=== PATIENT | male | born 1940 | race Caucasian/White ===

== ENCOUNTER 2020-01-24 00:22 | Day surgery (SDC) | payer MEDICARE, SELFPAY ==
[2020-01-23 11:14] VITALS: BMI 28.0
[2020-01-23 12:30] VITALS: BP 122/86; PULSE 57; RESP 15; TEMP 36.8; O2SAT 96
[2020-01-24] VITALS (7 sets, daily range): BP systolic 109–131; BP diastolic 65–84; PULSE 62–82; RESP 14–18; TEMP 36.9; O2SAT 95–100
--- NOTE | 2020-01-24 08:35 | SUR.PREOP ---
ARRIVES TO [facility] 6 VIA WC W/ FAMILY AT BEDSIDE FOR SCHEDULED PACEMAKER GENERATOR CHANGE W/ DR. SWANN. A&OX4, DENIES PAIN OR SOB ON ARRIVAL. ORIENTED TO ROOM, PLAN OF CARE, PROCEDURE. QUESTIONS ANSWERED. VS OBTAINED, IV STARTED, LABS SENT, CHEST PREP COMPLETED, CONSENT SIGNED. MONITOR PACED. AND DAUGHTERS AT BEDSIDE. WILL MONITOR.
[2020-01-24 09:36] LABS: Basophils Percent Auto 0.5 % (0.2-1.2); Eosinophils Absolute Auto 0.2 K/mm3 (0-0.3); Eosinophils Percent Auto 3.2 % (0-4.4); Hematocrit 42.7 % (42.0-52.0); Hemoglobin 14.4 g/dL (14.0-18.0); Immature Granulocyte Absolute 0.04 K/mm3 (0.00-0.031); Immature Granulocyte Percent A 0.5 % (0-0.5); Lymphocytes Absolute Auto 1.73 K/mm3 (0.9-3.2); Lymphocytes Percent Auto 23.1 % (18.3-44.2); Mean Corpuscular HGB Conc 33.7 g/dl (32-36); Mean Corpuscular Hemoglobin 31.9 pg (26-34); Mean Corpuscular Volume 94.7 fl (80-100); Mean Platelet Volume 11.1 fl (7.4-10.4); Monocytes Absolute Auto 0.7 K/mm3 (0.1-0.6); Monocytes Percent Auto 9.9 % (2.6-8.5); Neutrophils Absolute Auto 4.7 K/mm3 (1.3-6.7); Neutrophils Percent Auto 62.8 % (45.5-73.1); Platelet Count Result 182 k/mm3 (150-375); Red Blood Count 4.51 M/mm3 (4.6-6.20); Red Cell Distribution Width 13.6 % (11.5-14.5); White Blood Count 7.5 K/mm3 (4.5-10.0)
--- NOTE | 2020-01-24 09:50 | SUR.PREOP ---
KALIN FROM [facility] HERE TO EVALUATE CURRENT PPM GENERATOR.
[2020-01-24 09:57] LABS: Blood Urea Nitrogen 17 mg/dL (9-20); Calcium 9.6 mg/dL (8.4-10.2); Carbon Dioxide 25 mmol/L (22-30); Chloride 103 mmol/L (98-107); Estimated CRCL calculation 70 ml/min; Estimated Glomerular Filt Rate > 60; Glucose 103 mg/dL (75-110); Potassium 4.3 mmol/L (3.4-5.0); Sodium 136 mmol/L (137-145)
--- NOTE | 2020-01-24 10:13 | WPDHPUPDATE1 ---
History and Physical Update Update Date/Time: 01/24/20 10:13 History and Physical has been reviewed, including an updated exam of the patient. Patient has a [employer] pacemaker [place] [address] kent for intermittent complete heart block. It is reached ADRIANO. He is here for generator change. He is feeling well today, no fevers and has been NPO. There are NO changes in the patient's condition. Risks, benefits, and alternatives have been discussed and questions answered. Patient agrees to proceed with procedure.
--- NOTE | 2020-01-24 10:15 | WPDMODSED ---
Moderate Sedation Note-Pt Data Patient Data Diagnosis: Dual-chamber pacemaker at ADRIANO History of mild aortic stenosis Present Complaint: Pacemaker at ADRIANO Procedure to be performed/Plan: Conscious sedation generator change Allergies Allergy/AdvReac Type Severity Reaction Status Date / Time No Known Allergies Allergy Mild Verified 12/10/19 09:01 Home Medications Medication Instructions Recorded Confirmed Type tramadol 50 mg tablet 50 mg PO Q8H PRN #30 tablet 11/09/19 01/23/20 Rx omeprazole 40 mg capsule,delayed 40 mg PO DAILY #90 cap 11/21/19 01/23/20 Rx release sertraline 50 mg tablet 50 mg PO DAILY #90 tablet 12/10/19 01/23/20 Rx icosapent ethyl 1 gram capsule 2 gm PO BID #360 cap 12/12/19 01/23/20 Rx metformin 500 mg tablet 500 mg PO BID #180 tablet 12/18/19 01/23/20 Rx aspirin 81 mg tablet,delayed 81 mg PO DAILY 01/18/20 01/23/20 History release rosuvastatin 10 mg tablet 10 mg PO DAILY 01/18/20 01/23/20 History tamsulosin 0.4 mg capsule 0.4 mg PO DAILY 01/18/20 01/23/20 History gabapentin 300 mg PO TID 01/23/20 01/23/20 History glucosamine-chondroitin 30 ml PO DAILY 01/23/20 01/23/20 History multivit with rxm-OP-pbktevkz 1 tablet PO DAILY 01/23/20 01/23/20 History [Men's Daily Multivit-Mineral] omega-3 fatty acids-fish oil 1 cap PO DAILY 01/23/20 01/23/20 History verapamil 360 mg PO DAILY 01/23/20 01/23/20 History Sedation/Anesthesia: No previous sedation/anesthesia problems (including family history). 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 Smoking status: Smoker, status unknown Second hand tobacco smoke exposure: No Smoking end date: 11/14/01 Alcohol intake: never Mod Sed Physical Exam Physical Exam Pre Procedural Exam: Normal: Appearance, Eyes, Ears, Nose, Neck, Throat (Dentures), Airway, Lungs, Heart Size, Heart Rate, Heart Rhythm, Neuro Exam, Abdomen, Liver, Extremities and Skin (Pacemaker site is well healed) and Variation: Throat (Dentures) Hours since solid foods: 12 Hours since liquid intake: 12 Internal Medicine - PN: Obj Da Labs CBC & Chem 7: 01/24/20 09:09 01/24/20 09:09 Labs: Laboratory Results - last 24 hr 01/24/20 01/24/20 09:09 09:09 WBC 7.5 RBC 4.51 L Hgb 14.4 Hct 42.7 MCV 94.7 MCH 31.9 MCHC 33.7 RDW 13.6 Plt Count 182 MPV 11.1 H Immature Gran % (Auto) 0.5 Neut % (Auto) 62.8 Lymph % (Auto) 23.1 Pope % (Auto) 9.9 H Eos % (Auto) 3.2 Baso % (Auto) 0.5 Lymph # (Auto) 1.73 Pope # (Auto) 0.7 H Eos # (Auto) 0.2 Baso # (Auto) 0.0 Abs Immat Gran (auto) 0.04 H Absolute Neuts (auto) 4.7 Absolute Nucleated RBC 0.0 Nucleated RBC % 0.0 Sodium 136 L Potassium 4.3 Chloride 103 Carbon Dioxide 25 BUN 17 Creatinine 0.80 Estim Creat Clear Calc 70 Estimated GFR > 60 Glucose 103 Calcium 9.6 ASA Classification/Sedation ASA Classification/Sedation ASA Class: III Risks: Risks, benefits and alternatives explained and patient/family accepted plan for sedation. Reviewed the risk of breathing problems, infection, aller
--- NOTE | 2020-01-24 10:50 | SUR.PREOP ---
DR. SWANN HERE TO BEDSIDE TO SEE PT PRE PROCEDURE.
--- NOTE | 2020-01-24 12:20 | P.OP_ITS ---
Procedure Note - Detailed Date of procedure: 01/24/20 Pre-op diagnosis: ADRIANO Pacemaker at ADRIANO Post-op diagnosis: same ( Insulation break of the right atrial lead noted and repaired.) Procedure performed: Conscious sedation Generator change Description of procedure: PROCEDURE: Concious sedation Generator change UNDERLYING RHYTHM: NSR CONSCIOUS SEDATION: Assessment: The patient has no history of anesthesia problems. The oropharynx is clear. The patient was deemed to be a good candidate for conscious sedation. The patient had continuous hemodynamic and oximetric monitoring during the procedure. Start time: 3 Completion time: 12 15 Total conscious sedation time: 42 Medications: Versed 2 mg, fentanyl 25 mcg IV push Trained observer: marissa Weber RN Outcome: The patient tolerated the procedure well with no complications. PROCEDURE: After informed consent, the patient is brought to the home performance laborer and the left prepectoral area was prepped and draped in usual fashion. The patient was given a prophylactic antibiotic intravenously. After conscious sedation as described above, the area was anesthetized with 1% lidocaine. A skin incision is made with the Plasma Blade and carried down to the pacing capsule which was also incised. Hemostasis is obtained using the Plasma Blade. The lead/s was/were freed from the underlying capsule and the pulse generator was delivered from the pocket. The lead/s was/were disconnected from the existing device and inspected. There was insulation break on the atrial lead about 1.5-2 cm from the electrodes. Adhesive was applied, as well as a sleeve sutured around the lead with 2 0 silk suture. The lead was checked several times and it seemed to be of functioning appropriately with normal impedance. The leads were reconnected to the new device. A gentle tug could not remove it/them. The device and lead/s was/were interrogated and found to be functioning appropriately. The area was copiously irrigated with antibiotic-containing solution. The device was replaced in the pocket. The subcutaneous tissues were closed in a two-layer fashion with interrupted 2 0 Vicryl sutures and the skin was closed in a continuous fashion using 4 0 Vicryl. The area was cleansed, an Aquacel dressing applied. The patient tolerated the procedure well with no complications. Estimated blood loss was negligible. DEVICE INFORMATION: new pulse generator: [employer] model numberPM T2-7 2, serial number [id number] Existing right atrial lead: [employer] model number 199/5 2, Serial number [id number] Existing right ventricular lead: [employer] model 2088TC/ 58,Serial number [id number] Explanted pulse generator: [employer], model number PM 2210, serial number [id number] THRESHOLD INFORMATION: Right atrial lead: P-wave sensing 3.3 mV, impedance 418 Ohms, threshold 0.7 volts, 0.4 milliseconds ( PSA measurement) Right atrial lead: P-wave sensing 2.7 mV, impedance 430 Ohms, threshold 0.75 volts at 0.4 milliseconds (device measurement) Right ventricular lead: Right R-wave sensing 6.0 mV, impedance 350 Ohms, threshold 1.25 volts at 0.4 millisecond (device measured ) PROGRAMMED PARAMETERS: DDDR 60-110 Implants: [employer] dual-chamber pacemaker, pulse generator is model number [id number] Anesthesia: local ( conscious sedation) Surgeon: Codie Correa MD Estimated blood loss (mL): 10 Drains: No Packing: No Pathology: none sent Complications: No immediate complications Condition: stable Disposition: same day Findings: Break in right atrial lead insulation as described above , repaired.
--- NOTE | 2020-01-24 12:27 | SUR.PHASEII ---
BEGIN PHASE II RECOVERY. RETURNS TO [facility] 6 S/P PM GENERATOR CHANGE OUT L. UPPER CHEST BY DR. SWANN. FULLY AWAKE AND ALERT UPON RETURN. DENIES PAIN OR SOB. SITTING UP IN BED. L. UPPER CHEST W/ C/D/I AQUACELL TO SITE. NO DRAINAGE OR SHADOW NOTED. OVER TOP OF AQUACELL DRESSING IS GUAZE AND ELASTOPLAST C/D/I PRESSURE DRESSING. L. HAND WITH WNL SENSATION, COLOR AND WARMTH. L. RADIAL PULSE STRONG. CAP REFILL WNL. FAMILY AT BEDSIDE. REVIEWED L. ARM MOVEMENT RESTRICTIONS. VOICED UNDERSTANDING. WILL MONITOR.
--- NOTE | 2020-01-24 12:36 | ECG_ITS ---
Measurements Intervals [place] Rate: 69 P: 51 NH: 143 QRS: 47 QRSD: 146 T: 6 QT: 411 QTc: 440 Interpretive Statements ELECTRONIC ATRIAL PACEMAKER WITH INHIBITION ATRIAL AND VENTRICULAR PREMATURE COMPLEXES RIGHT BUNDLE BRANCH BLOCK ST-T WAVE ABNORMALITY IN ANTEROLATERAL LEADS- CONSIDER ISCHEMIA BASELINE ARTIFACT- I, III ABNORMAL ECG Electronically Signed On 01-24-2020 16:10:06 CDT by Emmanuel Holguin D.O.
--- NOTE | 2020-01-24 15:40 | SUR.PHASEII ---
HAS EATEN LUNCH AND BEEN UP TO VOID. POST PROCEDURE EKG COMPLETED. L. UPPER CHEST DRESSING UNCHANGED, REMAINS C/D/I. L. RADIAL PULSE REMAINS STRONG. L. HAND SENSATION, MOVEMENT WNL. DRESSING FOR DISCHARGE HOME. REVIEWED ALL DISCHARGE INSTRUCTIONS AND FOLLOW UP CARE W/ PT. AND FAMILY. ALL QUESTIONS ANSWERED. VOICED UNDERSTANDING.
--- NOTE | 2020-01-24 15:45 | SUR.PHASEII ---
DISCHARGED HOME, OUT VIA WC WITH ALL PERSONAL BELONGINGS AND DISCHARGE PACKET TO FAMILY CAR. VOICES NO C/O. NO DISTRESS NOTED.
== END 2020-01-24 15:45 | disposition home or self-care (01) ==
PROVIDERS: PCP Internal Medicine; Visit Provider Internal Medicine Cardiovascular Disease
PROC: 0JPT0PZ Removal of Cardiac Rhythm Related Device from Trunk Subcutaneous Tissue and Fascia, Open Approach (ICD-10-PCS; CPT 33228; principal; 2020-01-24 10:00)
DX: Z45.010 Encounter for checking and testing of cardiac pacemaker pulse generator [battery] (principal); T82.110A Breakdown (mechanical) of cardiac electrode, initial encounter; Y83.1 Surgical operation with implant of artificial internal device as the cause of abnormal reaction of the patient, or of later complication, without mention of misadventure at the time of the procedure; I10 Essential (primary) hypertension; I35.0 Nonrheumatic aortic (valve) stenosis; E78.1 Pure hyperglyceridemia; I27.20 Pulmonary hypertension, unspecified; E11.9 Type 2 diabetes mellitus without complications; N40.0 Benign prostatic hyperplasia without lower urinary tract symptoms; Z79.82 Long term (current) use of aspirin; Z79.84 Long term (current) use of oral hypoglycemic drugs; Z87.891 Personal history of nicotine dependence
CPT/HCPCS: 33208; 33228; 36415; 80048; 85025; C1785; J0690; J2250; J3010; J7040

== ENCOUNTER 2020-04-04 10:59 | Outpatient (CLI) | payer MEDICARE, SELFPAY ==
[2020-04-04 11:44] LABS: Basophils Percent Auto 0.5 % (0.2-1.2); Eosinophils Absolute Auto 0.3 K/mm3 (0-0.3); Eosinophils Percent Auto 3.4 % (0-4.4); Hematocrit 42.7 % (42.0-52.0); Hemoglobin 14.6 g/dL (14.0-18.0); Immature Granulocyte Absolute 0.02 K/mm3 (0.00-0.031); Immature Granulocyte Percent A 0.2 % (0-0.5); Lymphocytes Absolute Auto 2.08 K/mm3 (0.9-3.2); Lymphocytes Percent Auto 24.1 % (18.3-44.2); Mean Corpuscular HGB Conc 34.2 g/dl (32-36); Mean Corpuscular Hemoglobin 32.5 pg (26-34); Mean Corpuscular Volume 95.1 fl (80-100); Mean Platelet Volume 11.6 fl (7.4-10.4); Monocytes Absolute Auto 0.8 K/mm3 (0.1-0.6); Monocytes Percent Auto 9.6 % (2.6-8.5); Neutrophils Absolute Auto 5.4 K/mm3 (1.3-6.7); Neutrophils Percent Auto 62.2 % (45.5-73.1); Platelet Count Result 189 k/mm3 (150-375); Red Blood Count 4.49 M/mm3 (4.6-6.20); Red Cell Distribution Width 13.1 % (11.5-14.5); White Blood Count 8.6 K/mm3 (4.5-10.0)
[2020-04-04 11:56] LABS: Hemoglobin A1C 5.9 % (<5.7)
[2020-04-04 11:58] LABS: Alanine Aminotransferase 17 U/L (4-50); Albumin Level 4.5 g/dL (3.5-5.1); Alkaline Phosphatase 59 U/L (38-126); Aspartate Amino Transferase 28 U/L (17-59); Bilirubin,Total 0.6 mg/dL (0.2-1.3); Blood Urea Nitrogen 24 mg/dL (9-20); Calcium 9.5 mg/dL (8.4-10.2); Carbon Dioxide 22 mmol/L (22-30); Chloride 106 mmol/L (98-107); Cholesterol 125 mg/dL (0-200); Estimated Glomerular Filt Rate > 60; Glucose 89 mg/dL (75-110); HDL Direct 42 mg/dL; Potassium 4.3 mmol/L (3.4-5.0); Sodium 137 mmol/L (137-145); Triglycerides 170 mg/dL (<150)
[2020-04-04 12:09] LABS: LDL Cholesterol Direct 57 mg/dL
== END 2020-04-04 11:00 | disposition home or self-care (01) ==
PROVIDERS: PCP Internal Medicine; Visit Provider Internal Medicine
DX: I10 Essential (primary) hypertension (principal); Z79.899 Other long term (current) drug therapy
CPT/HCPCS: 36415; 80053; 80061; 83036; 84443; 85025

== ENCOUNTER 2022-03-23 09:54 | Outpatient (CLI) | payer MEDICARE, SELFPAY ==
--- NOTE | ~2022-03-23 | CT_ITS ---
EXAMINATION: CT brain wo/w con DATE: 03/23/2022 11:09 INDICATION: Bilateral jaw and hand tremors, left greater than right TECHNIQUE: Computed tomography (CT) of the head was performed without and subsequently with 100 CC Om nipaque 350 intravenous contrast. The mA was adjusted according to patient size. Iterative reconstruc tion technique was employed. Exam dose: 1210.67 mGy-cm total exam DLP. COMPARISON: None FINDINGS: Bilateral carotid siphon and supraclinoid internal carotid artery calcifications. There is nonspecific diminished attenuation of the cerebral white matter, likely due to chronic small vessel i schemic changes. No intracranial mass lesion or hemorrhage or cerebrovascular accident, midline shift or mass effect i s detected. There is cerebellar and central and cortical cerebral volume loss. No subdural or epidural hematoma is detected. No orbital mass lesion. Included paranasal sinuses and mastoid air cells are normally developed and aerated. No fracture or bone destruction of the cranial vault. IMPRESSION: Cerebral atherosclerosis and chronic small vessel ischemic changes of the cerebral white matter Cerebral and cerebellar volume loss No acute intracranial finding Reviewed, dictated and finalized at Location A. Reviewed, dictated and finalized at location B.
[2022-03-23 11:00] LABS: Estimated Glomerular Filt Rate > 60
== END 2022-03-23 09:55 | disposition home or self-care (01) ==
PROVIDERS: PCP Internal Medicine; Visit Provider Internal Medicine
DX: R25.1 Tremor, unspecified (principal); I67.2 Cerebral atherosclerosis
CPT/HCPCS: 70470; Q9967

== ENCOUNTER 2023-04-19 11:29 | Outpatient (CLI) | payer MEDICARE, SELFPAY ==
--- NOTE | ~2023-04-19 | XR_ITS ---
Clinical Indication: Cough PA and lateral views of the chest: Comparison: 07/28/2011 Findings: Questional small focal groundglass opacity at the right midlung and right lung base. Left l rosalva clear. Cardiomediastinal silhouette is stable, with pacemaker device. Bones and soft tissues are unremarkable. Impression: Possible small focal groundglass opacity in the right lung, as above. Focal pneumonitis is not comple tely excluded. Pacemaker device. Reviewed, dictated and finalized at location M. Impression: Possible small focal groundglass opacity in the right lung, as above. Focal pne umonitis is not completely excluded. Pacemaker device.
== END 2023-04-19 11:30 | disposition home or self-care (01) ==
PROVIDERS: PCP Internal Medicine; Visit Provider Internal Medicine
DX: R05.3 Chronic cough (principal); R91.8 Other nonspecific abnormal finding of lung field; Z95.0 Presence of cardiac pacemaker
CPT/HCPCS: 71046

== ENCOUNTER 2023-05-02 09:47 | Outpatient (CLI) | payer MEDICARE, SELFPAY ==
--- NOTE | ~2023-05-02 | XR_ITS ---
XR chest 2V 05/02/2023 10:03 Indication: Increased shortness of breath Procedure: 2 view chest Comparison: Comparison to multiple prior studies sequentially, with oldest reviewed study dated 04/2023. Findings: Borderline heart size. Pacemaker leads in expected position. Left lung clear. Right basilar atelectasis. Small right pleural effusion. No pneumothorax. No edema. Impression: 1: Right basilar atelectasis. 2: Small right pleural effusion. Reviewed, dictated and finalized at location [] Impression: 1: Right basilar atelectasis. 2: Small right pleural effusion.
== END 2023-05-02 09:48 | disposition home or self-care (01) ==
PROVIDERS: PCP Internal Medicine; Visit Provider Internal Medicine
DX: J90 Pleural effusion, not elsewhere classified (principal); R05.3 Chronic cough; R06.02 Shortness of breath; J98.11 Atelectasis
CPT/HCPCS: 71046

== ENCOUNTER 2023-05-16 13:05 | Inpatient (IN) | payer MEDICARE, SELFPAY ==
[2023-05-16] VITALS (8 sets, daily range): BP systolic 74–136; BP diastolic 41–63; PULSE 65–83; RESP 18–23; TEMP 36.6–37.2; O2SAT 92–99
--- NOTE | ~2023-05-16 | CT_ITS ---
EXAMINATION: CT brain wo con DATE: 05/16/2023 14:05 INDICATION: Head injury TECHNIQUE: Computed tomography (CT) of the head was performed without intravenous contrast. The mA wa s adjusted according to patient size. Iterative reconstruction technique was employed. Exam dose: 68 1.00 mGy-cm total exam DLP. COMPARISON: 03/23/2022 CT brain FINDINGS: The examination is mildly limited by motion artifact. Moderate cerebral atrophy, predominantly in the frontal lobes. Moderate cerebellar atrophy. No intracranial mass lesion or hemorrhage, midline shift or mass effect is evident. Bilateral vertebr al artery, basilar artery, bilateral carotid siphon internal carotid artery calcifications. There is nonspecific diminished attenuation of the cerebral white matter, likely due to chronic small vessel i schemic changes. No skull fracture or bone destruction. The mastoid air cells and included paranasal sinuses are unre markable. IMPRESSION: Cerebral atherosclerosis and chronic small vessel ischemic changes of the cerebral white matter No skull fracture or acute intracranial finding Reviewed, dictated and finalized at [facility]. Reviewed, dictated and finalized at location [facility].
--- NOTE | ~2023-05-16 | XR_ITS ---
EXAMINATION: XR shoulder LT min 2V INDICATION: Left shoulder pain TECHNIQUE: Four views of the left shoulder are submitted. COMPARISON: None FINDINGS: Normal alignment. No fracture. There is mild osteoarthritis of the glenohumeral and acromio clavicular joints. Soft tissues are unremarkable. There is a partially imaged dual-lead pacemaker of the left chest wall. IMPRESSION: 1. No acute osseous abnormality. Reviewed, dictated and finalized at location [facility].
--- NOTE | ~2023-05-16 | XR_ITS ---
EXAMINATION: XR chest 2V DATE: 05/16/2023 14:12 INDICATION: Syncope TECHNIQUE: frontal and lateral views of the chest were obtained. COMPARISON: Chest radiograph dated 05/02/2023 FINDINGS: The lungs are clear with no focal airspace opacities, pulmonary edema, pleural effusion or pneumothor ax. The cardiomediastinal silhouette is normal. Dual lead pacemaker/AICD seen with leads projecting o cristina the expected locations of the right atrium and right ventricle. IMPRESSION: 1. No acute cardiopulmonary disease. Reviewed, dictated and finalized at location [facility].
[2023-05-16] MEDS: SODIUM CHLORIDE 0.9% IV 1,000 ML 999 ML IV CONT (13:48)
[2023-05-16 14:08] LABS: Basophils Percent Auto 0.2 % (0.2-1.2); Eosinophils Absolute Auto 0.1 K/mm3 (0-0.3); Eosinophils Percent Auto 0.5 % (0-4.4); Hemoglobin 13.8 g/dL (14.0-18.0); Immature Granulocyte Percent A 0.6 % (0-0.5); Lymphocytes Absolute Auto 1.86 K/mm3 (0.9-3.2); Lymphocytes Percent Auto 10.8 % (18.3-44.2); Mean Corpuscular HGB Conc 34.5 g/dl (32-36); Mean Corpuscular Hemoglobin 32.9 pg (26-34); Mean Corpuscular Volume 95.5 fl (80-100); Mean Platelet Volume 10.6 fl (7.4-10.4); Monocytes Absolute Auto 1.3 K/mm3 (0.1-0.6); Monocytes Percent Auto 7.7 % (2.6-8.5); Neutrophils Absolute Auto 13.8 K/mm3 (1.3-6.7); Neutrophils Percent Auto 80.2 % (45.5-73.1); Platelet Count Result 198 k/mm3 (150-375); Red Blood Count 4.19 M/mm3 (4.6-6.20); White Blood Count 17.2 K/mm3 (4.5-10.0)
[2023-05-16 14:20] LABS: Lactic Acid Reflex 2.2 mmol/L (0.7-2.0)
[2023-05-16 14:21] LABS: INR 1.1; Prothrombin Time 14.3 Seconds (11.1-14.7)
[2023-05-16 14:22] LABS: Partial Thromboplastin Time 30.7 SECONDS (22.3-36.8)
[2023-05-16 14:27] LABS: Alanine Aminotransferase 13 U/L (6-50); Albumin Level 4.1 g/dL (3.5-5.1); Alkaline Phosphatase 56 U/L (38-126); Anion Gap 12 mmol/L (8-16); Aspartate Amino Transferase 30 U/L (17-59); Bilirubin,Total 0.9 mg/dL (0.2-1.3); Blood Urea Nitrogen 22 mg/dL (9-20); Calcium 9.1 mg/dL (8.4-10.2); Carbon Dioxide 21 mmol/L (22-30); Chloride 99 mmol/L (98-107); Estimated CRCL calculation 42 ml/min; Estimated Glomerular Filt Rate 53; Glucose 154 mg/dL (65-110); Sodium 132 mmol/L (137-145)
[2023-05-16 14:40] LABS: CRP 15.8 mg/dL (<1.0)
--- NOTE | 2023-05-16 15:27 | ED.FALL ---
HPI - Fall General Chief Complaint: Fall Stated Complaint: fall Time Seen by Provider: 05/16/23 13:36 History of Present Illness HPI Narrative: Patient is an 83-year-old male who presents ER with dizziness and fall. Patient reports he is trying to get up out of his recliner this afternoon and each time he stood up she got dizzy and fell backwards. This occurred 4 times. He is finally able to stand up and began to walk and fell onto the ground. He did strike his head and did lose consciousness briefly. He was unable to stand up from the floor and laid there for 2 hours. He has no reports of pain at this time. He is unsure why he is so weak. Denies any use of blood thinning medication. He has had no fevers or chills or sweats. No productive cough. No dysuria. No chest pain or chest pressure. Patient found to be hypotensive upon arrival. Related Data Home Medications Medication Instructions Recorded Confirmed aspirin 81 mg tablet,delayed 81 mg PO DAILY 01/18/20 04/07/23 release (Eyal Low Dose Aspirin) glucosamine-chondroitin 1,500 mg 30 ml PO DAILY 01/23/20 04/07/23 -1,200 mg/30 mL oral liquid multivit with minerals-folic 1 tablet PO DAILY 01/23/20 04/07/23 acid-lycopene 0.4 mg-600 mcg tablet (Men's Daily Multivitamin-Mineral) finasteride 5 mg tablet 5 mg PO DAILY 02/10/22 04/07/23 Allergies Allergy/AdvReac Type Severity Reaction Status Date / Time No Known Allergies Allergy Mild Verified 05/16/23 18:23 Review of Systems Review of Systems: All systems reviewed & are unremarkable except as noted in HPI and below Constitutional: Constitutional: Denies chills, Reports fatigue and Denies fever(s) ENT: Denies nasal congestion and Denies sore throat Cardiovascular: Cardiovascular: Denies chest pain, Denies rapid heart rate and Denies radiating jaw, neck or arm pain Respiratory: Respiratory: Denies cough and Denies dyspnea Genitourinary: Genitourinary: Denies dysuria and Denies urinary frequency Musculoskeletal: Musculoskeletal: Denies back pain, Denies arthralgias and Denies joint swelling Neurologic: Reports syncope, Denies headache(s), Denies focal weakness and Denies numbness [facility] Past Medical History Medical History (Updated 05/16/23 @ 18:29 by Xavi Linares MD) Anxiety Aortic stenosis Benign essential hypertension BMI 26.0-26.9,adult BMI 27.0-27.9,adult BMI 28.0-28.9,adult BMI 29.0-29.9,adult BMI 30.0-30.9,adult BMI 31.0-31.9,adult BPH (benign prostatic hyperplasia) Cardiac pacemaker in situ Sick Sinus Syndrome Constipation Degenerative joint disease of knee DM type 2 (diabetes mellitus, type 2) Effusion, right knee Encounter for Medicare annual wellness exam Encounter for routine adult health examination with abnormal findings Encounter for routine adult health examination without abnormal findings Hearing loss Hyperlipidemia Injury of right elbow Left knee DJD On jail drug therapy Pain of right hip joint Painful urination Persistent cough Primary osteoarthritis of both knees RBBB (right bundle branch block) Right knee DJD Right knee pain Stress Stress due to illness of family member Tear of right rotator cuff Trochanteric bursitis of right hip Vision abnormalities Surgical History Surgical History H/O cataract extraction Family History Family History Sibling Family history of coronary artery disease Mother Family history of congestive heart failure, Onset Age: 80 Patient's mother is Family history of diabetes mellitus in first degree relative Family history of coronary artery disease Diabetes mellitus Other Family history of arthritis Social History Social History Social History: , 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 Smoking status: Former sm
[2023-05-16 15:48] LABS: Appearance Urine Clear (Clear); Bilirubin Urine Negative (Negative); Blood Urine Negative (Negative); Color Urine Yellow (Yellow); Glucose Urine UA Negative (Negative); Ketones Urine Trace mg/dL (Negative); Leukocyte Esterase Ur Negative LEU/UL (Negative); Nitrate Urine Negative (Negative); Protein Urine Negative (Negative); Specific Grav Ur 1.013 (1.001-1.035); pH Urine 5.5 (5.0-9.0)
[2023-05-16 15:58] LABS: Add Urine Microscopic? NO
[2023-05-16 16:36] LABS: Influenza A QL RT-PCR Negative (Negative); Influenza B QL RT-PCR Negative (Negative); SARS-CoV-2 RNA PCR Negative (Negative)
[2023-05-16 17:06] LABS: Reflex Lactic Acid Yes or No Add Lactic
--- NOTE | 2023-05-16 17:27 | PC.NURSE ---
Heart Healthy Dinner Tray ordered @3509
[2023-05-16 17:39] LABS: Lactic Acid 1.1 mmol/L (0.7-2.0)
[2023-05-16] MEDS: AZITHROMYCIN 500 MG/NS 250 ML 500 MG/250 ML BAG 250 MG IVPB (17:39)
--- NOTE | 2023-05-16 18:10 | ADMGEN ---
This patient, Chris Mulligan, was admitted to Medical Room 246-01. Patient/family oriented to hospital policies and general routines including ID bracelet, bed and alarms, visiting hours, pain management, procedures, bathroom and other care routines, personal items, smoking policy, room service/diet, and visiting hours. Information on how to activate the Rapid Response Team has been discussed. Patient/Family are encouraged to report perceived risks to care and to ask questions if they do not understand what they are told or what they should do.
--- NOTE | 2023-05-16 19:40 | PM.IMHP ---
H&P: HPI History of Present Illness Date/Time: 05/16/23 19:40 Chief Complaint: syncope Narrative: Patient is an 83-year-old male with a past medical history including but not limited to tremor, Parkinson's disease, hypertension, diabetes, dyslipidemia who presents ER with dizziness and fall.?The patient was in his usual state of health until this morning. He wakes up around 6:00 a.m. and start his routine. He is visited by his daughter daily. Another daughter spends 2 weeks a month with him. Patient reports he is trying to get up out of his recliner this morning and each time he stood up she got dizzy and fell backwards.? This occurred 4 times.? He is finally able to stand up and began to walk and fell onto the ground.? He did strike his head and did lose consciousness briefly.? He was unable to stand up from the floor and laid there for 2 hours. His daughter was able to make it house around 10:00 am. At the time of my evaluation, the patient reports L shoulder pain. He did moderately ok with mental calculations, current events and was able to draw a clock.? He is unsure why he is so weak.? Denies any use of blood thinning medication.? He has had no fevers or chills or sweats.? No productive cough.? No dysuria.? No chest pain or chest pressure.? Patient found to be hypotensive upon arrival. He was appropriately started on IV fluids with improvement of his BP from 74/61 to 125/59. Head CT of the head was ordered and did not reveal any acute changes. Hospital medicine service was consulted for further evaluation and management of syncopal episode. Approximately 12 years prior to this admission, the patient received a dual-chamber [employer] pacemaker. His primary education teacher is Dr. Dillan Schmidt. He also has mild aortic stenosis. Echocardiogram from 09/10/2020 shows normal left ventricular systolic function, EF 58%, impaired diastolic relaxation grade 1, moderate aortic stenosis, valve area of 1.34 cm2. Aortic cusps appear severely calcified, mild pulmonary hypertension based on right ventricular systolic pressure. Estimated peak systolic pressure is 40 mm of mercury. Mild tricuspid regurgitation. On repeat echocardiogram 09/17/2021 there is severe aortic stenosis. Peak gradient of 39 mm of mercury. Mean gradient of 22 mm of mercury. Valve area of 1.12 cm2. Aortic cusps appear moderately sclerotic. Compared to 20/3 point any aortic stenosis has progressed. The patient will be admitted for overnight observation, neuro check, tele monitoring. Neurology evaluation and repeat CT of the brain in a.m. Review of Systems Review of Systems: CONSTITUTIONAL: Negative for any fevers, chills, night sweats, tiredness, fatigue, malaise, anorexia or weight loss. CARDIOVASCULAR: Negative for chest pain, palpitations, dizziness, orthopnea or lower extremity edema. RESPIRATORY: Negative for shortness of breath, cough, wheezing, sputum. GASTROINTESTINAL: Negative for nausea, vomiting, diarrhea or abdominal pain. GENITOURINARY: Negative for frequency, nocturia, dysuria, hematuria. GYNECOLOGIC: Negative for abnormal bleeding. HEMATOLOGIC: Negative for any abnormal bleeding or bruising. MUSCULOSKELETAL: Negative for joint swelling, stiffness or pain. SKIN: Negative for rashes, eruptions, lesions or dryness. NEUROLOGIC: Negative for any focal neurologic complaints. PSYCHIATRIC: Negative for anxiety, panic, depression. COUNT INCLUDES THE [facility] Past Medical History Medical History Anxiety Aortic stenosis Benign essential hypertension BMI 26.0-26.9,adult BMI 27.0-27.9,adult BMI 28.0-28.9,adult BMI 29.0-29.9,adult BMI 30.0-30.9,adult BMI 31.0-31.9,adult BPH (benign prostatic hyperplasia) Cardiac pacemaker in situ Sick Sinus Syndrome Constipation Degenerative joint disease of knee DM type 2 (diabetes mellitus, type 2) Effusion, right knee Encounter for Medicare annual wellness exam Encounter for routine adult he
[2023-05-16] MEDS: ACETAMINOPHEN 325 MG TABLET 650 MG PO (22:03)
[2023-05-16] MEDS: diphenhydrAMINE HCl CAP 25 MG CAPSULE 50 MG PO (22:03)
[2023-05-17] VITALS (13 sets, daily range): BP systolic 101–139; BP diastolic 51–68; PULSE 57–133; RESP 16–18; TEMP 36.2–37.2; O2SAT 93–95
[2023-05-17] MEDS: GABAPENTIN 300 MG CAPSULE 600 MG PO ×4 (00:51→16:31)
[2023-05-17] MEDS: PROPRANOLOL HCL 10 MG TABLET PO ×3 (00:53→21:04)
[2023-05-17 06:06] LABS: Basophils Percent Auto 0.3 % (0.2-1.2); Eosinophils Absolute Auto 0.4 K/mm3 (0-0.3); Hemoglobin 12.8 g/dL (14.0-18.0); Immature Granulocyte Absolute 0.05 K/mm3 (0.00-0.031); Immature Granulocyte Percent A 0.4 % (0-0.5); Lymphocytes Absolute Auto 1.42 K/mm3 (0.9-3.2); Lymphocytes Percent Auto 11.6 % (18.3-44.2); Mean Corpuscular HGB Conc 33.7 g/dl (32-36); Mean Corpuscular Hemoglobin 32.2 pg (26-34); Mean Corpuscular Volume 95.7 fl (80-100); Mean Platelet Volume 10.7 fl (7.4-10.4); Monocytes Absolute Auto 1.4 K/mm3 (0.1-0.6); Monocytes Percent Auto 11.6 % (2.6-8.5); Neutrophils Absolute Auto 8.9 K/mm3 (1.3-6.7); Neutrophils Percent Auto 73.1 % (45.5-73.1); Platelet Count Result 175 k/mm3 (150-375); Red Blood Count 3.97 M/mm3 (4.6-6.20); White Blood Count 12.2 K/mm3 (4.5-10.0)
[2023-05-17 06:26] LABS: Anion Gap 6 mmol/L (8-16); Blood Urea Nitrogen 15 mg/dL (9-20); Calcium 8.6 mg/dL (8.4-10.2); Carbon Dioxide 23 mmol/L (22-30); Chloride 105 mmol/L (98-107); Estimated CRCL calculation 74 ml/min; Estimated Glomerular Filt Rate > 60; Glucose 135 mg/dL (65-110); Potassium 4.2 mmol/L (3.4-5.0); Sodium 134 mmol/L (137-145)
[2023-05-17] MEDS: CARBIDOPA/LEVODOPA 25/100 MG TABLET 4 TABLET PO ×3 (08:31→16:32)
[2023-05-17] MEDS: ENOXAPARIN 40 MG/0.4 ML SYRINGE SUB-Q (08:32)
[2023-05-17] MEDS: PRIMIDONE 50 MG TABLET 100 MG PO ×2 (08:32→12:46)
[2023-05-17] MEDS: ASPIRIN 81 MG ENTERIC TABLET PO (08:32)
[2023-05-17] MEDS: SERTRALINE HCL 50 MG TABLET PO (08:33)
[2023-05-17] MEDS: THERAPEUTIC MULTIVITAMINS/MINERALS TAB (*BKC) 1 TABLET PO (08:33)
[2023-05-17] MEDS: ROSUVASTATIN 10 MG TABLET PO (08:34)
[2023-05-17] MEDS: hydroCHLOROthiazide 12.5 MG CAPSULE PO (08:34)
[2023-05-17] MEDS: TAMSULOSIN HCL 0.4 MG CAPSULE PO (08:34)
[2023-05-17] MEDS: metFORMIN HCL 500 MG TABLET PO ×2 (08:34→16:34)
[2023-05-17] MEDS: FINASTERIDE 5 MG TABLET PO (08:35)
[2023-05-17] MEDS: lisinopriL 20 MG TABLET PO (08:35)
[2023-05-17] MEDS: PANTOPRAZOLE 40 MG TABLET PO (08:35)
[2023-05-17] MEDS: OMEGA 3 POLYUNSAT FATTY ACIDS 1 GM CAP PO (08:36)
--- NOTE | 2023-05-17 12:07 | PM.IMPN ---
Progress Note: A&P Assessment and Plan (1) Syncope: Code(s): R55 - Syncope and collapse Status: Acute Assessment and Plan: Symptoms have improved. History of severe aortic stenosis. Cardiology consult. Likely related to hypotension in the setting of . Blood pressure improved. Asymptomatic now. (2) Hypotension: Code(s): I95.9 - Hypotension, unspecified Status: Acute Assessment and Plan: Likely from dehydration. Improved with IV fluids (3) Parkinsons disease: Code(s): G20 - Parkinson's disease Status: Acute Assessment and Plan: Patient carries a diagnosis of parkinsonism and is on carbidopa that we will resume. (4) Cardiac pacemaker in situ: Code(s): Z95.0 - Presence of cardiac pacemaker Status: Acute Assessment and Plan: Follow-up with cardiology recommendation. (5) Left anterior shoulder pain: Code(s): M25.512 - Pain in left shoulder Status: Acute Assessment and Plan: Likely soft tissue contusion as a result of the fall. Pain management with Tylenol. Obtain left shoulder x-ray. (6) Leucocytosis: Code(s): D72.829 - Elevated white blood cell count, unspecified Status: Acute Assessment and Plan: Leukocytosis is likely reactional. Plan DVT prophylaxis Lovenox Subjective Date/time seen: 05/17/23 12:07 Interval history: Blood pressure improved. Denies any chest pain or shortness of breath Exam Narrative: VITAL SIGNS: Blood pressure 136/49 , pulse 78 , respiratory rate 18 , temperature 98.9F , O2 sat 94 % on room air. GENERAL: The patient is alert and oriented, in no apparent distress. He is pleasant and conversant in full sentences. HEENT: Pupils are equally round and briskly reactive to light. Extraocular muscles are intact. Oral mucous membranes are moist without lesions. NECK: The patient has no noted JVD. No adenopathy is appreciated. CHEST/LUNGS: Lungs are clear bilaterally without rhonchi, rales, or wheezes. There is no subcutaneous air appreciated. There is no tenderness to the chest wall. HEART: The patient has an irregular rate and rhythm. No murmurs, rubs, or gallops are appreciated. Distal pulses are 2+. No carotid bruits appreciated. ABDOMEN: The patient?s abdomen is soft, nontender, and nondistended. Bowel sounds are positive. No organomegaly is appreciated. No masses are appreciated. There are no peritoneal signs. There is no Leo?s sign. EXTREMITIES: The patient has no peripheral edema. There is no focal long bone tenderness or deformity. SKIN: The patient?s skin is warm and dry, without rashes or lesions. PSYCHIATRIC: The patient has normal mental status and has an appropriate affect. NEUROLOGIC: The patient has 4/5 strength to the upper and lower extremities bilaterally. Sensation is intact throughout. Gait testing was deferred. There are no deficits to the cranial nerves. Objective Data Vital Signs Vital Signs: Vital Signs - 24 hr 05/16/23 13:20 05/16/23 13:35 05/16/23 13:37 Temperature 97.9 F Pulse Rate 77 74 76 Respiratory Rate 22 H 22 H 23 H Blood Pressure 91/48 L 74/61 L 77/41 L Pulse Oximetry 93 94 92 Oxygen Delivery Room Air 05/16/23 13:46 05/16/23 14:41 05/16/23 14:47 Temperature Pulse Rate 65 83 72 Respiratory Rate 22 H 18 21 H Blood Pressure 93/45 L 95/63 L 125/59 L Pulse Oximetry 93 95 99 Oxygen Delivery 05/16/23 18:57 05/16/23 20:22 05/16/23 20:00 Temperature 98.9 F Pulse Rate 78 78 Respiratory Rate 18 Blood Pressure 136/49 L Pulse Oximetry 94 Oxygen Delivery Room Air 05/16/23 20:00 05/17/23 00:00 05/17/23 00:53 Temperature Pulse Rate 78 70 98 Respiratory Rate 18 Blood Pressure Pulse Oximetry 94 Oxygen Delivery Room Air 05/17/23 04:00 05/17/23 06:00 05/17/23 08:01 Temperature 98.1 F Pulse Rate 120 H 61 60 Respiratory Rate 18 Blood Pressure 127/51 L Pulse Oximetry 94 Oxygen Delivery
[2023-05-17] MEDS: PRIMIDONE 50 MG TABLET PO (16:34)
[2023-05-17] MEDS: AZITHROMYCIN 500 MG/NS 250 ML 500 MG/250 ML BAG 250 MG IVPB (17:00)
[2023-05-17] MEDS: ACETAMINOPHEN 325 MG TABLET 650 MG PO (21:03)
[2023-05-17] MEDS: diphenhydrAMINE HCl CAP 25 MG CAPSULE 50 MG PO (21:04)
[2023-05-18] VITALS: PULSE 65
[2023-05-18 04:00] VITALS: PULSE 61
[2023-05-18 05:02] LABS: Basophils Absolute Auto 0.1 K/mm3 (0.0-0.1); Basophils Percent Auto 0.5 % (0.2-1.2); Eosinophils Absolute Auto 0.8 K/mm3 (0-0.3); Eosinophils Percent Auto 6.5 % (0-4.4); Hematocrit 38.3 % (42.0-52.0); Hemoglobin 12.7 g/dL (14.0-18.0); Immature Granulocyte Absolute 0.09 K/mm3 (0.00-0.031); Immature Granulocyte Percent A 0.8 % (0-0.5); Lymphocytes Percent Auto 14.6 % (18.3-44.2); Mean Corpuscular HGB Conc 33.2 g/dl (32-36); Mean Corpuscular Hemoglobin 32.1 pg (26-34); Mean Corpuscular Volume 96.7 fl (80-100); Mean Platelet Volume 10.9 fl (7.4-10.4); Monocytes Absolute Auto 1.4 K/mm3 (0.1-0.6); Neutrophils Absolute Auto 7.6 K/mm3 (1.3-6.7); Neutrophils Percent Auto 65.6 % (45.5-73.1); Platelet Count Result 184 k/mm3 (150-375); Red Blood Count 3.96 M/mm3 (4.6-6.20); White Blood Count 11.6 K/mm3 (4.5-10.0)
[2023-05-18 05:20] LABS: Anion Gap 7 mmol/L (8-16); Blood Urea Nitrogen 13 mg/dL (9-20); Calcium 8.6 mg/dL (8.4-10.2); Carbon Dioxide 25 mmol/L (22-30); Chloride 101 mmol/L (98-107); Estimated CRCL calculation 74 ml/min; Estimated Glomerular Filt Rate > 60; Glucose 115 mg/dL (65-110); Sodium 133 mmol/L (137-145)
[2023-05-18 05:24] VITALS: BP 142/78; PULSE 61; RESP 17; TEMP 36.6; O2SAT 95
[2023-05-18 08:00] VITALS: PULSE 62
[2023-05-18] MEDS: CARBIDOPA/LEVODOPA 25/100 MG TABLET 4 TABLET PO ×2 (08:16→11:04)
[2023-05-18] MEDS: ROSUVASTATIN 10 MG TABLET PO (08:16)
[2023-05-18] MEDS: PRIMIDONE 50 MG TABLET 100 MG PO ×2 (08:16→12:05)
[2023-05-18 08:17] VITALS: PULSE 61
[2023-05-18] MEDS: FINASTERIDE 5 MG TABLET PO (08:17)
[2023-05-18] MEDS: ENOXAPARIN 40 MG/0.4 ML SYRINGE SUB-Q (08:17)
[2023-05-18] MEDS: PROPRANOLOL HCL 10 MG TABLET PO (08:17)
[2023-05-18 08:18] VITALS: PULSE 61; RESP 18; O2SAT 95
[2023-05-18] MEDS: PANTOPRAZOLE 40 MG TABLET PO (08:18)
[2023-05-18] MEDS: SERTRALINE HCL 50 MG TABLET PO (08:18)
[2023-05-18] MEDS: lisinopriL 20 MG TABLET PO (08:18)
[2023-05-18] MEDS: metFORMIN HCL 500 MG TABLET PO (08:18)
[2023-05-18] MEDS: ASPIRIN 81 MG ENTERIC TABLET PO (08:18)
[2023-05-18] MEDS: GABAPENTIN 300 MG CAPSULE 600 MG PO ×2 (08:18→12:05)
[2023-05-18] MEDS: TAMSULOSIN HCL 0.4 MG CAPSULE PO (08:18)
[2023-05-18] MEDS: OMEGA 3 POLYUNSAT FATTY ACIDS 1 GM CAP PO (08:19)
[2023-05-18] MEDS: THERAPEUTIC MULTIVITAMINS/MINERALS TAB (*BKC) 1 TABLET PO (08:19)
[2023-05-18] MEDS: hydroCHLOROthiazide 12.5 MG CAPSULE PO (08:19)
--- NOTE | 2023-05-18 11:22 | PM.DS ---
DS: Admitting Diagnosis Discharge Date 05/18/23 Admitting Diagnosis Syncope DS: Discharge Diagnosis Discharge Diagnosis (1) Syncope: Code(s): R55 - Syncope and collapse Status: Acute (2) Hypotension: Code(s): I95.9 - Hypotension, unspecified Status: Acute (3) Parkinsons disease: Code(s): G20 - Parkinson's disease Status: Acute (4) Cardiac pacemaker in situ: Code(s): Z95.0 - Presence of cardiac pacemaker Status: Acute (5) Left anterior shoulder pain: Code(s): M25.512 - Pain in left shoulder Status: Acute (6) Leucocytosis: Code(s): D72.829 - Elevated white blood cell count, unspecified Status: Acute DS: Summary Hospital Course Reason for hospitalization: 83-year-old male with a past medical history of tremor, Parkinson's disease, hypertension, diabetes, dyslipidemia who presents ER with dizziness and fall.?Please see H&P for details. Hospital Course: Patient was brought to the emergency room for evaluation. Blood pressure was low at 74/61. Lactic acid was slightly elevated 2.2. COVID and influenza swabs were negative. His white count was 17 K. sodium was low 132 with BUN 22 and creatinine 1 3. CRP was 15.8. UA was negative. Head CT showed no acute changes. Chest x-ray was clear. Left shoulder x-ray showed no acute process. He did have soft tissue injury to the left shoulder from the fall but this has improved since admission. He has had a productive cough for few weeks. He was started on antibiotics in the emergency room for bronchitis. He has occasional complaints of dysphagia but family and patient declines swallowing evaluation at this time. Blood cultures are no growth today. Patient was started on IV fluids. He had clinical improvement. He denies feeling lightheaded when he stands. He has been up walking to the bathroom with a walker without symptoms. He believes that he became dehydrated because he was out mowing his lawn for extended period without breaks. His home medications were resumed and he appears to be tolerating this. White count improved. His renal function improved as well with creatinine down to 0.7. He overall did well was able be discharged home on 05/18/2023. He was educated about the benefits of remaining well hydrated in the heat and take frequent breaks when working outside. Family at bedside and were also updated with patient's permission. Status at Discharge Cognitive/behavioral status at discharge: Stable Time Spent with Patient Time attestation: Total time spent providing and/or coordinating discharge services: 35 minutes Time spent: Greater than 30 minutes Exam Narrative: AF 97.9 142/78 61 18 95% ra Gen - NARD Chest - CTA bilaterally, nml RR CV - RRR S1/S2. Tele showing mostly paced rhythm Abd - Soft, NT/ND, Positive BS Ext - No pedal edema Neuro - Alert and appropriate. Ambulating well with walker. Slight resting tremor LUE Psych - Nml mood and affect Skin - Warm and dry DS: Data Data Completed and Pending Labs on day of discharge: Labs from last 24 hours 05/18/23 04:23 WBC 11.6 H RBC 3.96 L Hgb 12.7 L Hct 38.3 L MCV 96.7 MCH 32.1 MCHC 33.2 RDW 13.0 Plt Count 184 MPV 10.9 H Immature Gran % (Auto) 0.8 H Neut % (Auto) 65.6 Lymph % (Auto) 14.6 L Potter % (Auto) 12.0 H Eos % (Auto) 6.5 H Baso % (Auto) 0.5 Lymph # (Auto) 1.70 Potter # (Auto) 1.4 H Eos # (Auto) 0.8 H Baso # (Auto) 0.1 Abs Immat Gran (auto) 0.09 H Absolute Neuts (auto) 7.6 H Absolute Nucleated RBC 0.0 Nucleated RBC % 0.0 Sodium 133 L Potassium 4.0 Chloride 101 Carbon Dioxide 25 Anion Gap 7 L BUN 13 Creatinine 0.70 Estim Creat Clear Calc 74 Estimated GFR > 60 Glucose 115 H Calcium 8.6 Preliminary micro results at discharge 05/16/23 13:59 Blood Culture - Preliminary Blood 05/16/23 13:58 Blood Culture - Preliminary Blood Dischar
--- NOTE | 2023-05-23 13:07 | PC.NURSE ---
Blood cx are negative. Dr. Choco cullen.
== END 2023-05-18 12:20 | disposition home or self-care (01) | DRG 641 ==
LOC: ANHED 14:19 → ANH2MED 17:36
PROVIDERS: Internal Medicine; Admitting Provider Student in an Organized Health Care Education/Training Program; Emergency Provider Emergency Medicine; PCP Internal Medicine; Visit Provider Internal Medicine
DX: E86.0 Dehydration (principal); I95.89 Other hypotension; R55 Syncope and collapse; W18.30XA Fall on same level, unspecified, initial encounter; J40 Bronchitis, not specified as acute or chronic; R13.10 Dysphagia, unspecified; G20 Parkinson's disease; D72.829 Elevated white blood cell count, unspecified; E11.9 Type 2 diabetes mellitus without complications; I10 Essential (primary) hypertension; E78.5 Hyperlipidemia, unspecified; I35.0 Nonrheumatic aortic (valve) stenosis; S40.012A Contusion of left shoulder, initial encounter; Z20.822 Contact with and (suspected) exposure to COVID-19; Z95.0 Presence of cardiac pacemaker; Z79.82 Long term (current) use of aspirin; Z87.891 Personal history of nicotine dependence
CPT/HCPCS: 36415; 70450; 71046; 73030; 80048; 80053; 81003; 83605; 85025; 85610; 85730; 86140; 87040; 87636; 96361; 96365; 96368; 99285; A9270; G0378; J0456; J0696; J1650; J7030

== ENCOUNTER 2023-05-24 10:40 | Outpatient (CLI) | payer MEDICARE, SELFPAY ==
[2023-05-24 11:52] LABS: Anion Gap 3 mmol/L (8-16); Blood Urea Nitrogen 22 mg/dL (9-20); Calcium 9.9 mg/dL (8.4-10.2); Carbon Dioxide 28 mmol/L (22-30); Chloride 100 mmol/L (98-107); Estimated Glomerular Filt Rate > 60; Glucose 95 mg/dL (65-110); Potassium 4.8 mmol/L (3.4-5.0); Sodium 131 mmol/L (137-145)
== END 2023-05-24 10:41 | disposition home or self-care (01) ==
LOC: ANHLAB 10:42
PROVIDERS: PCP Internal Medicine; Visit Provider Internal Medicine
DX: I95.9 Hypotension, unspecified (principal); Z79.899 Other long term (current) drug therapy
CPT/HCPCS: 36415; 80048

== ENCOUNTER 2023-05-27 09:27 | Outpatient (CLI) | payer MEDICARE, SELFPAY ==
--- NOTE | 2023-05-30 16:53 | P.PCNPFT_ITS ---
PFT Procedure Performed PFT Procedure Performed Spirometry with Pre/Post Bronchodilator Plethysmography (Lung Vol) Diffusing Cap (DLCO) Flow Vol Loop PFT Interpretation DOS: 05/27/2023 REQUESTING: Ramu Myers MD REASON FOR TESTING: chronic cough PULMONARY FUNCTION TESTS Results are reliable and reproducible at a Grade B level. Spirometry: Pre-bronchodilator FEV1 is 2.17 L, 74% predicted, normal. Pre- bronchodilator FVC is 2.85 L, 71% predicted, below normal. FEV1/FVC is 76%, normal. After bronchodilator, there is a 2% drop in the FEV1 and a 10% increase in the FVC. FVC becomes 3.13 L, 77% predicted, normal. FEV1 is 2.13 L, 72%, normal. FEV1 /FVC is 68%, normal. Lung volumes: Total lung capacity is 6.89 L, 92% predicted, normal. Residual volume is 4.04 L, 142% predicted, increased. RV/TLC is 59%, increased. He has air trapping. Diffusion: DLCO is 18.6, 78%, normal. DLCO / VA 4.17, 123%, normal. Flow volume loop: Normal expiratory limb. Inspiratory limb stopped prematurely. Nonspecific pattern. IMPRESSION: Spirometry shows no obstruction. He had a nonsignificant response to bronchodilator. Air trapping is present with an elevated residual volume and RV/TLC ratio. Diffusion is within normal limits. Air trapping is a component of obstructive conditions. Obstruction is not documented on spirometry. His findings may reflect aging. There is no pathologic condition confirmed by this test. No prior study to compare. Linda Oropeza MD
== END 2023-05-27 09:28 | disposition home or self-care (01) ==
PROVIDERS: PCP Internal Medicine; Visit Provider Internal Medicine
DX: R05.3 Chronic cough (principal); R06.02 Shortness of breath
CPT/HCPCS: 94060; 94726; 94729

== ENCOUNTER 2023-07-05 09:51 | Outpatient (CLI) | payer MEDICARE, SELFPAY ==
--- NOTE | ~2023-07-05 | XR_ITS ---
EXAMINATION: XR chest 2V 07/05/2023 10:13 INDICATION: Cough and shortness of breath. Bronchitis. PROCEDURE: 2 view chest COMPARISON: Comparison to multiple prior studies sequentially, with oldest reviewed study dated 07/28. FINDINGS: The lungs are clear. Pacemaker leads are in expected position. There is lower thoracic spon dylosis with lower thoracic wedge compression deformities and accentuated kyphosis. These findings ap pear chronic. The cardiomediastinal silhouette is within normal limits. There are no pleural effusio ns. There is no pneumothorax suspected. IMPRESSION: 1: NO ACUTE CARDIOPULMONARY DISEASE. Reviewed, dictated and finalized at location [facility].
== END 2023-07-05 09:52 | disposition home or self-care (01) ==
PROVIDERS: PCP Internal Medicine; Visit Provider Internal Medicine
DX: R05.9 Cough, unspecified (principal); R06.02 Shortness of breath
CPT/HCPCS: 71046

== ENCOUNTER 2024-03-06 12:24 | Outpatient (CLI) | payer MEDICARE, SELFPAY ==
--- NOTE | ~2024-03-06 | US_ITS ---
EXAMINATION:US venous doppler LE LT INDICATION:Leg swelling TECHNIQUE: Multiple grayscale, color flow and Doppler images of the left lower extremity deep venous systems were obtained and reviewed. COMPARISON:No prior studies for comparison. FINDINGS: The common femoral, superficial femoral and popliteal veins demonstrate normal respiratory variation, augmentation and compressibility. Color flow is also seen within the posterior tibial, pe roneal, greater saphenous and profunda veins. IMPRESSION: 1: No lower extremity deep venous thrombosis. Reviewed, dictated and finalized at location B.
== END 2024-03-06 12:25 | disposition home or self-care (01) ==
PROVIDERS: PCP Internal Medicine; Visit Provider Internal Medicine Cardiovascular Disease
DX: R60.0 Localized edema (principal)
CPT/HCPCS: 93971

== ENCOUNTER 2024-06-01 13:50 | Outpatient (CLI) | payer MEDICARE, SELFPAY ==
--- NOTE | 2024-06-01 19:22 | WPDPFTINT ---
PFT Procedure Performed PFT Procedure Performed Spirometry with Pre/Post Bronchodilator Plethysmography (Lung Vol) Diffusing Cap (DLCO) Flow Vol Loop PFT Interpretation DOS: 06/01/2024 REQUESTING: Karlo Bartlett MD REASON FOR TESTING: Aspiration in airway PULMONARY FUNCTION TESTS Results are reliable and reproducible. Repeatability of spirometry FEV1 maneuver pre and post bronchodilator is Grade A. Spirometry: The pre-bronchodilator FEV1 is 2.67 L, 95%. The pre-bronchodilator FVC is 3.40 L, 88%. The FEV1/FVC ratio is 79%. After bronchodilator, the FEV1 is 2.69 L. 96%, +1%. The post bronchodilator FVC is 3.54 L, 92%, +4%. The FEV1/FVC ratio is 96%. Lung volumes: The total lung capacity is 6.94 L, 96%. The residual volume is 3.43 L, 122%. The RV/TLC is 49%. Airway resistance is increased. Diffusion: DLCO is 25.6, 111%. The DLCO/VA is 4.04, 118%. Flow volume loop: The flow volume loop is normal. IMPRESSION: Normal spirometry without response to bronchodilator, normal lung volumes, normal diffusion. Lack of response to bronchodilator should not preclude use if clinically indicated. Compared to study 05/27/2023, FEV1 is now 500 ml higher and FVC is 550 ml higher. RV is normal, no air trapping on current study compared to moderate air trapping a year ago. Diffusion is similar. Overall, current study is improved. Linda Oropeza MD
== END 2024-06-01 13:51 | disposition home or self-care (01) ==
LOC: ANHPFT 13:52
PROVIDERS: PCP Internal Medicine; Visit Provider Internal Medicine Pulmonary Disease
DX: T17.908A Unspecified foreign body in respiratory tract, part unspecified causing other injury, initial encounter (principal)
CPT/HCPCS: 92507; 92526; 94060; 94726; 94729

== ENCOUNTER 2024-06-05 16:37 | Outpatient (CLI) | payer MEDICARE, SELFPAY ==
--- NOTE | ~2024-06-05 | CT_ITS ---
EXAMINATION: CT diagnostic chest wo con DATE: 06/05/2024 17:01 INDICATION: Foreign body in respiratory tract. TECHNIQUE: Computed tomography (CT) of the chest was performed without intravenous contrast. The dose -length product was 274.95 mGy-cm. Automated exposure control and iterative reconstruction technique were employed. COMPARISON: CT dated 07/26/2011 FINDINGS: No radiopaque foreign body is identified in the respiratory tract. There is dependent atele ctasis. There are small pulmonary nodules in the left lower lobe measuring 3 mm or less, likely benig n. No thoracic lymphadenopathy. Heart size normal. Small hiatal hernia. No pneumothorax. No endobronc hial lesions. Pacemaker leads are present. There is severe lower thoracic and upper lumbar spondylosi s. IMPRESSION: 1. No acute cardiopulmonary disease. 2: No radiopaque foreign bodies in the respiratory tract identified. 3: Small pulmonary nodules measuring 3 mm or less, likely benign. Reviewed, dictated and finalized at location B.
== END 2024-06-05 16:38 | disposition home or self-care (01) ==
LOC: ANHIMG 16:37
PROVIDERS: PCP Internal Medicine; Visit Provider Internal Medicine Pulmonary Disease
DX: R91.8 Other nonspecific abnormal finding of lung field (principal)
CPT/HCPCS: 71250; 92507

== ENCOUNTER 2024-07-09 13:30 | Outpatient (RCR) | payer MEDICARE, SELFPAY ==
--- NOTE | 2024-05-30 13:04 | STOPEVAL1 ---
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 Patient's daughter, Apple, who was present, reported the patient coughs a lot and that he was given a Modified Barium Swallow study at one of the hospitals in [place] which was ordered by his neurologist, Dr. Diaz. On that study, they reported that at least a little amount of every consistency entered his airway. Patient reports that he can just look at food and start to slobber. He stated that he tolerates, for example , a Ar[employer] breakfast without difficulty. Daughter reports that she has quit serving him soup and also cornbread as she noticed that he had begun to exhibit a chronic cough about two years ago. Reported Pain Level Pain Score 0: Self Report Assessment ST Clinical Summary BEDSIDE SWALLOW EVALUATION AND SPEECH EVALUATION This patient was seen for a swallowing with speech evaluation after having been observed to exhibit aspiration on every consistency during a Modified Barium Swallow study at another outpatient facility approximately 1-2 months ago. Daughter, who was present for that evaluation, who also cooks for him, and who joined him today, also reported that they found that thicker liquids, such as milk shake consistency, was not as efficient as the thinner liquids. Patient admits to drooling from the lips, waking up choked on his own saliva, difficulty swallowing food and liquids, especially mixed consistencies, automatic drooling/slobbering from the mouth when he approaches food, and reduced conversational intelligibility when speaking with strangers. The patient was presented with two consistencies today, thin liquid per cup and fruit cocktail and neither consistency contributed to coughing in therapist presence. Given a dysarthria evaluation, several observations were made: reduced labial range and strength, loose lower dentures that assist with mastication but really do not stay in place to assist speech/mastication efficiently, mild right-sided li
--- NOTE | 2024-06-01 14:00 | OPREHPOC ---
Outpatient Therapy Plan of Care This is a Multidisciplinary Plan of Care that may contain components documented by all disciplines (PT, OT, and ST.) ST Problem 1 ST Problem #[address] Goal 1 Goal 1. Patient will voice and demonstrate anatomy and physiology related to swallowing impairment, communication impairment, treatment plan, home exercise program, compensatory programs, and risks and benefits related to direct Speech Therapy tasks. Target Visit [address] Problem #[address] Goal 1 Goal 1. Patient will improve labial function to prevent food/liquid spillage from the oral cavity. 2. Patient will improve lingual function for effective bolus formation. 3. Patient will complete laryngeal elevation exercises 10 or more times to improve elevation of the epiglottis to the base of tongue in order to improve epiglottic inversion as evidenced on repeat MBS (when appropriate). 4. Patient will complete base of tongue retraction exercises 10 reps each with good strength in order to reduce/eliminate instances of aspiration during the swallow and assist with pharyngeal clearing. 5. Patient will complete hard, effortful swallows in order to improve the strength of the swallow for improved airway protection 10+ repetitions. 6. Patient will complete swallows with chin tuck against resistance in order to increase the strength of the swallow for improved airway protection 10+ repetitions. Target Visit [address] Problem #[address] Goal 1 Goal 1. Patient will demonstrate increased coordination and diadochokinetic rates for both labial and lingual sounds so that patient can weigher and crusher his own productions as precise? 90% of the time. 2. Patient will produce over-articulated mono-/bi- /poly-syllabic words with 90% accuracy. 3. Patient will produce over-articulated words at the phrase/sentence level with 90% accuracy. 4. Patient will develop intelligible, connected speech through the use of compensatory techniques as need
--- NOTE | 2024-07-12 12:42 | STOPDC ---
Assessment and note entered by ELIZABETH Hobbs Evaluation Information Assessment Status Discharge - Pt Not Presen Assessment ST Clinical Summary DISCHARGE SUMMARY This patient has been seen for an initial swallowing evaluation and also a speech evaluation with 7 additional sessions to address difficulty swallowing and reduced speech intelligibility. Patient and his daughter were instructed in the use of labial/lingual exercises along with base of tongue retraction, laryngeal elevation, and laryngeal adduction exercises. Daughter had patient practicing on exercises at home in between therapy sessions. By time of discharge, patient and family reported no recent coughing/choking episodes during meals. Patient continued to have 1 -2 episodes of unintelligible speech every session; it is possible this was due to patient's loose lower dentition as he always appeared to be trying to use lips and tongue to hold the dentures in place rather than being able to focus on opening the mouth to speak clearly. Goals for swallowing skills were met sufficiently however goals for speech sound precision were partially met. Patient is able to imitate sounds, words, and sentences with adequate intelligibility however at the conversational level, it still appears as if patient is compensating for his loose lower dentition by not opening lips wide enough or moving tongue enough to produce clear consonant/ vowel productions causing speech to be mildly, occasionally unintelligible to this speech pathologist. He was discharged prior to end of therapy recommendations as family reported he was having mobility issues making attending speech sessions more difficult. They had been provided with an exercise home program prior to discharge to continue after discharge. Plan of Care ST Services Indicated No
== END 2024-08-13 10:00 | disposition home or self-care (01) ==
LOC: ANHST 13:30
PROVIDERS: PCP Internal Medicine; Visit Provider Internal Medicine Pulmonary Disease
DX: G20.A1 Parkinson's disease without dyskinesia, without mention of fluctuations (principal); T17.908A Unspecified foreign body in respiratory tract, part unspecified causing other injury, initial encounter; R47.02 Dysphasia
CPT/HCPCS: 92507; 92526; 92610

== ENCOUNTER 2024-07-09 14:28 | Outpatient (CLI) | payer MEDICARE, SELFPAY ==
--- NOTE | ~2024-07-09 | XR_ITS ---
EXAMINATION: XR lumbar spine 2-3V DATE: 07/09/2024 14:52 INDICATION: Sciatica, unspecified side. TECHNIQUE: 3 views of lumbar spine were obtained. COMPARISON: None. FINDINGS: There is 14 degrees levoscoliosis of thoracolumbar spine. There is mild chronic anterior we dging of L1 vertebral body. There is 4 mm retrolisthesis of L1 on L2 and L2 on L3. There is severely decreased disc height at T11-T12, moderately decreased disc height at T12-L1, severely decreased disc height at L1-L2 and L2-L3, mildly decreased disc height at L3-L4, and severely decreased disc height at L5-S1. 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 There is a fusiform aneurysm of inf rarenal aorta measuring approximately 3.6 cm. IMPRESSION: 1. Severe lumbar spondylosis. 2. Thoracolumbar levoscoliosis. 3. 3.6 cm fusiform aneurysm of infrarenal aorta. Reviewed, dictated and finalized at location A.
== END 2024-07-09 14:29 | disposition home or self-care (01) ==
LOC: ANHIMG 14:33
PROVIDERS: PCP Internal Medicine; Visit Provider Internal Medicine
DX: M43.06 Spondylolysis, lumbar region (principal); M41.85 Other forms of scoliosis, thoracolumbar region; I71.43 Infrarenal abdominal aortic aneurysm, without rupture
CPT/HCPCS: 72100

== ENCOUNTER 2024-07-27 13:19 | Outpatient (CLI) | payer MEDICARE, SELFPAY ==
--- NOTE | ~2024-07-27 | CT_ITS ---
EXAMINATION: CT lumbar spine wo con DATE: 07/27/2024 13:39 INDICATION: Lumbar radiculopathy pain. TECHNIQUE: Computed tomography (CT) of the lumbar spine was performed without intravenous contrast. A utomated exposure control and iterative reconstruction technique were employed. The dose-length produ ct was 837.21 mGy-cm. COMPARISON: None FINDINGS: There is 14 degrees levoscoliosis of thoracic lumbar spine. There is 4 mm retrolisthesis of L1 on L2 and 6 mm retrolisthesis of L2 on L3. There is mild chronic anterior wedging of L1 vertebral body. There is moderately decreased disc height at T12-L1, severely decreased disc height at L1-L2 a nd L2-L3, moderately decreased disc height at L3-L4, mildly decreased disc height at L4-L5, and sever brianna decreased disc height at L5-S1. The following disc levels are specifically discussed: L1-L2: The disc does not extend beyond the endplate margin. There is mild bilateral facet joint osteo arthritis. There is moderate right and mild left neural foraminal stenosis. There is mild central can al stenosis. L2-L3: The disc does not extend beyond the endplate margin. There is mild bilateral facet joint osteo arthritis. There is moderate bilateral neural foraminal stenosis. There is mild central canal stenosi s. L3-L4: The disc is bulging. There is mild bilateral facet joint osteoarthritis. There is moderate rig ht and mild left neural foraminal stenosis. There is mild central canal stenosis. L4-L5: The disc is bulging. There is severe bilateral facet joint osteoarthritis. There is mild bilat eral neural foraminal stenosis. There is mild central canal stenosis. L5-S1: The disc is bulging. There is severe bilateral facet joint osteoarthritis. There is mild bilat eral neural foraminal stenosis. There is mild central canal stenosis. IMPRESSION: 1. Severe lumbar spondylosis. 2. Thoracolumbar levoscoliosis. Reviewed, dictated and finalized at location A.
== END 2024-07-27 13:20 | disposition home or self-care (01) ==
PROVIDERS: PCP Internal Medicine; Visit Provider Nurse Practitioner Family
DX: M47.26 Other spondylosis with radiculopathy, lumbar region (principal)
CPT/HCPCS: 72131

== ENCOUNTER 2024-11-21 11:19 | Outpatient (CLI) | payer MEDICARE, SELFPAY ==
--- NOTE | ~2024-11-21 | XR_ITS ---
EXAMINATION: XR lumbar spine 2-3V DATE: 11/21/2024 11:59 INDICATION: Low back pain, unspecified. TECHNIQUE: 3 views of lumbar spine were obtained. COMPARISON: Lumbar spine radiographs 07/09/2024 FINDINGS: There is 14 degrees levoscoliosis of thoracic lumbar spine. There is 5 mm sections pieces o f L1 on L2 and L2 on L3 and 3 mm retrolisthesis of L3 on L4. There is mild chronic anterior wedging o f L1 vertebral body. There is severely decreased disc height at T11-T12, mildly decreased disc height at T12-L1, severely decreased disc height at L1-L2 and L2-L3, mildly decreased disc height at L3-L4, and severely decreased disc height at L5-S1. There is multilevel facet joint osteoarthritis, severe in lower lumbar spine. There is a 3.5 cm fusiform aneurysm of abdominal aorta. IMPRESSION: 1. Severe lumbar spondylosis. 2. Thoracolumbar levoscoliosis. 3. 3.5 cm fusiform aneurysm of abdominal aorta. Reviewed, dictated and finalized at location A. R RELATIONS OFFICER
--- NOTE | ~2024-11-21 | XR_ITS ---
XR abdomen/kub 1V Ordering provider: Ramu Myers MD History: . R10.9 - Unspecified abdominal pain . Comparison: None. FINDINGS: BOWEL: Nonobstructive bowel gas pattern. ORGANOMEGALY: None. SIGNIFICANT PATHOLOGIC CALCIFICATIONS: None. OTHER: No free air is seen under the diaphragm. Degenerative spine. Levoscoliosis. IMPRESSION: NO ACUTE ABDOMINAL FINDINGS. Reviewed, dictated and finalized at location A. ER
--- NOTE | ~2024-11-21 | XR_ITS ---
XR chest 2V Ordering provider: Ramu Myers MD History: 84 years Male with . CHRONIC COUGH . Comparison: July 05, 2023 FINDINGS: MEDIASTINUM: The cardiac silhouette is not enlarged. Left bipolar pacemaker. Postoperative changes in the heart. LUNGS: No infiltrates, effusions or pneumothorax. OTHER: No free air under the diaphragm. Degenerative changes of the spine. IMPRESSION: No acute cardiopulmonary pathology. Reviewed, dictated and finalized at location A. HER SAWYER
== END 2024-11-21 11:20 | disposition home or self-care (01) ==
PROVIDERS: PCP Internal Medicine; Visit Provider Internal Medicine
DX: M47.816 Spondylosis without myelopathy or radiculopathy, lumbar region (principal); M41.85 Other forms of scoliosis, thoracolumbar region; I71.40 Abdominal aortic aneurysm, without rupture, unspecified; R05.3 Chronic cough
CPT/HCPCS: 71046; 72100; 74018

== ENCOUNTER 2025-03-04 09:38 | Outpatient (CLI) | payer MEDICARE, SELFPAY ==
--- NOTE | ~2025-03-04 | XR_ITS ---
XR chest 2V Ordering provider: Rmau Myers MD History: 84 years Male with . R05.9 - Cough, unspecified . Comparison: November 21, 2024 FINDINGS: MEDIASTINUM: The cardiac silhouette is not enlarged. Left bipolar pacemaker. Aortic valve prosthesis is noted. LUNGS: No effusions or pneumothorax. Opacification in the left lung base suggestive of atelectasis ve rsus pneumonia. OTHER: No free air under the diaphragm. Degenerative changes of the spine. IMPRESSION: Left basal atelectasis versus pneumonia. Reviewed, dictated and finalized at location A.
[2025-03-04 10:08] LABS: Basophils Percent Auto 0.2 % (0.2-1.2); Eosinophils Absolute Auto 0.2 K/mm3 (0-0.3); Eosinophils Percent Auto 1.7 % (0-4.4); Hematocrit 38.4 % (42.0-52.0); Hemoglobin 12.8 g/dL (14.0-18.0); Immature Granulocyte Absolute 0.14 K/mm3 (0.00-0.031); Immature Granulocyte Percent A 1.2 % (0-0.5); Lymphocytes Absolute Auto 1.28 K/mm3 (0.9-3.2); Lymphocytes Percent Auto 10.7 % (18.3-44.2); Mean Corpuscular HGB Conc 33.3 g/dl (32-36); Mean Corpuscular Hemoglobin 31.2 pg (26-34); Mean Corpuscular Volume 93.7 fl (80-100); Mean Platelet Volume 10.4 fl (7.4-10.4); Monocytes Absolute Auto 0.8 K/mm3 (0.1-0.6); Neutrophils Absolute Auto 9.5 K/mm3 (1.3-6.7); Neutrophils Percent Auto 79.2 % (45.5-73.1); Platelet Count Result 312 k/mm3 (150-375); Red Cell Distribution Width 13.3 % (11.5-14.5)
[2025-03-04 10:17] LABS: Alanine Aminotransferase 20 U/L (6-50); Albumin Level 4.1 g/dL (3.5-5.1); Alkaline Phosphatase 97 U/L (38-126); Anion Gap 13 mmol/L (4-12); Aspartate Amino Transferase 47 U/L (17-59); Bilirubin,Total 0.7 mg/dL (0.2-1.3); Blood Urea Nitrogen 15 mg/dL (9-20); Calcium 9.2 mg/dL (8.4-10.2); Carbon Dioxide 22 mmol/L (22-30); Chloride 99 mmol/L (98-107); Estimated Glomerular Filt Rate > 60; Glucose 109 mg/dL (65-110); Potassium 3.9 mmol/L (3.4-5.0); Sodium 134 mmol/L (137-145)
--- OUTSIDE RECORDS SUMMARY | 2025-03-04 10:47 | XMS_ITS | Referral Summary ---
Author Organization [facility] Address [address] [place] [address] Care Team Providers Care Music Researcher Name Role Phone Ramu Myers MD Primary Care Provider [phone] Encounters Date Type Department Care Team Description 01/30/[address] [facility] Cardiology [address] [address] Dillan Schmidt MD Presence of cardiac pacemaker (Primary Dx); Complete heart block (HCC) 01/30/2025 1:30 PM CDT Ancillary Procedure [facility] Cardiology [address] [place] [address] CHB (complete heart block) (HCC); Presence of cardiac pacemaker from Last 3 Months Allergies No known active allergies Medications omeprazole (PriLOSEC) 40 mg capsule take 1 capsule (40MG) by oral route every day before a meal 0 1 Active verapamil ER (VERELAN) 360 mg 24 hr capsule take 1 capsule (360MG) by oral route every day 0 1 Active Additional Information Patient taking differently:360 mgoral Nightly, Informant: Self, Reported on 09/21/2024 sertraline (ZOLOFT) 50 mg tablet take 1 tablet (50MG) by oral route every day 0 1 Active multivit with sao-ZW-ogvztjyi (ONE DAILY FOR MEN) 0.4-600 mg-mcg tablet take 1 tablet by oral route every day 0 0 5 Active rosuvastatin (CRESTOR) 10 mg tablet take 1 tablet by oral route every day 0 0 5 Active metFORMIN (GLUCOPHAGE) 500 mg tablet take 1 tablet by oral route 2 times every day 0 0 6 Active aspirin 81 mg tablet Take 1 tablet (81 mg total) by mouth daily Active glucosamine/cho ndr sanchez A sod (GLUCOSAMINE-CH ONDROITIN) 1,500-1,200 mg/30 mL liquid Take 1 tablet by mouth daily Active traMADol (ULTRAM) 50 mg tablet Take 1 tablet (50 mg total) by mouth 2 (two) times a day as needed for pain 9 Active carbidopa-levod opa (SINEMET) 25-100 mg per tablet Take 3 tablets by mouth 3 (three) times a day 2 Active ALPRAZolam (XANAX) 0.5 mg tablet TAKE 1 TABLET BY MOUTH 2 TO 3 TIMES PER DAY 3 Active finasteride (PROSCAR) 5 mg tablet Take 1 tablet (5 mg total) by mouth nightly Active primidone (MYSOLINE) 50 mg tablet TAKE 2 TABLETS BY MOUTH EVERY MORNING AND 2 TABLETS IN THE AFTERNOON AND 1 TABLET EVERY EVENING Active valACYclovir (VALTREX) 1 gram tablet TAKE 1 TABLET BY MOUTH THREE TIMES DAILY NEEDED FOR COLDSORE Active gabapentin (NEURONTIN) 600 mg tablet Take 1 tablet (600 mg total) by mouth 3 (three) times a day 4 Active icosapent ethyL (VASCEPA) 1 gram capsule Take 1 capsule (1 g total) by mouth daily Active cholecalciferol 25 mcg (1,000 unit) tablet Take 1 tablet (1,000 Units total) by mouth daily Active FIBER, DEXTRIN, ORAL Take by mouth daily Active acetaminophen (TYLENOL) 500 mg tablet Take 2 tablets (1,000 mg total) by mouth every 6 (six) hours as needed for pain Active propranoloL (INDERAL) 10 mg tablet Take 1 tablet (10 mg total) by mouth 2 (two) times a day 4 Active tamsulosin (FLOMAX) 0.4 mg extended release capsule Take 1 capsule (0.4 mg total) by mouth daily 4 Active furosemide (LASIX) 20 mg tabletIndicatio ns:Leg edema, left TAKE 1 TABLET(20 MG) BY MOUTH DAILY NEEDED FOR SWELLING 30 tablet 3 4 Active clopidogreL (PLAVIX) 75 mg tablet TAKE 1 TABLET(75 MG) BY MOUTH DAILY 90 tablet 2 4 Active Active Problems Problem Noted Date Diagnosed Date Leg edema, left 02/24/2024 S/p TAVR (transcatheter aort ic valve replacement), bioprosthetic 12/13/2023 Preop cardiovascular exam 10/10/2023 SOLORZANO (dyspnea on exertion) 07/05/2023 Visit for wound check 01/31/2020 Hypertriglyceridemia 12/31/2019 Presence of cardiac pacemaker 06/21/2017 Overview (08/24/2021): [facility] Dave Dual Pacemaker. Dx; CHB. Gen change 01/24/2020, chronic leads 07/27/2011 (Atrial lead insulation break-repaired). [place] remote monitoring Q3 mo. Battery Advisory. Nonrheumatic aortic valve stenosis 06/21/2017 HTN (hypertension), benign 06/21/2017 Pulmonary HTN 06/21/2017 Social History Tobacco Use Types Packs/Day Years Used Date Smoking Tobacco: Former Pipe Q uit: 06/21/1999 Cigars Quit: 06/21/19 99 Smokeless Tobacco: Never Tobacco Cessation:Counseling Given: Not Answered Alcohol Use Standard Drinks/Week Comments No 0 (1 standard drink = 0.6 oz pur e alcohol) [facility] Utilities Answer Date Recorded In the past 12 months has [employer], [employer], oil, or water [employer] threatened to shut off services in your home? No 12/14/2023 Social Connection and Isolat ion Panel [NHANES] Answer Date Recorded In a typical week, how many times do you talk on the phone with family, friends, or neighbors? Three times a week 12/14/2023 How often do you get togethe r with friends or relatives? Three times a week 12/14/2023 How often do you attend chur or muslim services? More than 4 times per year 12/14/2023 Do you belong to any clubs o r organizations such as methodist groups, unions, fraternal or athletic groups, or school groups? No 12/14/2023 How often do you attend meet ings of the clubs or organizations you belong to? Never 12/14/2023 Are you , , di vorced, , never , or living with a partner? 12/14/2023 AUDIT-C Answer Date Recorded Q1: How often do you have a drink containing alcohol? Never 12/14/2023 Q2: How many drinks containi ng alcohol do you have on a typical day when you are drinking? Patient does not drink Q3: How often do you have si x or more drinks on one occasion? Never 12/14/2023 Overall Financial Resource Strain (CARDIA) Answe r Date Recorded How hard is it for you to pa y for the very basics like food, housing, medical care, and heating? Not hard at all 12/14/2023 Hunger Vital Sign Answer Date Recorded Within the past 12 months, y ou worried that your food would run out before you got the money to buy more. Never true 12/14/19 24 Within the past 12 months, t he food you bought just didn't last and you didn't have money to get more. Never true 12/14/2023 PRAPARE - Transportation Answer Date Re corded In the past 12 months, has l ack of transportation kept you from medical appointments or from getting medications? No 11/16 In the past 12 months, has l ack of transportation kept you from meetings, work, or from getting things needed for daily living? No 12/14/2023 Housing Stability Vital Sign Answer Armani e Recorded In the last 12 months, was t here a time when you were not able to pay the mortgage or rent on time? No 12/14/2023 In the last 12 months, how many places have you lived? 1 12/14/2023 In the last 12 months, was t here a time when you did not have a steady place to sleep or slept in a retirement (including now)? No 12/14/2023 Personal Safety Answer Date Recorded Have you ever been in or are you currently in a harmful physical or emotional relationship or is someone making you feel afraid or unsafe? Denies 12/13/2023 Sex and Gender Information Value Date Recorded Sex Assigned at Not on file Legal Sex Male 2:00 AM LEGISLATIVE ASSISTANT Gender Identity Not on file Sexual Orientation Not on file Last Filed Vital Signs Vital Sign Reading Time Taken Comments Blood Pressure 130/70 09/21/2024 9:41 AM LEGISLATIVE ASSISTANT Pulse 66 09/21/2024 9:41 AM LEGISLATIVE ASSISTANT Temperature 36.3 C (97.4 F) 12/14/2023 12:13 PM LEGISLATIVE ASSISTANT Respiratory Rate 18 12/14/2023 12:13 PM LEGISLATIVE ASSISTANT Oxygen Saturation 94% 09/21/2024 9:41 AM LEGISLATIVE ASSISTANT Inhaled Oxygen Concentration - - Weight 96.2 kg (212 lb) 09/21/2024 9:41 AM LEGISLATIVE ASSISTANT Height 177.8 cm (5' 10 ) 09/21/2024 9:41 AM LEGISLATIVE ASSISTANT Body Mass Index 30.42 09/21/2024 9:41 AM LEGISLATIVE ASSISTANT Plan of Treatment Not on file Medical Devices Implanted Type Area Geotechnical Field Technician Device Identifier Shelf Expiration Date Model / Serial / Lot Pacemaker-07/27/20 11 Implanted: 011 by Briana Wright (Quantity not on file) [facility]emaker [facility] Cl[facility] Vascade Od5 Fr Femoral Artery [id number] - [id number] Implanted:Qty: 1 on 10/26/2023 by Bossman Gunter MD at [facility] 07/11/2025 [id number] / / [id number] [employer] Device Clsr Perclose Prostyle Sut-Mediatd Closure-Repair Sys 14506-41 - [id number] Implanted:Qty: 1 on 12/13/2023 by Bossman Gunter MD at [facility]ascular 09/13/2025 [id number] / / [id number] [employer] Device Clsr Perclose Prostyle Sut-Mediatd Closure-Repair Sys 70294-85 - [id number] Implanted:Qty: 1 on 12/13/2023 by Bossman Gunter MD at [facility] [employer] 08/13/2025 [id number] / / [id number] [employer] Carol 3 Commander Sharpe 26mm Transcatheter Ultra Low Profile [id number] - [id number] - [id number] Implanted:Qty: 1 on 12/13/2023 by Bossman Gunter MD at [facility] [employer] 09/12/2026 [id number] / [id number] / [employer] Device Clsr Perclose Prostyle Sut-Mediatd Closure-Repair Sys 65504-51 - [id number] Implanted:Qty: 1 on 12/13/2023 by Bossman Gunter MD at [facility] [employer] 08/13/2025 [id number] / / [id number] [employer] Device Clsr Perclose Prostyle Sut-Mediatd Closure-Repair Sys 19468-30 - [id number] Implanted:Qty: 1 on 12/13/2023 by Bossman Gunter MD at [facility] [employer] 07/14/2025 [id number] / / [id number] [employer] Device Vascular Closure Femoral Artery Bioabsorbable Dual Method Vascade 6-7fr Collagen [id number] - [id number] Implanted:Qty: 1 on 12/13/2023 by Bossman Gunter MD at [facility] [employer] 07/08/2025 [id number] / / [id number] Procedures Procedure Name Priority Date/Time Associated Diagnosis Comments DEVICE CHECK - IN OFFICE Routine 01/30/2025 1:04 PM CDT CHB (complete heart block) (HCC) Presence of cardiac pacemaker from Last 3 Months Results * DEVICE CHECK - IN OFFICE (01/30/2025 1:04 PM CDT) Anatomical Region Laterality Modality Other Narrative 01/30/2025 4:[address] Dave Dual Pacemaker. Dx; CHB. Gen change 01/24/2020, chronic leads 07/27/2011 (Atrial lead insulation break-repaired). [place] remote monitoring Q3 mo. Battery Advisory. Supervising physician: Dr Wilson. Office DDD Pacemaker evaluation demonstrated normal device function. Left pectoral incision well healed without signs of infection noted. Battery function-2.99V, 4.5 years remaining battery life to ADRIANO. Appropriate lead measurements noted. Presenting dkewcd-HN-KI (SR). AP-39%, MECHANIC-23%. Medications; ASA 81 mg, Plavix, Propranolol, Verapamil. No mode switch episodes recorded. No ventricular arrhythmias noted. See scanned report. Office pacemaker f/u expected in 13-15 months to coordinate with Dr Schmidt visit. [place] remote f/u 05/07/2025. Alia Anna, RN us Dillan Schmidt MD CV CARDIAC SERVICES PROCE [facility] Final Result from Last 3 Months Insurance MEDICARE MEDICARE BLUE CROSS MEDICARE SUPPLEMENT MEDICARE [facility] Advance Directives For more information, please contact: [phone] * Full Code (Latest Code Status on File) Date Activated Date Inactivated Comments 10/26/2023 9:56 AM 10/26/2023 4:20 PM Care Teams Music Researcher Relationship Specialty Start Date End Date Ramu Myers MD [address] [facility] [address] [place] [address] PCP - General 05/21/16
--- OUTSIDE RECORDS SUMMARY | 2025-03-04 10:47 | XMS_ITS | Continuity of Care Document ---
Author Organization [facility] [place] [address] [place] [address] [address] [place] [address] Phone Care Team Providers Care Etl Tester Name Role Phone [facility] Unavailable Unavail able Kathi Johnson Unavailable Unavailable Procedures Procedure Date Vision Svcs Frames Purchases TF Polycarb Sphcyl Sprague To +/-4d .12-2d Tint Photochromatic, Polycarb 0 [...] Diagnoses Date Provider Providers Copied on Encounter [facility], [address], [place], [place], [id number], [place] tel:[phone] [facility] Corporate [place]cker No Information 0 0 [facility] . [address], [address], [place], [place], [id number], [place]. tel:[phone] Referring Provider: Jhonny Cerda, [address], [place], [address]. tel:[phone] g Provider: Kathi Johnson, [address], [place], [address]. tel:[phone] [facility], [address], [place], [place], [id number], [place] tel:[phone] [facility] No Information Simon-0 9-201 0 Doisy Edward. [address] , [address], [place], [place], [facility], [place]. tel:[phone] Office/outpat ient Visit, Est [facility], [address] [place] [address] [address], [place], [place], [id number], [place] tel:[phone] [facility] No Information Sep-2 8-200 9 Doisy Edoli. [address] , [address], [place], [place], [facility], [place]. tel:[phone] [facility], [address] [place] [address] [address], [place], [place], [id number], [place] tel:[phone] [facility] No Information Sep-1 6-200 9 Jensy Edward. [address] , [address], [place], [place], [facility], [place]. tel:[phone] [facility], [address] [place] [address] [address], [place], [place], [id number], [place] tel:[phone] [facility] No Information Nov-0 6-200 8 Sharri Hagenn. [address] , [address], [place], [place], [facility], [place]. tel:[phone] [facility], [address] [place] [address] [address], [place], [place], [id number], [place] tel:[phone] [facility] Center No Information Apr-2 6-200 7 Sharri Hagenn. [address] , [address], [place], [place], [facility], [place]. tel:[phone] Referring Provider: Sena Guzman, [address], [place], [address]. tel:[phone] Family History Family Member Type Diagnosis Age At Onset No Information Payers Payer name Insurance type Covered democrat ID Authoriza tion(s) No Information Social History [...]
--- OUTSIDE RECORDS SUMMARY | 2025-03-04 10:47 | XMS_ITS | Clinical Summary ---
Author Organization [facility] Address [address] [place] [address] Care Team Providers Care Terrazzo Mechanic Name Role Phone Unavailable Primary Care Provider Unavailabl e Source Comments [facility] [email or web address],non-owned Affiliates and Associated Physician Practices is amultiple site organization consisting of ambulatory clinics and hospital sitesin [place], [place], [place] and [place]. This disclosure is being madepursuant to the Care Everywhere program and may not contain all information available regarding this patient. Last updated 18.[facility] [email or web address] Social History Tobacco Use Types Packs/Day Years Used Date Smoking Tobacco: Never Assessed Sex and Gender Information Value Date Recorded Sex Assigned at Not on file Legal Sex Male 5:39 PM GYM MANAGER Gender Identity Not on file Sexual Orientation Not on file Plan of Treatment Health Maintenance Due Date Last Done Comments MEDICARE AWV 12 MONTHS 1940 DTAP/TDAP/TD VACCINES (1 - Tdap) 1958 PNEUMOCOCCAL VACCINE 50+ (1 of 1 - PCV) 1989 ZOSTER VACCINE (1 of 2) 1989 Respiratory Syncytial Virus (RSV) Vaccine Pt: or over 60 yrs (1 - 1-dose 75+ series) 2014 COVID-19 VACCINE ( - 2023-2 5 season) 2024 DEPRESSION SCREENING 11/14/2024 INFLUENZA VACCINE (Season Ended) 2025 HEPATITIS B VACCINE Aged Out No longe r eligible based on patient's age to complete this topic HIB VACCINE Aged Out No longer eligi ble based on patient's age to complete this topic HPV VACCINE Aged Out No longer eligi ble based on patient's age to complete this topic MENINGOCOCCAL (Group B) VACC INE SHARED DECISION-MAKING Aged Out No longer eligibl e based on patient's age to complete this topic MENINGOCOCCAL GROUPS A/C/Y/W VACCINE Aged Out No longer eligible b ased on patient's age to complete this topic Insurance MEDICARE ANTHEM MEDICARE ANTHEM
--- OUTSIDE RECORDS SUMMARY | 2025-03-04 10:47 | XMS_ITS | Clinical Summary ---
Author Organization [facility] Address [address] [place] [address] Care Team Providers Care Brazing Machine Setter Name Role Phone Ramu Myers MD Primary Care Provider [phone] Allergies No known active allergies Medications rosuvastatin (CRESTOR) 10 MG tablet Take 1 tablet (10 mg total) by mouth daily. 2 Active metFORMIN (GLUCOPHAGE) 500 MG tablet Take 1 tablet (500 mg total) by mouth 2 (two) times daily. 2 Active tamsulosin (FLOMAX) 0.4 MG Cap Take 2 capsules (0.8 mg total) by mouth daily. 2 Active omeprazole (PRILOSEC) 40 MG capsule Take 1 capsule (40 mg total) by mouth daily. 2 Active icosapent ethyl (VASCEPA) 1 G capsule Take 2 capsules (2 g total) by mouth 2 (two) times daily. 2 Active gabapentin (NEURONTIN) 600 MG tablet Take 1 tablet (600 mg total) by mouth 4 (four) times daily. 2 Active primidone (MYSOLINE) 50 MG tablet 2 Active ALPRAZolam (XANAX) 0.25 MG tablet TAKE 1 TABLET BY MOUTH 2 TO 3 TIMES PER DAY 2 Active sertraline (ZOLOFT) 100 MG tablet Take 1 tablet (100 mg total) by mouth daily. 2 Active finasteride (PROSCAR) 5 MG tablet 2 Active lisinopril (PRINIVIL) 2.5 MG tablet Take 1 tablet (2.5 mg total) by mouth daily. 2 Active propranolol (INDERAL) 10 MG tablet Take 1 tablet (10 mg total) by mouth 2 (two) times daily. 2 Active verapamil ER 360 MG CAPSULE SR 24 HR 24 hr capsule 2 Active multi vitamin/minerals (THERA-M ENHANCED) tablet Take 1 tablet by mouth daily. Active Glucosamine 500 MG Cap Take by mouth 3 (three) times daily. Active aspirin EC (ECOTRIN) 81 MG tablet Take 1 tablet (81 mg total) by mouth daily. Active traMADol (ULTRAM) 50 MG tablet Take 1 tablet (50 mg total) by mouth every 8 (eight) hours as needed. 2 Active valACYclovir (VALTREX) 1 g tablet Take 1 tablet (1,000 mg total) by mouth 3 (three) times daily. 2 Active predniSONE (DELTASONE) 5 mg tablet Take 1 tablet (5 mg total) by mouth daily. 2 Active SUPARTZ FX 25 MG/2.5ML injection 2 Active benzonatate (TESSALON) 200 MG capsule Take 1 capsule (200 mg total) by mouth 3 (three) times daily. 3 Active meloxicam (MOBIC) 7.5 MG tabletIndications:B ilateral hip pain Take 1 tablet (7.5 mg total) by mouth daily as needed for Pain. 30 tablet 4 Active cholecalciferol (VITAMIN D-[address]) 25 mcg Tab tablet Take 1 tablet (1,000 Units total) by mouth daily. Active Glucosamine-Chondro itin 2462-4180 MG/30ML Liquid Take 1 tablet by mouth daily. Active carbidopa-levodopa (SINEMET) 25-100 MG tabletIndications:P arkinson's disease, unspecified whether dyskinesia present, unspecified whether manifestations fluctuate (CMS/HCC HHS/HCC) TAKE 4 TABLETS BY MOUTH THREE TIMES DAILY 360 tablet 11 4 Active entacapone (COMTAN) 200 MG tabletIndications:P arkinson's disease without dyskinesia or fluctuating manifestations (CMS/HCC HHS/HCC) Take 1 tablet (200 mg total) by mouth 3 (three) times daily. 90 tablet 11 4 Active atropine 1 % ophthalmic solutionIndications :Drooling Apply one drop on the tongue once a day as needed for dr 2 mL 3 5 Active Active Problems Problem Noted Date Diagnosed Date Parkinson's disease 10/24/2024 Leg edema, left 02/24/2024 Dystonia, unspecified 02/13/2024 Essential tremor 02/13/2024 S/p TAVR (transcatheter aort ic valve replacement), bioprosthetic 12/13/2023 SOLORZANO (dyspnea on exertion) 07/05/2023 Tremor 03/15/2023 Hypertriglyceridemia 12/31/2019 Pulmonary HTN ([facility]) 06/21/2017 Presence of cardiac pacemaker 06/21/2017 Overview (11/15/2024): [facility] Dual Pacemaker. Dx; CHB. Gen change 01/24/2020, chronic leads 07/27/2011 (Atrial lead insulation break-repaired). Daniele remote monitoring Q3 mo. Battery Advisory. Nonrheumatic aortic valve stenosis 06/21/2017 HTN (hypertension), benign 06/21/2017 Resolved Problems Problem Noted Date Diagnosed Date Resolved Date Preop cardiovascular exam 10/10/2023 Encounters Date Type Department Care Team Description 02/20/2025 Telephone [facility] - [address] [place] [address] Tonio Roberts MD Problem 01/16/2025 11:40 AM HEADER OPERATOR Office Visit [facility] - [address], [address] [place] [address] Tonio Roberts MD Botox (Dystonia 100units/) 01/16/2025 Scan [facility] INFO SRVCS Scanned, [facility] 01/16/2025 Travel 12/20/2024 Therapy Plan [facility] - [facility] [address], [address] [place] [address] Tonio Roberts MD from Last 3 Months Immunizations Immunization Administration Dates Next Due Influenza (Generic) 12/15/2017,11/13/2013 Influenza Adult (Generic) 10/23/2021,09/09/2020, 08/13/2019,09/08/2018 Pneumococcal (Prevnar 13) 12/15/2017 Family History Medical History Relation Comments Tremor Brother Tremor Sister Relation Status Comments Brother Father Mother Sister Alive Social History Tobacco Use Types Packs/Day Years Used Date Smoking Tobacco: Former Pipe Q uit: 2001 Smokeless Tobacco: Former Tobacco Cessation:Counseling Given: Yes Alcohol Use Standard Drinks/Week Comments Not Currently 0 (1 standard drink = 0.6 oz pur e alcohol) PHQ-2 Answer Date Recorded Patient Health Questionnaire-2 Score 0 10/24/2024 Sex and Gender Information Value Date Recorded Sex Assigned at Not on file Legal Sex Male 11:34 AM CDT Gender Identity Not on file Sexual Orientation Not on file Last Filed Vital Signs Vital Sign Reading Time Taken Comments Blood Pressure 123/83 01/16/2025 11:32 AM HEADER OPERATOR Pulse 65 01/16/2025 11:32 AM HEADER OPERATOR Temperature 37.1 C (98.8 F) 01/16/2025 11:32 AM HEADER OPERATOR Respiratory Rate 18 10/19/2023 3:08 PM HEADER OPERATOR Oxygen Saturation 95% 01/16/2025 11:32 AM HEADER OPERATOR Inhaled Oxygen Concentration - - Weight 94.8 kg (209 lb) 10/24/2024 11:13 AM HEADER OPERATOR Height 180.3 cm (5' 11 ) 01/16/2025 11:32 AM HEADER OPERATOR Body Mass Index 29.15 08/01/2024 2:08 PM CDT Plan of Treatment Upcoming Encounters Date Type Department Care Team (Late st Contact Info) Description 04/10/2025 11:20 AM CDT Office Visit [facility] - [facility] [address], [address] [place] [id number] Tonio Roberts MD [address] [place] [address] Health Maintenance Due Date Last Done Comments DTaP, Tdap and Td Vaccines ( 1 - Tdap) 1958 Zoster Vaccines (1 of 2) 1989 Annual Medicare Wellness Visit 2004 RSV Immunization or 60+ Years (1 - 1-dose 75+ series) 2014 Pneumococcal Vaccine: 50+ Years (2 of 2 - PPSV23) 02/09/2018 12/15/2017 COVID-19 Vaccine (3 - 2023-2 5 season) 2024 01/30/2021, 01/09/2021 PHQ-2 (Physician Bozman) 11/14/2024 10/24/2024 Meningococcal B Vaccine Aged Out No l onger eligible based on patient's age to complete this topic Meningococcal Vaccine Aged Out No elda karla eligible based on patient's age to complete this topic RSV Immunizations Under 20 Months Aged Out No longer eligible b ased on patient's age to complete this topic Insurance MEDICARE [facility] Care Teams Brazing Machine Setter Relationship Specialty Start Date End Date Ramu Myers MD [address] [place] [address] PCP - General INTERNAL MEDICINE 06/03/22
--- OUTSIDE RECORDS SUMMARY | 2025-03-04 10:47 | XMS_ITS | Encounter Summary ---
Author Organization [facility] Address [address] [place] [address] Care Team Providers Care Book Author Name Role Phone Ramu Myers MD Primary Care Provider [phone] Encounter Details Date Type Department Care Team (Late st Contact Info) Description 03/06/2024 Orders Only [facility] [place] Health Information Management [address] [place] [address] Dillan Schmidt MD [facility] [place] [address] Social History Tobacco Use Types Packs/Day Years Used Date Smoking Tobacco: Former Pipe Q uit: 06/21/1999 Cigars Quit: 06/21/19 99 Smokeless Tobacco: Never Alcohol Use Standard Drinks/Week Comments No 0 (1 standard drink = 0.6 oz pur e alcohol) [facility] Utilities Answer Date Recorded In the past 12 months has [employer], gas, oil, or water [employer] threatened to shut off services in your [...] week 12/14/2023 How often do you attend [facility] or synagogue services? More than 4 times per year 12/14/2023 Do you belong to any clubs o r organizations such as cheondoism groups, unions, fraternal or athletic groups, or [...] place to sleep or slept in a alf (including now)? No 12/14/2023 Personal Safety Answer Date Recorded Have you ever been in or are you currently in a harmful physical or emotional relationship or is someone making you feel afraid or unsafe? Denies 12/13/2023 Sex and Gender Information Value Date Recorded Sex Assigned at Not on file Legal Sex Male 2:00 AM CHEESE COOK Gender Identity Not on file Sexual Orientation Not on file documented as of this encounter Plan of Treatment Not on file documented as of this encounter Procedures Procedure Name Priority Date/Time Associated Diagnosis Comments SCAN - RADIOLOGY/IMAGING 03/06/2024 documented in this encounter Results * SCAN - RADIOLOGY/IMAGING (03/06/2024) Anatomical Region Laterality Modality Other us Dillan Schmidt MD Final Res ult documented in this encounter Visit Diagnoses Not on filedocumented in this encounter Care Teams Book Author Relationship Specialty Start Date End Date Ramu Myers MD [address] [place] [address] PCP - General 05/21/16 documented as of this encounter
--- OUTSIDE RECORDS SUMMARY | 2025-03-04 10:47 | XMS_ITS | Encounter Summary ---
Author Organization [facility] Address [address] [facility] [address] [facility] [place] [address] Care Team Providers Care Border Police Name Role Phone Unavailable Primary Care Provider Unavailabl e Encounter Details Date Type Department Care Team (Late st Contact Info) Description 09/18/2020 Lab Requisition [facility] DermPath Lab [address] [facility] [address] [facility], [place] [id number] Anna Morel MD [address] [facility] [place] [address] [place] [address] Social History Tobacco Use Types Packs/Day Years Used Date Smoking Tobacco: Never Assessed Sex and Gender Information Value Date Recorded Sex Assigned at Not on file Legal Sex Male 5:39 PM BARREL LAPPER Gender Identity Not on file Sexual Orientation Not on file documented as of this encounter Plan of Treatment Not on file documented as of this encounter Procedures Procedure Name Priority Date/Time Associated Diagnosis Comments DERMATOPATHOLOGY Routine 09/17/2020 12:0 0 AM BARREL LAPPER documented in this encounter Results * DERMATOPATHOLOGY (09/17/2020 12:00 AM BARREL LAPPER) Case Report Dermatopathology Report Case: [id number] Authorizing Provider: Anna Morel MD Collected: 09/17/2020 12:00 AM Ordering Location: [facility] DermPath Lab Received: 09/18/2020 07:55 AM Pathologist: Kiarra Guzman MD Specimen: Skin, left post ear 0 2:37 PM BARREL LAPPER DERMATOPATHOLOGY LABORATORY Final Diagnosis Specimen A. 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 0 2:37 PM [facility] DERMATOPATHOLOGY LABORATORY Gross Description Specimen A: Received is one formalin filled container labeled with the patient's name and designated left post ear. The specimen consists of a shave measuring [id number]. Jar 0. 0 2:37 PM [facility] DERMATOPATHOLOGY LABORATORY Microscopic Description Specimen A. SKIN, left post ear: The epidermis is acanthotic and shows full thickness disorderly maturation of keratinocytes, mitoses at different levels, and dyskeratotic cells. There is overlying parakeratosis and hyperkeratosis. 0 2:37 PM [facility] DERMATOPATHOLOGY LABORATORY Disclaimer An external and internal positive and negative controls are appropriate for the histochemical, immunohistochemical and immunofluorescence stain(s) in this case (if any), except where stated explicitly. The performance characteristics of the stain(s) cited in this report were developed and its performance characteristic determined by the Dermatopathology Laboratory at [facility], directed by Dr. Fercho Powell. These tests need not be, and therefore are not, approved by the [place] Food and Drug Administration. The tests are used for clinical purposes. Billing Codes Specimen Charges Stain Charges 84568 1 0 2:37 PM BARREL LAPPER DERMATOPATHOLOGY LABORATORY Embedded Images 0 2:37 PM [facility] DERMATOPATHOLOGY LABORATORY Pathology/Cytolog y TISSUE SPECIMEN FROM SKIN / Unknown 09/17/2020 09/18/2020 7:55 AM BARREL LAPPER Anna Morel MD LAB - PATHOLOGY/CYTOLOGY OR DERABLES Final Result DERMATOPATHOLOGY LABORATORY [facility] - Department of Dermatology [address] [place] [address], [facility] [phone] documented in this encounter Visit Diagnoses Not on filedocumented in this encounter
--- OUTSIDE RECORDS SUMMARY | 2025-03-04 10:47 | XMS_ITS | Encounter Summary ---
Author Organization [facility] Address [address] [place] [address] Care Team Providers Care Remote Encoding Operations Supervisor Name Role Phone Ramu Myers MD Primary Care Provider [phone] Encounter Details Date Type Department Care Team (Late st Contact Info) Description 11/16/2016 Orders Only [facility] ProviderAnnalise MD [address] [place] [address] Social History Tobacco Use Types Packs/Day Years Used Date Smoking Tobacco: Former Cigarettes Q uit: 11/14/2002 Alcohol Use Standard Drinks/Week Comments No 0 (1 standard drink = 0.6 oz pur e alcohol) Sex and Gender Information Value Date Recorded Sex Assigned at Not on file Legal Sex Male 2:00 AM SPIRITS MODEL Gender Identity Not on file Sexual Orientation Not on file documented as of this encounter Plan of Treatment Not on file documented as of this encounter Procedures Procedure Name Priority Date/Time Associated Diagnosis Comments CARDIOLOGY REPORT 11/16/2016 documented in this encounter Results * CARDIOLOGY REPORT (11/16/2016) Anatomical Region Laterality Modality Other Narrative 11/16/2016 Ordered by an unspecified provider. Historical Provider [facility] Final Result documented in this encounter Visit Diagnoses Not on filedocumented in this encounter Care Teams Remote Encoding Operations Supervisor Relationship Specialty Start Date End Date Ramu Myers MD [address] [place] [address] PCP - General 05/21/16 documented as of this encounter
--- OUTSIDE RECORDS SUMMARY | 2025-03-04 10:47 | XMS_ITS | Encounter Summary ---
Author Organization [facility] Address [address] [place] [address] Care Team Providers Care Plasterer Maintenance Name Role Phone Unavailable Primary Care Provider Unavailabl e Encounter Details Date Type Department Care Team (Late st Contact Info) Description 03/21/2024 Lab Requisition [facility] - DermPath Lab [address] [place] [phone] Estela Sorensen MD [address] [place] [address] Social History Tobacco Use Types Packs/Day Years Used Date Smoking Tobacco: Never Assessed Sex and Gender Information Value Date Recorded Sex Assigned at Not on file Legal Sex Male 5:39 PM TERMINAL CLERK Gender Identity Not on file Sexual Orientation Not on file documented as of this encounter Plan of Treatment Not on file documented as of this encounter Procedures Procedure Name Priority Date/Time Associated Diagnosis Comments DERMATOPATHOLOGY Routine 03/21/2024 12:1 9 PM CDT documented in this encounter Results * DERMATOPATHOLOGY (03/21/2024 12:19 PM CDT) Case Report Dermatopathology Report Case: [id number] Authorizing Provider: Estela Sorensen MD Collected: 03/21/2024 12:19 PM Ordering Location: [facility] Physician [facility] - Received: 03/22/2024 11:44 AM DermPath Lab Pathologist: Alphonso Powell MD Specimen: Skin, left ala 2:14 PM CDT DERMATOPATHOLOGY LABORATORY Final Diagnosis Specimen A. 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 The specimen consists of a shave biopsy measuring 6x4x1 mm. Jar 0. 2:14 PM CDT DERMATOPATHOLOGY LABORATORY Microscopic Description Specimen A. SKIN, left ala: The epidermis shows parakeratosis, full thickness disorderly maturation of keratinocytes, mitoses at different levels, and dyskeratotic cells. 2:14 PM CDT DERMATOPATHOLOGY LABORATORY Disclaimer An external and internal positive and negative controls are appropriate for the histochemical, immunohistochemical and immunofluorescence stain(s) in this case (if any), except where stated explicitly. The performance characteristics of the stain(s) cited in this report were developed and its performance characteristic determined by the Dermatopathology Laboratory at [facility], directed by Dr. Fercho Powell. These tests need not be, and therefore are not, approved by the [place] Food and Drug Administration. The tests are used for clinical purposes. Billing Codes Specimen Charges Stain Charges 58794 1 2:14 PM CDT DERMATOPATHOLOGY LABORATORY Embedded Images 2:14 PM CDT DERMATOPATHOLOGY LABORATORY Pathology/Cytolo gy TISSUE SPECIMEN FROM SKIN / Unknown 03/21/2024 12:19 PM CDT 03/22/2024 11:44 AM CDT Estela Sorensen MD LAB - PATHOLOGY/CYTOLOGY ORDERA BLES Final Result DERMATOPATHOLOGY LABORATORY [facility] - Department of Dermatology [address] [place] [address], [facility] [phone] documented in this encounter Visit Diagnoses Not on filedocumented in this encounter
--- OUTSIDE RECORDS SUMMARY | 2025-03-04 10:47 | XMS_ITS | Encounter Summary ---
Author Organization [facility] Address [address] [place] [address] Care Team Providers Care Fire Control Mechanic Name Role Phone Ramu Myers MD Primary Care Provider [phone] Encounter Details Date Type Department Care Team (Late st Contact Info) Description 02/23/2017 Orders Only [facility] ProviderAnnalise MD [address] [place] [address] Social History Tobacco Use Types Packs/Day Years Used Date Smoking Tobacco: Former Cigarettes Q uit: 11/14/2002 Alcohol Use Standard Drinks/Week Comments No 0 (1 standard drink = 0.6 oz pur e alcohol) Sex and Gender Information Value Date Recorded Sex Assigned at Not on file Legal Sex Male 2:00 AM PACKING TRACTOR MACHINE OPERATOR Gender Identity Not on file Sexual Orientation Not on file documented as of this encounter Plan of Treatment Not on file documented as of this encounter Procedures Procedure Name Priority Date/Time Associated Diagnosis Comments CARDIOLOGY REPORT 02/23/2017 documented in this encounter Results * CARDIOLOGY REPORT (02/23/2017) Anatomical Region Laterality Modality Other Narrative 02/23/2017 Ordered by an unspecified provider. Historical Provider [facility] Final Result documented in this encounter Visit Diagnoses Not on filedocumented in this encounter Care Teams Fire Control Mechanic Relationship Specialty Start Date End Date Ramu Myers MD [address] [place] [address] PCP - General 05/21/16 documented as of this encounter
--- OUTSIDE RECORDS SUMMARY | 2025-03-04 10:47 | XMS_ITS | Clinical Summary ---
Author Organization [facility] Address [address] [place] [address] Care Team Providers Care Photography Intern Name Role Phone Ramu Myers MD Primary Care Provider Allergies No known active allergies Medications omeprazole [...] every day 0 1 Active multivit with [id number]-UW-[id number] (ONE DAILY FOR MEN) 0.4-600 mg-mcg tablet [...] chronic leads 07/27/2011 (Atrial lead insulation break-repaired). [place] remote monitoring Q3 mo. Battery Advisory. Nonrheumatic aortic valve stenosis 06/21/2017 HTN (hypertension), benign 06/21/2017 Pulmonary HTN 06/21/2017 Encounters Date Type Department Care Team Description 01/30/2025 1:30 PM CDT Ancillary Procedure [facility] [address] [facility] [address] [place] [address] CHB (complete heart block) (HCC); Presence of cardiac pacemaker 01/30/2025 Orders Only [facility] Cardiology [address] [facility] [address], [place] [address] Dillan Schmidt MD Presence of cardiac pacemaker (Primary Dx); Complete heart block (HCC) from Last 3 Months Surgical History Surgery Date Site/Laterality Comments HEMORRHOID SURGERY Hemorrhoidectomy CATARACT EXTRACTION INSERT / REPLACE / REMOVE PACEMAKER [facility] COLONOSCOPY CARDIAC CATHETERIZATION Medical History Medical History Date Comments Depression Depression Skin cancer Hypertension Hyperlipidemia Arrhythmia pacemaker [facility] [place] e Aortic stenosis GERD (gastroesophageal reflux disease) BPH (benign prostatic hyperplasia) Type 2 diabetes mellitus (HCC) Parkinsons (HCC) Familial tremor Arthritis Cataract Family History Medical History Relation Name Comments Other Brother 2 ICD PACEMAKER; Cause of : ICD PACEMAKER No Known Problems Father No Known Problems Mother Relation Name Status Comments Brother 1 (Age 86) Brother 2 Father Mother Social History Tobacco Use Types Packs/Day Years Used Date Smoking Tobacco: Former Pipe Q uit: 06/21/1999 Cigars Quit: 06/21/19 99 Smokeless Tobacco: Never Tobacco Cessation:Counseling Given: Not Answered Alcohol Use Standard Drinks/Week Comments No 0 (1 standard drink = 0.6 oz pur e alcohol) [facility] Utilities Answer Date Recorded In the past 12 months has e electric, gas, oil, or water company threatened to shut off services in your [...] 12/14/2023 How often do you attend chur ch or presybeterian services? More than 4 times per year 12/14/2023 Do you belong to any clubs o r organizations such as synagogue groups, unions, fraternal or athletic groups, or [...] place to sleep or slept in a residential (including now)? No 12/14/2023 Personal Safety Answer Date Recorded Have you ever been in or are you currently in a harmful physical or emotional relationship or is someone making you feel afraid or unsafe? Denies 12/13/2023 Sex and Gender Information Value Date Recorded Sex Assigned at Not on file Legal Sex Male 2:00 AM LOAN COLLECTOR Gender Identity Not on file Sexual Orientation Not on file Obstetrics History Last Filed Vital Signs Vital Sign Reading Time Taken Comments Blood Pressure 130/70 09/21/2024 9:41 AM LOAN COLLECTOR Pulse 66 09/21/2024 9:41 AM LOAN COLLECTOR Temperature 36.3 C (97.4 F) 12/14/2023 12:13 PM LOAN COLLECTOR Respiratory Rate 18 12/14/2023 12:13 PM LOAN COLLECTOR Oxygen Saturation 94% 09/21/2024 9:41 AM LOAN COLLECTOR Inhaled Oxygen Concentration - - Weight 96.2 kg (212 lb) 09/21/2024 9:41 AM LOAN COLLECTOR Height 177.8 cm (5' 10 ) 09/21/2024 9:41 AM LOAN COLLECTOR Body Mass Index 30.42 09/21/2024 9:41 AM LOAN COLLECTOR Plan of Treatment Health Maintenance Due Date Last Done Comments Depression Screening 1939 DTaP/Tdap/Td Vaccine (1 - Tdap) 1950 Hepatitis B Screening 1957 Zoster Vaccine (1 of 2) 1989 Well Visit 65+ 2004 Pneumococcal vaccine 65+ (2 of 2 - PPSV23) 12/15/2018 12/15/2017 Influenza Vaccine (#1) 2024 1, 09/09/2020, 08/13/2019, Additional history exists Fall Risk Assessment 12/14/2024 12/14/2023 Medical Devices Implanted Type Area Dog Breeder Device Identifier Shelf Expiration Date Model / Serial / Lot Pacemaker-07/27/20 11 Implanted: 011 by Briana Wright (Quantity not on file) Pacemaker Chest [facility] [employer] Device Closure Vascade Od5 Fr Femoral Artery [id number] - [id number] Implanted:Qty: 1 on 10/26/2023 by Bossman Gunter MD at [facility] [employer] 07/11/2025 [id number] / / [id number] S[employer] Device Clsr Perclose Prostyle Sut-Mediatd Closure-Repair Sys 05692-36 - [id number] Implanted:Qty: 1 on 12/13/2023 by Bossman Gunter MD at [facility] [employer] 09/13/2025 [id number] / / [id number] [employer] Device Clsr Perclose Prostyle Sut-Mediatd Closure-Repair Sys 60281-67 - [id number] Implanted:Qty: 1 on 12/13/2023 by Bossman Gunter MD at [facility] [employer] 08/13/2025 [id number] / / [id number] [employer] Carol 3 Commander Sharpe 26mm Transcatheter Ultra Low Profile [id number] - [id number] - [id number] Implanted:Qty: 1 on 12/13/2023 by Bossman Gunter MD at [facility] [employer] 09/12/2026 [id number] / [id number] / [employer] Device Clsr Perclose Prostyle Sut-Mediatd Closure-Repair Sys 80486-70 - [id number] Implanted:Qty: 1 on 12/13/2023 by Bossman Gunter MD at [facility] [employer] 08/13/2025 [id number] / / [id number] [employer] Device Clsr Perclose Prostyle Sut-Mediatd Closure-Repair Sys 25031-62 - [id number] Implanted:Qty: 1 on 12/13/2023 by Bossman Gunter MD at [facility] [employer] 07/14/2025 [id number] / / [id number] [employer] Device Vascular Closure Femoral Artery Bioabsorbable Dual Method Vascade 6-7fr Collagen [id number] - [id number] Implanted:Qty: 1 on 12/13/2023 by Bossman Gunter MD at [facility] [employer] [facility] 07/08/2025 [id number] / / [id number] Procedures Procedure Name Priority Date/Time Associated [...] chronic leads 07/27/2011 (Atrial lead insulation break-repaired). [place] remote monitoring Q3 mo. Battery Advisory. Supervising physician: Dr Wilson. Office DDD Pacemaker evaluation demonstrated normal device function. Left pectoral incision well healed without signs of infection noted. Battery function-2.99V, 4.5 years remaining battery life to ADRIANO. Appropriate lead measurements noted. Presenting qceyxk-DD-TI (SR). 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 Medications; ASA 81 mg, Plavix, Propranolol, Verapamil. No mode switch episodes recorded. No ventricular arrhythmias noted. See scanned report. Office pacemaker f/u expected in 13-15 months to coordinate with Dr Schmidt visit. [place] remote f/u 05/07/2025. Alia Anna, RN Dillan Schmidt MD [facility] Final Result from Last 3 Months Insurance MEDICARE MEDICARE BLUE CROSS MEDICARE SUPPLEMENT MEDICARE [facility] Advance Directives For more information, please contact: [phone] * Full Code (Latest Code Status on File) Date Activated Date Inactivated Comments 10/26/2023 9:56 AM 10/26/2023 4:20 PM Care Teams Photography Intern Relationship Specialty Start Date End Date Ramu Myers MD [address] [facility] [address] [place] [address] PCP - General 05/21/16
== END 2025-03-04 09:39 | disposition home or self-care (01) ==
PROVIDERS: PCP Internal Medicine; Visit Provider Internal Medicine
DX: J98.11 Atelectasis (principal); J18.9 Pneumonia, unspecified organism
CPT/HCPCS: 36415; 71046; 80053; 85025

== ENCOUNTER 2025-03-05 11:48 | Inpatient (IN) | payer MEDICARE, SELFPAY ==
[2025-03-05] VITALS (13 sets, daily range): BP systolic 139–169; BP diastolic 80–98; PULSE 63–92; RESP 19–31; TEMP 36.6–36.7; O2SAT 91–95; BMI 27.8
--- NOTE | ~2025-03-05 | XR_ITS ---
XR chest 1V portable Ordering provider: Anton Brower MD History: 84 years Male with . dyspnea known pneumonia . Comparison: March 04, 2025 FINDINGS: MEDIASTINUM: The cardiac silhouette is not enlarged. Left bipolar pacemaker. LUNGS: No effusions or pneumothorax. Bibasilar opacification suggestive of atelectasis versus pneumon ia. OTHER: No free air under the diaphragm. IMPRESSION: Bibasilar pneumonia. Reviewed, dictated and finalized at location A. IMPRESSION: Bibasilar pneumonia.
--- NOTE | ~2025-03-05 | XR_ITS ---
MODIFIED ESOPHAGRAM HISTORY: Assess for aspiration TECHNIQUE: Modified barium esophagram was performed on 03/06/2025. I administered fluoroscopy and perf ormed the exam with speech pathologist. Patient was seated for lateral fluoroscopic imaging for boy stion of thin liquids, pudding, solids and quantified amounts, followed by thin liquids in uncontroll ed amounts. This was recorded on tape. A single fluoroscopic spot image was also recorded. The DAP fo r this procedure was 3.7 Gycm2. The amount of fluoroscopy time used during this procedure was 3.7 min utes. FINDINGS: Oral stage: Difficulty formulating ingested contents into a bolus resulting in delayed initiation of the swallow. Pharyngeal stage: Flash laryngeal penetration with consecutive swallows of thin liquids but without a spiration. Cervical/esophageal stage: Adequate function. IMPRESSION: Oral dysphagia with difficulty formulating content into a bolus as well as flash laryngea l penetration without aspiration with consecutive swallows of thin liquids. Please correlate with sp eech pathologist findings and specific feeding recommendations. Reviewed, dictated and finalized at location A. IMPRESSION: Oral dysphagia with difficulty formulating content into a bolus as well as flash laryngeal penetration without aspiration with consecutive swallow s of thin liquids. Please correlate with speech pathologist findings and speci fic feeding recommendations.
--- NOTE | 2025-03-05 11:57 | ECG_ITS ---
Test Date: 2025-03-05 12:03:25 Measurements Intervals [place] Rate: 67 P: 29 WI: 147 QRS: 18 QRSD: 139 T: -61 QT: 409 QTc: 432 Interpretive Statements SINUS RHYTHM RIGHT BUNDLE BRANCH BLOCK ST-T WAVE ABNORMALITY IN ANTEROLAT/INF LEADS- CONSIDER ISCHEMIA BASELINE ARTIFACT- I, II, III, AVR, AVL, AVF ABNORMAL ECG No previous ECG available for comparison Electronically Signed On 03-05-2025 12:26:27 CDT by Emmanuel Holguin D.O.
[2025-03-05 12:35] LABS: Basophils Percent Auto 0.1 % (0.2-1.2); Eosinophils Absolute Auto 0.2 K/mm3 (0-0.3); Eosinophils Percent Auto 1.3 % (0-4.4); Hematocrit 37.7 % (42.0-52.0); Hemoglobin 12.2 g/dL (14.0-18.0); Immature Granulocyte Absolute 0.11 K/mm3 (0.00-0.031); Immature Granulocyte Percent A 0.8 % (0-0.5); Lymphocytes Absolute Auto 1.26 K/mm3 (0.9-3.2); Lymphocytes Percent Auto 9.4 % (18.3-44.2); Mean Corpuscular HGB Conc 32.4 g/dl (32-36); Mean Corpuscular Hemoglobin 30.3 pg (26-34); Mean Corpuscular Volume 93.5 fl (80-100); Mean Platelet Volume 10.5 fl (7.4-10.4); Monocytes Percent Auto 7.8 % (2.6-8.5); Neutrophils Absolute Auto 10.7 K/mm3 (1.3-6.7); Neutrophils Percent Auto 80.6 % (45.5-73.1); Platelet Count Result 376 k/mm3 (150-375); Red Blood Count 4.03 M/mm3 (4.6-6.20); Red Cell Distribution Width 13.5 % (11.5-14.5); White Blood Count 13.3 K/mm3 (4.5-10.0)
[2025-03-05 12:48] LABS: Lactic Acid Reflex 1.4 mmol/L (0.7-2.0)
[2025-03-05 12:49] LABS: Prothrombin Time 13.8 Seconds (11.1-14.7)
[2025-03-05 12:50] LABS: Alanine Aminotransferase 12 U/L (6-50); Alkaline Phosphatase 97 U/L (38-126); Anion Gap 10 mmol/L (4-12); Aspartate Amino Transferase 45 U/L (17-59); Bilirubin,Total 0.8 mg/dL (0.2-1.3); Blood Urea Nitrogen 17 mg/dL (9-20); Calcium 9.2 mg/dL (8.4-10.2); Carbon Dioxide 22 mmol/L (22-30); Chloride 100 mmol/L (98-107); Estimated CRCL calculation 74 ml/min; Estimated Glomerular Filt Rate > 60; Glucose 102 mg/dL (65-110); Partial Thromboplastin Time 27.1 Seconds (22.3-36.8); Potassium 4.1 mmol/L (3.4-5.0); Sodium 132 mmol/L (137-145)
[2025-03-05 13:07] LABS: NT Pro B Type Natriuretic Pept 238 pg/mL (19.9-100); Troponin I < 0.012 ng/mL (0.000-0.034)
--- OUTSIDE RECORDS SUMMARY | 2025-03-05 13:35 | XMS_ITS | Encounter Summary ---
Author Organization [facility] Address [address] [place] [address] Care Team Providers Care Fuse Cup Expander Name Role Phone Unavailable Primary Care Provider Unavailabl e Encounter Details Date Type Department Care Team (Late st Contact Info) Description 03/21/2024 Lab Requisition [facility] - DermPath Lab [address] [place] [id number] Estela Sorensen MD [address] [place] [address] Social History Tobacco Use Types Packs/Day Years Used Date Smoking Tobacco: Never Assessed Sex and Gender Information Value Date Recorded Sex Assigned at Not on file Legal Sex 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 Gender Identity Not on file Sexual Orientation Not on file documented as of this encounter Plan of Treatment Not on file documented as of this encounter Procedures Procedure Name Priority Date/Time Associated Diagnosis Comments DERMATOPATHOLOGY Routine 03/21/2024 12:1 9 PM CDT documented in this encounter Results * DERMATOPATHOLOGY (03/21/2024 12:19 PM CDT) Case Report Dermatopathology Report Case: [id number] Authorizing Provider: Estela Sorensen MD Collected: 03/21/2024 12:19 PM Ordering Location: [facility] Physician [facility] - Received: 03/22/2024 11:44 AM DermPath Lab [...] characteristic determined by the Dermatopathology Laboratory at [facility], directed by Dr. Fercho Powell. These tests need not be, and therefore are not, approved by the [place] Food and Drug Administration. The tests are used for clinical purposes. Billing Codes Specimen Charges Stain Charges 71761 1 2:14 PM CDT DERMATOPATHOLOGY LABORATORY Embedded Images 2:14 PM CDT DERMATOPATHOLOGY LABORATORY Pathology/Cytolo gy TISSUE SPECIMEN FROM SKIN / Unknown 03/21/2024 12:19 PM CDT 03/22/2024 11:44 AM CDT Estela Sorensen MD LAB - PATHOLOGY/CYTOLOGY ORDERA BLES Final Result DERMATOPATHOLOGY LABORATORY [facility] - Department of Dermatology [address] [place] [address], [facility] [phone] documented in this encounter Visit Diagnoses Not on filedocumented in this encounter
--- OUTSIDE RECORDS SUMMARY | 2025-03-05 13:35 | XMS_ITS | Encounter Summary ---
Author Organization [facility] Address [address] [place] [address] Care Team Providers Care Hospice Clinical Manager Name Role Phone Ramu Myers MD Primary Care Provider [phone] Encounter Details Date Type Department Care Team (Late st Contact Info) Description 11/16/2016 Orders Only [facility] ProviderAnnalise MD [address] [place] [address] Social History Tobacco Use Types Packs/Day Years Used Date Smoking Tobacco: Former Cigarettes Q uit: 11/14/2002 Alcohol Use Standard Drinks/Week Comments No 0 (1 standard drink = 0.6 oz pur e alcohol) Sex and Gender Information Value Date Recorded Sex Assigned at Not on file 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
--- OUTSIDE RECORDS SUMMARY | 2025-03-05 13:35 | XMS_ITS | Encounter Summary ---
Author Organization [facility] Address [address] [place] [address] Care Team Providers Care House Wrecker Name Role Phone Unavailable Primary Care Provider Unavailabl e Encounter Details Date Type Department Care Team (Late st Contact Info) Description 09/18/2020 Lab Requisition [facility] Derm[facility] Lab [address] [facility] [place] [id number] Anna Morel MD [address] [facility] [address] [place] [address] Social History Tobacco Use Types Packs/Day Years Used Date Smoking Tobacco: Never Assessed Sex and Gender Information Value Date Recorded Sex Assigned at Not on file Legal Sex Male 5:39 PM LEATHER COVERER Gender Identity Not on file Sexual Orientation Not on file documented as of this encounter Plan of Treatment Not on file documented as of this encounter Procedures Procedure Name Priority Date/Time Associated Diagnosis Comments DERMATOPATHOLOGY Routine 09/17/2020 12:0 0 AM LEATHER COVERER documented in this encounter Results * DERMATOPATHOLOGY (09/17/2020 12:00 AM LEATHER COVERER) Case Report Dermatopathology Report Case: [id number] Authorizing Provider: Anna Morel MD Collected: 09/17/2020 12:00 AM Ordering Location: [facility] Received: 09/18/2020 07:55 AM Pathologist: Kiarra Guzman MD Specimen: Skin, left post ear 0 2:37 PM LEATHER COVERER DERMATOPATHOLOGY LABORATORY Final Diagnosis Specimen A. 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 0 2:37 PM [facility] DERMATOPATHOLOGY LABORATORY Gross Description Specimen A: Received is one formalin filled container labeled with the patient's name and designated left post ear. The specimen consists of a shave measuring [id number]. Jar 0. 0 2:37 PM [facility] DERMATOPATHOLOGY LABORATORY Microscopic Description Specimen A. SKIN, left post ear: The epidermis is acanthotic and shows full thickness disorderly maturation of keratinocytes, mitoses at different levels, and dyskeratotic cells. There is overlying parakeratosis and hyperkeratosis. 0 2:37 PM [facility] DERMATOPATHOLOGY LABORATORY Disclaimer An external and internal positive and negative controls are appropriate for the histochemical, immunohistochemical and immunofluorescence stain(s) in this case (if any), except where stated explicitly. The performance characteristics of the stain(s) cited in this report were developed and its performance characteristic determined by the Dermatopathology Laboratory at [facility], directed by Dr. Fercho Powell. These tests need not be, and therefore are not, approved by the [place] Food and Drug Administration. The tests are used for clinical purposes. Billing Codes Specimen Charges Stain Charges 53854 1 0 2:37 PM LEATHER COVERER DERMATOPATHOLOGY LABORATORY Embedded Images 0 2:37 PM [facility] DERMATOPATHOLOGY LABORATORY Pathology/Cytolog y TISSUE SPECIMEN FROM SKIN / Unknown 09/17/2020 09/18/2020 7:55 AM LEATHER COVERER Anna Morel MD LAB - PATHOLOGY/CYTOLOGY OR DERABLES Final Result DERMATOPATHOLOGY LABORATORY [facility] - Department of Dermatology [address] [place] [address], [facility] [phone] documented in this encounter Visit Diagnoses Not on filedocumented in this encounter
--- OUTSIDE RECORDS SUMMARY | 2025-03-05 13:35 | XMS_ITS | Continuity of Care Document ---
Author Organization [facility] Address [address] [place] [address] [address] [place] [address] Phone Care Team Providers Care Cloth Examiner Machine Name Role Phone [facility] Unavailable Unavail able Kathi Johnson Unavailable Unavailable Procedures Procedure Date Vision Svcs Frames Purchases TF Polycarb Sphcyl [place] To +/-4d .12-2d Tint Photochromatic, Polycarb 0 [...] Diagnoses Date Provider Providers Copied on Encounter [facility], [address], [place], [place], [id number], [place] tel:[phone] [facility] [place] No Information 0 0 [facility] . [address], [address], [place], [place], [id number], [place]. tel:[phone] Referring Provider: Jhonny Cerda, [address], [place], [address]. tel:[phone] g Provider: Kathi Johnson, [address] [facility], [place], [address]. tel:[phone] [facility], [address], [place], [place], [id number], [place] tel:[phone] [facility] No Information Simon-0 9-201 0 Doisy Edward. [address] , [address], [place], [place], [facility] [place], [place]. tel:[phone] Office/outpat ient Visit, Est [facility], [address] [place] [address] [address], [place], [place], [id number], [place] tel:[phone] [facility] [place] No Information Sep-2 8-200 9 Doisy Edoli. [address] , [address], [place], [place], [facility] [place]. tel:[phone] [facility], [address] [place] [address] [address], [place], [place], [id number], [place] tel:[phone] [facility] No Information Sep-1 6-200 9 Jensy Edward. [address] , [address], [place], [place], [facility] [place]. tel:[phone] [facility], [address] [place] [address] [address], [place], [place], [address], [place] tel:[phone] [facility] No Information Nov-0 6-200 8 Sharri Hagenn. [address] , [address], [place], [place], [facility] [place]. tel:[phone] [facility], [address] [place] [address] [address], [place], [place], [address], [place] tel:[phone] [facility] No Information Apr-2 6-200 7 Sharri Hagenn. [address] , [address], [place], [place], [facility] [place]. tel:[phone] Referring Provider: Sena Guzman, [address], [place], [address]. tel:[phone] Family History Family Member Type Diagnosis Age At Onset No Information Payers Payer name Insurance type Covered alliance party ID Authoriza tion(s) No Information Social [...]
--- OUTSIDE RECORDS SUMMARY | 2025-03-05 13:35 | XMS_ITS | Clinical Summary ---
Author Organization [facility] Address [address] [place] [address] Care Team Providers Care Packaging Materials Inspector Name Role Phone Ramu Myers MD Primary Care Provider [phone] Allergies No known active allergies Medications omeprazole [...] every day 0 1 Active multivit with wod-AG-sjpgomun (ONE DAILY FOR MEN) 0.4-600 mg-mcg tablet [...] chronic leads 07/27/2011 (Atrial lead insulation break-repaired). [place] remote monitoring Q3 mo. Battery Advisory. Nonrheumatic aortic valve stenosis 06/21/2017 HTN (hypertension), benign 06/21/2017 Pulmonary HTN 06/21/2017 Encounters Date Type Department Care Team Description 01/30/2025 1:30 PM CDT Ancillary Procedure [facility] Cardiology [address] [facility] [address] [place] [address] CHB (complete heart block) (HCC); Presence of cardiac pacemaker 01/30/2025 Orders Only [facility] Cardiology [address] [facility] [address], [place] [address] Dillan Schmidt MD Presence of cardiac pacemaker (Primary Dx); Complete heart block (HCC) from Last 3 Months Surgical History Surgery Date Site/Laterality Comments HEMORRHOID SURGERY Hemorrhoidectomy CATARACT EXTRACTION INSERT / REPLACE / REMOVE PACEMAKER [facility] COLONOSCOPY CARDIAC CATHETERIZATION Medical History Medical History Date Comments Depression Depression Skin cancer Hypertension Hyperlipidemia Arrhythmia pacemaker [facility] [place] e Aortic stenosis GERD (gastroesophageal reflux disease) [...] drink = 0.6 oz pur e alcohol) [facility] Utilities Answer Date Recorded In [...] often do you attend chur ch or buddhism services? More than 4 times per year 12/14/2023 Do you belong to any clubs o r organizations such as temple groups, unions, fraternal or athletic groups, or [...] place to sleep or slept in a longterm (including now)? No 12/14/2023 Personal Safety Answer Date Recorded Have you ever been in or are you currently in a harmful physical or emotional relationship or is someone making you feel afraid or unsafe? 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8 cm (5' 10 ) 09/21/2024 9:41 AM RUBBER COMPOUNDER SUPERVISOR Body Mass Index 30.42 09/21/2024 9:41 AM RUBBER COMPOUNDER SUPERVISOR Plan of Treatment Health Maintenance Due Date Last Done Comments Depression Screening 1939 DTaP/Tdap/Td Vaccine (1 - Tdap) 1950 Hepatitis B Screening 1957 Zoster Vaccine (1 of 2) 1989 Well Visit 65+ 2004 Pneumococcal vaccine 65+ (2 of 2 - PPSV23) 12/15/2018 12/15/2017 Influenza Vaccine (#1) 2024 1, 09/09/2020, 08/13/2019, Additional history exists Fall Risk Assessment 12/14/2024 12/14/2023 Medical Devices Implanted Type Area Program Manager Transportation Device Identifier Shelf Expiration Date Model / Serial / Lot Pacemaker-07/27/20 11 Implanted: 011 by Briana Wright (Quantity not on file) Pacemaker Chest [facility] [employer]at [employer] Device Closure Vascade Od5 Fr Femoral Artery [id number] - [id number] Implanted:Qty: 1 on 10/26/2023 by Bossman Gunter MD at [facility] [employer] 07/11/2025 [id number] / / [id number] Sotelo Vascular Device Clsr Perclose Prostyle Sut-Mediatd Closure-Repair Sys 82762-54 - [id number] Implanted:Qty: 1 on 12/13/2023 by Bossman Gunter MD at [facility] [employer] V[employer] 09/13/2025 [id number] / / [id number] Sotelo Vascular Device Clsr Perclose Prostyle Sut-Mediatd Closure-Repair Sys 24352-48 - [id number] Implanted:Qty: 1 on 12/13/2023 by Bossman Gunter MD at [facility] S[employer] V[employer] 08/13/2025 [id number] / / [id number] Sharpe Lifesciences Carol 3 Commander Sharpe 26mm Transcatheter Ultra Low Profile [id number] - [id number] - [id number] Implanted:Qty: 1 on 12/13/2023 by Bossman Gunter MD at [facility] [employer] 09/12/2026 [id number] / [id number] / Sotelo Vascular Device Clsr Perclose Prostyle Sut-Mediatd Closure-Repair Sys 07035-64 - [id number] Implanted:Qty: 1 on 12/13/2023 by Bossman Gunter MD at [facility] [employer] V[employer] 08/13/2025 [id number] / / [id number] Sotelo Vascular Device Clsr Perclose Prostyle Sut-Mediatd Closure-Repair Sys 24703-31 - [id number] Implanted:Qty: 1 on 12/13/2023 by Bossman Gunter MD at [facility] [employer] V[employer] 07/14/2025 [id number] / / [id number] [employer] Inc Device Vascular Closure Femoral Artery Bioabsorbable Dual Method Vascade 6-7fr Collagen [id number] - [id number] Implanted:Qty: 1 on 12/13/2023 by Bossman Gunter MD at [facility] Comat [employer] [facility] 07/08/2025 [id number] [id number] / / [id number] Procedures Procedure Name Priority Date/Time Associated [...] chronic leads 07/27/2011 (Atrial lead insulation break-repaired). [place] remote monitoring Q3 mo. Battery Advisory. Supervising physician: Dr Wilson. Office DDD Pacemaker evaluation demonstrated normal device function. Left pectoral incision well healed without signs of infection noted. Battery function-2.99V, 4.5 years remaining battery life to ADRIANO. Appropriate lead measurements noted. Presenting wjppoy-VR-TQ (SR). 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 Medications; ASA 81 mg, Plavix, Propranolol, Verapamil. No mode switch episodes recorded. No ventricular arrhythmias noted. See scanned report. Office pacemaker f/u expected in 13-15 months to coordinate with Dr Schmidt visit. [place] remote f/u 05/07/2025. Alia Anna, RN Dillan Schmidt MD CV CARDIAC SERVICES [facility] Final Result from Last 3 Months Insurance MEDICARE MEDICARE BLUE CROSS MEDICARE SUPPLEMENT MEDICARE [facility] Advance Directives For more information, please contact: [phone] * Full Code (Latest Code Status on File) Date Activated Date Inactivated Comments 10/26/2023 9:56 AM 10/26/2023 4:20 PM Care Teams Packaging Materials Inspector Relationship Specialty Start Date End Date Ramu Myers MD [address] [facility] [address] [place] [address] PCP - General 05/21/16
--- OUTSIDE RECORDS SUMMARY | 2025-03-05 13:35 | XMS_ITS | Encounter Summary ---
Author Organization [facility] Address [address] [place] [address] Care Team Providers Care Varnish Melter Name Role Phone Ramu Myers MD Primary Care Provider [phone] Encounter Details Date Type Department Care Team (Late st Contact Info) Description 02/23/2017 Orders Only [facility] ProviderAnnalise MD [address] [place] [address] Social History Tobacco Use Types Packs/Day Years Used Date Smoking Tobacco: Former Cigarettes Q uit: 11/14/2002 Alcohol Use Standard Drinks/Week Comments No 0 (1 standard drink = 0.6 oz pur e alcohol) Sex and Gender Information Value Date Recorded Sex Assigned at Not on file Legal Sex Male 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
--- OUTSIDE RECORDS SUMMARY | 2025-03-05 13:35 | XMS_ITS | Clinical Summary ---
Author Organization [facility] Address [address] [place] [address] Care Team Providers Care Migratory Farm Hand Name Role Phone Unavailable Primary Care Provider Unavailabl e Source Comments [facility],non-owned Affiliates and Associated Physician Practices is amultiple site organization consisting of ambulatory clinics and hospital sitesin [place] and [place]. This disclosure is being madepursuant to the Care Everywhere program and may not contain all information available regarding this patient. 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
--- OUTSIDE RECORDS SUMMARY | 2025-03-05 13:35 | XMS_ITS | Clinical Summary ---
Author Organization [facility] Address [address] [place] [address] Care Team Providers Care Housecalls Nurse Name Role Phone Ramu Myers MD Primary Care Provider [phone] Allergies No known active allergies Medications rosuvastatin [...] total) by mouth daily. Active Glucosamine-Chondro itin 6143-1415 MG/30ML Liquid Take 1 tablet by mouth [...] 07/05/2023 Tremor 03/15/2023 Hypertriglyceridemia 12/31/2019 Pulmonary HTN ([facility]) 06/21/2017 Presence of cardiac pacemaker 06/21/2017 Overview (11/15/2024): [facility] Dual Pacemaker. Dx; CHB. Gen change 01/24/2020, chronic leads 07/27/2011 (Atrial lead insulation break-repaired). Daniele remote monitoring Q3 mo. Battery Advisory. Nonrheumatic aortic valve stenosis 06/21/2017 HTN (hypertension), benign 06/21/2017 Resolved Problems Problem Noted Date Diagnosed Date Resolved Date Preop cardiovascular exam 10/10/2023 Encounters Date Type Department Care Team Description 02/20/2025 Telephone [facility] - [address] [place] [address] Tonio Roberts MD Problem 01/16/2025 11:40 AM AGRICULTURAL CHEMIST Office Visit [facility] - [address], [address] [place] [address] Tonio Roberts MD Botox (Dystonia 100units/) 01/16/2025 Scan [employer] INFO SRVCS Scanned, [facility] 01/16/2025 Travel 12/20/2024 Therapy Plan [facility] - [facility] [address] [facility], [address] [place] [address] Tonio Roberts MD from Last 3 [...] Comments Blood Pressure 123/83 01/16/2025 11:32 AM AGRICULTURAL CHEMIST Pulse 65 01/16/2025 11:32 AM AGRICULTURAL CHEMIST Temperature 37.1 C (98.8 F) 01/16/2025 11:32 AM AGRICULTURAL CHEMIST Respiratory Rate 18 10/19/2023 3:08 PM AGRICULTURAL CHEMIST Oxygen Saturation 95% 01/16/2025 11:32 AM AGRICULTURAL CHEMIST Inhaled Oxygen Concentration - - Weight 94.8 kg (209 lb) 10/24/2024 11:13 AM AGRICULTURAL CHEMIST Height 180.3 cm (5' 11 ) 01/16/2025 11:32 AM AGRICULTURAL CHEMIST Body Mass Index 29.15 08/01/2024 2:08 PM CDT Plan of Treatment Upcoming Encounters Date Type Department Care Team (Late st Contact Info) Description 04/10/2025 11:20 AM CDT Office Visit [facility] Multispecialty Care - [facility] [address] [facility], [address] [place] [address] Tonio Roberts MD [address] [place] [address] Health Maintenance Due Date Last Done Comments DTaP, Tdap and Td Vaccines ( 1 - Tdap) 1958 Zoster Vaccines (1 of 2) 1989 Annual Medicare Wellness Visit 2004 RSV Immunization or 60+ Years (1 - 1-dose 75+ series) 2014 Pneumococcal Vaccine: 50+ Years (2 of 2 - PPSV23) 02/09/2018 12/15/2017 COVID-19 Vaccine (3 - 2023-2 5 season) 2024 01/30/2021, 01/09/2021 PHQ-2 (Physician Wolsey) 11/14/2024 10/24/2024 Meningococcal B Vaccine Aged Out No l onger eligible based on patient's age to complete this topic Meningococcal Vaccine Aged Out No elda karla eligible based on patient's age to complete this topic RSV Immunizations Under 20 Months Aged Out No longer eligible b ased on patient's age to complete this topic Insurance MEDICARE [facility] Care Teams Housecalls Nurse Relationship Specialty Start Date End Date Ramu Myers MD [address] [place] [address] PCP - General INTERNAL MEDICINE 06/03/22
--- OUTSIDE RECORDS SUMMARY | 2025-03-05 13:36 | XMS_ITS | Encounter Summary ---
Author Organization [facility] Healthcare Address [address] [place] [address] Care Team Providers Care Shochet Name Role Phone Ramu Myers MD Primary Care Provider [phone] Encounter Details Date Type Department Care Team (Late st Contact Info) Description 03/06/2024 Orders Only [facility] Information Management [address] [place] [address] Dillan Schmidt MD [facility] [place] [address] Social History Tobacco Use Types Packs/Day Years Used Date Smoking Tobacco: Former Pipe Q uit: 06/21/1999 Cigars Quit: 06/21/19 99 Smokeless Tobacco: Never Alcohol Use Standard Drinks/Week Comments No 0 (1 standard drink = 0.6 oz pur e alcohol) [facility] Utilities Answer Date Recorded In the past 12 months has [employer], gas, oil, or water [employer] threatened to shut off services in your [...] week 12/14/2023 How often do you attend [facility] or uatsdin services? More than 4 times per year 12/14/2023 Do you belong to any clubs o r organizations such as orthodox groups, unions, fraternal or athletic groups, or [...] place to sleep or slept in a assisted (including now)? No 12/14/2023 Personal Safety Answer Date Recorded Have you ever been in or are you currently in a harmful physical or emotional relationship or is someone making you feel afraid or unsafe? 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
--- OUTSIDE RECORDS SUMMARY | 2025-03-05 13:36 | XMS_ITS | Referral Summary ---
Author Organization [facility] Address [address] [place] [address] Care Team Providers Care Fern Picker Name Role Phone Ramu Myers MD Primary Care Provider [phone] Encounters Date Type Department Care Team Description 01/30/2025 Orders Only [facility] Medical [facility] Cardiology [address] [facility] [address], [place] [address] Dillan Schmidt MD Presence of cardiac pacemaker (Primary Dx); Complete heart block (HCC) 01/30/2025 1:30 PM CDT Ancillary Procedure [facility] Medical [facility] Cardiology [address] [facility] [address] [place] [address] CHB (complete heart block) (HCC); [...] every day 0 1 Active multivit with hct-AC-swomlphx (ONE DAILY FOR MEN) 0.4-600 mg-mcg tablet [...] chronic leads 07/27/2011 (Atrial lead insulation break-repaired). [place] remote monitoring Q3 mo. Battery Advisory. Nonrheumatic aortic valve stenosis 06/21/2017 HTN (hypertension), benign 06/21/2017 Pulmonary HTN 06/21/2017 Social History Tobacco Use Types Packs/Day Years Used Date Smoking Tobacco: Former Pipe Q uit: 06/21/1999 Cigars Quit: 06/21/19 99 Smokeless Tobacco: Never Tobacco Cessation:Counseling Given: Not Answered Alcohol Use Standard Drinks/Week Comments No 0 (1 standard drink = 0.6 oz pur e alcohol) [facility] Utilities Answer Date Recorded In the past 12 months has [employer], [employer], oil, or water [employer] threatened to shut off services in your [...] How often do you attend chur or church services? More than 4 times per year 12/14/2023 Do you belong to any clubs o r organizations such as episcopal groups, unions, fraternal or athletic groups, or [...] on file Legal Sex Male 2:00 AM HEALTH NAVIGATOR Gender Identity Not on file Sexual Orientation Not on file Last Filed Vital Signs Vital Sign Reading Time Taken Comments Blood Pressure 130/70 09/21/2024 9:41 AM HEALTH NAVIGATOR Pulse 66 09/21/2024 9:41 AM HEALTH NAVIGATOR Temperature 36.3 C (97.4 F) 12/14/2023 12:13 PM HEALTH NAVIGATOR Respiratory Rate 18 12/14/2023 12:13 PM HEALTH NAVIGATOR Oxygen Saturation 94% 09/21/2024 9:41 AM HEALTH NAVIGATOR Inhaled Oxygen Concentration - - Weight 96.2 kg (212 lb) 09/21/2024 9:41 AM HEALTH NAVIGATOR Height 177.8 cm (5' 10 ) 09/21/2024 9:41 AM HEALTH NAVIGATOR Body Mass Index 30.42 09/21/2024 9:41 AM HEALTH NAVIGATOR Plan of Treatment Not on file Medical Devices Implanted Type Area Furniture Upholsterer Device Identifier Shelf Expiration Date Model / Serial / Lot Pacemaker-07/27/20 11 Implanted: 011 by Briana Wright (Quantity not on file) [facility]emaker [facility] Closure Vascade Od5 Fr Femoral Artery [id number] - [id number] Implanted:Qty: 1 on 10/26/2023 by Bossman Gunter MD at [facility] 07/11/2025 [id number] -[id number] / / [id number] Sotelo Vascular Device Clsr Perclose Prostyle Sut-Mediatd Closure-Repair Sys 26640-25 - [id number] Implanted:Qty: 1 on 12/13/2023 by Bossman Gunter MD at [facility] Vascular 09/13/2025 [id number] / / [id number] Sotelo Vascular Device Clsr Perclose Prostyle Sut-Mediatd Closure-Repair Sys 31742-99 - [id number] Implanted:Qty: 1 on 12/13/2023 by Bossman Gunter MD at [facility] [employer] 08/13/2025 [id number] / / [id number] [employer] Carol 3 Commander Sharpe 26mm Transcatheter Ultra Low Profile [id number] - [id number] - [id number] Implanted:Qty: 1 on 12/13/2023 by Bossman Gunter MD at [facility] [employer] 09/12/2026 [id number] / [id number] Sotelo Vascular Device Clsr Perclose Prostyle Sut-Mediatd Closure-Repair Sys 37266-07 - [id number] Implanted:Qty: 1 on 12/13/2023 by Bossman Gunter MD at [facility] [employer] 08/13/2025 [id number] / / [id number] Sotelo Vascular Device Clsr Perclose Prostyle Sut-Mediatd Closure-Repair Sys 06613-70 - [id number] Implanted:Qty: 1 on 12/13/2023 by Bossman Gunter MD at [facility] [employer] 07/14/2025 [id number] / / [id number] Medical Inc Device Vascular Closure Femoral Artery Bioabsorbable Dual Method Vascade 6-7fr Collagen [id number] - [id number] Implanted:Qty: 1 on 12/13/2023 by Bossman Gunter MD at [facility] [employer] 07/08/2025 [id number]- [id number] / / [id number] Procedures Procedure Name Priority Date/Time Associated [...] to ADRIANO. Appropriate lead measurements noted. Presenting ggyuco-MT-FG (SR). AP-39%, LOADER OPERATOR SUPERVISOR-23%. Medications; ASA 81 mg, Plavix, Propranolol, Verapamil. No mode switch episodes recorded. No ventricular arrhythmias noted. See scanned report. Office pacemaker f/u expected in 13-15 months to coordinate with Dr Schmidt visit. [place] remote f/u 05/07/2025. Alia Anna, RN us Dillan Schmidt MD CV CARDIAC SERVICES [facility] Final Result from Last 3 Months Insurance MEDICARE MEDICARE BLUE CROSS MEDICARE SUPPLEMENT MEDICARE [facility] Advance Directives For more information, please contact: [phone] * Full Code (Latest Code Status on File) Date Activated Date Inactivated Comments 10/26/2023 9:56 AM 10/26/2023 4:20 PM Care Teams Fern Picker Relationship Specialty Start Date End Date Ramu Myers MD [address] [facility] [address] [place] [address] PCP - General 05/21/16
[2025-03-05] MEDS: SODIUM CHLORIDE 0.9% IV 1,000 ML 999 ML IV CONT (14:15)
--- NOTE | 2025-03-05 14:17 | ED.SOB ---
HPI - SOB/Dyspnea General Chief Complaint: Shortness of Breath/Dyspnea Stated Complaint: low spo2 known pneumonia Time Seen by Provider: 03/05/25 12:54 History of Present Illness HPI Narrative: 84-year-old male with a past medical history including hypertension, diabetes, cardiac pacemaker. Patient presents to the emergency department chief complaint of difficulty in breathing and hypoxia. Patient has a history of Parkinson's disease and his daughter knows that has been worsening and affecting his ability to get around the house. Patient has been seen by his primary care provider and recently started on antibiotics for pneumonia seen on chest x-ray. Daughter at bedside states that they are his caregivers and also been sick recently and thinks they may have given him something. Patient self is not on any oxygen but noted that he was hypoxic to 87% on a home portable pulse ox. Daughter notes that he has been conversationally dyspneic and now having a productive cough has worsened over the last day or 2. Patient is found to be hypoxic and requiring 3 L nasal cannula on triage. Denies any chest pain or chest pressure. No nausea or vomiting. No headache or vision changes, is ambulatory but requires assistance from his caregivers. Related Data Home Medications ?Medication ?Instructions ?Recorded ?Confirmed ?Last Taken ?Type aspirin 81 mg tablet,delayed 81 mg PO DAILY 01/18/20 03/04/25 Unknown History release (Eyal Low Dose Aspirin) glucosamine-chondroitin 1,500 mg 30 ml PO DAILY 01/23/20 03/04/25 Unknown History -1,200 mg/30 mL oral liquid finasteride 5 mg tablet 5 mg PO DAILY 02/10/22 03/04/25 Unknown History psyllium husk 0.52 gram capsule 0.52 g PO DAILY 10/11/23 03/04/25 Unknown History (Daily Fiber) clopidogrel 75 mg tablet 75 mg PO DAILY 02/17/24 03/04/25 Unknown History vitamins A,C,B-xrwy-hfxjtv 4,296 1 cap PO BID 03/04/25 03/04/25 Unknown History mcg-226 mg-90 mg capsule (PreserVision AREDS) Allergies Allergy/AdvReac Type Severity Reaction Status Date / Time No Known Allergies Allergy Mild Verified 03/04/25 10:47 Review of Systems Review of Systems: As reviewed above in HPI [facility] Past Medical History Medical History Pneumonia Right flank pain BMI 32.0-32.9,adult Effusion of knee joint Unstable gait Dysphagia Sciatica GERD (gastroesophageal reflux disease) SOB (shortness of breath) Persistent cough Encounter for routine adult health examination with abnormal findings BMI 27.0-27.9,adult Injury of right elbow BMI 26.0-26.9,adult Trochanteric bursitis of right hip Tear of right rotator cuff Stress due to illness of family member Primary osteoarthritis of both knees Painful urination Pain of right hip joint RBBB (right bundle branch block) Constipation BMI 28.0-28.9,adult Anxiety BMI 29.0-29.9,adult Effusion, right knee Left knee DJD Right knee DJD Encounter for Medicare annual wellness exam Aortic stenosis BMI 30.0-30.9,adult Stress Hyperlipidemia Encounter for routine adult health examination without abnormal findings BMI 31.0-31.9,adult DM type 2 (diabetes mellitus, type 2) BPH (benign prostatic hyperplasia) Hearing loss Cardiac pacemaker in situ Sick Sinus Syndrome Benign essential hypertension 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 Smoking status: Former smoker Second hand tobacco smoke exposure: No Alcohol intake: never Substance use: current Substance use type: does not use Lack of Transportation: No Lack of Food: Never True Current Housing: I Have Housing Concerned About Future Housing: No Difficulty Paying Gas/Electric Bills: No Difficulty Paying for Meds: No Currently Unemployed: No Education: High School Diploma/GED Difficulty w/ Childcare or Family Care: No Spiritual care concerns: No Exam Narrative: GENERAL: Elderly, ill-appearing, conversationally dyspneic and tachypneic HEAD: [Normocephalic, atraumatic.] EYES: [PERRLA and EOMI.] ENT: Nares clear, no rhinorrhea or epistaxis. Mucous membranes moist. NECK: Supple. CHEST: Coarse bibasilar breath sounds, no wheezing or rhonchi. Mild tachypnea but no accessory muscle use HEART: [Regular rate and rhythm]. No murmur heard. [Normal peripheral pulses.] ABDOMEN: [Soft, nondistended], [nontender], [No rigidity or guarding] EXTREMITIES: Normal range of motion. [No edema.] SKIN: Warm, dry, no rash. NEURO: [No focal deficits]. Alert and oriented [x3.] PSYCH: [Normal mood and affect.] Course Vital Signs Vital signs: Vital Signs Temperature 36.7 C 03/05/25 12:02 Pulse Rate 74 03/05/25 12:02 Respiratory Rate 28 H 03/05/25 12:02 Blood Pressure 163/90 H 03/05/25 12:02 Pulse Oximetry 92 03/05/25 12:02 Oxygen Delivery Nasal Cannula 03/05/25 12:02 Oxygen Flow Rate 3 03/05/25 12:02 Temperature 36.6 C 03/05/25 14:16 Pulse Rate 67 03/05/25 14:16 Respiratory Rate 31 H 03/05/25 14:16 Blood Pressure 152/98 H 03/05/25 14:16 Pulse Oximetry 93 03/05/25 14:16 Oxygen Delivery Nasal Cannula 03/05/25 12:02 Oxygen Flow Rate 3 03/05/25 12:02 MDM - SOB/Dyspnea MDM Narrative Medical decision making narrative: 84-year-old male presenting with worsening shortness of breath, productive cough, hypoxia. Patient has a history of Parkinson's disease, hypertension, hyperlipidemia, diabetes, TAVR for aortic stenosis. Recently diagnosed with pneumonia by his primary care provider and started on oral antibiotics. Patient completed several days of his antibiotic and having worsening symptoms including now productive cough and worsening conversational dyspnea. He is ill-appearing at bedside, tachypneic in the upper 20s. Hypoxia requiring 3 L nasal cannula. Suspicion presently is for worsening pneumonia, bilateral pneumonia, pneumothorax, pulmonary edema, aspiration pneumonia from his Parkinson's. Patient's states that he has been falling recently however he has not have any chest pain. Low suspicion for ACS or traumatic injury. Chest x-ray, CBC, CMP, troponin, viral panels obtained. He was started on nasal oxygen. Blood cultures obtained. Started on broad-spectrum antibiotics including vancomycin and cefepime. Patient provided a L of fluid. Lactic acid obtained. Low suspicion for sepsis. EKG shows sinus rhythm right bundle-branch block, no previous EKG for comparison. Workup shows a leukocytosis of 13.3, hemoglobin of 12.2 at his baseline. Normal platelets. Normal coagulation panel. Electrolytes unremarkable. Normal renal function, normal glucose and LFTs. Negative lactic acid. Negative troponin. BNP 238 and negative. viral panel pending. Chest x-ray shows bibasilar pneumonia with worsening consolidations compared to x-ray from yesterday. Patient was re-evaluated and improved after fluids and administration of oxygen. After discussion with the hospitalist team currently being covered by the midlevel provider ayesha, we elected to add on aspiration coverage with Flagyl in addition to his broad-spectrum antibiotics and obtain a speech evaluation for his Parkinson's. Patient will be admitted at this time for continued care and treatment of his pneumonia and hypoxic respiratory failure. Patient will be admitted to the IMU. Medical Records Attestation: I reviewed the patient's medical records. Lab Data Attestation: I reviewed the patient's lab results. 03/05/25 12:22 03/05/25 12:22 Labs: Lab Results 03/05/25 03/05/25 03/05/25 Range/Units 12:22 12:22 14:03 WBC 13.3 H (4.5-10.0) K/mm3 RBC 4.03 L (4.6-6.20) M/mm3 Hgb 12.2 L (14.0-18.0) g/dL Hct 37.7 L (42.0-52.0) % MCV 93.5 (80-100) fl MCH 30.3 (26-34) pg MCHC 32.4 (32-36) g/dl RDW 13.5 (11.5-14.5) % Plt Count 376 H (150-375) k/mm3 MPV 10.5 H (7.4-10.4) fl Immature Gran % (Auto) 0.8 H (0-0.5) % Neut % (Auto) 80.6 H (45.5-73.1) % Lymph % (Auto) 9.4 L (18.3-44.2) % [place] % (Auto) 7.8 (2.6-8.5) % Eos % (Auto) 1.3 (0-4.4) % Baso % (Auto) 0.1 L (0.2-1.2) % Lymph # (Auto) 1.26 (0.9-3.2) K/mm3 [place] # (Auto) 1.0 H (0.1-0.6) K/mm3 Eos # (Auto) 0.2 (0-0.3) K/mm3 Baso # (Auto) 0.0 (0.0-0.1) K/mm3 Abs Immat Gran (auto) 0.11 H (0.00-0.031) K/mm3 Absolute Neuts (auto) 10.7 H (1.3-6.7) K/mm3 Absolute Nucleated RBC 0.000 (0.0-0.012) K/mm3 Nucleated RBC % 0.0 (0.0-0.2) % PT 13.8 (11.1-14.7) Seconds INR 1.0 APTT 27.1 (22.3-36.8) Seconds Sodium 132 L (137-145) mmol/L Potassium 4.1 (3.4-5.0) mmol/L Chloride 100 (98-107) mmol/L Carbon Dioxide 22 (22-30) mmol/L Anion Gap 10 (4-12) mmol/L BUN 17 (9-20) mg/dL Creatinine 0.64 L (0.7-1.3) mg/dL Estim Creat Clear Calc 74 ml/min Estimated GFR > 60 (59 - ) Glucose 102 (65-110) mg/dL Lactic Acid 1.4 (0.7-2.0) mmol/L Calcium 9.2 (8.4-10.2) mg/dL Total Bilirubin 0.8 (0.2-1.3) mg/dL AST 45 (17-59) U/L ALT 12 (6-50) U/L Alkaline Phosphatase 97 (38-126) U/L Troponin I < 0.012 Cancelled (0.000-0.034) ng/mL NT-Pro-B Natriuret Pep 238 H (19.9-100) pg/mL Total Protein 7.0 (6.3-8.2) g/dL Albumin 4.0 (3.5-5.1) g/dL Nasal MRSA (PCR) Pending Influenza A (RT-PCR) Pending Influenza B (RT-PCR) Pending RSV (RT-PCR) Pending SARS-CoV-2 RNA (RT-PCR) Pending Imaging Data Attestation: I personally reviewed and interpreted this imaging study as follows: My impression: Impressions Chest X-Ray 03/05/25 13:21 IMPRESSION: Bibasilar pneumonia. Critical Care Time Critical Care Time Critical Care Time: Yes Total Critical Care Time: 35 Discharge Plan Discharge Clinical Impression: Acute hypoxic respiratory failure, Bilateral pneumonia Parkinson's disease Qualifiers: Dyskinesia presence: unspecified whether dyskinesia Fluctuating manifestations: unspecified whether manifestations fluctuate Qualified Code(s): G20.A1 - Parkinson's disease without dyskinesia, without mention of fluctuations Patient Disposition: Still a Patient Condition: Stable Patient Language: Cameroonian Prescriptions: No Action carbidopa-levodopa [Sinemet] 25-100 mg tablet 5 tablet PO TID Qty: 640 1RF Rx Instructions: Dr Roberts (Neurology) prescribes. aspirin [Eyal Low Dose Aspirin] 81 mg tablet,delayed release (/EC) 81 mg PO DAILY finasteride 5 mg tablet 5 mg PO DAILY psyllium husk [Daily Fiber] 0.52 gram capsule 0.52 g PO DAILY lisinopril 2.5 mg tablet 2.5 mg PO DAILY Qty: 90 1RF PreserVision AREDS 4,296 mcg-226 mg-90 mg capsule 1 cap PO BID levofloxacin 750 mg tablet 750 mg PO DAILY Qty: 7 0RF ipratropium-albuterol 0.5 mg-3 mg(2.5 mg base)/3 mL solution for nebulization 3 ml inhalation Q4H PRN (Reason: shortness of breath or wheezing) Qty: 90 1RF (DME) Home Nebulizzer See Rx Instructions .Route .MEDSUPPLY Qty: 1 0RF Rx Instructions: As directed glucosamine-chondroitin 1,500-1,200 mg/30 mL Liquid 30 ml PO DAILY valacyclovir [Valtrex] 1 gram tablet 1,000 mg PO TID PRN (Reason: coldsore) Qty: 30 3RF clopidogrel 75 mg tablet 75 mg PO DAILY sertraline 100 mg tablet See Rx Instructions .ROUTE .COMPLEX Qty: 90 1RF Dose Instruction: TAKE 1 TABLET BY MOUTH DAILY Rx Instructions: TAKE 1 TABLET BY MOUTH DAILY propranolol 10 mg tablet See Rx Instructions .ROUTE .COMPLEX Qty: 180 1RF Dose Instruction: TAKE 1 TABLET BY MOUTH TWICE DAILY Rx Instructions: TAKE 1 TABLET BY MOUTH TWICE DAILY rosuvastatin 10 mg tablet See Rx Instructions .ROUTE .COMPLEX Qty: 90 1RF Dose Instruction: TAKE 1 TABLET BY MOUTH DAILY Rx Instructions: TAKE 1 TABLET BY MOUTH DAILY icosapent ethyl 1 gram capsule See Rx Instructions .ROUTE .COMPLEX Qty: 90 1RF Dose Instruction: TAKE 1 CAPSULE BY MOUTH DAILY Rx Instructions: TAKE 1 CAPSULE BY MOUTH DAILY tamsulosin 0.4 mg capsule See Rx Instructions .ROUTE .COMPLEX Qty: 90 1RF Dose Instruction: TAKE 1 CAPSULE BY MOUTH DAILY Rx Instructions: TAKE 1 CAPSULE BY MOUTH DAILY metformin 500 mg tablet See Rx Instructions .ROUTE .COMPLEX Qty: 180 1RF Dose Instruction: TAKE 1 TABLET BY MOUTH TWICE DAILY Rx Instructions: TAKE 1 TABLET BY MOUTH TWICE DAILY primidone 50 mg tablet See Rx Instructions .ROUTE .COMPLEX Qty: 450 0RF Dose Instruction: TAKE 2 TABLET BY MOUTH ONCE IN THE MORNING AND 2 TABLET IN THE AFTERNOON AND 1 IN THE EVENING Rx Instructions: TAKE 2 TABLET BY MOUTH ONCE IN THE MORNING AND 2 TABLET IN THE AFTERNOON AND 1 IN THE EVENING gabapentin 600 mg tablet See Rx Instructions .ROUTE .COMPLEX Qty: 90 1RF Dose Instruction: TAKE 1 TABLET BY MOUTH THREE TIMES DAILY Rx Instructions: TAKE 1 TABLET BY MOUTH THREE TIMES DAILY verapamil 360 mg capsule,ext rel. pellets 24 hr See Rx Instructions .ROUTE .COMPLEX Qty: 90 1RF Dose Instruction: TAKE 1 CAPSULE BY MOUTH DAILY Rx Instructions: TAKE 1 CAPSULE BY MOUTH DAILY alprazolam 0.5 mg tablet 0.5 mg PO BID-TID Qty: 60 0RF omeprazole 40 mg capsule,delayed release(DR/EC) See Rx Instructions .ROUTE .COMPLEX Qty: 90 2RF Dose Instruction: TAKE 1 CAPSULE BY MOUTH DAILY Rx Instructions: TAKE 1 CAPSULE BY MOUTH DAILY Follow-up/Referrals: Ramu Myers MD [Primary Care Provider] - Time of Disposition: 14:51
[2025-03-05] MEDS: CEFEPIME 2 GM/NS 50 ML 2 GM/50 ML BAG IVPB (14:21)
--- OUTSIDE RECORDS SUMMARY | 2025-03-05 14:42 | XMS_ITS | Clinical Summary ---
Author Organization [facility] Address [address] [place] [address] Care Team Providers Care Mva Still Operator Name Role Phone Ramu Myers MD Primary Care Provider [phone] Allergies No known active allergies Medications rosuvastatin [...] total) by mouth daily. 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 Office Visit [facility] - [address], [address] [place] [address] Tonio Roberts MD Botox (Dystonia 100units/) 01/16/2025 Scan [employer] INFO SRVCS Scanned, [facility] 01/16/2025 Travel 12/20/2024 Therapy Plan [facility] - [facility] [address], [address] [place] [address] Tonio Roberts MD from Last 3 [...] Comments Blood Pressure 123/83 01/16/2025 11:32 AM FRETTED INSTRUMENT MAKER HAND Pulse 65 01/16/2025 11:32 AM FRETTED INSTRUMENT MAKER HAND Temperature 37.1 C (98.8 F) 01/16/2025 11:32 AM FRETTED INSTRUMENT MAKER HAND Respiratory Rate 18 10/19/2023 3:08 PM FRETTED INSTRUMENT MAKER HAND Oxygen Saturation 95% 01/16/2025 11:32 AM FRETTED INSTRUMENT MAKER HAND Inhaled Oxygen Concentration - - Weight 94.8 kg (209 lb) 10/24/2024 11:13 AM FRETTED INSTRUMENT MAKER HAND Height 180.3 cm (5' 11 ) 01/16/2025 11:32 AM FRETTED INSTRUMENT MAKER HAND Body Mass Index 29.15 08/01/2024 2:08 PM CDT Plan of Treatment Upcoming Encounters Date Type Department Care Team (Late st Contact Info) Description 04/10/2025 11:20 AM CDT Office Visit [facility] - [facility] [address], [address] [place] [id number] Tonio Roberts MD [address] [place] [address] Health Maintenance Due Date Last Done Comments DTaP, Tdap and Td Vaccines ( 1 - Tdap) 1958 Zoster Vaccines (1 of 2) 1989 Annual Medicare Wellness Visit 2004 RSV Immunization or 60+ Years (1 - 1-dose 75+ series) 2014 Pneumococcal Vaccine: 50+ Years (2 of 2 - PPSV23) 02/09/2018 12/15/2017 COVID-19 Vaccine (3 - 2023-2 5 season) 2024 01/30/2021, 01/09/2021 PHQ-2 (Physician [place]) 11/14/2024 10/24/2024 Meningococcal B Vaccine Aged Out No l onger eligible based on patient's age to complete this topic Meningococcal Vaccine Aged Out No elda karla eligible based on patient's age to complete this topic RSV Immunizations Under 20 Months Aged Out No longer eligible b ased on patient's age to complete this topic Insurance MEDICARE [facility] Care Teams Mva Still Operator Relationship Specialty Start Date End Date Ramu Myers MD [address] [place] [address] PCP - General INTERNAL MEDICINE 06/03/22
--- OUTSIDE RECORDS SUMMARY | 2025-03-05 14:42 | XMS_ITS | Clinical Summary ---
Author Organization [facility] Address [address] [place] [address] Care Team Providers Care Supervisor Rolling Room Name Role Phone Ramu Myers MD Primary [...] every day 0 1 Active multivit with fou-IJ-xmnruwyz (ONE DAILY FOR MEN) 0.4-600 mg-mcg tablet [...] chronic leads 07/27/2011 (Atrial lead insulation break-repaired). [employer] remote monitoring Q3 mo. Battery Advisory. Nonrheumatic aortic valve stenosis 06/21/2017 HTN (hypertension), benign 06/21/2017 Pulmonary HTN 06/21/2017 Encounters Date Type Department Care Team Description 01/30/2025 1:30 PM CDT Ancillary Procedure [facility] Cardiology [address] [place] [address] CHB (complete heart block) (HCC); Presence of cardiac pacemaker 01/30/2025 Orders Only [facility] Cardiology [address], [place] [address] Dillan Schmidt MD Presence of cardiac pacemaker (Primary Dx); Complete heart block (HCC) from Last 3 Months Surgical History Surgery Date Site/Laterality Comments HEMORRHOID SURGERY Hemorrhoidectomy CATARACT EXTRACTION INSERT / REPLACE / REMOVE PACEMAKER [facility] COLONOSCOPY CARDIAC CATHETERIZATION Medical History Medical History Date Comments Depression Depression Skin cancer Hypertension Hyperlipidemia Arrhythmia pacemaker [facility] [place] e Aortic stenosis GERD (gastroesophageal reflux disease) [...] drink = 0.6 oz pur e alcohol) [facility] Utilities Answer Date Recorded In the past [...] often do you attend chur ch or church services? More than 4 times per year 12/14/2023 Do you belong to any clubs o r organizations such as yarsani groups, unions, fraternal or athletic groups, or [...] place to sleep or slept in a mcc (including now)? No 12/14/2023 Personal Safety Answer Date Recorded Have you ever been in or are you currently in a harmful physical or emotional relationship or is someone making you feel afraid or unsafe? 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 Gender Identity Not on file Sexual Orientation Not on file Obstetrics History Last Filed Vital Signs Vital Sign Reading Time Taken Comments Blood Pressure 130/70 09/21/2024 9:41 AM NEURO INTENSIVIST PHYSICIAN Pulse 66 09/21/2024 9:41 AM NEURO INTENSIVIST PHYSICIAN Temperature 36.3 C (97.4 F) 12/14/2023 12:13 PM NEURO INTENSIVIST PHYSICIAN Respiratory Rate 18 12/14/2023 12:13 PM NEURO INTENSIVIST PHYSICIAN Oxygen Saturation 94% 09/21/2024 9:41 AM NEURO INTENSIVIST PHYSICIAN Inhaled Oxygen Concentration - - Weight 96.2 kg (212 lb) 09/21/2024 9:41 AM NEURO INTENSIVIST PHYSICIAN Height 177.8 cm (5' 10 ) 09/21/2024 9:41 AM NEURO INTENSIVIST PHYSICIAN Body Mass Index 30.42 09/21/2024 9:41 AM NEURO INTENSIVIST PHYSICIAN Plan of Treatment Health Maintenance Due Date Last Done Comments Depression Screening 1939 DTaP/Tdap/Td Vaccine (1 - Tdap) 1950 Hepatitis B Screening 1957 Zoster Vaccine (1 of 2) 1989 Well Visit 65+ 2004 Pneumococcal vaccine 65+ (2 of 2 - PPSV23) 12/15/2018 12/15/2017 Influenza Vaccine (#1) 2024 1, 09/09/2020, 08/13/2019, Additional history exists Fall Risk Assessment 12/14/2024 12/14/2023 Medical Devices Implanted Type Area Trimming Department Blocker Device Identifier Shelf Expiration Date Model / Serial / Lot Pacemaker-07/27/20 11 Implanted: 011 by Briana Wright (Quantity not on file) Pacemaker Chest [facility] [employer] Device Closure Vascade Od5 Fr Femoral Artery [id number] - [id number] Implanted:Qty: 1 on 10/26/2023 by Bossman Gunter MD at [facility] [employer] 07/11/2025 [id number] / / [id number] [employer] Device Clsr Perclose Prostyle Sut-Mediatd Closure-Repair Sys 10582-02 - [id number] Implanted:Qty: 1 on 12/13/2023 by Bossman Gunter MD at [facility] [employer] 09/13/2025 [id number] / / [id number] [employer] Device Clsr Perclose Prostyle Sut-Mediatd Closure-Repair Sys 99766-61 - [id number] Implanted:Qty: 1 on 12/13/2023 by Bossman Gunter MD at [facility] [employer] 08/13/2025 [id number] / / [id number] [employer] Carol 3 Commander Sharpe 26mm Transcatheter Ultra Low Profile [id number] - [id number] - [id number] Implanted:Qty: 1 on 12/13/2023 by Bossman Gunter MD at [facility] [employer] 09/12/2026 [id number] / [id number] / [employer] Device Clsr Perclose Prostyle Sut-Mediatd Closure-Repair Sys 64892-40 - [id number] Implanted:Qty: 1 on 12/13/2023 by Bossman Gunter MD at [facility] [employer] 08/13/2025 [id number] / / [id number] [employer] Device Clsr Perclose Prostyle Sut-Mediatd Closure-Repair Sys 58252-04 - [id number] Implanted:Qty: 1 on 12/13/2023 by Bossman Gunter MD at [facility] [employer] 07/14/2025 [id number] / / [id number] [employer] Device Vascular Closure Femoral Artery Bioabsorbable Dual Method Vascade 6-7fr Collagen [id number] - [id number] Implanted:Qty: 1 on 12/13/2023 by Bossman Gunter MD at [facility] [employer] [facility] 07/08/2025 [id number] / / [id number] Procedures Procedure Name Priority Date/Time Associated [...] chronic leads 07/27/2011 (Atrial lead insulation break-repaired). [employer] remote monitoring Q3 mo. Battery Advisory. Supervising physician: Dr Wilson. Office DDD Pacemaker evaluation demonstrated normal device function. Left pectoral incision well healed without signs of infection noted. Battery function-2.99V, 4.5 years remaining battery life to ADIRANO. Appropriate lead measurements noted. Presenting tlcvva-PN-WK (SR). AP-39%, INTEGRATED SPECIALIST-23%. Medications; ASA 81 mg, Plavix, Propranolol, Verapamil. No mode switch episodes recorded. No ventricular arrhythmias noted. See scanned report. Office pacemaker f/u expected in 13-15 months to coordinate with Dr Schmidt visit. [employer] remote f/u 05/07/2025. Alia Anna, RN Dillan Schmidt MD [facility] Final Result from Last 3 Months Insurance MEDICARE MEDICARE BLUE CROSS MEDICARE SUPPLEMENT MEDICARE [facility] Advance Directives For more information, please contact: [phone] * Full Code (Latest Code Status on File) Date Activated Date Inactivated Comments 10/26/2023 9:56 AM 10/26/2023 4:20 PM Care Teams Supervisor Rolling Room Relationship Specialty Start Date End Date Ramu Myers MD [address] [place] [address] PCP - General 05/21/16
--- OUTSIDE RECORDS SUMMARY | 2025-03-05 14:42 | XMS_ITS | Referral Summary ---
Author Organization [facility] Address [address] [place] [address] Care Team Providers Care Cinder Man Name Role Phone Ramu Myers MD Primary Care Provider [phone] Encounters Date Type Department Care Team Description 01/30/2025 Orders Only [facility] Cardiology [address], [place] [address] Dillan Schmidt MD Presence of cardiac pacemaker (Primary Dx); Complete heart block (HCC) 01/30/2025 1:30 PM CDT Ancillary Procedure [facility] Cardiology [address] [place] [address] CHB (complete heart block) (HCC); [...] every day 0 1 Active multivit with eqv-YN-dblhomja (ONE DAILY FOR MEN) 0.4-600 mg-mcg tablet [...] chronic leads 07/27/2011 (Atrial lead insulation break-repaired). [place] remote monitoring Q3 mo. Battery Advisory. Nonrheumatic aortic valve stenosis 06/21/2017 HTN (hypertension), benign 06/21/2017 Pulmonary HTN 06/21/2017 Social History Tobacco Use Types Packs/Day Years Used Date Smoking Tobacco: Former Pipe Q uit: 06/21/1999 Cigars Quit: 06/21/19 99 Smokeless Tobacco: Never Tobacco Cessation:Counseling Given: Not Answered Alcohol Use Standard Drinks/Week Comments No 0 (1 standard drink = 0.6 oz pur e alcohol) [facility] Utilities Answer Date Recorded In the past 12 months has [employer], [employer], oil, or water [employer] threatened to shut off services in your [...] How often do you attend chur or advent services? More than 4 times per year 12/14/2023 Do you belong to any clubs o r organizations such as amish groups, unions, fraternal or athletic groups, or [...] place to sleep or slept in a prison (including now)? No 12/14/2023 Personal Safety Answer Date Recorded Have you ever been in or are you currently in a harmful physical or emotional relationship or is someone making you feel afraid or unsafe? Denies 12/13/2023 Sex and Gender Information Value Date Recorded Sex Assigned at Not on file Legal Sex Male 2:00 AM HANDKERCHIEF PRESSER Gender Identity Not on file Sexual Orientation Not on file Last Filed Vital Signs Vital Sign Reading Time Taken Comments Blood Pressure 130/70 09/21/2024 9:41 AM HANDKERCHIEF PRESSER Pulse 66 09/21/2024 9:41 AM HANDKERCHIEF PRESSER Temperature 36.3 C (97.4 F) 12/14/2023 12:13 PM HANDKERCHIEF PRESSER Respiratory Rate 18 12/14/2023 12:13 PM HANDKERCHIEF PRESSER Oxygen Saturation 94% 09/21/2024 9:41 AM HANDKERCHIEF PRESSER Inhaled Oxygen Concentration - - Weight 96.2 kg (212 lb) 09/21/2024 9:41 AM HANDKERCHIEF PRESSER Height 177.8 cm (5' 10 ) 09/21/2024 9:41 AM HANDKERCHIEF PRESSER Body Mass Index 30.42 09/21/2024 9:41 AM HANDKERCHIEF PRESSER Plan of Treatment Not on file Medical Devices Implanted Type Area Ethanol Quality Leader Device Identifier Shelf Expiration Date Model / Serial / Lot Pacemaker-07/27/20 11 Implanted: 011 by Briana Wright (Quantity not on file) Pacemaker Chest [facility] Device Closure Vascade Od5 Fr Femoral Artery [id number] - [id number] Implanted:Qty: 1 on 10/26/2023 by Bossman Gunter MD at [facility] 07/11/2025 [id number] / / [id number] [employer] V[employer] Device Clsr Perclose Prostyle Sut-Mediatd Closure-Repair Sys 04359-41 - [id number] Implanted:Qty: 1 on 12/13/2023 by Bossman Gunter MD at [facility] Vascular 09/13/2025 [id number] / / [id number] [employer] V[employer] Device Clsr Perclose Prostyle Sut-Mediatd Closure-Repair Sys 47444-63 - [id number] Implanted:Qty: 1 on 12/13/2023 by Bossman Gunter MD at [facility] [employer] 08/13/2025 [id number] / / [id number] [employer] Carol 3 Commander Sharpe 26mm Transcatheter Ultra Low Profile [id number] - [id number] - [id number] Implanted:Qty: 1 on 12/13/2023 by Bossman Gunter MD at [facility] [employer] 09/12/2026 [id number] / [id number] / [employer] V[employer] Device Clsr Perclose Prostyle Sut-Mediatd Closure-Repair Sys 77381-68 - [id number] Implanted:Qty: 1 on 12/13/2023 by Bossman Gunter MD at [facility] [employer] 08/13/2025 [id number] / / [id number] [employer] V[employer] Device Clsr Perclose Prostyle Sut-Mediatd Closure-Repair Sys 95897-05 - [id number] Implanted:Qty: 1 on 12/13/2023 by Bossman Gunter MD at [facility] [employer] 07/14/2025 [id number] / / [id number] [employer] Device Vascular Closure Femoral Artery Bioabsorbable Dual Method Vascade 6-7fr Collagen [id number] - [id number] Implanted:Qty: 1 on 12/13/2023 by Bossman Gunter MD at [facility] [employer] 07/08/2025 [id number] / / [id number] Procedures Procedure Name Priority Date/Time Associated [...] to ADRIANO. Appropriate lead measurements noted. Presenting qbyomk-YV-KA (SR). AP-39%, FERRY CAPTAIN-23%. Medications; ASA 81 mg, Plavix, Propranolol, Verapamil. No mode switch episodes recorded. No ventricular arrhythmias noted. See scanned report. Office pacemaker f/u expected in 13-15 months to coordinate with Dr Schmidt visit. [place] remote f/u 05/07/2025. Alia Anna, RN us Dillan Schmidt MD CV CARDIAC SERVICES PROCE [facility] Final Result from Last 3 Months Insurance MEDICARE MEDICARE BLUE CROSS MEDICARE SUPPLEMENT MEDICARE [facility] Advance Directives For more information, please contact: [phone] * Full Code (Latest Code Status on File) Date Activated Date Inactivated Comments 10/26/2023 9:56 AM 10/26/2023 4:20 PM Care Teams Cinder Man Relationship Specialty Start Date End Date Ramu Myers MD [address] [facility] [address] [place] [address] PCP - General 05/21/16
--- OUTSIDE RECORDS SUMMARY | 2025-03-05 14:42 | XMS_ITS | Encounter Summary ---
Author Organization [facility] Address [address] [place] [address] Care Team Providers Care Patient Accounting Representative Name Role Phone Ramu Myers MD Primary Care Provider [phone] Encounter Details Date Type Department Care Team (Late st Contact Info) Description 03/06/2024 Orders Only [facility] Health Information Management [address] [place] [address] Dillan Schmidt MD [facility] [place] [address] Social History Tobacco Use Types Packs/Day Years Used Date Smoking Tobacco: Former Pipe Q uit: 06/21/1999 Cigars Quit: 06/21/19 99 Smokeless Tobacco: Never Alcohol Use Standard Drinks/Week Comments No 0 (1 standard drink = 0.6 oz pur e alcohol) [facility] Utilities Answer Date Recorded In the past 12 months has [employer], gas, oil, or water [employer] threatened to shut off services in your [...] week 12/14/2023 How often do you attend [facility] or adventism services? More than 4 times per year 12/14/2023 Do you belong to any clubs o r organizations such as sabianism groups, unions, fraternal or athletic groups, or [...] place to sleep or slept in a fpc (including now)? No 12/14/2023 Personal Safety Answer Date Recorded Have you ever been in or are you currently in a harmful physical or emotional relationship or is someone making you feel afraid or unsafe? Denies 12/13/2023 Sex and Gender Information Value Date Recorded Sex Assigned at Not on file Legal Sex Male 2:00 AM JOURNEYMAN PRESSMAN Gender Identity Not on file Sexual Orientation [...] on filedocumented in this encounter Care Teams Patient Accounting Representative Relationship Specialty Start Date End Date Ramu Myers MD [address] [place] [address] PCP - General 05/21/16 documented as of this encounter
--- OUTSIDE RECORDS SUMMARY | 2025-03-05 14:42 | XMS_ITS | Encounter Summary ---
Author Organization [facility] Address [address] [place] [address] Care Team Providers Care Curriculum And Instruction Specialist Name Role Phone Ramu Myers MD Primary Care Provider [phone] Encounter Details Date Type Department Care Team (Late st Contact Info) Description 11/16/2016 Orders Only [facility] ProviderAnnalise MD [address] [place] [address] Social History Tobacco Use Types Packs/Day Years Used Date Smoking Tobacco: Former Cigarettes Q uit: 11/14/2002 Alcohol Use Standard Drinks/Week Comments No 0 (1 standard drink = 0.6 oz pur e alcohol) Sex and Gender Information Value Date Recorded Sex Assigned at Not on file Legal Sex Male 2:00 AM 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
--- OUTSIDE RECORDS SUMMARY | 2025-03-05 14:42 | XMS_ITS | Continuity of Care Document ---
Author Organization [facility] Address [address] [place] [address] [address] [place] [address] Phone Care Team Providers Care Earthmoving Plant Operator Name Role Phone [facility] Unavailable Unavail able Kathi Johnson Unavailable Unavailable Procedures Procedure Date Vision Svcs Frames Purchases TF Polycarb Sphcyl [place] To +/-4d .12-2d Tint Photochromatic, Polycarb 0 [...] Diagnoses Date Provider Providers Copied on Encounter [facility], [address], [place], [place], [id number], [place] tel:[phone] [facility] Corporate [place] No Information 0 0 [facility] . [address], [address], [place], [place], [id number], [place]. tel:[phone] Referring Provider: Jhonny Cerda, [address], [place], [address]. tel:[phone] g Provider: Kathi Johnson, [address] [facility], [place], [address]. tel:[phone] [facility], [address], [place], [place], [address], [place] tel:[phone] [facility] No Information Simon-0 9-201 0 Doisy Edward. [address] , [address], [place], [place], [facility], [place]. tel:[phone] Office/outpat ient Visit, Est [facility], [address] [place] [address] [address], [place], [place], [address], [place] tel:[phone] [facility] [place] No Information Sep-2 8-200 9 Doisy Edoli. [address] , [address], [place], [place], [facility], [place]. tel:[phone] [facility], [address] [place] [address] [address], [place], [place], [address], [place] tel:[phone] [facility] No Information Sep-1 6-200 9 Jensy Edward. [address] , [address], [place], [facility], [place]. tel:[phone] [facility], [address] [place] [address] [address], [place], [place], [address], [place] tel:[phone] [facility] No Information Nov-0 6-200 8 Sharri Hagenn. [address] , [address], [place], [place], [facility], [place]. tel:[phone] [facility], [address] [place] [address] [address], [place], [place], [id number], [place] tel:[phone] [facility] Corporate Center No Information Apr-2 6-200 7 Sharri Hagenn. [address] , [address], [place], [place], [facility], [place]. tel:[phone] Referring Provider: Sena Guzman, [address], [place], [address]. tel:[phone] Family History Family Member Type Diagnosis Age At Onset No Information Payers Payer name Insurance type Covered constitution party ID Authoriza tion(s) No Information Social [...]
--- OUTSIDE RECORDS SUMMARY | 2025-03-05 14:42 | XMS_ITS | Encounter Summary ---
Author Organization [facility] Address [address] [facility] [place] [address] Care Team Providers Care Management Internship Name Role Phone Unavailable Primary Care Provider Unavailabl e Encounter Details Date Type Department Care Team (Late st Contact Info) Description 03/21/2024 Lab Requisition [facility] - DermPath Lab [address] [place] [id number] Estela Sorensen MD [address] [place] [address] Social History Tobacco Use Types Packs/Day Years Used Date Smoking Tobacco: Never Assessed Sex and Gender Information Value Date Recorded Sex Assigned at Not on file Legal Sex Male 5:39 PM 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 Gender Identity Not on file Sexual Orientation Not on file documented as of this encounter Plan of Treatment Not on file documented as of this encounter Procedures Procedure Name Priority Date/Time Associated Diagnosis Comments DERMATOPATHOLOGY Routine 03/21/2024 12:1 9 PM CDT documented in this encounter Results * DERMATOPATHOLOGY (03/21/2024 12:19 PM CDT) Case Report Dermatopathology Report Case: [id number] Authorizing Provider: Estela Sorensen MD Collected: 03/21/2024 12:19 PM Ordering Location: [facility] - Received: 03/22/2024 11:44 AM DermPath Lab [...] determined by the Dermatopathology Laboratory at [facility], directed by Dr. Fercho Powell. These tests need not be, and therefore are not, approved by the [place] Food and Drug Administration. The tests are used for clinical purposes. Billing Codes Specimen Charges Stain Charges 57085 1 2:14 PM CDT DERMATOPATHOLOGY LABORATORY Embedded Images 2:14 PM CDT DERMATOPATHOLOGY LABORATORY Pathology/Cytolo gy TISSUE SPECIMEN FROM SKIN / Unknown 03/21/2024 12:19 PM CDT 03/22/2024 11:44 AM CDT Estela Sorensen MD LAB - PATHOLOGY/CYTOLOGY ORDERA BLES Final Result DERMATOPATHOLOGY LABORATORY [facility] - Department of Dermatology [address] [place] [address], [facility] [phone] documented in this encounter Visit Diagnoses Not on filedocumented in this encounter
--- OUTSIDE RECORDS SUMMARY | 2025-03-05 14:42 | XMS_ITS | Clinical Summary ---
Author Organization [facility] Address [address] [place] [address] Care Team Providers Care A R Collections Rep Name Role Phone Unavailable Primary Care Provider Unavailabl e Source Comments [facility],non-owned Affiliates and Associated Physician Practices is amultiple site organization consisting of ambulatory clinics and hospital sitesin [place], [place], [place] and [place]. This disclosure is being madepursuant to the Care Everywhere program and may not contain all information available regarding this patient. Last updated 18.[facility] Social History Tobacco Use Types Packs/Day Years Used Date Smoking Tobacco: Never Assessed Sex and Gender Information Value Date Recorded Sex Assigned at Not on file Legal Sex Male 5:39 PM LOCAL OPERATOR Gender Identity Not on file Sexual [...]
--- OUTSIDE RECORDS SUMMARY | 2025-03-05 14:42 | XMS_ITS | Encounter Summary ---
Author Organization [facility] Address [address] [place] [address] Care Team Providers Care Official Greeter Name Role Phone Ramu Myers MD Primary Care Provider [phone] Encounter Details Date Type Department Care Team (Late st Contact Info) Description 02/23/2017 Orders Only [facility] ProviderAnnalise MD [address] [place] [address] Social History Tobacco Use Types Packs/Day Years Used Date Smoking Tobacco: Former Cigarettes Q uit: 11/14/2002 Alcohol Use Standard Drinks/Week Comments No 0 (1 standard drink = 0.6 oz pur e alcohol) Sex and Gender Information Value Date Recorded Sex Assigned at Not on file Legal Sex Male 2:00 AM COMMUNICATIONS ENGINEER Gender Identity Not on file Sexual Orientation [...] on filedocumented in this encounter Care Teams Official Greeter Relationship Specialty Start Date End Date Ramu Myers MD [address] [place] [address] PCP - General 05/21/16 documented as of this encounter
--- OUTSIDE RECORDS SUMMARY | 2025-03-05 14:42 | XMS_ITS | Encounter Summary ---
Author Organization [facility] Address [address] [place] [address] Care Team Providers Care Coordinating Producer Name Role Phone Unavailable Primary Care Provider Unavailabl e Encounter Details Date Type Department Care Team (Late st Contact Info) Description 09/18/2020 Lab Requisition [facility] DermPath Lab [address] [place] [id number] Anna Morel MD [address] [facility] [address] [place] [address] Social History Tobacco Use Types Packs/Day Years Used Date Smoking Tobacco: Never Assessed Sex and Gender Information Value Date Recorded Sex Assigned at Not on file Legal Sex Male 5:39 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 PENS 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 Gender Identity Not on file Sexual Orientation Not on file documented as of this encounter Plan of Treatment Not on file documented as of this encounter Procedures Procedure Name Priority Date/Time Associated Diagnosis Comments DERMATOPATHOLOGY Routine 09/17/2020 12:0 0 AM DESK PENS ASSEMBLER documented in this encounter Results * DERMATOPATHOLOGY (09/17/2020 12:00 AM DESK PENS ASSEMBLER) Case Report Dermatopathology Report Case: [id number] Authorizing Provider: Anna Morle MD Collected: 09/17/2020 12:00 AM Ordering Location: [facility] DermPath Lab Received: 09/18/2020 07:55 AM Pathologist: Kiarra Guzman MD Specimen: Skin, left post ear 0 2:37 PM DESK PENS ASSEMBLER DERMATOPATHOLOGY LABORATORY Final Diagnosis Specimen A. 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 0 2:37 PM [facility] DERMATOPATHOLOGY LABORATORY Gross Description Specimen A: Received is one formalin filled container labeled with the patient's name and designated left post ear. The specimen consists of a shave measuring [id number]. Jar 0. 0 2:37 PM [facility] DERMATOPATHOLOGY LABORATORY Microscopic Description Specimen A. SKIN, left post ear: The epidermis is acanthotic and shows full thickness disorderly maturation of keratinocytes, mitoses at different levels, and dyskeratotic cells. There is overlying parakeratosis and hyperkeratosis. 0 2:37 PM [facility] DERMATOPATHOLOGY LABORATORY Disclaimer An external [...] purposes. Billing Codes Specimen Charges Stain Charges [id number] 1 0 2:37 PM DESK PENS ASSEMBLER DERMATOPATHOLOGY LABORATORY Embedded Images 0 2:37 PM [facility] DERMATOPATHOLOGY LABORATORY Pathology/Cytolog y TISSUE SPECIMEN FROM SKIN / Unknown 09/17/2020 09/18/2020 7:55 AM DESK PENS ASSEMBLER Anna Morel MD LAB - PATHOLOGY/CYTOLOGY OR DERABLES Final Result DERMATOPATHOLOGY LABORATORY [facility] - Department of Dermatology [address] [place] [address], [facility] [phone] documented in this encounter Visit Diagnoses Not on filedocumented in this encounter
[2025-03-05 14:51] LABS: Influenza A QL RT-PCR Negative (Negative); Influenza B QL RT-PCR Negative (Negative); RSV RNA, RT-PCR Negative (Negative); SARS-CoV-2 RNA PCR Positive (Negative)
[2025-03-05] MEDS: VANCOMYCIN 1,250 MG/NS 250 ML 1,250 MG/250 ML BAG 166.67 MG IVPB (15:17)
--- NOTE | 2025-03-05 15:18 | PC.NURSE ---
Family requesting po fluids for pt. Dr. Leary order NPO. until swallowing study completed Pt & family informed
[2025-03-05 15:28] LABS: MRSA (PCR) NOT DETECTED (NOT DETECTE)
--- NOTE | 2025-03-05 15:34 | PC.NURSE ---
1400: Noted pt unable to swallow saliva. ED MD aware
[2025-03-05] MEDS: metroNIDAZOLE 500 MG/ISO 100ML 500 MG/100 ML BAG 100 MG IVPB (16:02)
[2025-03-05] MEDS: AZITHROMYCIN 500 MG/NS 250 ML 500 MG/250 ML BAG 250 MG IVPB (16:02)
--- NOTE | 2025-03-05 16:12 | ADMGEN ---
This patient, Chris Mulligan, was admitted to IMU Room 203-01. Patient/family oriented to hospital policies and general routines including ID bracelet, bed and alarms, visiting hours, pain management, procedures, bathroom and other care routines, personal items, smoking policy, room service/diet, and visiting hours. Information on how to activate the Rapid Response Team has been discussed. Patient/Family are encouraged to report perceived risks to care and to ask questions if they do not understand what they are told or what they should do.
[2025-03-05] MEDS: PIPERACILLIN/TAZ 4.5G/NS 100ML 4.5 GM/100 ML BAG IVPB ×2 (17:06→23:57)
--- NOTE | 2025-03-05 17:40 | PM.IMHP ---
H&P: HPI History of Present Illness Date/Time: 03/05/25 17:40 Chief Complaint: Shortness of Breath Narrative: 84 y/o M with PMH of Parkinson's, right bundle branch block, aortic stenosis, hyperlipidemia, diabetes, BPH, sick sinus syndrome s/p pacemaker, and hypertension presents here with shortness of breath. The patient presents here from home on 03/05 for further evaluation of shortness of breath. HPI obtained through chart review and patient report. The patient initially saw his PCP, Louis REYNA, yesterday on 03/04. At this visit he reported shortness of breath, conversational dyspnea, productive cough, fever, and poor p.o. intake. He had been diagnosed with an upper respiratory infection 2 weeks prior and started on cefdinir 300 mg x 10 days. Cxr done yesterday, 03/04, which showed left basal atelectasis versus pneumonia. The patient was started on Levaquin 750 mg x 7 days and DuoNeb nebulizers 4 times daily as needed. However, sought care today after his family discovered the patient was hypoxic. Home portable pulse ox showed 87% on RA. Upon arrival, the patient was found to be hypoxic on room air at 87%. He was placed on 3L and improved to 92-94%. The patient denies chest pain, nausea, vomiting, diarrhea, syncope, palpitations or abdominal pain. Initial VS at presentation: 98.1? F, HR 74, R 28, 163/90, and 92% on 3L NC. ED workup showed: WBC 13.3, hemoglobin 12.2, normal coags, sodium 132, creatinine 0.64 and GFR >60, initial troponin negative, BNP 238, and viral PCR + for COVID. CXR showed bibasilar pneumonia. EKG showed sinus rhythm, right bundle branch block, ST-T-wave abnormality in anterolateral/inferior leads consider ischemia. Review of Systems Review of Systems: All systems reviewed & are unremarkable except as noted in HPI and below PMFSH Past Medical History Medical History Parkinson's disease Pneumonia Unstable gait Dysphagia Sciatica GERD (gastroesophageal reflux disease) Encounter for routine adult health examination with abnormal findings BMI 27.0-27.9,adult Trochanteric bursitis of right hip Tear of right rotator cuff RBBB (right bundle branch block) Anxiety Effusion, right knee Left knee DJD Right knee DJD Encounter for Medicare annual wellness exam Aortic stenosis Hyperlipidemia Encounter for routine adult health examination without abnormal findings DM type 2 (diabetes mellitus, type 2) BPH (benign prostatic hyperplasia) Hearing loss Cardiac pacemaker in situ Sick Sinus Syndrome Benign essential hypertension 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 Smoking status: Former smoker Tobacco type: pipe Second hand tobacco smoke exposure: No Alcohol intake: never Substance use: never Substance use type: does not use Do You Feel Safe in your Home?: Yes Lack of Transportation: No Lack of Food: Never True Current Housing: I Have Housing Concerned About Future Housing: No Difficulty Paying Gas/Electric Bills: No Difficulty Paying for Meds: No Currently Unemployed: No Education: High School Diploma/GED Difficulty w/ Childcare or Family Care: No Spiritual care concerns: No Meds Home Medications and Allergies Home Medications ?Medication ?Instructions ?Recorded ?Confirmed ?Type aspirin 81 mg tablet,delayed 81 mg PO DAILY 01/18/20 03/05/25 History release (Eyal Low Dose Aspirin) finasteride 5 mg tablet 5 mg PO HS 02/10/22 03/05/25 History psyllium husk 0.52 gram capsule 0.52 g PO DAILY 10/11/23 03/05/25 History (Daily Fiber) valacyclovir 1 gram tablet 1,000 mg PO TID PRN coldsore #30 11/08/23 03/05/25 Rx (Valtrex) tabs clopidogrel 75 mg tablet 75 mg PO DAILY 02/17/24 03/05/25 History lisinopril 2.5 mg tablet 2.5 mg PO DAILY #90 tabs 07/04/24 03/05/25 Rx sertraline 100 mg tablet See Rx Instructions .Route 08/19/24 03/05/25 Rx .COMPLEX #90 tabs propranolol 10 mg tablet See Rx Instructions .Route 09/05/24 03/05/25 Rx .COMPLEX #180 tabs rosuvastatin 10 mg tablet See Rx Instructions .Route 09/05/24 03/05/25 Rx .COMPLEX #90 tabs metformin 500 mg tablet See Rx Instructions .Route 11/29/24 03/05/25 Rx .COMPLEX #180 tabs primidone 50 mg tablet See Rx Instructions .Route 01/04/25 03/05/25 Rx .COMPLEX #450 tabs gabapentin 600 mg tablet See Rx Instructions .Route 01/15/25 03/05/25 Rx .COMPLEX #90 tabs verapamil 360 mg 24 hr See Rx Instructions .Route 01/15/25 03/05/25 Rx capsule,extended release .COMPLEX #90 caps Home Nebulizzer #1 ea 03/04/25 03/05/25 Rx ipratropium 0.5 mg-albuterol 3 mg 3 ml inhalation Q4H PRN shortness 03/04/25 03/05/25 Rx (2.5 mg base)/3 mL nebulization of breath or wheezing #90 mL soln levofloxacin 750 mg tablet 750 mg PO DAILY #7 tabs 03/04/25 03/05/25 Rx vitamins A,C,Y-jiji-nukled 4,296 1 cap PO BID 03/04/25 03/05/25 History mcg-226 mg-90 mg capsule (PreserVision AREDS) alprazolam 0.5 mg tablet 0.5 mg PO BID 03/05/25 03/05/25 History carbidopa 25 mg-levodopa 100 mg 5 tablet PO .COMPLEX 03/05/25 03/05/25 History tablet (Sinemet) icosapent ethyl 1 gram capsule See Rx Instructions .Route .COMPLEX 03/05/25 03/05/25 History omeprazole 40 mg capsule,delayed See Rx Instructions .Route .COMPLEX 03/05/25 03/05/25 History release tamsulosin 0.4 mg capsule See Rx Instructions .Route .COMPLEX 03/05/25 03/05/25 History Allergies Allergy/AdvReac Type Severity Reaction Status Date / Time No Known Allergies Allergy Mild Verified 03/04/25 10:47 Vital Signs Vital Signs - 24 hr 03/05/25 12:02 03/05/25 12:02 03/05/25 12:32 Temperature 98.1 F 97.9 F Pulse Rate 74 72 Respiratory Rate 28 H 21 H Blood Pressure 163/90 H 139/80 Pulse Oximetry 92 92 93 Oxygen Delivery Nasal Cannula Nasal Cannula Oxygen Flow Rate 3 3 03/05/25 13:46 03/05/25 14:15 03/05/25 14:16 Temperature 97.8 F Pulse Rate 92 67 67 Respiratory Rate 22 H 31 H 31 H Blood Pressure 143/82 H 152/98 H Pulse Oximetry 95 91 93 Oxygen Delivery Oxygen Flow Rate 03/05/25 15:17 03/05/25 15:47 03/05/25 16:00 Temperature 98.1 F 97.9 F Pulse Rate 63 71 71 Respiratory Rate 20 29 H 29 H Blood Pressure 168/88 H 169/88 H Pulse Oximetry 94 94 94 Oxygen Delivery Nasal Cannula Oxygen Flow Rate 3 03/05/25 16:00 Temperature Pulse Rate 70 Respiratory Rate Blood Pressure Pulse Oximetry Oxygen Delivery Oxygen Flow Rate Exam Const: Other: , male, elderly, acute on chronic ill appearance, uncomfortable, restless. HENMT: Face/Nose/Sinus: Normal nares present Mouth: Yes moist mucous membranes Eyes: General: appearance normal, both eyes and all related structures Sclera: sclerae normal Pupils: Equal, round and reactive pupils present EOM: EOMs intact bilaterally Resp: Other: Nasal cannula place, tolerating well. Mild tachypnea without accessory muscle use. Coarse bibasilar breath sounds. No wheezing. Cardio: Rate: regular rate Rhythm: regular rhythm Other: S1-S2 present without murmur, rub, ectopy GI: Other: Abdomen soft, nondistended, nontender. Normoactive bowel sounds in all quadrants. Skin: General skin exam: normal color and no rashes or lesions noted Wounds: no wounds Neuro: Speech: normal speech Motor exam (neuro): 5/5 motor strength present throughout Sensory Exam: normal sensation Other: A&O x3. Extrem: General: normal to inspection Psych: Mental Status: mental status grossly normal Affect: normal affect Other: Fair insight and judgment, pleasant. H&P: Results Labs Labs: Short CBC 03/05/25 Range/Units 12:22 WBC 13.3 H (4.5-10.0) K/mm3 Hgb 12.2 L (14.0-18.0) g/dL Hct 37.7 L (42.0-52.0) % Plt Count 376 H (150-375) k/mm3 BMP 03/05/25 12:22 Sodium 132 L Potassium 4.1 Chloride 100 Carbon Dioxide 22 BUN 17 Creatinine 0.64 L Glucose 102 Calcium 9.2 Cardiac Enzymes 03/05/25 03/05/25 Range/Units 12:22 12:22 Troponin I < 0.012 Cancelled (0.000-0.034) ng/mL Liver Function 03/05/25 Range/Units 12:22 Total Bilirubin 0.8 (0.2-1.3) mg/dL AST 45 (17-59) U/L ALT 12 (6-50) U/L Alkaline Phosphatase 97 (38-126) U/L Albumin 4.0 (3.5-5.1) g/dL Assessment and Plan Assessment and plan (1) Sepsis: Qualifiers: Acute respiratory failure type: with hypoxia Sepsis acute organ dysfunction status: with acute organ dysfunction Sepsis type: sepsis during labor Severe sepsis acute organ dysfunction type: acute respiratory failure Severe sepsis shock status: without septic shock Qualified Code(s): O75.3 - Other infection during labor; A41.9 - Sepsis, unspecified organism; J96.01 - Acute respiratory failure with hypoxia; R65.20 - Severe sepsis without septic shock Code(s): A41.9 - Sepsis, unspecified organism Status: Acute Assessment and Plan: - meets SIRS criteria: RR, WBC. +hypoxia requiring supplemental O2. - lactic acid: 1.4 - 30 mL/kg = 2.7L, given 1L in the ED. tolerated well, reviewed previous echo in 2022 which showed an EF of 60% and diastolic dysfunction present. Will give additional fluids at 100 mL/hour x2L. - suspected source: Pneumonia, COVID - started on cefepime, Flagyl, and vancomycin. Transitioned to azithromycin and Zosyn (MRSA negative, history of Parkinson's/dysphagia and rapidly worsening pneumonia on CXR raising concern for aspiration pneumonia) - blood cultures drawn on 03/05, follow - check UA - admission to IMU for close hemodynamic monitoring (2) Acute hypoxic respiratory failure: Code(s): J96.01 - Acute respiratory failure with hypoxia Status: Acute Assessment and Plan: - tested positive for COVID on 03/05 - CXR showing bilateral pneumonia, started on ABX, see above - EKG showed sinus rhythm, RBBB, ST-T-wave abnormality in anterolateral/inferior leads. - no significant anemia Suspect acute hypoxic respiratory failure secondary to COVID and bilateral pneumonia. (3) COVID-19: Code(s): U07.1 - COVID-19 Status: Acute Assessment and Plan: - symptom onset: 03/01 - tested positive for COVID on: 03/05/2025 - complicating comorbidities: Bilateral pneumonia - Remdesivir 200 mg IVPB x1 then 100 mg x4 for 5 total doses. - Dexamethasone 6 mg x10 days or until d/c. - DVT prophylaxis: Lovenox SQ - supportive care DuoNeb p.r.n. Tylenol p.r.n. Mucinex rick Lozenge p.r.n. Tessalon Perles p.r.n. - monitor VS/O2 - monitor daily labs, check CRP (4) Bilateral pneumonia: Qualifiers: Lung location: lower lobe of lung Pneumonia type: due to unspecified organism Qualified Code(s): J18.9 - Pneumonia, unspecified organism Code(s): J18.9 - Pneumonia, unspecified organism Status: Acute Assessment and Plan: - CXR, 03/05/2025: Bibasilar pneumonia - CXR, 03/04/2025: Left basal atelectasis versus pneumonia. - given significant progression in 24 hours and history of Parkinson's/dysphagia, will cover for aspiration pneumonia. Patient transitioned to Zosyn and Azithromycin. - MRSA PCR negative on 03/05 - Viral PCR positive for COVID on 03/05 - sputum culture, if obtainable - currently requiring supplemental O2, 3L NC. Continue to maintain O2 sat greater than 92%, wean as tolerated. - supportive care (5) Parkinsons disease: Qualifiers: Dyskinesia presence: unspecified whether dyskinesia Fluctuating manifestations: unspecified whether manifestations fluctuate Qualified Code(s): G20.A1 - Parkinson's disease without dyskinesia, without mention of fluctuations Code(s): G20 - Parkinson's disease Status: Chronic Assessment and Plan: - continue home medications: Sinemet 25-100 mg 5 tabs orally t.i.d.. - history of dysphagia, speech evaluation ordered. - per family, no specific diet at home. they do avoid certain foods such as soup as it is too thin or small foods like corn as he has not tolerated that well before. (6) DM type 2 (diabetes mellitus, type 2): Qualifiers: Diabetes mellitus complication status: without complication Diabetes mellitus [facility] insulin use: without exterminator helper termite use Qualified Code(s): E11.9 - Type 2 diabetes mellitus without complications Code(s): E11.9 - Type 2 diabetes mellitus without complications Status: Chronic Assessment and Plan: - hypoglycemia protocol - POC blood glucose ACHS - home medication: Hold metformin in case of need for contrast. - correct regimen ordered - moderate dose TIDWM, based off BMI - A1C 6.2% on 10/2024, update (7) Benign essential hypertension: Code(s): I10 - Essential (primary) hypertension Status: Acute Assessment and Plan: - chronic, currently 169/88 - continue home medications: Lisinopril 2.5 mg daily, propranolol 10 mg b.i.d., verapamil ER 360 mg daily - monitor Plan Diet: Diabetic GI Prophylaxis: Not currently indicated DVT Prophylaxis: Lovenox SQ IV fluids: NS at 100 mL/hour x2L Lines/Tubes: Peripheral IV Code Status: Full code Quality VTE Prophylaxis VTE prophylaxis: pharmacologic ordered Hospitalist [facility] Advance Care Plan I have confirmed that the patient's Advanced Care Plan is present, code status is documented, or surrogate decision maker is listed in patient medical record.: Yes Medication Reconciliation I have utilized all available resources to obtain, update and review the patients current medications (includes all prescriptions, OTC, herbals, cannabis, and nutritional supplements).: Yes
[2025-03-05 19:58] LABS: CRP 1.7 mg/dL (<1.0)
[2025-03-05] MEDS: SODIUM CHLORIDE 0.9% IV 1,000 ML 100 ML IV CONT (20:01)
[2025-03-05] MEDS: GABAPENTIN 300 MG CAPSULE 600 MG PO (20:02)
[2025-03-05] MEDS: guaiFENesin 12 HR 600 MG TABCR PO (20:02)
[2025-03-05] MEDS: REMDESIVIR 200 MG/NS 250 ML 200 MG/250 ML BAG 250 MG IVPB (20:02)
[2025-03-05] MEDS: FINASTERIDE 5 MG TABLET PO (20:02)
[2025-03-05] MEDS: PANTOPRAZOLE 40 MG TABLET PO (20:03)
[2025-03-05] MEDS: PROPRANOLOL HCL 10 MG TABLET PO (20:04)
[2025-03-05] MEDS: PRIMIDONE 50 MG TABLET PO (20:04)
[2025-03-05] MEDS: dexAMETHasone SOD PHOS INJ 10 MG/ML 1 ML VIAL 6 MG IV PUSH (20:05)
[2025-03-05 20:59] LABS: Add Urine Microscopic? NO; Appearance Urine Clear (Clear); Bilirubin Urine Negative (Negative); Blood Urine Negative (Negative); Color Urine Yellow (Yellow); Glucose Urine UA Negative (Negative); Ketones Urine Trace mg/dL (Negative); Leukocyte Esterase Ur Negative LEU/UL (Negative); Nitrate Urine Negative (Negative); Protein Urine Negative (Negative); Specific Grav Ur 1.017 (1.001-1.035); Urobilinogen Urine 0.2 mg/dL (<2.0)
[2025-03-05] MEDS: CARBIDOPA/LEVODOPA 25/100 MG TABLET 5 TABLET PO (23:44)
[2025-03-05] MEDS: diphenhydrAMINE HCl CAP 25 MG CAPSULE PO (23:45)
[2025-03-06] VITALS (17 sets, daily range): BP systolic 130–163; BP diastolic 67–93; PULSE 61–88; RESP 18–22; TEMP 36.5–36.8; O2SAT 90–98
[2025-03-06 04:16] LABS: Glucose Point of Care 119 mg/dl (65-105)
[2025-03-06 05:16] LABS: Basophils Percent Auto 0.2 % (0.2-1.2); Hematocrit 37.1 % (42.0-52.0); Hemoglobin 12.5 g/dL (14.0-18.0); Immature Granulocyte Absolute 0.08 K/mm3 (0.00-0.031); Immature Granulocyte Percent A 0.7 % (0-0.5); Lymphocytes Percent Auto 8.7 % (18.3-44.2); Mean Corpuscular HGB Conc 33.7 g/dl (32-36); Mean Corpuscular Hemoglobin 31.3 pg (26-34); Mean Platelet Volume 10.8 fl (7.4-10.4); Monocytes Absolute Auto 0.4 K/mm3 (0.1-0.6); Monocytes Percent Auto 3.6 % (2.6-8.5); Neutrophils Absolute Auto 9.9 K/mm3 (1.3-6.7); Neutrophils Percent Auto 86.8 % (45.5-73.1); Platelet Count Result 386 k/mm3 (150-375); Red Blood Count 3.99 M/mm3 (4.6-6.20); Red Cell Distribution Width 13.2 % (11.5-14.5); White Blood Count 11.4 K/mm3 (4.5-10.0)
[2025-03-06 05:23] LABS: Alanine Aminotransferase 13 U/L (6-50); Albumin Level 3.9 g/dL (3.5-5.1); Alkaline Phosphatase 89 U/L (38-126); Anion Gap 11 mmol/L (4-12); Aspartate Amino Transferase 36 U/L (17-59); Bilirubin,Total 0.6 mg/dL (0.2-1.3); Blood Urea Nitrogen 13 mg/dL (9-20); Carbon Dioxide 23 mmol/L (22-30); Chloride 100 mmol/L (98-107); Estimated CRCL calculation 80 ml/min; Estimated Glomerular Filt Rate > 60; Glucose 125 mg/dL (65-110); Potassium 4.1 mmol/L (3.4-5.0); Sodium 134 mmol/L (137-145)
[2025-03-06] MEDS: PIPERACILLIN/TAZ 4.5G/NS 100ML 4.5 GM/100 ML BAG IVPB ×4 (06:00→23:34)
[2025-03-06] MEDS: SODIUM CHLORIDE 0.9% IV 1,000 ML 100 ML IV CONT (06:26)
--- NOTE | 2025-03-06 07:36 | P.PNIM_ITS ---
Progress Note: A&P Assessment and Plan (1) Sepsis: Qualifiers: Sepsis type: sepsis during labor Sepsis acute organ dysfunction status: with acute organ dysfunction Severe sepsis acute organ dysfunction type: acute respiratory failure Acute respiratory failure type: with hypoxia Severe sepsis shock status: without septic shock Qualified Code(s): O75.3 - Other infection during labor; A41.9 - Sepsis, unspecified organism; J96.01 - Acute respiratory failure with hypoxia; R65.20 - Severe sepsis without septic shock Code(s): A41.9 - Sepsis, unspecified organism Status: Acute Assessment and Plan: - meets SIRS criteria: RR, WBC. +hypoxia requiring supplemental O2. - lactic acid: 1.4 - 30 mL/kg = 2.7L, given 1L in the ED. tolerated well, reviewed previous echo in 2022 which showed an EF of 60% and diastolic dysfunction present. Will give additional fluids at 100 mL/hour x2L. - suspected source: Pneumonia, COVID - started on cefepime, Flagyl, and vancomycin. Transitioned to azithromycin and Zosyn (MRSA negative, history of Parkinson's/dysphagia and rapidly worsening pneumonia on CXR raising concern for aspiration pneumonia) - blood cultures drawn on 03/05, follow - check UA - admission to IMU for close hemodynamic monitoring (2) Acute hypoxic respiratory failure: Code(s): J96.01 - Acute respiratory failure with hypoxia Status: Acute Assessment and Plan: - tested positive for COVID on 03/05 - CXR showing bilateral pneumonia, started on ABX, see above - EKG showed sinus rhythm, RBBB, ST-T-wave abnormality in anterolateral/inferior leads. - no significant anemia Suspect acute hypoxic respiratory failure secondary to COVID and bilateral pneumonia. (3) COVID-19: Code(s): U07.1 - COVID-19 Status: Acute Assessment and Plan: - symptom onset: 03/01 - tested positive for COVID on: 03/05/2025 - complicating comorbidities: Bilateral pneumonia - Remdesivir 200 mg IVPB x1 then 100 mg x4 for 5 total doses. - Dexamethasone 6 mg x10 days or until d/c. - DVT prophylaxis: Lovenox SQ - supportive care DuoNeb p.r.n. Tylenol p.r.n. Mucinex rick Lozenge p.r.n. Tessalon Perles p.r.n. - monitor VS/O2 - monitor daily labs, check CRP (4) Bilateral pneumonia: Qualifiers: Lung location: lower lobe of lung Pneumonia type: due to unspecified organism Qualified Code(s): J18.9 - Pneumonia, unspecified organism Code(s): J18.9 - Pneumonia, unspecified organism Status: Acute Assessment and Plan: - CXR, 03/05/2025: Bibasilar pneumonia - CXR, 03/04/2025: Left basal atelectasis versus pneumonia. - given significant progression in 24 hours and history of Parkinson's/dyspha asael, will cover for aspiration pneumonia. Patient transitioned to Zosyn and Azithromycin. - MRSA PCR negative on 03/05 - Viral PCR positive for COVID on 03/05 - sputum culture, if obtainable - currently requiring supplemental O2, 3L NC. Continue to maintain O2 sat greater than 92%, wean as tolerated. - supportive care (5) Parkinsons disease: Qualifiers: Dyskinesia presence: unspecified whether dyskinesia Fluctuating manifestations: unspecified whether manifestations fluctuate Qualified Code(s): G20.A1 - Parkinson's disease without dyskinesia, without mention of fluctuations Code(s): G20 - Parkinson's disease Status: Chronic Assessment and Plan: - continue home medications: Sinemet 25-100 mg 5 tabs orally t.i.d.. - history of dysphagia, speech evaluation ordered. - per family, no specific diet at home. they do avoid certain foods such as soup as it is too thin or small foods like corn as he has not tolerated that well before. 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 - correct regimen ordered - moderate dose TIDWM, based off BMI - A1C 6.2% on 10/2024, update (7) Benign essential hypertension: Code(s): I10 - Essential (primary) hypertension Status: Acute Assessment and Plan: - chronic, currently 169/88 - continue home medications: Lisinopril 2.5 mg daily, propranolol 10 mg b.i.d., verapamil ER 360 mg daily - monitor Plan Diet: Diabetic GI Prophylaxis: Not currently indicated DVT Prophylaxis: Lovenox SQ IV fluids: NS at 100 mL/hour x2L Lines/Tubes: Peripheral IV Code Status: Full code Subjective Date/time seen: 03/06/25 07:36 Interval history: Interval history:84 y/o M with PMH of Parkinson's, right bundle branch block, aortic stenosis, hyperlipidemia, diabetes, BPH, sick sinus syndrome s/p pacemaker, and hypertension presents here with shortness of breath. He had been diagnosed with an upper respiratory infection 2 weeks prior and started on cefdinir 300 mg x 10 days. Cxr done yesterday, 03/04, which showed left basal atelectasis versus pneumonia. The patient was started on Levaquin 750 mg x 7 days and DuoNeb nebulizers 4 times daily as needed. However, sought care today after his family discovered the patient was hypoxic. Home portable pulse ox showed 87% on RA. Upon arrival, the patient was found to be hypoxic on room air at 87%. Patient was admitted in the setting of sepsis and was started on cefepime, Flagyl and vancomycin and later transitioned to azithromycin and Z osyn. Patient also positive for COVID 03/06: Discussed with his daughter. Patient lives by himself and has been diagnosed with Parkinson about 3 years ago. Patient also has hx of pacemaker and valve replacement happened in 2022 at [facility]. Patient was lately not feeling well and treated by his PCP with course of antibiotics and nebulizer but day before yesterday he was found to hypoxia and taken to ED. Lately he had some heat intolerance and might be possible form Vancomycin infusion. Given Benadryl. Will monitor. Review of Systems Review of Systems: All systems reviewed & are unremarkable except as noted in HPI and below Exam Const: Other: , male, elderly, acute on chronic ill appearance, uncomfortable, restless. HENMT: Face/Nose/Sinus: Normal nares present Mouth: Yes moist mucous membranes Eyes: General: appearance normal, both eyes and all related structures Sclera: sclerae normal Pupils: Equal, round and reactive pupils present EOM: EOMs intact bilaterally Resp: Other: Nasal cannula place, tolerating well. Mild tachypnea without accessory muscle use. Coarse bibasilar breath sounds. No wheezing. Cardio: Rate: regular rate Rhythm: regular rhythm Other: S1-S2 present without murmur, rub, ectopy GI: Other: Abdomen soft, nondistended, nontender. Normoactive bowel sounds in all quadrants. Skin: General skin exam: normal color and no rashes or lesions noted Woun ds: no wounds Neuro: Cranial nerves: Yes Equal, round and reactive pupils present Speech: normal speech Motor exam (neuro): 5/5 motor strength present throughout Sensory Exam: normal sensation Other: A&O x3. Extrem: General: normal to inspection Psych: Mental Status: mental status grossly normal Affect: normal affect Other: Fair insight and judgment, pleasant. Objective Data Vital Signs Vital Signs: Vital Signs - 24 hr 03/05/25 12:02 03/05/25 12:02 03/05/25 12:32 Temperature 98.1 F 97.9 F Pulse Rate 74 72 Respiratory Rate 28 H 21 H Blood Pressure 163/90 H 139/80 Pulse Oximetry 92 92 93 Oxygen Delivery Nasal Cannula Nasal Cannula Oxygen Flow Rate 3 3 03/05/25 13:46 03/05/25 14:15 03/05/25 14:16 Temperature 97.8 F Pulse Rate 92 67 67 Respiratory Rate 22 H 31 H 31 H Blood Pressure 143/82 H 152/98 H Pulse Oximetry 95 91 93 Oxygen Delivery Oxygen Flow Rate 03/05/25 15:17 03/05/25 15:47 03/05/25 16:00 Temperature 98.1 F 97.9 F Pulse Rate 63 71 71 Respiratory Rate 20 29 H 29 H Blood Pressure 168/88 H 169/88 H Pulse Oximetry 94 94 94 Oxygen Delivery Nasal Cannula Oxygen Flow Rate 3 03/05/25 16:00 03/05/25 18:00 03/05/25 20:00 Temperature Pulse Rate 70 71 Respiratory Rate Blood Pressure Pulse Oximetry 94 Oxygen Delivery Nasal Cannula Oxygen Flow Rate 2 03/05/25 20:00 03/05/25 20:00 03/05/25 20:04 Temperature 98.1 F Pulse Rate 79 81 76 Respiratory Rate 19 Blood Pressure 164/92 H Pulse Oximetry 92 Oxygen Delivery Oxygen Flow Rate 03/05/25 22:50 03/05/25 23:22 03/06/25 00:00 Temperature 98.3 F Pulse Rate 73 76 Respiratory Rate 20 Blood Pressure 160/90 H Pulse Oximetry 93 91 93 Oxygen Delivery Nasal Cannula Nasal Cannula Oxygen Flow Rate 1 2 03/06/25 00:00 03/06/25 02:00 03/06/25 04:00 Temperature Pulse Rate 71 75 Respiratory Rate Blood Pressure Pulse Oximetry 91 Oxygen Delivery Nasal Cannula Oxygen Flow Rate 2 03/06/25 04:00 03/06/25 04:00 03/06/25 05:14 Temperature 97.7 F Pulse Rate 75 81 75 Respiratory Rate 18 Blood Pressure 157/84 H Pulse Oximetry 90 Oxygen Delivery Oxygen Flow Rate Intake/Output Intake/Output: Intake & Output 03/03/25 03/04/25 03/05/25 03/06/25 23:59 23:59 23:59 23:59 Intake Total 1750 1200 Output Total 1000 1600 Balance 750 -400 Meds/Results Medications: Active Medications Generic Name Dose Route Start Last Admin Trade Name Freq PRN Reason Stop Dose Admin Acetaminophen 650 mg 03/05/25 14:45 Acetaminophen 325 Mg Tablet PO Q4H PRN Mild Pain (1-3) or Fever Albuterol/Ipratropium 3 ml 03/05/25 17:50 Ipratropium 0.5 Mg/Albuterol Sulfate 2.5 Mg Ampul.Neb 3 Ml INHALATION Q6HRT PRN Shortness Of Breath Or Wheezing Alprazolam 0.5 mg 03/06/25 09:00 Alprazolam (*Crx) 0.5 Mg Tablet PO BID [facility] Aspirin 81 mg 03/06/25 09:00 Aspirin 81 Mg Enteric Tablet PO DAILY [facility] Benzocaine 1 lozenge 03/05/25 17:49 Benzocaine/Menthol (*Bkc) 18 Ea Lozenge PO PRN PRN Sore Throat Benzonatate 100 mg 03/05/25 17:49 Benzonatate 100 Mg Capsule PO TID PRN Cough Carbidopa/Levodopa 5 tablet 03/05/25 23:25 03/05/25 23:44 Carbidopa/Levodopa 25/100 Mg Tablet PO 5 tablet 0400,1100,1600 [facility] Administration Clopidogrel Bisulfate 75 mg 03/06/25 09:00 Clopidogrel Bisulfate 75 Mg Tablet PO DAILY [facility] Dexamethasone Sodium Phosphate 6 mg 03/05/25 18:00 03/05/25 20:05 Dexamethasone Sod Phos Inj 10 Mg/Ml 1 Ml Vial IV PUSH 03/14/25 18:01 6 mg Q24H RICK Administration Dextrose 12.5 gm 03/05/25 18:31 Dextrose 50% 25 Gm/50 Ml Syringe IV PUSH PRN PRN Hypoglycemia Protocol Diphenhydramine HCl 25 mg 03/05/25 23:19 03/05/25 23:45 Diphenhydramine Hcl Cap 25 Mg Capsule PO 25 mg HS PRN Administration Insomnia Enoxaparin Sodium 40 mg 03/06/25 09:00 Enoxaparin 40 Mg/0.4 Ml Syringe SUB-Q DAILY RICK Finasteride 5 mg 03/05/25 21:00 03/05/25 20:02 Finasteride 5 Mg Tablet PO 5 mg HS RICK Administration Fish Oil 1,000 gm 03/05/25 18:25 03/05/25 21:31 [place] 3 Polyunsat Fatty Acids 1 Gm Cap PO Not Given QPM RICK Gabapentin 600 mg 03/05/25 18:55 03/05/25 20:02 Gabapentin 300 Mg Capsule PO 600 mg TID RICK Administration Glucagon 1 mg 03/05/25 18:31 Glucagon For Inj 1 Mg Vial IM PRN PRN Hypoglycemia Protocol Glucose 15 gm 03/05/25 18:31 Glucose Oral Gel 15 Gm Of Glucse In 37.5 Gm Tube PO PRN PRN Hypoglycemia Protocol Guaifenesin 600 mg 03/05/25 21:00 03/05/25 20:02 Guaifenesin 12 Hr 600 Mg Tabcr PO 600 mg Q12HR RICK Administration Piperacillin Sod/Tazobactam Sod 4.5 gm in 100 mls @ 200 mls/hr 03/05/25 18:00 03/06/25 06:36 Zosyn 4.5 Gm/Ns 100 Ml IVPB Infused Q6H RICK Infusion Azithromycin 500 mg in 250 mls @ 250 mls/hr 03/05/25 16:00 03/05/25 17:09 Zithromax IVPB 03/09/25 16:59 Infused Q24H RICK Infusion Remdesivir 100 mg in 250 mls @ 250 mls/hr 03/06/25 22:00 IVPB 03/09/25 22:59 Q24H RICK Sodium Chloride 1,000 mls @ 100 mls/hr 03/05/25 18:20 03/06/25 06:26 Normal Saline Iv IV CONT 03/06/25 14:19 100 mls/hr .Q10H RICK Administration Dextrose 1,000 mls @ 100 mls/hr 03/05/25 18:31 Dextrose 5% 1,000 Ml IVPB PRN PRN Hypoglycemia Protocol Insulin Aspart 3 - 6 units 03/06/25 08:00 Insulin Aspart (*Bkc) 100 Units/Ml SUB-Q TIDWM [facility] Protocol Lisinopril 2.5 mg 03/06/25 09:00 Lisinopril 2.5 Mg Tablet PO DAILY [facility] Multivitamins/Minerals 1 tablet 03/06/25 09:00 Opti-Gen Tab PO BID [facility] Ondansetron HCl 4 mg 03/05/25 14:45 Ondansetron Inj 4 Mg/2 Ml Vial IV PUSH Q4H PRN Nausea Pantoprazole Sodium 40 mg 03/05/25 21:00 03/05/25 20:03 Pantoprazole 40 Mg Tablet PO 40 mg Q12HR [facility] Administration Primidone 100 mg 03/05/25 09:00 03/05/25 19:07 Primidone 50 Mg Tablet PO Not Given 0900,1400 [facility] Primidone 50 mg 03/05/25 21:00 03/05/25 20:04 Primidone 50 Mg Tablet PO 50 mg QHS [facility] Administration Propranolol HCl 10 mg 03/05/25 21:00 03/05/25 20:04 Propranolol Hcl 10 Mg Tablet PO 10 mg Q12HR [facility] Administration Psyllium Hydrophilic Mucilloid 1 packet 03/06/25 09:00 Psyllium Sugar Free Powder Packet PO DAILY [facility] Rosuvastatin Calcium 10 mg 03/06/25 09:00 Rosuvastatin 10 Mg Tablet PO DAILY [facility] Sertraline HCl 100 mg 03/06/25 09:00 Sertraline Hcl 50 Mg Tablet PO DAILY [facility] Tamsulosin HCl 0.4 mg 03/06/25 09:00 Tamsulosin Hcl 0.4 Mg Capsule PO DAILY [facility] Valacyclovir HCl 1,000 mg 03/05/25 18:25 Valacyclovir Hcl 500 Mg Tablet PO TID PRN coldsore Verapamil HCl 360 mg 03/06/25 08:00 Verapamil Hcl 180 Mg Tablet Er PO DAILY@0800 [facility] Radiology Results: ITS Impressions Chest X-Ray 03/05/25 13:21 IMPRESSION: Bibasilar pneumonia. Labs Labs: Laboratory Results - last 24 hr 03/05/25 03/05/25 03/05/25 12:22 12:22 14:03 WBC 13.3 H RBC 4.03 L Hgb 12.2 L Hct 37.7 L MCV 93.5 MCH 30.3 MCHC 32.4 RDW 13.5 Plt Count 376 H MPV 10.5 H Immature Gran % (Auto) 0.8 H Neut % (Auto) 80.6 H Lymph % (Auto) 9.4 L [place] % (Auto) 7.8 Eos % (Auto) 1.3 Baso % (Auto) 0.1 L Lymph # (Auto) 1.26 [place] # (Auto) 1.0 H Eos # (Auto) 0.2 Baso # (Auto) 0.0 Abs Immat Gran (auto) 0.11 H Absolute Neuts (auto) 10.7 H Absolute Nucleated RBC 0.000 Nucleated RBC % 0.0 PT 13.8 INR 1.0 APTT 27.1 Sodium 132 L Potassium 4.1 Chloride 100 Carbon Dioxide 22 Anion Gap 10 BUN 17 Creatinine 0.64 L Estim Creat Clear Calc 74 Estimated GFR > 60 Glucose 102 POC Capillary Glucose Lactic Acid 1.4 Calcium 9.2 Total Bilirubin 0.8 AST 45 ALT 12 Alkaline Phosphatase 97 Troponin I < 0.012 Cancelled C-Reactive Protein NT-Pro-B Natriuret Pep 238 H Total Protein 7.0 Albumin 4.0 Urine Color Urine Appearance Urine pH Ur Specific [place] Urine Protein Urine Glucose (UA) Urine Ketones Ur Blood (Man) Urine Nitrate Urine Bilirubin Urine Urobilinogen Leukocyte Esterase Rfl Nasal MRSA (PCR) Not detected Influenza A (RT-PCR) Negative Influenza B (RT-PCR) Negative RSV (RT-PCR) Negative SARS-CoV-2 RNA (RT-PCR) Positive A 03/05/25 03/05/25 03/06/25 19:39 20:53 04:11 WBC RBC Hgb Hct MCV MCH MCHC RDW Plt Count MPV Immature Gran % (Auto) Neut % (Auto) Lymph % (Auto) [place] % (Auto) Eos % (Auto) Baso % (Auto) Lymph # (Auto) [place] # (Auto) Eos # (Auto) Baso # (Auto) Abs Immat Gran (auto) Absolute Neuts (auto) Absolute Nucleated RBC Nucleated RBC % PT INR APTT Sodium Potassium Chloride Carbon Dioxide Anion Gap BUN Creatinine Estim Creat Clear Calc Estimated GFR Glucose POC Capillary Glucose 119 H Lactic Acid Calcium Total Bilirubin AST ALT Alkaline Phosphatase Troponin I C-Reactive Protein 1.7 H NT-Pro-B Natriuret Pep Total Protein Albumin Urine Color Yellow Urine Appearance Clear Urine pH 6.0 Ur Specific [place] 1.017 Urine Protein Negative Urine Glucose (UA) Negative Urine Ketones Trace H Ur Blood (Man) Negative Urine Nitrate Negative Urine Bilirubin Negative Urine Urobilinogen 0.2 Leukocyte Esterase Rfl Negative Nasal MRSA (PCR) Influenza A (RT-PCR) Influenza B (RT-PCR) RSV (RT-PCR) SARS-CoV-2 RNA (RT-PCR) 03/06/25 04:27 WBC 11.4 H RBC 3.99 L Hgb 12.5 L Hct 37.1 L MCV 93.0 MCH 31.3 MCHC 33.7 RDW 13.2 Plt Count 386 H MPV 10.8 H Immature Gran % (Auto) 0.7 H Neut % (Auto) 86.8 H Lymph % (Auto) 8.7 L [place] % (Auto) 3.6 Eos % (Auto) 0.0 Baso % (Auto) 0.2 Lymph # (Auto) 1.00 [place] # (Auto) 0.4 Eos # (Auto) 0.0 Baso # (Auto) 0.0 Abs Immat Gran (auto) 0.08 H Absolute Neuts (auto) 9.9 H Absolute Nucleated RBC 0.000 Nucleated RBC % 0.0 PT INR APTT Sodium 134 L Potassium 4.1 Chloride 100 Carbon Dioxide 23 Anion Gap 11 BUN 13 Creatinine 0.63 L Estim Creat Clear Calc 80 Estimated GFR > 60 Glucose 125 H POC Capillary Glucose Lactic Acid Calcium 9.0 Total Bilirubin 0.6 AST 36 ALT 13 Alkaline Phosphatase 89 Troponin I C-Reactive Protein NT-Pro-B Natriuret Pep Total Protein 7.0 Albumin 3.9 Urine Color Urine Appearance Urine pH Ur Specific [place] Urine Protein Urine Glucose (UA) Urine Ketones Ur Blood (Man) Urine Nitrate Urine Bilirubin Urine Urobilinogen Leukocyte Esterase Rfl Nasal MRSA (PCR) Influenza A (RT-PCR) Influenza B (RT-PCR) RSV (RT-PCR) SARS-CoV-2 RNA (RT-PCR) Quality VTE Prophylaxis VTE prophylaxis: pharmacologic ordered Hospitalist MIPS Advance Care Plan I have confirmed that the patient's Advanced Care Plan is present, code status is documented, or surrogate decision maker is listed in patient medical record.: Yes Medication Reconciliation I have utilized all available resources to obtain, update and review the patients current medications (includes all prescriptions, OTC, herbals, cannabis, and nutritional supplements).: Yes
[2025-03-06 08:55] LABS: Glucose Point of Care 114 mg/dl (65-105)
[2025-03-06] MEDS: OPTI-GEN TAB 1 TABLET PO ×2 (10:20→18:10)
[2025-03-06] MEDS: CLOPIDOGREL BISULFATE 75 MG TABLET PO (10:20)
[2025-03-06] MEDS: PANTOPRAZOLE 40 MG TABLET PO ×2 (10:20→20:36)
[2025-03-06] MEDS: VERAPAMIL HCL 180 MG TABLET ER 360 MG PO (10:20)
[2025-03-06] MEDS: ASPIRIN 81 MG ENTERIC TABLET PO (10:21)
[2025-03-06] MEDS: SERTRALINE HCL 50 MG TABLET 100 MG PO (10:21)
[2025-03-06] MEDS: ALPRAZolam (*CRX) 0.5 MG TABLET PO ×2 (10:21→18:10)
[2025-03-06] MEDS: ROSUVASTATIN 10 MG TABLET PO (10:21)
[2025-03-06] MEDS: GABAPENTIN 300 MG CAPSULE 600 MG PO ×3 (10:21→18:10)
[2025-03-06] MEDS: lisinopriL 2.5 MG TABLET PO (10:22)
[2025-03-06] MEDS: guaiFENesin 12 HR 600 MG TABCR PO ×2 (10:22→20:36)
[2025-03-06] MEDS: TAMSULOSIN HCL 0.4 MG CAPSULE PO (10:22)
[2025-03-06] MEDS: PROPRANOLOL HCL 10 MG TABLET PO ×2 (10:23→20:36)
--- NOTE | 2025-03-06 10:39 | PCSTNOTE ---
Please refer to the Modified Barium Swallow (MBS) Evaluation in the EMR. The above pt admitted with dx of Parkinson's disease, COVID +, GERD, and a recent h/o pneumonia, was seen for an MBS to rule out aspiration. When asked about dysphagia, he stated, not really . Pt was seated for a lateral view. Pt had full upper and lower dentures in place for the exam, which appeared to fit well. He was presented with 5 ml of thin liquids, pudding consistency barium, cracker coated with barium pudding, and thin liquids in uncontrolled amounts via a cup and a straw. Oral stage symptoms: decreased lingual movement/control as the patient appeared to exhibit difficulty masticating/breaking down and formulating the cracker into a cohesive bolus. No leakage occurred, but the patient was given verbal cues to continue chewing to swallow the oral contents. During the pharyngeal stage, flash penetration occurred with the uncontrolled trials of thin liquids. No aspiration occurred. Impressions: Mild oral stage dysphagia (Possibly related to lethargy); pharyngeal stage: WFL Recommendations: Level 5 minced and moist diet with regular liquids; OOB for meals is ideal to reduce risk of aspiration; check mouth for residual before lying pt back in the bed. MO Varner and Provider Dr PEREIRA notified. Thank you for this referral
[2025-03-06] MEDS: PRIMIDONE 50 MG TABLET 100 MG PO ×2 (11:15→15:21)
[2025-03-06] MEDS: CARBIDOPA/LEVODOPA 25/100 MG TABLET 5 TABLET PO ×2 (11:17→15:20)
[2025-03-06] MEDS: ENOXAPARIN 40 MG/0.4 ML SYRINGE SUB-Q (12:27)
[2025-03-06] MEDS: predniSONE 20 MG TABLET 60 MG PO (15:19)
[2025-03-06] MEDS: AZITHROMYCIN 500 MG/NS 250 ML 500 MG/250 ML BAG 250 MG IVPB (15:31)
[2025-03-06 17:43] LABS: Glucose Point of Care 116 mg/dl (65-105)
[2025-03-06 17:43] LABS: Glucose Point of Care 165 mg/dl (65-105)
[2025-03-06] MEDS: dexAMETHasone SOD PHOS INJ 10 MG/ML 1 ML VIAL 6 MG IV PUSH (18:11)
[2025-03-06] MEDS: OMEGA 3 POLYUNSAT FATTY ACIDS 1 GM CAP 1000 GM PO (18:11)
[2025-03-06 20:02] LABS: Glucose Point of Care 165 mg/dl (65-105)
[2025-03-06] MEDS: FINASTERIDE 5 MG TABLET PO (20:36)
[2025-03-06] MEDS: PRIMIDONE 50 MG TABLET PO (20:36)
[2025-03-06] MEDS: diphenhydrAMINE HCl CAP 25 MG CAPSULE PO (20:38)
[2025-03-06] MEDS: REMDESIVIR 100 MG/NS 250 ML 100 MG/250 ML BAG 250 MG IVPB (22:05)
[2025-03-07] VITALS (14 sets, daily range): BP systolic 127–173; BP diastolic 56–87; PULSE 64–104; RESP 16–22; TEMP 36.7–36.9; O2SAT 89–99
[2025-03-07] MEDS: CARBIDOPA/LEVODOPA 25/100 MG TABLET 5 TABLET PO ×3 (04:15→17:21)
[2025-03-07] MEDS: PIPERACILLIN/TAZ 4.5G/NS 100ML 4.5 GM/100 ML BAG IVPB (05:19)
--- NOTE | 2025-03-07 06:56 | P.CONUR_ITS ---
Assessment and Plan Assessment and plan (1) BPH (benign prostatic hyperplasia): Qualifiers: Lower urinary tract symptom presence: unspecified whether lower urinary tract symptoms present Qualified Code(s): N40.0 - Benign prostatic hyperplasia without lower urinary tract symptoms Code(s): N40.0 - Benign prostatic hyperplasia without lower urinary tract symptoms Status: Acute (2) Pneumonia: Qualifiers: Pneumonia type: due to unspecified organism Laterality: left Lung location: unspecified part of lung Qualified Code(s): J18.9 - Pneumonia, unspecified organism Code(s): J18.9 - Pneumonia, unspecified organism Status: Acute (3) Acute hypoxic respiratory failure: Code(s): J96.01 - Acute respiratory failure with hypoxia Status: Acute (4) Gross hematuria: Code(s): R31.0 - Gross hematuria Status: Acute Assessment and Plan: * Transient scan gross hematuria most certainly due to underlying BPH with catheter placement and rapid bladder decompression. * Not hematuria is cleared I think any intervention or further evaluation is indicated from our standpoint. * I would leave the catheter in until he is feeling better and more ambulatory. At that point I expect he will do fine with a voiding trial. Urology Consult Note HPI Date Seen: 03/07/25 Requesting Physician: Guille Pizano MD Primary Care Provider: Ramu Myers MD Consult Narrative Narrative: Chris Mulligan is a 84 year old male well known to me with a longstanding history of BPH to managed effectively with combination of finasteride Flomax. This is admitted with acute hypoxia and has been found to have COVID pneumonia. He developed difficulty voiding subsequent to admission and a Castellano catheter was placed. Following catheter placement he developed transient hematuria which is now cleared. Review of Systems 2 Review of Systems: All systems reviewed & are unremarkable except as noted in HPI and below PMFSH Past Medical History Medical History Parkinson's disease Pneumonia Unstable gait Dysphagia Sciatica GERD (gastroesophageal reflux disease) Encounter for routine adult health examination with abnormal findings BMI 27.0-27.9,adult Trochanteric bursitis of right hip Tear of right rotator cuff RBBB (right bundle branch block) Anxiety Effusion, right knee Left knee DJD Right knee DJD Encounter for Medicare annual wellness exam Aortic stenosis Hyperlipidemia Encounter for routine adult health examination without abnormal findings DM type 2 (diabetes mellitus, type 2) BPH (benign prostatic hyperplasia) Hearing loss Cardiac pacemaker in situ Sick Sinus Syndrome Benign essential hypertension On director long term care drug therapy Vision abnormalities Surgical History Surgical History H/O cataract extraction Family History Family History Sibling Family history of coronary artery disease Mother Family history of congestive heart failure, Onset Age: 80 Patient's mother is Family history of diabetes mellitus in first degree relative Family history of coronary artery disease Diabetes mellitus Other Family history of arthritis Social History Social History Social History: , retired from the [employer] industry, 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 Smoking status: Former smoker Tobacco type: pipe Second hand tobacco smoke exposure: No Alcohol intake: never Substance use: never Substance use type: does not use Do You Feel Safe in your Home?: Yes Lack of Transportation: No Lack of Food: Never True Current Housing: I Have Housing Concerned About Future Housing: No Difficulty Paying Gas/Electric Bills: No Difficulty Paying for Meds: No Currently Unemployed: No Education: High School Diploma/GED Difficulty w/ Childcare or Family Care: No Spiritual care concerns: No Meds Home Medications and Allergies Home Medications ?Medication ?Instructions ?Recorded ?Confirmed ?Type aspirin 81 mg tablet,delayed 81 mg PO DAILY 01/18/20 03/05/25 History release (Eyal Low Dose Aspirin) finasteride 5 mg tablet 5 mg PO HS 02/10/22 03/05/25 History psyllium husk 0.52 gram capsule 0.52 g PO DAILY 10/11/23 03/05/25 History (Daily Fiber) valacyclovir 1 gram tablet 1,000 mg PO TID PRN coldsore #30 11/08/23 03/05/25 Rx (Valtrex) tabs clopidogrel 75 mg tablet 75 mg PO DAILY 02/17/24 03/05/25 History lisinopril 2.5 mg tablet 2.5 mg PO DAILY #90 tabs 07/04/24 03/05/25 Rx sertraline 100 mg tablet See Rx Instructions .Route 08/19/24 03/05/25 Rx .COMPLEX #90 tabs propranolol 10 mg tablet See Rx Instructions .Route 09/05/24 03/05/25 Rx .COMPLEX #180 tabs rosuvastatin 10 mg tablet See Rx Instructions .Route 09/05/24 03/05/25 Rx .COMPLEX #90 tabs metformin 500 mg tablet See Rx Instructions .Route 11/29/24 03/05/25 Rx .COMPLEX #180 tabs primidone 50 mg tablet See Rx Instructions .Route 01/04/25 03/05/25 Rx .COMPLEX #450 tabs gabapentin 600 mg tablet See Rx Instructions .Route 01/15/25 03/05/25 Rx .COMPLEX #90 tabs verapamil 360 mg 24 hr See Rx Instructions .Route 01/15/25 03/05/25 Rx capsule,extended release .COMPLEX #90 caps Home Nebulizzer #1 ea 03/04/25 03/05/25 Rx ipratropium 0.5 mg-albuterol 3 mg 3 ml inhalation Q4H PRN shortness 03/04/25 03/05/25 Rx (2.5 mg base)/3 mL nebulization of breath or wheezing #90 mL soln levofloxacin 750 mg tablet 750 mg PO DAILY #7 tabs 03/04/25 03/05/25 Rx vitamins A,C,G-hvkk-hkefsc 4,296 1 cap PO BID 03/04/25 03/05/25 History mcg-226 mg-90 mg capsule (PreserVision AREDS) alprazolam 0.5 mg tablet 0.5 mg PO BID 03/05/25 03/05/25 History carbidopa 25 mg-levodopa 100 mg 5 tablet PO .COMPLEX 03/05/25 03/05/25 History tablet (Sinemet) icosapent ethyl 1 gram capsule See Rx Instructions .Route .COMPLEX 03/05/25 03/05/25 History omeprazole 40 mg capsule,delayed See Rx Instructions .Route .COMPLEX 03/05/25 03/05/25 History release tamsulosin 0.4 mg capsule See Rx Instructions .Route .COMPLEX 03/05/25 03/05/25 History Allergies Allergy/AdvReac Type Severity Reaction Status Date / Time No Known Allergies Allergy Mild Verified 03/04/25 10:47 Vital Signs Vital Signs - 24 hr 03/06/25 08:00 03/06/25 08:00 03/06/25 10:00 Temperature 98.1 F Pulse Rate 88 81 62 Respiratory Rate 22 H Blood Pressure 163/93 H Pulse Oximetry 93 Oxygen Delivery Oxygen Flow Rate 03/06/25 10:23 03/06/25 12:00 03/06/25 12:00 Temperature 97.7 F Pulse Rate 86 81 Respiratory Rate 22 H Blood Pressure 155/67 H Pulse Oximetry 95 94 Oxygen Delivery Nasal Cannula Oxygen Flow Rate 2 03/06/25 12:00 03/06/25 14:00 03/06/25 15:26 Temperature Pulse Rate 70 61 Respiratory Rate Blood Pressure Pulse Oximetry 94 Oxygen Delivery Nasal Cannula Oxygen Flow Rate 2 03/06/25 16:00 03/06/25 16:00 03/06/25 16:00 Temperature 97.8 F Pulse Rate 72 84 Respiratory Rate 20 Blood Pressure 130/68 Pulse Oximetry 94 94 Oxygen Delivery Nasal Cannula Oxygen Flow Rate 2 03/06/25 17:59 03/06/25 20:00 03/06/25 20:00 Temperature 97.8 F Pulse Rate 74 66 Respiratory Rate 19 Blood Pressure 139/72 Pulse Oximetry 98 94 Oxygen Delivery Nasal Cannula Oxygen Flow Rate 2 03/06/25 20:00 03/06/25 20:20 03/06/25 20:36 Temperature Pulse Rate 63 70 Respiratory Rate Blood Pressure Pulse Oximetry 95 Oxygen Delivery Nasal Cannula Oxygen Flow Rate 2 03/06/25 23:19 03/06/25 23:27 03/07/25 00:00 Temperature 98.0 F Pulse Rate 64 69 Respiratory Rate 18 Blood Pressure 139/75 Pulse Oximetry 94 97 Oxygen Delivery Nasal Cannula Oxygen Flow Rate 2 03/07/25 02:00 03/07/25 04:00 03/07/25 04:00 Temperature 98.3 F Pulse Rate 64 69 Respiratory Rate 18 Blood Pressure 137/78 Pulse Oximetry 92 99 Oxygen Delivery Nasal Cannula Oxygen Flow Rate 2 03/07/25 04:00 Temperature Pulse Rate 76 Respiratory Rate Blood Pressure Pulse Oximetry Oxygen Delivery Oxygen Flow Rate Exam 2 Const: General: no acute distress Resp: Effort & Inspection: normal respiratory effort GI: Inspection: non-distended GI Palp: No abdominal tenderness and No Guarding due to palpation present (GI) Auscultation: normal bowel sounds Results Labs 03/06/25 04:27 03/06/25 04:27
[2025-03-07 08:22] LABS: Glucose Point of Care 111 mg/dl (65-105)
[2025-03-07] MEDS: SERTRALINE HCL 50 MG TABLET 100 MG PO (09:04)
[2025-03-07] MEDS: VERAPAMIL HCL 180 MG TABLET ER 360 MG PO (09:04)
[2025-03-07] MEDS: GABAPENTIN 300 MG CAPSULE 600 MG PO ×3 (09:04→17:21)
[2025-03-07] MEDS: lisinopriL 2.5 MG TABLET PO (09:05)
[2025-03-07] MEDS: predniSONE 20 MG TABLET 60 MG PO (09:05)
[2025-03-07] MEDS: PANTOPRAZOLE 40 MG TABLET PO ×2 (09:05→20:42)
[2025-03-07] MEDS: TAMSULOSIN HCL 0.4 MG CAPSULE PO (09:05)
[2025-03-07] MEDS: ROSUVASTATIN 10 MG TABLET PO (09:05)
[2025-03-07] MEDS: CLOPIDOGREL BISULFATE 75 MG TABLET PO (09:06)
[2025-03-07] MEDS: ALPRAZolam (*CRX) 0.5 MG TABLET PO ×2 (09:06→17:28)
[2025-03-07] MEDS: PROPRANOLOL HCL 10 MG TABLET PO ×2 (09:06→20:42)
[2025-03-07] MEDS: ASPIRIN 81 MG ENTERIC TABLET PO (09:06)
[2025-03-07] MEDS: OPTI-GEN TAB 1 TABLET PO ×2 (09:24→17:21)
[2025-03-07] MEDS: guaiFENesin 12 HR 600 MG TABCR PO ×2 (09:25→20:42)
[2025-03-07] MEDS: ENOXAPARIN 40 MG/0.4 ML SYRINGE SUB-Q (09:25)
--- NOTE | 2025-03-07 10:38 | P.PNIM_ITS ---
Progress Note: A&P Assessment and Plan (1) Sepsis: Qualifiers: Acute respiratory failure type: with hypoxia Sepsis acute organ dysfunction status: with acute organ dysfunction Sepsis type: sepsis during labor Severe sepsis acute organ dysfunction type: acute respiratory failure Severe sepsis shock status: without septic shock Qualified Code(s): O75.3 - Other infection during labor; A41.9 - Sepsis, unspecified organism; J96.01 - Acute respiratory failure with hypoxia; R65.20 - Severe sepsis without septic shock Code(s): A41.9 - Sepsis, unspecified organism Status: Acute Assessment and Plan: - meets SIRS criteria: RR, WBC. +hypoxia requiring supplemental O2. - lactic acid: 1.4 - 30 mL/kg = 2.7L, given 1L in the ED. tolerated well, reviewed previous echo in 2022 which showed an EF of 60% and diastolic dysfunction present. Will give additional fluids at 100 mL/hour x2L. - suspected source: Pneumonia, COVID - started on cefepime, Flagyl, and vancomycin. -Transitioned to azithromycin and Zosyn (MRSA negative, history of Parkinson's/dysphagia and rapidly worsening pneumonia on CXR raising concern for aspiration pneumonia) -DC Zosyn due to possible reaction -Started Levaquin - blood cultures drawn on 03/05, follow - check UA - admission to IMU for close hemodynamic monitoring (2) Acute hypoxic respiratory failure: Code(s): J96.01 - Acute respiratory failure with hypoxia Status: Acute Assessment and Plan: - tested positive for COVID on 03/05 - CXR showing bilateral pneumonia, started on ABX, see above - EKG showed sinus rhythm, RBBB, ST-T-wave abnormality in anterolateral/inferior leads. - no significant anemia Suspect acute hypoxic respiratory failure secondary to COVID and bilateral pneumonia. (3) COVID-19: Code(s): U07.1 - COVID-19 Status: Acute Assessment and Plan: - symptom onset: 03/01 - tested positive for COVID on: 03/05/2025 - complicating comorbidities: Bilateral pneumonia - Remdesivir 200 mg IVPB x1 then 100 mg x4 for 5 total doses. - Dexamethasone 6 mg x10 days or until d/c. - DVT prophylaxis: Lovenox SQ - supportive care DuoNeb p.r.n. Tylenol p.r.n. Mucinex rick Lozenge p.r.n. Jc Mancilla p.r.n. - monitor VS/O2 - monitor daily labs, check CRP (4) Bilateral pneumonia: Qualifiers: Lung location: lower lobe of lung Pneumonia type: due to unspecified organism Qualified Code(s): J18.9 - Pneumonia, unspecified organism Code(s): J18.9 - Pneumonia, unspecified organism Status: Acute Assessment and Plan: - CXR, 03/05/2025: Bibasilar pneumonia - CXR, 03/04/2025: Left basal atelectasis versus pneumonia. -Transitioned to azithromycin and Zosyn (MRSA negative, history of Parkinson's/dysphagia and rapidly worsening pneumonia on CXR raising concern for aspiration pneumonia) -DC Zosyn due to possible reaction -Started Levaquin - MRSA PCR negative on 03/05 - Viral PCR positive for COVID on 03/05 - sputum culture, if obtainable - currently requiring supplemental O2, 3L NC. Continue to maintain O2 sat greater than 92%, wean as tolerated. - supportive care (5) Parkinsons disease: Qualifiers: Dyskinesia presence: unspecified whether dyskinesia Fluctuating manifestations: unspecified whether manifestations fluctuate Qualified Code(s): G20.A1 - Parkinson's disease without dyskinesia, without mention of fluctuations Code(s): G20 - Parkinson's disease Status: Chronic Assessment and Plan: - continue home medications: Sinemet 25-100 mg 5 tabs orally t.i.d.. - history of dysphagia, speech evaluation ordered. - per family, no specific diet at home. they do avoid certain foods such as soup as it is too thin or small foods like corn as he has not tolerated that well before. 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 - correct regimen ordered - moderate dose TIDWM, based off BMI - A1C 6.2% on 10/2024, update (7) Benign essential hypertension: Code(s): I10 - Essential (primary) hypertension Status: Acute Assessment and Plan: - chronic, currently 169/88 - continue home medications: Lisinopril 2.5 mg daily, propranolol 10 mg b.i.d., verapamil ER 360 mg daily - monitor Plan Diet: Diabetic GI Prophylaxis: Not currently indicated DVT Prophylaxis: Lovenox SQ IV fluids: NS at 100 mL/hour x2L Lines/Tubes: Peripheral IV Code Status: Full code Subjective Date/time seen: 03/07/25 10:38 Interval history: Interval history:84 y/o M with PMH of Parkinson's, right bundle branch block, aortic stenosis, hyperlipidemia, diabetes, BPH, sick sinus syndrome s/p pacemaker, and hypertension presents here with shortness of breath. He had been diagnosed with an upper respiratory infection 2 weeks prior and started on cefdinir 300 mg x 10 days. Cxr done yesterday, 03/04, which showed left basal atelectasis versus pneumonia. The patient was started on Levaquin 750 mg x 7 days and DuoNeb nebulizers 4 times daily as needed. However, sought care today after his family discovered the patient was hypoxic. Home portable pulse ox showed 87% on RA. Upon arrival, the patient was found to be hypoxic on room air at 87%. Patient was admitted in the setting of sepsis and was started on cefepime, Flagyl and vancomycin and later transitioned to azithromycin and Zosyn. Patient also positive for COVID 03/06: Discussed with his daughter. Patient lives by himself and has been diagnosed with Parkinson about 3 years ago. Patient also has hx of pacemaker and valve replacement happened in 2022 at [facility]. Patient was lately not feeling well and treated by his PCP with course of antibiotics and nebulizer but day before yesterday he was found to hypoxia and taken to ED. Lately he had some heat intolerance and might be possible form Vancomycin infusion. Given Benadryl. Will monitor. Also receiving Remdisivir for COVID 03/07:Patient reports feeling hot after Zosyn infusion, so dc'ed . Started Levofloxacin.Improving well. Review of Systems Review of Systems: All systems reviewed & are unremarkable except as noted in HPI and below Exam Const: Other: , male, elderly, acute on chronic ill appearance, uncomfortable, restless. HENMT: Face/Nose/Sinus: Normal nares present Mouth: Yes moist mucous membranes Eyes: General: appearance normal, both eyes and all related structures Sclera: sclerae normal Pupils: Equal, round and reactive pupils present EOM: EOMs intact bilaterally Resp: Other: Nasal cannula place, tolerating well. Mild tachypnea without accessory muscle use. Coarse bibasilar breath sounds. No wheezing. Cardio: Rate: regular rate Rhythm: regular rhythm Other: S1-S2 present without murmur, rub, ectopy GI: Other: Abdomen soft, nondistended, nontender. Normoactive bowel sounds in all quadrants. Skin: General skin exam: normal color and no rashes or lesions noted Wounds: no wounds Neuro: Cranial nerves: Yes Equal, round and reactive pupils present Speech: normal speech Motor exam (neuro): 5/5 motor strength present throughout Sensory Exam: normal sensation Other: A&O x3. Extrem: General: normal to inspection Psych: Mental Status: mental status grossly normal Affect: normal affect Other: Fair insight and judgment, pleasant. Objective Data Vital Signs Vital Signs: Vital Signs - 24 hr 03/06/25 12:00 03/06/25 12:00 03/06/25 12:00 Temperature 97.7 F Pulse Rate 81 70 Respiratory Rate 22 H Blood Pressure 155/67 H Pulse Oximetry 95 94 Oxygen Delivery Nasal Cannula Oxygen Flow Rate 2 03/06/25 14:00 03/06/25 15:26 03/06/25 16:00 Temperature Pulse Rate 61 Respiratory Rate Blood Pressure Pulse Oximetry 94 94 Oxygen Delivery Nasal Cannula Nasal Cannula Oxygen Flow Rate 2 2 03/06/25 16:00 03/06/25 16:00 03/06/25 17:59 Temperature 97.8 F Pulse Rate 72 84 74 Respiratory Rate 20 Blood Pressure 130/68 Pulse Oximetry 94 Oxygen Delivery Oxygen Flow Rate 03/06/25 20:00 03/06/25 20:00 03/06/25 20:00 Temperature 97.8 F Pulse Rate 66 63 Respiratory Rate 19 Blood Pressure 139/72 Pulse Oximetry 98 94 Oxygen Delivery Nasal Cannula Oxygen Flow Rate 2 03/06/25 20:20 03/06/25 20:36 03/06/25 23:19 Temperature Pulse Rate 70 Respiratory Rate Blood Pressure Pulse Oximetry 95 94 Oxygen Delivery Nasal Cannula Nasal Cannula Oxygen Flow Rate 2 2 03/06/25 23:27 03/07/25 00:00 03/07/25 02:00 Temperature 98.0 F Pulse Rate 64 69 64 Respiratory Rate 18 Blood Pressure 139/75 Pulse Oximetry 97 Oxygen Delivery Oxygen Flow Rate 03/07/25 04:00 03/07/25 04:00 03/07/25 04:00 Temperature 98.3 F Pulse Rate 69 76 Respiratory Rate 18 Blood Pressure 137/78 Pulse Oximetry 92 99 Oxygen Delivery Nasal Cannula Oxygen Flow Rate 2 03/07/25 08:00 03/07/25 09:06 Temperature 98.1 F Pulse Rate 104 H 82 Respiratory Rate 20 Blood Pressure 173/87 H Pulse Oximetry 91 Oxygen Delivery Oxygen Flow Rate Intake/Output Intake/Output: Intake & Output 03/04/25 03/05/25 03/06/25 03/07/25 23:59 23:59 23:59 23:59 Intake Total 1750 3680 200 Output Total 1000 3150 1700 Balance 750 530 -1500 Meds/Results Medications: Active Medications Generic Name Dose Route Start Last Admin Trade Name Freq PRN Reason Stop Dose Admin Acetaminophen 650 mg 03/05/25 14:45 Acetaminophen 325 Mg Tablet PO Q4H PRN Mild Pain (1-3) or Fever Albuterol/Ipratropium 3 ml 03/05/25 17:50 Ipratropium 0.5 Mg/Albuterol Sulfate 2.5 Mg Ampul.Neb 3 Ml INHALATION Q6HRT PRN Shortness Of Breath Or Wheezing Alprazolam 0.5 mg 03/06/25 09:00 03/07/25 09:06 Alprazolam (*Crx) 0.5 Mg Tablet PO 0.5 mg BID RICK Administration Aspirin 81 mg 03/06/25 09:00 03/07/25 09:06 Aspirin 81 Mg Enteric Tablet PO 81 mg DAILY RICK Administration Benzocaine 1 lozenge 03/05/25 17:49 Benzocaine/Menthol (*Bkc) 18 Ea Lozenge PO PRN PRN Sore Throat Benzonatate 100 mg 03/05/25 17:49 Benzonatate 100 Mg Capsule PO TID PRN Cough Carbidopa/Levodopa 5 tablet 03/05/25 23:25 03/07/25 04:15 Carbidopa/Levodopa 25/100 Mg Tablet PO 5 tablet 0400,1100,1600 RICK Administration Clopidogrel Bisulfate 75 mg 03/06/25 09:00 03/07/25 09:06 Clopidogrel Bisulfate 75 Mg Tablet PO 75 mg DAILY RICK Administration Dexamethasone Sodium Phosphate 6 mg 03/05/25 18:00 03/06/25 18:11 Dexamethasone Sod Phos Inj 10 Mg/Ml 1 Ml Vial IV PUSH 03/14/25 18:01 6 mg Q24H RICK Administration Dextrose 12.5 gm 03/05/25 18:31 Dextrose 50% 25 Gm/50 Ml Syringe IV PUSH PRN PRN Hypoglycemia Protocol Diphenhydramine HCl 25 mg 03/05/25 23:19 03/06/25 20:38 Diphenhydramine Hcl Cap 25 Mg Capsule PO 25 mg HS PRN Administration Insomnia Diphenhydramine HCl 15 mg 03/06/25 13:10 Diphenhydramine Hcl Inj 50 Mg/Ml Vial IV PUSH Q4H PRN Itching Enoxaparin Sodium 40 mg 03/06/25 09:00 03/07/25 09:25 Enoxaparin 40 Mg/0.4 Ml Syringe SUB-Q 40 mg DAILY RICK Administration Finasteride 5 mg 03/05/25 21:00 03/06/25 20:36 Finasteride 5 Mg Tablet PO 5 mg HS RICK Administration Fish Oil 1,000 gm 03/05/25 18:25 03/06/25 18:11 Woodruff 3 Polyunsat Fatty Acids 1 Gm Cap PO 1,000 gm QPM RICK Administration Gabapentin 600 mg 03/05/25 18:55 03/07/25 09:04 Gabapentin 300 Mg Capsule PO 600 mg TID RICK Administration Glucagon 1 mg 03/05/25 18:31 Glucagon For Inj 1 Mg Vial IM PRN PRN Hypoglycemia Protocol Glucose 15 gm 03/05/25 18:31 Glucose Oral Gel 15 Gm Of Glucse In 37.5 Gm Tube PO PRN PRN Hypoglycemia Protocol Guaifenesin 600 mg 03/05/25 21:00 03/07/25 09:25 Guaifenesin 12 Hr 600 Mg Tabcr PO 600 mg Q12HR RICK Administration Piperacillin Sod/Tazobactam Sod 4.5 gm in 100 mls @ 200 mls/hr 03/05/25 18:00 03/07/25 05:52 Zosyn 4.5 Gm/Ns 100 Ml IVPB Infused Q6H RICK Infusion Azithromycin 500 mg in 250 mls @ 250 mls/hr 03/05/25 16:00 03/06/25 19:35 Zithromax IVPB 03/09/25 16:59 Infused Q24H RICK Infusion Remdesivir 100 mg in 250 mls @ 250 mls/hr 03/06/25 22:00 03/06/25 23:33 IVPB 03/09/25 22:59 Infused Q24H RICK Infusion Dextrose 1,000 mls @ 100 mls/hr 03/05/25 18:31 Dextrose 5% 1,000 Ml IVPB PRN PRN Hypoglycemia Protocol Insulin Aspart 3 - 6 units 03/06/25 08:00 03/07/25 08:58 Insulin Aspart (*Bkc) 100 Units/Ml SUB-Q Not Given TIDWM RICK Protocol Lisinopril 2.5 mg 03/06/25 09:00 03/07/25 09:05 Lisinopril 2.5 Mg Tablet PO 2.5 mg DAILY RICK Administration Multivitamins/Minerals 1 tablet 03/06/25 09:00 03/07/25 09:24 Opti-Gen Tab PO 1 tablet BID RICK Administration Ondansetron HCl 4 mg 03/05/25 14:45 Ondansetron Inj 4 Mg/2 Ml Vial IV PUSH Q4H PRN Nausea Pantoprazole Sodium 40 mg 03/05/25 21:00 03/07/25 09:05 Pantoprazole 40 Mg Tablet PO 40 mg Q12HR RICK Administration Prednisone 60 mg 03/06/25 14:35 03/07/25 09:05 Prednisone 20 Mg Tablet PO 03/08/25 09:00 60 mg DAILY@0800 RICK Administration Primidone 100 mg 03/05/25 09:00 03/06/25 15:21 Primidone 50 Mg Tablet PO 100 mg 0900,1400 RICK Administration Primidone 50 mg 03/05/25 21:00 03/06/25 20:36 Primidone 50 Mg Tablet PO 50 mg QHS RICK Administration Propranolol HCl 10 mg 03/05/25 21:00 03/07/25 09:06 Propranolol Hcl 10 Mg Tablet PO 10 mg Q12HR RICK Administration Psyllium Hydrophilic Mucilloid 1 packet 03/06/25 09:00 03/06/25 15:15 Psyllium Sugar Free Powder Packet PO Not Given DAILY RICK Rosuvastatin Calcium 10 mg 03/06/25 09:00 03/07/25 09:05 Rosuvastatin 10 Mg Tablet PO 10 mg DAILY RICK Administration Sertraline HCl 100 mg 03/06/25 09:00 03/07/25 09:04 Sertraline Hcl 50 Mg Tablet PO 100 mg DAILY RICK Administration Tamsulosin HCl 0.4 mg 03/06/25 09:00 03/07/25 09:05 Tamsulosin Hcl 0.4 Mg Capsule PO 0.4 mg DAILY RICK Administration Valacyclovir HCl 1,000 mg 03/05/25 18:25 Valacyclovir Hcl 500 Mg Tablet PO TID PRN coldsore Verapamil HCl 360 mg 03/06/25 08:00 03/07/25 09:04 Verapamil Hcl 180 Mg Tablet Er PO 360 mg DAILY@0800 RICK Administration Radiology Results: ITS Impressions Chest X-Ray 03/05/25 13:21 IMPRESSION: Bibasilar pneumonia. Modified Barium Swallow 03/06/25 10:30 IMPRESSION: Oral dysphagia with difficulty formulating content into a bolus as well as flash laryngeal penetration without aspiration with consecutive swallows of thin liquids. Please correlate with speech pathologist findings and specific feeding recommendations. Labs Labs: Laboratory Results - last 24 hr 03/06/25 03/06/25 03/06/25 11:13 17:24 19:58 POC Capillary Glucose 116 H 165 H 165 H 03/07/25 08:11 POC Capillary Glucose 111 H Quality VTE Prophylaxis VTE prophylaxis: pharmacologic ordered Hospitalist [facility] Advance Care Plan I have confirmed that the patient's Advanced Care Plan is present, code status is documented, or surrogate decision maker is listed in patient medical record.: Yes Medication Reconciliation I have utilized all available resources to obtain, update and review the patients current medications (includes all prescriptions, OTC, herbals, cannabis, and nutritional supplements).: Yes
[2025-03-07] MEDS: PRIMIDONE 50 MG TABLET 100 MG PO ×2 (10:54→17:21)
[2025-03-07 12:30] LABS: Hematocrit 39.7 % (42.0-52.0); Hemoglobin 13.3 g/dL (14.0-18.0); Mean Corpuscular HGB Conc 33.5 g/dl (32-36); Mean Corpuscular Hemoglobin 31.2 pg (26-34); Mean Corpuscular Volume 93.2 fl (80-100); Mean Platelet Volume 10.5 fl (7.4-10.4); Platelet Count Result 400 k/mm3 (150-375); Red Blood Count 4.26 M/mm3 (4.6-6.20); Red Cell Distribution Width 13.7 % (11.5-14.5); White Blood Count 18.4 K/mm3 (4.5-10.0)
[2025-03-07 12:43] LABS: Alanine Aminotransferase 16 U/L (6-50); Albumin Level 4.3 g/dL (3.5-5.1); Alkaline Phosphatase 85 U/L (38-126); Anion Gap 14 mmol/L (4-12); Aspartate Amino Transferase 40 U/L (17-59); Bilirubin,Total 0.9 mg/dL (0.2-1.3); Blood Urea Nitrogen 17 mg/dL (9-20); Calcium 9.4 mg/dL (8.4-10.2); Carbon Dioxide 22 mmol/L (22-30); Chloride 98 mmol/L (98-107); Estimated CRCL calculation 83 ml/min; Estimated Glomerular Filt Rate > 60; Glucose 138 mg/dL (65-110); Potassium 3.9 mmol/L (3.4-5.0); Sodium 134 mmol/L (137-145)
[2025-03-07] MEDS: AZITHROMYCIN 500 MG/NS 250 ML 500 MG/250 ML BAG 250 MG IVPB (17:20)
[2025-03-07] MEDS: OMEGA 3 POLYUNSAT FATTY ACIDS 1 GM CAP 1000 GM PO (17:22)
[2025-03-07] MEDS: dexAMETHasone SOD PHOS INJ 10 MG/ML 1 ML VIAL 6 MG IV PUSH (17:28)
[2025-03-07 17:32] LABS: Glucose Point of Care 183 mg/dl (65-105)
[2025-03-07] MEDS: PRIMIDONE 50 MG TABLET PO (20:41)
[2025-03-07] MEDS: diphenhydrAMINE HCl CAP 25 MG CAPSULE PO (20:42)
[2025-03-07] MEDS: FINASTERIDE 5 MG TABLET PO (20:42)
[2025-03-07] MEDS: REMDESIVIR 100 MG/NS 250 ML 100 MG/250 ML BAG 250 MG IVPB (21:58)
[2025-03-08] VITALS (7 sets, daily range): BP systolic 143–160; BP diastolic 74–84; PULSE 68–100; RESP 20; TEMP 36.7; O2SAT 92–95
[2025-03-08] MEDS: CARBIDOPA/LEVODOPA 25/100 MG TABLET 5 TABLET PO ×3 (04:24→17:50)
[2025-03-08 05:14] LABS: Hematocrit 38.1 % (42.0-52.0); Hemoglobin 12.3 g/dL (14.0-18.0); Mean Corpuscular HGB Conc 32.3 g/dl (32-36); Mean Corpuscular Hemoglobin 30.5 pg (26-34); Mean Corpuscular Volume 94.5 fl (80-100); Platelet Count Result 359 k/mm3 (150-375); Red Blood Count 4.03 M/mm3 (4.6-6.20); Red Cell Distribution Width 13.6 % (11.5-14.5)
[2025-03-08 05:25] LABS: Alanine Aminotransferase 14 U/L (6-50); Albumin Level 3.9 g/dL (3.5-5.1); Alkaline Phosphatase 81 U/L (38-126); Anion Gap 8 mmol/L (4-12); Aspartate Amino Transferase 33 U/L (17-59); Bilirubin,Total 0.4 mg/dL (0.2-1.3); Blood Urea Nitrogen 18 mg/dL (9-20); Carbon Dioxide 26 mmol/L (22-30); Chloride 101 mmol/L (98-107); Estimated CRCL calculation 72 ml/min; Estimated Glomerular Filt Rate > 60; Glucose 103 mg/dL (65-110); Potassium 3.9 mmol/L (3.4-5.0); Sodium 135 mmol/L (137-145)
[2025-03-08 05:26] LABS: INR 1.1
--- NOTE | 2025-03-08 07:54 | PM.IMPN ---
Progress Note: A&P Assessment and Plan (1) Sepsis: Qualifiers: Acute respiratory failure type: with hypoxia Sepsis acute organ dysfunction status: with acute organ dysfunction Sepsis type: sepsis during labor Severe sepsis acute organ dysfunction type: acute respiratory failure Severe sepsis shock status: without septic shock Qualified Code(s): O75.3 - Other infection during labor; A41.9 - Sepsis, unspecified organism; J96.01 - Acute respiratory failure with hypoxia; R65.20 - Severe sepsis without septic shock Code(s): A41.9 - Sepsis, unspecified organism Status: Acute Assessment and Plan: - meets SIRS criteria: RR, WBC. +hypoxia requiring supplemental O2. - lactic acid: 1.4 - 30 mL/kg = 2.7L, given 1L in the ED. tolerated well, reviewed previous echo in 2022 which showed an EF of 60% and diastolic dysfunction present. Will give additional fluids at 100 mL/hour x2L. - suspected source: Pneumonia, COVID - started on cefepime, Flagyl, and vancomycin. -Transitioned to azithromycin and Zosyn (MRSA negative, history of Parkinson's/dysphagia and rapidly worsening pneumonia on CXR raising concern for aspiration pneumonia) -DC Zosyn due to possible reaction -Started Levaquin - blood cultures drawn on 03/05, follow - check UA - admission to IMU for close hemodynamic monitoring (2) Acute hypoxic respiratory failure: Code(s): J96.01 - Acute respiratory failure with hypoxia Status: Acute Assessment and Plan: - tested positive for COVID on 03/05 - CXR showing bilateral pneumonia, started on ABX, see above - EKG showed sinus rhythm, RBBB, ST-T-wave abnormality in anterolateral/inferior leads. - no significant anemia Suspect acute hypoxic respiratory failure secondary to COVID and bilateral pneumonia. (3) COVID-19: Code(s): U07.1 - COVID-19 Status: Acute Assessment and Plan: - symptom onset: 03/01 - tested positive for COVID on: 03/05/2025 - complicating comorbidities: Bilateral pneumonia - Remdesivir 200 mg IVPB x1 then 100 mg x4 for 5 total doses. - Dexamethasone 6 mg x10 days or until d/c. - DVT prophylaxis: Lovenox SQ - supportive care DuoNeb p.r.n. Tylenol p.r.n. Mucinex rick Lozenge p.r.n. Jc [place] p.r.n. - monitor VS/O2 - monitor daily labs, check CRP (4) Bilateral pneumonia: Qualifiers: Lung location: lower lobe of lung Pneumonia type: due to unspecified organism Qualified Code(s): J18.9 - Pneumonia, unspecified organism Code(s): J18.9 - Pneumonia, unspecified organism Status: Acute Assessment and Plan: - CXR, 03/05/2025: Bibasilar pneumonia - CXR, 03/04/2025: Left basal atelectasis versus pneumonia. -Transitioned to azithromycin and Zosyn (MRSA negative, history of Parkinson's/dysphagia and rapidly worsening pneumonia on CXR raising concern for aspiration pneumonia) -DC Zosyn due to possible reaction -Started Levaquin - MRSA PCR negative on 03/05 - Viral PCR positive for COVID on 03/05 - sputum culture, if obtainable - currently requiring supplemental O2, 3L NC. Continue to maintain O2 sat greater than 92%, wean as tolerated. - supportive care (5) Parkinsons disease: Qualifiers: Dyskinesia presence: unspecified whether dyskinesia Fluctuating manifestations: unspecified whether manifestations fluctuate Qualified Code(s): G20.A1 - Parkinson's disease without dyskinesia, without mention of fluctuations Code(s): G20 - Parkinson's disease Status: Chronic Assessment and Plan: - continue home medications: Sinemet 25-100 mg 5 tabs orally t.i.d.. - history of dysphagia, speech evaluation ordered. - per family, no specific diet at home. they do avoid certain foods such as soup as it is too thin or small foods like corn as he has not tolerated that well before. (6) DM type 2 (diabetes mellitus, type 2): Qualifiers: Diabetes mellitus complication status: without complication Diabetes mellitus intermediate insulin use: without rn long term care use Qualified Code(s): E11.9 - Type 2 diabetes mellitus without complications Code(s): E11.9 - Type 2 diabetes mellitus without complications Status: Chronic Assessment and Plan: - hypoglycemia protocol - POC blood glucose ACHS - home medication: Hold metformin in case of need for contrast. - correct regimen ordered - moderate dose TIDWM, based off BMI - A1C 6.2% on 10/2024, update (7) Benign essential hypertension: Code(s): I10 - Essential (primary) hypertension Status: Acute Assessment and Plan: - chronic, currently 169/88 - continue home medications: Lisinopril 2.5 mg daily, propranolol 10 mg b.i.d., verapamil ER 360 mg daily - monitor Plan Diet: Diabetic GI Prophylaxis: Not currently indicated DVT Prophylaxis: Lovenox SQ IV fluids: NS at 100 mL/hour x2L Lines/Tubes: Peripheral IV Code Status: Full code Subjective Date/time seen: 03/08/25 07:54 Interval history: Interval history:84 y/o M with PMH of Parkinson's, right bundle branch block, aortic stenosis, hyperlipidemia, diabetes, BPH, sick sinus syndrome s/p pacemaker, and hypertension presents here with shortness of breath. He had been diagnosed with an upper respiratory infection 2 weeks prior and started on cefdinir 300 mg x 10 days. Cxr done yesterday, 03/04, which showed left basal atelectasis versus pneumonia. The patient was started on Levaquin 750 mg x 7 days and DuoNeb nebulizers 4 times daily as needed. However, sought care today after his family discovered the patient was hypoxic. Home portable pulse ox showed 87% on RA. Upon arrival, the patient was found to be hypoxic on room air at 87%. Patient was admitted in the setting of sepsis and was started on cefepime, Flagyl and vancomycin and later transitioned to azithromycin and Zosyn. Patient also positive for COVID 03/06: Discussed with his daughter. Patient lives by himself and has been diagnosed with Parkinson about 3 years ago. Patient also has hx of pacemaker and valve replacement happened in 2022 at [facility]. Patient was lately not feeling well and treated by his PCP with course of antibiotics and nebulizer but day before yesterday he was found to hypoxia and taken to ED. Lately he had some heat intolerance and might be possible form Vancomycin infusion. Given Benadryl. Will monitor. Also receiving Remdisivir for COVID 03/07:Patient reports feeling hot after Zosyn infusion, so dc'ed . Started Levofloxacin.Improving well. 03/08: Patient doing well. Discontinued Decadron and started prednisone 40mg PO from tomorrow. Patient is currently on levofloxacin. Review of Systems Review of Systems: All systems reviewed & are unremarkable except as noted in HPI and below Exam Const: Other: , male, elderly, acute on chronic ill appearance, uncomfortable, restless. HENMT: Face/Nose/Sinus: Normal nares present Mouth: Yes moist mucous membranes Eyes: General: appearance normal, both eyes and all related structures Sclera: sclerae normal Pupils: Equal, round and reactive pupils present EOM: EOMs intact bilaterally Resp: Other: Nasal cannula place, tolerating well. Mild tachypnea without accessory muscle use. Coarse bibasilar breath sounds. No wheezing. Cardio: Rate: regular rate Rhythm: regular rhythm Other: S1-S2 present without murmur, rub, ectopy GI: Other: Abdomen soft, nondistended, nontender. Normoactive bowel sounds in all quadrants. Skin: General skin exam: normal color and no rashes or lesions noted Wounds: no wounds Neuro: Cranial nerves: Yes Equal, round and reactive pupils present Speech: normal speech Motor exam (neuro): 5/5 motor strength present throughout Sensory Exam: normal sensation Other: A&O x3. Extrem: General: normal to inspection Psych: Mental Status: mental status grossly normal Affect: normal affect Other: Fair insight and judgment, pleasant. Objective Data Vital Signs Vital Signs: Vital Signs - 24 hr 03/07/25 08:00 03/07/25 08:00 03/07/25 08:00 Temperature 98.1 F Pulse Rate 104 H 82 Respiratory Rate 20 Blood Pressure 173/87 H Pulse Oximetry 91 89 L Oxygen Delivery Nasal Cannula Oxygen Flow Rate 2 03/07/25 08:10 03/07/25 09:06 03/07/25 09:10 Temperature Pulse Rate 82 Respiratory Rate Blood Pressure Pulse Oximetry 92 89 L Oxygen Delivery Nasal Cannula Oxygen Flow Rate 3 2 03/07/25 10:00 03/07/25 10:05 03/07/25 10:49 Temperature Pulse Rate 67 Respiratory Rate Blood Pressure Pulse Oximetry Oxygen Delivery Nasal Cannula Nasal Cannula Oxygen Flow Rate 3 3 03/07/25 12:00 03/07/25 12:00 03/07/25 12:00 Temperature 98.4 F Pulse Rate 67 75 Respiratory Rate 22 H Blood Pressure 127/56 L Pulse Oximetry 92 89 L Oxygen Delivery Nasal Cannula Oxygen Flow Rate 2 03/07/25 14:00 03/07/25 16:00 03/07/25 16:00 Temperature 98.3 F Pulse Rate 75 76 80 Respiratory Rate 20 Blood Pressure 146/68 H Pulse Oximetry 91 Oxygen Delivery Oxygen Flow Rate 03/07/25 20:00 03/07/25 20:42 03/07/25 20:55 Temperature 98.4 F Pulse Rate 76 71 Respiratory Rate 16 Blood Pressure 172/85 H Pulse Oximetry 93 93 Oxygen Delivery Nasal Cannula Oxygen Flow Rate 3 Intake/Output Intake/Output: Intake & Output 03/05/25 03/06/25 03/07/25 03/08/25 23:59 23:59 23:59 23:59 Intake Total 1750 3680 1160 300 Output Total 1000 3150 2450 1000 Balance [phone] -[phone] Meds/Results Medications: Active Medications Generic Name Dose Route Start Last Admin Trade Name Freq PRN Reason Stop Dose Admin Acetaminophen 650 mg 03/05/25 14:45 Acetaminophen 325 Mg Tablet PO Q4H PRN Mild Pain (1-3) or Fever Albuterol/Ipratropium 3 ml 03/05/25 17:50 Ipratropium 0.5 Mg/Albuterol Sulfate 2.5 Mg Ampul.Neb 3 Ml INHALATION Q6HRT PRN Shortness Of Breath Or Wheezing Alprazolam 0.5 mg 03/06/25 09:00 03/07/25 17:28 Alprazolam (*Crx) 0.5 Mg Tablet PO 0.5 mg BID RICK Administration Aspirin 81 mg 03/06/25 09:00 03/07/25 09:06 Aspirin 81 Mg Enteric Tablet PO 81 mg DAILY RICK Administration Benzocaine 1 lozenge 03/05/25 17:49 Benzocaine/Menthol (*Bkc) 18 Ea Lozenge PO PRN PRN Sore Throat Benzonatate 100 mg 03/05/25 17:49 Benzonatate 100 Mg Capsule PO TID PRN Cough Carbidopa/Levodopa 5 tablet 03/05/25 23:25 03/08/25 04:24 Carbidopa/Levodopa 25/100 Mg Tablet PO 5 tablet 0400,1100,1600 RICK Administration Clopidogrel Bisulfate 75 mg 03/06/25 09:00 03/07/25 09:06 Clopidogrel Bisulfate 75 Mg Tablet PO 75 mg DAILY RICK Administration Dextrose 12.5 gm 03/05/25 18:31 Dextrose 50% 25 Gm/50 Ml Syringe IV PUSH PRN PRN Hypoglycemia Protocol Diphenhydramine HCl 25 mg 03/05/25 23:19 03/07/25 20:42 Diphenhydramine Hcl Cap 25 Mg Capsule PO 25 mg HS PRN Administration Insomnia Diphenhydramine HCl 15 mg 03/06/25 13:10 Diphenhydramine Hcl Inj 50 Mg/Ml Vial IV PUSH Q4H PRN Itching Enoxaparin Sodium 40 mg 03/06/25 09:00 03/07/25 09:25 Enoxaparin 40 Mg/0.4 Ml Syringe SUB-Q 40 mg DAILY RICK Administration Finasteride 5 mg 03/05/25 21:00 03/07/25 20:42 Finasteride 5 Mg Tablet PO 5 mg HS RICK Administration Fish Oil 1,000 gm 03/05/25 18:25 03/07/25 17:22 [place] 3 Polyunsat Fatty Acids 1 Gm Cap PO 1,000 gm QPM RICK Administration Gabapentin 600 mg 03/05/25 18:55 03/07/25 17:21 Gabapentin 300 Mg Capsule PO 600 mg TID RICK Administration Glucagon 1 mg 03/05/25 18:31 Glucagon For Inj 1 Mg Vial IM PRN PRN Hypoglycemia Protocol Glucose 15 gm 03/05/25 18:31 Glucose Oral Gel 15 Gm Of Glucse In 37.5 Gm Tube PO PRN PRN Hypoglycemia Protocol Guaifenesin 600 mg 03/05/25 21:00 03/07/25 20:42 Guaifenesin 12 Hr 600 Mg Tabcr PO 600 mg Q12HR RICK Administration Azithromycin 500 mg in 250 mls @ 250 mls/hr 03/05/25 16:00 03/07/25 17:20 Zithromax IVPB 03/09/25 16:59 250 mls/hr Q24H RICK Administration Remdesivir 100 mg in 250 mls @ 250 mls/hr 03/06/25 22:00 03/07/25 21:58 IVPB 03/09/25 22:59 250 mls/hr Q24H RICK Administration Dextrose 1,000 mls @ 100 mls/hr 03/05/25 18:31 Dextrose 5% 1,000 Ml IVPB PRN PRN Hypoglycemia Protocol Insulin Aspart 3 - 6 units 03/06/25 08:00 03/07/25 17:21 Insulin Aspart (*Bkc) 100 Units/Ml SUB-Q Not Given TIDWM RICK Protocol Levofloxacin 750 mg 03/08/25 09:00 Levofloxacin 750 Mg Tablet PO DAILY [facility] Lisinopril 2.5 mg 03/06/25 09:00 03/07/25 09:05 Lisinopril 2.5 Mg Tablet PO 2.5 mg DAILY RCIK Administration Multivitamins/Minerals 1 tablet 03/06/25 09:00 03/07/25 17:21 Opti-Gen Tab PO 1 tablet BID RICK Administration Ondansetron HCl 4 mg 03/05/25 14:45 Ondansetron Inj 4 Mg/2 Ml Vial IV PUSH Q4H PRN Nausea Pantoprazole Sodium 40 mg 03/05/25 21:00 03/07/25 20:42 Pantoprazole 40 Mg Tablet PO 40 mg Q12HR RICK Administration Prednisone 60 mg 03/06/25 14:35 03/07/25 09:05 Prednisone 20 Mg Tablet PO 03/08/25 09:00 60 mg DAILY@0800 RICK Administration Prednisone 40 mg 03/08/25 08:00 Prednisone 20 Mg Tablet PO 03/13/25 07:59 DAILY@0800 [facility] Primidone 100 mg 03/05/25 09:00 03/07/25 17:21 Primidone 50 Mg Tablet PO 100 mg 0900,1400 [facility] Administration Primidone 50 mg 03/05/25 21:00 03/07/25 20:41 Primidone 50 Mg Tablet PO 50 mg QHS [facility] Administration Propranolol HCl 10 mg 03/05/25 21:00 03/07/25 20:42 Propranolol Hcl 10 Mg Tablet PO 10 mg Q12HR RICK Administration Psyllium Hydrophilic Mucilloid 1 packet 03/06/25 09:00 03/07/25 17:22 Psyllium Sugar Free Powder Packet PO Not Given DAILY [facility] Rosuvastatin Calcium 10 mg 03/06/25 09:00 03/07/25 09:05 Rosuvastatin 10 Mg Tablet PO 10 mg DAILY RICK Administration Sertraline HCl 100 mg 03/06/25 09:00 03/07/25 09:04 Sertraline Hcl 50 Mg Tablet PO 100 mg DAILY RICK Administration Tamsulosin HCl 0.4 mg 03/06/25 09:00 03/07/25 09:05 Tamsulosin Hcl 0.4 Mg Capsule PO 0.4 mg DAILY RICK Administration Valacyclovir HCl 1,000 mg 03/05/25 18:25 Valacyclovir Hcl 500 Mg Tablet PO TID PRN coldsore Verapamil HCl 360 mg 03/06/25 08:00 03/07/25 09:04 Verapamil Hcl 180 Mg Tablet Er PO 360 mg DAILY@0800 RICK Administration Radiology Results: ITS Impressions Chest X-Ray 03/05/25 13:21 IMPRESSION: Bibasilar pneumonia. Modified Barium Swallow 03/06/25 10:30 IMPRESSION: Oral dysphagia with difficulty formulating content into a bolus as well as flash laryngeal penetration without aspiration with consecutive swallows of thin liquids. Please correlate with speech pathologist findings and specific feeding recommendations. Labs Labs: Laboratory Results - last 24 hr 03/07/25 03/07/25 03/07/25 08:11 12:24 17:29 WBC 18.4 H RBC 4.26 L Hgb 13.3 L Hct 39.7 L MCV 93.2 MCH 31.2 MCHC 33.5 RDW 13.7 Plt Count 400 H MPV 10.5 H PT INR Sodium 134 L Potassium 3.9 Chloride 98 Carbon Dioxide 22 Anion Gap 14 H BUN 17 Creatinine 0.61 L Estim Creat Clear Calc 83 Estimated GFR > 60 Glucose 138 H POC Capillary Glucose 111 H 183 H Calcium 9.4 Total Bilirubin 0.9 Direct Bilirubin AST 40 ALT 16 Alkaline Phosphatase 85 Total Protein 8.0 Albumin 4.3 03/08/25 04:35 WBC 12.0 H RBC 4.03 L Hgb 12.3 L Hct 38.1 L MCV 94.5 MCH 30.5 MCHC 32.3 RDW 13.6 Plt Count 359 MPV 11.0 H PT 15.0 H INR 1.1 Sodium 135 L Potassium 3.9 Chloride 101 Carbon Dioxide 26 Anion Gap 8 BUN 18 Creatinine 0.71 Estim Creat Clear Calc 72 Estimated GFR > 60 Glucose 103 POC Capillary Glucose Calcium 9.0 Total Bilirubin 0.4 Direct Bilirubin 0.0 AST 33 ALT 14 Alkaline Phosphatase 81 Total Protein 7.0 Albumin 3.9 Quality VTE Prophylaxis VTE prophylaxis: pharmacologic ordered Hospitalist [facility] Advance Care Plan I have confirmed that the patient's Advanced Care Plan is present, code status is documented, or surrogate decision maker is listed in patient medical record.: Yes Medication Reconciliation I have utilized all available resources to obtain, update and review the patients current medications (includes all prescriptions, OTC, herbals, cannabis, and nutritional supplements).: Yes
[2025-03-08 08:04] LABS: Glucose Point of Care 92 mg/dl (65-105)
[2025-03-08] MEDS: VERAPAMIL HCL 180 MG TABLET ER 360 MG PO (09:57)
[2025-03-08] MEDS: ALPRAZolam (*CRX) 0.5 MG TABLET PO ×2 (09:57→17:50)
[2025-03-08] MEDS: predniSONE 20 MG TABLET 60 MG PO (09:57)
[2025-03-08] MEDS: levoFLOXacin 750 MG TABLET PO (09:58)
[2025-03-08] MEDS: GABAPENTIN 300 MG CAPSULE 600 MG PO ×3 (09:58→17:49)
[2025-03-08] MEDS: ASPIRIN 81 MG ENTERIC TABLET PO (09:58)
[2025-03-08] MEDS: guaiFENesin 12 HR 600 MG TABCR PO ×2 (09:58→20:04)
[2025-03-08] MEDS: lisinopriL 2.5 MG TABLET PO (09:58)
[2025-03-08] MEDS: OPTI-GEN TAB 1 TABLET PO ×2 (09:58→17:50)
[2025-03-08] MEDS: ENOXAPARIN 40 MG/0.4 ML SYRINGE SUB-Q (09:58)
[2025-03-08] MEDS: CLOPIDOGREL BISULFATE 75 MG TABLET PO (09:58)
[2025-03-08] MEDS: PRIMIDONE 50 MG TABLET 100 MG PO ×2 (09:59→14:47)
[2025-03-08] MEDS: SERTRALINE HCL 50 MG TABLET 100 MG PO (09:59)
[2025-03-08] MEDS: PSYLLIUM SUGAR FREE POWDER PACKET 1 PACKET PO (09:59)
[2025-03-08] MEDS: PANTOPRAZOLE 40 MG TABLET PO ×2 (09:59→20:04)
[2025-03-08] MEDS: PROPRANOLOL HCL 10 MG TABLET PO ×2 (09:59→20:05)
[2025-03-08] MEDS: TAMSULOSIN HCL 0.4 MG CAPSULE PO (10:00)
[2025-03-08] MEDS: ROSUVASTATIN 10 MG TABLET PO (10:05)
[2025-03-08 11:52] LABS: Glucose Point of Care 101 mg/dl (65-105)
--- NOTE | 2025-03-08 13:58 | PCPTNOTE ---
Attempted to see patient for PT, however patient was eating his lunch.
[2025-03-08 17:24] LABS: Glucose Point of Care 117 mg/dl (65-105)
[2025-03-08] MEDS: OMEGA 3 POLYUNSAT FATTY ACIDS 1 GM CAP PO (18:00)
[2025-03-08] MEDS: PRIMIDONE 50 MG TABLET PO (20:04)
[2025-03-08] MEDS: FINASTERIDE 5 MG TABLET PO (20:04)
[2025-03-08] MEDS: diphenhydrAMINE HCl CAP 25 MG CAPSULE PO (20:04)
[2025-03-08] MEDS: REMDESIVIR 100 MG/NS 250 ML 100 MG/250 ML BAG 250 MG IVPB (21:07)
[2025-03-08 21:12] LABS: Glucose Point of Care 158 mg/dl (65-105)
[2025-03-09] VITALS (9 sets, daily range): BP systolic 114–166; BP diastolic 64–81; PULSE 63–78; RESP 12–20; TEMP 36.4–36.5; O2SAT 91–96
[2025-03-09] MEDS: CARBIDOPA/LEVODOPA 25/100 MG TABLET 5 TABLET PO ×3 (04:01→16:27)
[2025-03-09 04:47] LABS: Hematocrit 36.1 % (42.0-52.0); Hemoglobin 11.8 g/dL (14.0-18.0); Mean Corpuscular HGB Conc 32.7 g/dl (32-36); Mean Corpuscular Hemoglobin 30.5 pg (26-34); Mean Corpuscular Volume 93.3 fl (80-100); Mean Platelet Volume 10.6 fl (7.4-10.4); Platelet Count Result 327 k/mm3 (150-375); Red Blood Count 3.87 M/mm3 (4.6-6.20); Red Cell Distribution Width 13.7 % (11.5-14.5); White Blood Count 10.5 K/mm3 (4.5-10.0)
[2025-03-09 04:59] LABS: Alanine Aminotransferase 12 U/L (6-50); Albumin Level 3.8 g/dL (3.5-5.1); Alkaline Phosphatase 80 U/L (38-126); Anion Gap 11 mmol/L (4-12); Aspartate Amino Transferase 28 U/L (17-59); Bilirubin,Total 0.7 mg/dL (0.2-1.3); Blood Urea Nitrogen 16 mg/dL (9-20); Calcium 8.8 mg/dL (8.4-10.2); Carbon Dioxide 23 mmol/L (22-30); Chloride 100 mmol/L (98-107); Estimated CRCL calculation 83 ml/min; Estimated Glomerular Filt Rate > 60; Glucose 100 mg/dL (65-110); Potassium 3.5 mmol/L (3.4-5.0); Sodium 134 mmol/L (137-145)
[2025-03-09 08:11] LABS: Glucose Point of Care 90 mg/dl (65-105)
[2025-03-09] MEDS: levoFLOXacin 750 MG TABLET PO (08:52)
[2025-03-09] MEDS: TAMSULOSIN HCL 0.4 MG CAPSULE PO (08:52)
[2025-03-09] MEDS: PROPRANOLOL HCL 10 MG TABLET PO ×2 (08:52→20:13)
[2025-03-09] MEDS: ALPRAZolam (*CRX) 0.5 MG TABLET PO ×2 (08:53→16:27)
[2025-03-09] MEDS: PANTOPRAZOLE 40 MG TABLET PO ×2 (08:53→20:13)
[2025-03-09] MEDS: ROSUVASTATIN 10 MG TABLET PO (08:53)
[2025-03-09] MEDS: PRIMIDONE 50 MG TABLET 100 MG PO ×2 (08:53→13:32)
[2025-03-09] MEDS: OPTI-GEN TAB 1 TABLET PO ×2 (08:53→17:54)
[2025-03-09] MEDS: lisinopriL 2.5 MG TABLET PO (08:53)
[2025-03-09] MEDS: SERTRALINE HCL 50 MG TABLET 100 MG PO (08:53)
[2025-03-09] MEDS: CLOPIDOGREL BISULFATE 75 MG TABLET PO (08:53)
[2025-03-09] MEDS: VERAPAMIL HCL 180 MG TABLET ER 360 MG PO (08:54)
[2025-03-09] MEDS: GABAPENTIN 300 MG CAPSULE 600 MG PO ×3 (08:54→17:55)
[2025-03-09] MEDS: predniSONE 20 MG TABLET 40 MG PO (08:54)
[2025-03-09] MEDS: ASPIRIN 81 MG ENTERIC TABLET PO (08:54)
[2025-03-09] MEDS: PSYLLIUM SUGAR FREE POWDER PACKET 1 PACKET PO (08:55)
[2025-03-09] MEDS: ENOXAPARIN 40 MG/0.4 ML SYRINGE SUB-Q (08:55)
[2025-03-09] MEDS: guaiFENesin 12 HR 600 MG TABCR PO ×2 (08:55→20:13)
--- NOTE | 2025-03-09 09:35 | PM.IMPN ---
Progress Note: A&P Assessment and Plan (1) Sepsis: Qualifiers: Acute respiratory failure type: with hypoxia Sepsis acute organ dysfunction status: with acute organ dysfunction Sepsis type: sepsis during labor Severe sepsis acute organ dysfunction type: acute respiratory failure Severe sepsis shock status: without septic shock Qualified Code(s): O75.3 - Other infection during labor; A41.9 - Sepsis, unspecified organism; J96.01 - Acute respiratory failure with hypoxia; R65.20 - Severe sepsis without septic shock Code(s): A41.9 - Sepsis, unspecified organism Status: Acute Assessment and Plan: - meets SIRS criteria: RR, WBC. +hypoxia requiring supplemental O2. - lactic acid: 1.4 - 30 mL/kg = 2.7L, given 1L in the ED. tolerated well, reviewed previous echo in 2022 which showed an EF of 60% and diastolic dysfunction present. Will give additional fluids at 100 mL/hour x2L. - suspected source: Pneumonia, COVID - started on cefepime, Flagyl, and vancomycin. -Transitioned to azithromycin and Zosyn (MRSA negative, history of Parkinson's/dysphagia and rapidly worsening pneumonia on CXR raising concern for aspiration pneumonia) -DC Zosyn due to possible reaction -Started Levaquin - blood cultures drawn on 03/05, follow - check UA - admission to IMU for close hemodynamic monitoring (2) Acute hypoxic respiratory failure: Code(s): J96.01 - Acute respiratory failure with hypoxia Status: Acute Assessment and Plan: - tested positive for COVID on 03/05 - CXR showing bilateral pneumonia, started on ABX, see above - EKG showed sinus rhythm, RBBB, ST-T-wave abnormality in anterolateral/inferior leads. - no significant anemia Suspect acute hypoxic respiratory failure secondary to COVID and bilateral pneumonia. (3) COVID-19: Code(s): U07.1 - COVID-19 Status: Acute Assessment and Plan: - symptom onset: 03/01 - tested positive for COVID on: 03/05/2025 - complicating comorbidities: Bilateral pneumonia - Remdesivir 200 mg IVPB x1 then 100 mg x4 for 5 total doses. - Dexamethasone 6 mg x10 days or until d/c. - DVT prophylaxis: Lovenox SQ - supportive care DuoNeb p.r.n. Tylenol p.r.n. Mucinex rick Lozenge p.r.n. Jc Mancilla p.r.n. - monitor VS/O2 - monitor daily labs, check CRP (4) Bilateral pneumonia: Qualifiers: Lung location: lower lobe of lung Pneumonia type: due to unspecified organism Qualified Code(s): J18.9 - Pneumonia, unspecified organism Code(s): J18.9 - Pneumonia, unspecified organism Status: Acute Assessment and Plan: - CXR, 03/05/2025: Bibasilar pneumonia - CXR, 03/04/2025: Left basal atelectasis versus pneumonia. -Transitioned to azithromycin and Zosyn (MRSA negative, history of Parkinson's/dysphagia and rapidly worsening pneumonia on CXR raising concern for aspiration pneumonia) -DC Zosyn due to possible reaction -Started Levaquin - MRSA PCR negative on 03/05 - Viral PCR positive for COVID on 03/05 - sputum culture, if obtainable - currently requiring supplemental O2, 3L NC. Continue to maintain O2 sat greater than 92%, wean as tolerated. - supportive care (5) Parkinsons disease: Qualifiers: Dyskinesia presence: unspecified whether dyskinesia Fluctuating manifestations: unspecified whether manifestations fluctuate Qualified Code(s): G20.A1 - Parkinson's disease without dyskinesia, without mention of fluctuations Code(s): G20 - Parkinson's disease Status: Chronic Assessment and Plan: - continue home medications: Sinemet 25-100 mg 5 tabs orally t.i.d.. - history of dysphagia, speech evaluation ordered. - per family, no specific diet at home. they do avoid certain foods such as soup as it is too thin or small foods like corn as he has not tolerated that well before. (6) DM type 2 (diabetes mellitus, type 2): Qualifiers: Diabetes mellitus complication status: without complication Diabetes mellitus shelter insulin use: without administrative professional use Qualified Code(s): E11.9 - Type 2 diabetes mellitus without complications Code(s): E11.9 - Type 2 diabetes mellitus without complications Status: Chronic Assessment and Plan: - hypoglycemia protocol - POC blood glucose ACHS - home medication: Hold metformin in case of need for contrast. - correct regimen ordered - moderate dose TIDWM, based off BMI - A1C 6.2% on 10/2024, update (7) Benign essential hypertension: Code(s): I10 - Essential (primary) hypertension Status: Acute Assessment and Plan: - chronic, currently 169/88 - continue home medications: Lisinopril 2.5 mg daily, propranolol 10 mg b.i.d., verapamil ER 360 mg daily - monitor Plan Diet: Diabetic GI Prophylaxis: Not currently indicated DVT Prophylaxis: Lovenox SQ IV fluids: NS at 100 mL/hour x2L Lines/Tubes: Peripheral IV Code Status: Full code Subjective Date/time seen: 03/09/25 09:35 Interval history: Patient continues to improve. Possible discharge tomorrow. Last dose of remdesivir today Review of Systems Review of Systems: All systems reviewed & are unremarkable except as noted in HPI and below Exam Const: Other: , male, elderly, acute on chronic ill appearance, uncomfortable, restless. HENMT: Face/Nose/Sinus: Normal nares present Mouth: Yes moist mucous membranes Eyes: General: appearance normal, both eyes and all related structures Sclera: sclerae normal Pupils: Equal, round and reactive pupils present EOM: EOMs intact bilaterally Resp: Other: Nasal cannula place, tolerating well. Mild tachypnea without accessory muscle use. Coarse bibasilar breath sounds. No wheezing. Cardio: Rate: regular rate Rhythm: regular rhythm Other: S1-S2 present without murmur, rub, ectopy GI: Other: Abdomen soft, nondistended, nontender. Normoactive bowel sounds in all quadrants. Skin: General skin exam: normal color and no rashes or lesions noted Wounds: no wounds Neuro: Cranial nerves: Yes Equal, round and reactive pupils present Speech: normal speech Motor exam (neuro): 5/5 motor strength present throughout Sensory Exam: normal sensation Other: A&O x3. Extrem: General: normal to inspection Psych: Mental Status: mental status grossly normal Affect: normal affect Other: Fair insight and judgment, pleasant. Objective Data Vital Signs Vital Signs: Vital Signs - 24 hr 03/08/25 09:59 03/08/25 10:07 03/08/25 10:12 Temperature Pulse Rate 69 68 Respiratory Rate 20 Blood Pressure 160/84 H Pulse Oximetry 92 92 Oxygen Delivery Nasal Cannula Oxygen Flow Rate 3 03/08/25 20:00 03/08/25 20:05 03/08/25 20:59 Temperature 98.1 F Pulse Rate 80 100 Respiratory Rate 20 Blood Pressure 143/74 H Pulse Oximetry 95 95 Oxygen Delivery Nasal Cannula Oxygen Flow Rate 4 03/09/25 04:50 03/09/25 07:55 03/09/25 08:39 Temperature 97.7 F Pulse Rate 63 63 Respiratory Rate 20 20 Blood Pressure 166/81 H Pulse Oximetry 93 93 93 Oxygen Delivery Nasal Cannula Nasal Cannula Oxygen Flow Rate 4 4 03/09/25 08:52 Temperature Pulse Rate 68 Respiratory Rate Blood Pressure Pulse Oximetry Oxygen Delivery Oxygen Flow Rate Intake/Output Intake/Output: Intake & Output 03/06/25 03/07/25 03/08/25 03/09/25 23:59 23:59 23:59 23:59 Intake Total 3680 1410 1330 580 Output Total 3150 2450 2100 1200 Balance 663 -0662 -770 -586 Meds/Results Medications: Active Medications Generic Name Dose Route Start Last Admin Trade Name Freq PRN Reason Stop Dose Admin Acetaminophen 650 mg 03/05/25 14:45 Acetaminophen 325 Mg Tablet PO Q4H PRN Mild Pain (1-3) or Fever Albuterol/Ipratropium 3 ml 03/05/25 17:50 Ipratropium 0.5 Mg/Albuterol Sulfate 2.5 Mg Ampul.Neb 3 Ml INHALATION Q6HRT PRN Shortness Of Breath Or Wheezing Alprazolam 0.5 mg 03/06/25 09:00 03/09/25 08:53 Alprazolam (*Crx) 0.5 Mg Tablet PO 0.5 mg BID RICK Administration Aspirin 81 mg 03/06/25 09:00 03/09/25 08:54 Aspirin 81 Mg Enteric Tablet PO 81 mg DAILY RICK Administration Benzocaine 1 lozenge 03/05/25 17:49 Benzocaine/Menthol (*Bkc) 18 Ea Lozenge PO PRN PRN Sore Throat Benzonatate 100 mg 03/05/25 17:49 Benzonatate 100 Mg Capsule PO TID PRN Cough Carbidopa/Levodopa 5 tablet 03/05/25 23:25 03/09/25 04:01 Carbidopa/Levodopa 25/100 Mg Tablet PO 5 tablet 0400,1100,1600 RICK Administration Clopidogrel Bisulfate 75 mg 03/06/25 09:00 03/09/25 08:53 Clopidogrel Bisulfate 75 Mg Tablet PO 75 mg DAILY RICK Administration Dextrose 12.5 gm 03/05/25 18:31 Dextrose 50% 25 Gm/50 Ml Syringe IV PUSH PRN PRN Hypoglycemia Protocol Diphenhydramine HCl 25 mg 03/05/25 23:19 03/08/25 20:04 Diphenhydramine Hcl Cap 25 Mg Capsule PO 25 mg HS PRN Administration Insomnia Diphenhydramine HCl 15 mg 03/06/25 13:10 Diphenhydramine Hcl Inj 50 Mg/Ml Vial IV PUSH Q4H PRN Itching Enoxaparin Sodium 40 mg 03/06/25 09:00 03/09/25 08:55 Enoxaparin 40 Mg/0.4 Ml Syringe SUB-Q 40 mg DAILY RICK Administration Finasteride 5 mg 03/05/25 21:00 03/08/25 20:04 Finasteride 5 Mg Tablet PO 5 mg HS RICK Administration Fish Oil 1 gm 03/08/25 18:00 03/08/25 18:00 [place] 3 Polyunsat Fatty Acids 1 Gm Cap PO 1 gm QPM RICK Administration Gabapentin 600 mg 03/05/25 18:55 03/09/25 08:54 Gabapentin 300 Mg Capsule PO 600 mg TID RICK Administration Glucagon 1 mg 03/05/25 18:31 Glucagon For Inj 1 Mg Vial IM PRN PRN Hypoglycemia Protocol Glucose 15 gm 03/05/25 18:31 Glucose Oral Gel 15 Gm Of Glucse In 37.5 Gm Tube PO PRN PRN Hypoglycemia Protocol Guaifenesin 600 mg 03/05/25 21:00 03/09/25 08:55 Guaifenesin 12 Hr 600 Mg Tabcr PO 600 mg Q12HR RICK Administration Remdesivir 100 mg in 250 mls @ 250 mls/hr 03/06/25 22:00 03/08/25 21:07 IVPB 03/09/25 22:59 250 mls/hr Q24H RICK Administration Dextrose 1,000 mls @ 100 mls/hr 03/05/25 18:31 Dextrose 5% 1,000 Ml IVPB PRN PRN Hypoglycemia Protocol Insulin Aspart 3 - 6 units 03/06/25 08:00 03/09/25 08:40 Insulin Aspart (*Bkc) 100 Units/Ml SUB-Q Not Given TIDWM RICK Protocol Levofloxacin 750 mg 03/08/25 09:00 03/09/25 08:52 Levofloxacin 750 Mg Tablet PO 03/11/25 23:59 750 mg DAILY RICK Administration Lisinopril 2.5 mg 03/06/25 09:00 03/09/25 08:53 Lisinopril 2.5 Mg Tablet PO 2.5 mg DAILY RICK Administration Multivitamins/Minerals 1 tablet 03/06/25 09:00 03/09/25 08:53 Opti-Gen Tab PO 1 tablet BID RICK Administration Ondansetron HCl 4 mg 03/05/25 14:45 Ondansetron Inj 4 Mg/2 Ml Vial IV PUSH Q4H PRN Nausea Pantoprazole Sodium 40 mg 03/05/25 21:00 03/09/25 08:53 Pantoprazole 40 Mg Tablet PO 40 mg Q12HR RICK Administration Prednisone 40 mg 03/09/25 08:00 03/09/25 08:54 Prednisone 20 Mg Tablet PO 03/11/25 08:01 40 mg DAILY@0800 RICK Administration Primidone 100 mg 03/05/25 09:00 03/09/25 08:53 Primidone 50 Mg Tablet PO 100 mg 0900,1400 RICK Administration Primidone 50 mg 03/05/25 21:00 03/08/25 20:04 Primidone 50 Mg Tablet PO 50 mg QHS RICK Administration Propranolol HCl 10 mg 03/05/25 21:00 03/09/25 08:52 Propranolol Hcl 10 Mg Tablet PO 10 mg Q12HR RICK Administration Psyllium Hydrophilic Mucilloid 1 packet 03/06/25 09:00 03/09/25 08:55 Psyllium Sugar Free Powder Packet PO 1 packet DAILY RICK Administration Rosuvastatin Calcium 10 mg 03/06/25 09:00 03/09/25 08:53 Rosuvastatin 10 Mg Tablet PO 10 mg DAILY RICK Administration Sertraline HCl 100 mg 03/06/25 09:00 03/09/25 08:53 Sertraline Hcl 50 Mg Tablet PO 100 mg DAILY RICK Administration Tamsulosin HCl 0.4 mg 03/06/25 09:00 03/09/25 08:52 Tamsulosin Hcl 0.4 Mg Capsule PO 0.4 mg DAILY RICK Administration Valacyclovir HCl 1,000 mg 03/05/25 18:25 Valacyclovir Hcl 500 Mg Tablet PO TID PRN coldsore Verapamil HCl 360 mg 03/06/25 08:00 03/09/25 08:54 Verapamil Hcl 180 Mg Tablet Er PO 360 mg DAILY@0800 RICK Administration Radiology Results: ITS Impressions Chest X-Ray 03/05/25 13:21 IMPRESSION: Bibasilar pneumonia. Modified Barium Swallow 03/06/25 10:30 IMPRESSION: Oral dysphagia with difficulty formulating content into a bolus as well as flash laryngeal penetration without aspiration with consecutive swallows of thin liquids. Please correlate with speech pathologist findings and specific feeding recommendations. Labs Labs: Laboratory Results - last 24 hr 03/08/25 03/08/25 03/08/25 11:46 17:13 21:04 WBC RBC Hgb Hct MCV MCH MCHC RDW Plt Count MPV Sodium Potassium Chloride Carbon Dioxide Anion Gap BUN Creatinine Estim Creat Clear Calc Estimated GFR Glucose POC Capillary Glucose 101 117 H 158 H Calcium Total Bilirubin AST ALT Alkaline Phosphatase Total Protein Albumin 03/09/25 03/09/25 04:37 08:05 WBC 10.5 H RBC 3.87 L Hgb 11.8 L Hct 36.1 L MCV 93.3 MCH 30.5 MCHC 32.7 RDW 13.7 Plt Count 327 MPV 10.6 H Sodium 134 L Potassium 3.5 Chloride 100 Carbon Dioxide 23 Anion Gap 11 BUN 16 Creatinine 0.61 L Estim Creat Clear Calc 83 Estimated GFR > 60 Glucose 100 POC Capillary Glucose 90 Calcium 8.8 Total Bilirubin 0.7 AST 28 ALT 12 Alkaline Phosphatase 80 Total Protein 7.0 Albumin 3.8 Quality VTE Prophylaxis VTE prophylaxis: pharmacologic ordered Hospitalist [facility] Advance Care Plan I have confirmed that the patient's Advanced Care Plan is present, code status is documented, or surrogate decision maker is listed in patient medical record.: Yes Medication Reconciliation I have utilized all available resources to obtain, update and review the patients current medications (includes all prescriptions, OTC, herbals, cannabis, and nutritional supplements).: Yes
[2025-03-09 11:52] LABS: Glucose Point of Care 109 mg/dl (65-105)
[2025-03-09 17:13] LABS: Glucose Point of Care 131 mg/dl (65-105)
[2025-03-09] MEDS: OMEGA 3 POLYUNSAT FATTY ACIDS 1 GM CAP PO (17:54)
[2025-03-09] MEDS: FINASTERIDE 5 MG TABLET PO (20:13)
[2025-03-09] MEDS: diphenhydrAMINE HCl CAP 25 MG CAPSULE PO (20:13)
[2025-03-09] MEDS: PRIMIDONE 50 MG TABLET PO (20:14)
[2025-03-09] MEDS: REMDESIVIR 100 MG/NS 250 ML 100 MG/250 ML BAG 250 MG IVPB (21:16)
[2025-03-09 21:45] LABS: Glucose Point of Care 194 mg/dl (65-105)
[2025-03-10] VITALS (7 sets, daily range): BP systolic 101–167; BP diastolic 60–76; PULSE 64–73; RESP 12–20; TEMP 36.5–36.6; O2SAT 86–96
[2025-03-10] MEDS: CARBIDOPA/LEVODOPA 25/100 MG TABLET 5 TABLET PO ×3 (03:59→16:33)
[2025-03-10 05:02] LABS: Hematocrit 36.1 % (42.0-52.0); Hemoglobin 11.7 g/dL (14.0-18.0); Mean Corpuscular HGB Conc 32.4 g/dl (32-36); Mean Corpuscular Hemoglobin 30.2 pg (26-34); Mean Platelet Volume 10.9 fl (7.4-10.4); Platelet Count Result 310 k/mm3 (150-375); Red Blood Count 3.88 M/mm3 (4.6-6.20); Red Cell Distribution Width 13.8 % (11.5-14.5); White Blood Count 11.2 K/mm3 (4.5-10.0)
[2025-03-10 05:16] LABS: Alanine Aminotransferase 10 U/L (6-50); Albumin Level 3.6 g/dL (3.5-5.1); Alkaline Phosphatase 79 U/L (38-126); Anion Gap 7 mmol/L (4-12); Aspartate Amino Transferase 26 U/L (17-59); Bilirubin,Total 0.7 mg/dL (0.2-1.3); Blood Urea Nitrogen 20 mg/dL (9-20); Calcium 8.6 mg/dL (8.4-10.2); Carbon Dioxide 25 mmol/L (22-30); Chloride 102 mmol/L (98-107); Estimated CRCL calculation 79 ml/min; Estimated Glomerular Filt Rate > 60; Glucose 90 mg/dL (65-110); Potassium 3.6 mmol/L (3.4-5.0); Sodium 134 mmol/L (137-145)
[2025-03-10 08:06] LABS: Glucose Point of Care 93 mg/dl (65-105)
--- NOTE | 2025-03-10 09:12 | P.DS_ITS ---
DS: Admitting Diagnosis Discharge Date 03/10/2025 Admitting Diagnosis COVID DS: Discharge Diagnosis Discharge Diagnosis (1) Sepsis: Qualifiers: Acute respiratory failure type: with hypoxia Sepsis acute organ dysfunction status: with acute organ dysfunction Sepsis type: sepsis during l abor Severe sepsis acute organ dysfunction type: acute respiratory failure Severe sepsis shock status: without septic shock Qualified Code(s): O75.3 - Other infection during labor; A41.9 - Sepsis, unspecified organism; J96.01 - Acute respiratory failure with hypoxia; R65.20 - Severe sepsis without septic shock Code(s): A41.9 - Sepsis, unspecified organism Status: Acute Assessment and Plan: Resolved - meets SIRS criteria: RR, WBC. +hypoxia requiring supplemental O2. - lactic acid: 1.4 - 30 mL/kg = 2.7L, given 1L in the ED. tolerated well, reviewed previous echo in 2022 which showed an EF of 60% and diastolic dysfunction present. Will give additional fluids at 100 mL/hour x2L. - suspected source: Pneumonia, COVID - started on cefepime, Flagyl, and vancomycin. -Transitioned to azithromycin and Zosyn (MRSA negative, history of Parkinson's/dysphagia and rapidly worsening pneumonia on CXR raising concern for aspiration pneumonia) -DC Zosyn due to possible reaction -Started Levaquin - blood cultures no growth - check UA (2) Acute hypoxic respiratory failure: Code(s): J96.01 - Acute respiratory failure with hypoxia Status: Acute Assessment and Plan: - tested positive for COVID on 03/05 - CXR showing bilateral pneumonia, started on ABX, see above - EKG showed sinus rhythm, RBBB, ST-T-wave abnormality in anterolateral/inferior leads. - no significant anemia Suspect acute hypoxic respiratory failure secondary to COVID and bilateral pneumonia. (3) COVID-19: Code(s): U07.1 - COVID-19 Status: Acute Assessment and Plan: - symptom onset: 03/01 - tested positive for COVID on: 03/05/2025 - complicating comorbidities: Bilateral pneumonia - Remdesivir 200 mg IVPB x1 then 100 mg x4 for 5 total doses. - Dexamethasone 6 mg x10 days or until d/c. - DVT prophylaxis: Lovenox SQ - supportive care DuoNeb p.r.n. Tylenol p.r.n. Mucinex rick Lozenge p.r.n. Jc Mancilla p.r.n. - monitor VS/O2 - monitor daily labs, check CRP (4) Bilateral pneumonia: Qualifiers: Lung location: lower lobe of lung Pneumonia type: due to unspecified organism Qualified Code(s): J18.9 - Pneumonia, unspecified organism Code(s): J18.9 - Pneumonia, unspecified organism Status: Acute Assessment and Plan: - CXR, 03/05/2025: Bibasilar pneumonia - CXR, 03/04/2025: Left basal atelectasis versus pneumonia. -Transitioned to azithromycin and Zosyn (MRSA negative, history of Parki nson's/dysphagia and rapidly worsening pneumonia on CXR raising concern for aspiration pneumonia) -DC Zosyn due to possible reaction -Started Levaquin - MRSA PCR negative on 03/05 - Viral PCR positive for COVID on 03/05 - sputum culture, if obtainable - currently requiring supplemental O2, 3L NC. Continue to maintain O2 sat greater than 92%, wean as tolerated. - supportive care (5) Parkinsons disease: Qualifiers: Dyskinesia presence: unspecified whether dyskinesia Fluctuating m anifestations: unspecified whether manifestations fluctuate Qualified Code(s): G20.A1 - Parkinson's disease without dyskinesia, without mention of fluctuations Code(s): G20 - Parkinson's disease Status: Chronic Assessment and Plan: - continue home medications: Sinemet 25-100 mg 5 tabs orally t.i.d.. - history of dysphagia, speech evaluation ordered. - per family, no specific diet at home. they do avoid certain foods such as soup as it is too thin or small foods like corn as he has not tolerated that well before. (6) DM type 2 (diabetes mellitus, type 2): Qualifiers: Diabetes mellitus complication status: without complication Diabetes mellitus termite helper insulin use: without half-way use Qualified Code(s): E11.9 - Type 2 diabetes mellitus without complications Code(s): E11.9 - Type 2 diabetes mellitus without complications Status: Chronic Assessment and Plan: - hypoglycemia protocol - POC blood glucose ACHS - home medication: Hold metformin in case of need for contrast. - correct regimen ordered - moderate dose TIDWM, based off BMI - A1C 6.2% on 10/2024, update (7) Benign essential hypertension: Code(s): I10 - Essential (primary) hypertension Status: Acute Assessment and Plan: - chronic, currently 169/88 - continue home medications: Lisinopril 2.5 mg daily, propranolol 10 mg b.i.d., verapamil ER 360 mg daily - monitor DS: Summary Hospital Course Hospital Course: 84 y/o M with PMH of Parkinson's, right bundle branch block, aortic stenosis, hyperlipidemia, diabetes, BPH, sick sinus syndrome s/p pacemaker, and hypertension presents here with shortness of breath. He had been diagnosed with an upper respiratory infection 2 weeks prior and started on cefdinir 300 mg x 10 days. Cxr done yesterday, 03/04, which showed left basal atelectasis versus pneumonia. The patient was started on Levaquin 750 mg x 7 days and DuoNeb nebulizers 4 times daily as needed. However, sought care today after his family discovered the patient was hypoxic. Home portable pulse ox showed 87% on RA. Upon arrival, the patient was found to be hypoxic on room air at 87%. Patient was admitted in the setting of sepsis and was started on cefepime, Flagyl and vancomycin and later transitioned to azithromycin and Zosyn. Patient also positive for COVID I assumed care on 03/06: Discussed with his daughter. Patient lives by himself and has been diagnosed with Parkinson about 3 years ago. Patient also has hx of pacemaker and valve replacement happened in 2022 at [facility]. Patient was lately not feeling well and treated by his PCP with course of antibiotics and nebulizer but day before yesterday he was found to hypoxia and taken to ED. Lately he had some heat intolerance and might be possible form Vancomycin infusion. Given Benadryl. Patient completed remdesivir. Currently doing well. Patient had reaction to Zosyn so discontinued and started on Levaquin until 0 03/11. Patient will have home oxygen evaluation before discharge . Baseline no oxygen at home. Patient underwent MBS no evidence of aspiration. Recommend Level 5 minced and moist diet with regular liquids Status at Discharge Cognitive/behavioral status at discharge: Stable Time Spent with Patient Time attestation: Total time spent providing and/or coordinating discharge services: 45 minutes Exam Const: Other: , male, elderly, acute on chronic ill appearance, uncomfortable, restless. HENMT: Face/Nose/Sinus: Normal nares present Mouth: Yes moist mucous membranes Eyes: General: appearance normal, both eyes and all related structures Sclera: sclerae normal Pupils: Equal, round and reactive pupils present EOM: EOMs intact bilaterally Resp: Other: Nasal cannula place, tolerating well. Mild tachypnea without accessory muscle use. Coarse bibasilar breath sounds. No wheezing. Cardio: Rate: regular rate Rhythm: regular rhythm Other: S1-S2 present without murmur, rub, ectopy GI: Other: Abdomen soft, nondistended, nontender. Normoactive bowel sounds in all quadrants. Skin: General skin exam: normal color and no rashes or lesions noted Wounds: no wounds Neuro: Cranial nerves: Yes Equal, round and reactive pupils present Speech: normal speech Motor exam (neuro): 5/5 motor strength present throughout Sensory Exam: normal sensation Other: A&O x3. Extrem: General: normal to inspection Psych: Mental Status: mental status grossly normal Affect: normal affect Other: Fair insight and judgment, pleasant. DS: Data Data Completed and Pending Labs on day of discharge: Labs from last 24 hours 03/10/25 03/10/25 03/09/25 08:03 04: 21:00 WBC 11.2 H RBC 3.88 L Hgb 11.7 L Hct 36.1 L MCV 93.0 MCH 30.2 MCHC 32.4 RDW 13.8 Plt Count 310 MPV 10.9 H Sodium 134 L Potassium 3.6 Chloride 102 Carbon Dioxide 25 Anion Gap 7 BUN 20 Creatinine 0.64 L Estim Creat Clear Calc 79 Estimated GFR > 60 Glucose 90 POC Capillary Glucose 93 194 H Calcium 8.6 Total Bilirubin 0.7 AST 26 ALT 10 Alkaline Phosphatase 79 Total Protein 7.0 Albumin 3.6 03/09/25 03/09/25 16:51 11:47 WBC RBC Hgb Hct MCV MCH MCHC RDW Plt Count MPV Sodium Potassium Chloride Carbon Dioxide Anion Gap BUN Creatinine Estim Creat Clear Calc Estimated GFR Glucose POC Capillary Glucose 131 H 109 H Calcium Total Bilirubin AST ALT Alkaline Phosphatase Total Protein Albumin Preliminary micro results at discharge 03/05/25 14:03 Blood Culture - Preliminary Blood 03/05/25 14:03 Blood Culture - Preliminary Blood Imaging Radiologist's impression: ITS Impressions Chest X-Ray 03/05/25 13:21 IMPRESSION: Bibasilar pneumonia. Modified Barium Swallow 03/06/25 10:30 IMPRESSION: Oral dysphagia with difficulty formulating content into a bolus as well as flash laryngeal penetration without aspiration with consecutive swallows of thin liquids. Please correlate with speech pathologist findings and specific feeding recommendations. Discharge Plan Discharge Consulting providers: Mark Lobato Patient Disposition: Home with Home Health Service Diet: other - see discharge instructions Discharge Instructions: Care Coordination: Patient to have [facility] for PT/OT eval and treat, and senior living. Their phone number is [phone] if you have any questions. They will contact you to schedule their first visit. RN Please fax discharge instructions to [phone]. Level 5 minced and moist diet with regular liquids. Check blood pressure 1 to 2 times a day. Record and bring into your doctor for review. Call your doctor if your blood pressure is greater than 180/110 or less than 90/45. Walk with cane or other assist device. Take precautions to avoid falls. Rise slowly from a lying or sitting position. Pause before standing or walking. Contact your doctor or call 911 and come to the Emergency Room if you have any type of trauma, lightheadedness with standing or other worrisome symptoms. Avoid NSAIDs (ibuprofen, naproxen, Aleve). Tylenol is safe to take. Follow-up with your primary care provider in 1-2 weeks. Please call for appointment. Follow-up with Cardiology in 2-4 weeks. Please call for an appointment. Thank you for using [facility] for your health care needs. Patient Instructions: Antibiotic Form Patient Language: Lao Stand Alone Forms: General Discharge Information Follow-up/Referrals: Ramu Myers MD [Primary Care Provider] - Discharge Medications: New benzonatate 100 mg Capsule 100 mg PO TID PRN (Reason: Cough) Qty: 10 0RF prednisone 20 mg Tablet 40 mg PO DAILY@0800 Qty: 1 0RF Rx Instructions: Please complete the course on 03/11 Continued aspirin [Eyal Low Dose Aspirin] 81 mg tablet,delayed release (DR/EC) 81 mg PO DAILY finasteride 5 mg tablet 5 mg PO HS psyllium husk [Daily Fiber] 0.52 gram capsule 0.52 g PO DAILY lisinopril 2.5 mg tablet 2.5 mg PO DAILY Qty: 90 1RF PreserVision AREDS 4,296 mcg-226 mg-90 mg capsule 1 cap PO BID ipratropium-albuterol 0.5 mg-3 mg(2.5 mg base)/3 mL solution for nebulization 3 ml inhalation Q4H PRN (Reason: shortness of breath or wheezing) Qty: 90 1RF (DME) Home Nebulizzer See Rx Instructions .Route .MEDSUPPLY Qty: 1 0RF Rx Instructions: As directed omeprazole 40 mg capsule,delayed release(/EC) See Rx Instructions .ROUTE .COMPLEX Rx Instructions: TAKE 1 CAPSULE BY MOUTH WITH EVENING MEAL alprazolam 0.5 mg tablet 0.5 mg PO BID tamsulosin 0.4 mg capsule See Rx Instructions .ROUTE .COMPLEX Rx Instructions: TAKE 1 CAPSULE BY MOUTH WITH EVENING MEAL carbidopa-levodopa [Sinemet] 25-100 mg tablet 5 tablet PO .COMPLEX Patient Comments: Pt takes 5 tablets at 0400, 1100, & 1600 Rx Instructions: 5 tabs orally; Dr Roberts (Neurology) prescribes. icosapent ethyl 1 gram capsule See Rx Instructions .ROUTE .COMPLEX Rx Instructions: TAKE 1 CAPSULE BY MOUTH WITH EVENING MEAL levofloxacin 750 mg tablet 750 mg PO DAILY Qty: 2 0RF Rx Instructions: Please complete the course on 03/11 valacyclovir [Valtrex] 1 gram tablet 1,000 mg PO TID PRN (Reason: coldsore) Qty: 30 3RF clopidogrel 75 mg tablet 75 mg PO DAILY sertraline 100 mg tablet See Rx Instructions .ROUTE .COMPLEX Qty: 90 1RF Dose Instruction: TAKE 1 TABLET BY MOUTH DAILY Rx Instructions: TAKE 1 TABLET BY MOUTH DAILY propranolol 10 mg tablet See Rx Instructions .ROUTE .COMPLEX Qty: 180 1RF Dose Instruction: TAKE 1 TABLET BY MOUTH TWICE DAILY Rx Instructions: TAKE 1 TABLET BY MOUTH TWICE DAILY rosuvastatin 10 mg tablet See Rx Instructions .ROUTE .COMPLEX Qty: 90 1RF Dose Instruction: TAKE 1 TABLET BY MOUTH DAILY Rx Instructions: TAKE 1 TABLET BY MOUTH DAILY metformin 500 mg tablet See Rx Instructions .ROUTE .COMPLEX Qty: 180 1RF Dose Instruction: TAKE 1 TABLET BY MOUTH TWICE DAILY Rx Instructions: TAKE 1 TABLET BY MOUTH TWICE DAILY primidone 50 mg tablet See Rx Instructions .ROUTE .COMPLEX Qty: 450 0RF Dose Instruction: TAKE 2 TABLET BY MOUTH ONCE IN THE MORNING AND 2 TABLET IN THE AFTERNOON AND 1 IN THE EVENING Rx Instructions: TAKE 2 TABLET BY MOUTH ONCE IN THE MORNING AND 2 TABLET IN THE AFTERNOON AND 1 IN THE EVENING gabapentin 600 mg tablet See Rx Instructions .ROUTE .COMPLEX Qty: 90 1RF Dose Instruction: TAKE 1 TABLET BY MOUTH THREE TIMES DAILY Rx Instructions: TAKE 1 TABLET BY MOUTH THREE TIMES DAILY verapamil 360 mg capsule,ext rel. pellets 24 hr See Rx Instructions .ROUTE .COMPLEX Qty: 90 1RF Dose Instruction: TAKE 1 CAPSULE BY MOUTH DAILY Rx Instructions: TAKE 1 CAPSULE BY MOUTH DAILY Date of admission: 03/05/25 14:45 Primary Care Provider: Ramu Myers Admitting Provider: Guille Pizano Attending physician on admission: Guille Pizano Condition: Stable
[2025-03-10] MEDS: CLOPIDOGREL BISULFATE 75 MG TABLET PO (09:43)
[2025-03-10] MEDS: PROPRANOLOL HCL 10 MG TABLET PO (09:43)
[2025-03-10] MEDS: ASPIRIN 81 MG ENTERIC TABLET PO (09:43)
[2025-03-10] MEDS: OPTI-GEN TAB 1 TABLET PO ×2 (09:43→17:21)
[2025-03-10] MEDS: TAMSULOSIN HCL 0.4 MG CAPSULE PO (09:44)
[2025-03-10] MEDS: PANTOPRAZOLE 40 MG TABLET PO (09:44)
[2025-03-10] MEDS: levoFLOXacin 750 MG TABLET PO (09:44)
[2025-03-10] MEDS: ALPRAZolam (*CRX) 0.5 MG TABLET PO ×2 (09:44→16:33)
[2025-03-10] MEDS: SERTRALINE HCL 50 MG TABLET 100 MG PO (09:44)
[2025-03-10] MEDS: GABAPENTIN 300 MG CAPSULE 600 MG PO ×3 (09:44→17:21)
[2025-03-10] MEDS: ROSUVASTATIN 10 MG TABLET PO (09:44)
[2025-03-10] MEDS: guaiFENesin 12 HR 600 MG TABCR PO (09:44)
[2025-03-10] MEDS: ENOXAPARIN 40 MG/0.4 ML SYRINGE SUB-Q (09:45)
[2025-03-10] MEDS: lisinopriL 2.5 MG TABLET PO (09:45)
[2025-03-10] MEDS: predniSONE 20 MG TABLET 40 MG PO (09:45)
[2025-03-10] MEDS: VERAPAMIL HCL 180 MG TABLET ER 360 MG PO (09:45)
[2025-03-10] MEDS: PRIMIDONE 50 MG TABLET 100 MG PO ×2 (09:45→13:21)
[2025-03-10] MEDS: ACETAMINOPHEN 325 MG TABLET 650 MG PO (10:41)
[2025-03-10 11:50] LABS: Glucose Point of Care 106 mg/dl (65-105)
--- NOTE | 2025-03-10 13:43 | PCRCNOTE ---
Addendum entered by Veronica Buck CRTT 03/10/25 18:31: Pt set up with [facility] for home oxygen. Original Note: Home O2 evaluation done . Pt requires 2L with activity. Room air at rest. Pt became very SOB with walking RN notified and family aware. Pt will be going home with family.
[2025-03-10 16:57] LABS: Glucose Point of Care 130 mg/dl (65-105)
[2025-03-10] MEDS: OMEGA 3 POLYUNSAT FATTY ACIDS 1 GM CAP PO (17:21)
== END 2025-03-10 18:23 | disposition home health service (06) | DRG 871 ==
LOC: ANHED 14:51 → ANHIMU 15:36 → ANH2MED 03-07 18:23
PROVIDERS: Emergency Medicine; Student in an Organized Health Care Education/Training Program; Admitting Provider General Practice; Emergency Provider Student in an Organized Health Care Education/Training Program; PCP Internal Medicine; Visit Provider General Practice
DX: A41.9 Sepsis, unspecified organism (principal); J18.9 Pneumonia, unspecified organism; U07.1 COVID-19; J96.01 Acute respiratory failure with hypoxia; R65.20 Severe sepsis without septic shock; I10 Essential (primary) hypertension; I35.0 Nonrheumatic aortic (valve) stenosis; E11.9 Type 2 diabetes mellitus without complications; E78.5 Hyperlipidemia, unspecified; G20.A1 Parkinson's disease without dyskinesia, without mention of fluctuations; R13.10 Dysphagia, unspecified; T36.0X5A Adverse effect of penicillins, initial encounter; K21.9 Gastro-esophageal reflux disease without esophagitis; R31.9 Hematuria, unspecified; N40.0 Benign prostatic hyperplasia without lower urinary tract symptoms; M17.0 Bilateral primary osteoarthritis of knee; F41.9 Anxiety disorder, unspecified; Z95.0 Presence of cardiac pacemaker; Z79.82 Long term (current) use of aspirin; Z79.02 Long term (current) use of antithrombotics/antiplatelets; Z79.899 Other long term (current) drug therapy
CPT/HCPCS: 36415; 71045; 71046; 80053; 81003; 82248; 82948; 83605; 83880; 84484; 85025; 85027; 85610; 85730; 86140; 87040; 87637; 87641; 92611; 93005; 94618; 96365; 96375; 97110; 97116; 97161; 97166; 97530; 97535; 99291; A9270; J0248; J0456; J0692; J1100; J1650; J1836; J2543; J3370; J7030; J7512

== ENCOUNTER 2025-03-13 07:54 | Outpatient (CLI) | payer MEDICARE, SELFPAY ==
--- OUTSIDE RECORDS SUMMARY | 2025-03-13 07:57 | XMS_ITS | Encounter Summary ---
Author Organization [facility] Healthcare Address [address] [place] [address] Care Team Providers Care Toy Designer Name Role Phone Ramu Myers MD Primary Care Provider [phone] Encounter Details Date Type Department Care Team (Late st Contact Info) Description 03/06/2024 Orders Only [facility] Health Information Management [address] [place] [id number] Dillan Schmidt MD [facility] [place] [address] Social History Tobacco Use Types Packs/Day Years Used Date Smoking Tobacco: Former Pipe Q uit: 06/21/1999 Cigars Quit: 06/21/19 99 Smokeless Tobacco: Never Alcohol Use Standard Drinks/Week Comments No 0 (1 standard drink = 0.6 oz pur e alcohol) [facility] Utilities Answer Date Recorded In the past 12 months has [employer], gas, oil, or water [employer] threatened to shut off services in your [...] week 12/14/2023 How often do you attend [facility] or mosque services? More than 4 times per year 12/14/2023 Do you belong to any clubs o r organizations such as catholic groups, unions, fraternal or athletic groups, or [...] place to sleep or slept in a usp (including now)? No 12/14/2023 Personal Safety Answer Date Recorded Have you ever been in or are you currently in a harmful physical or emotional relationship or is someone making you feel afraid or unsafe? Denies 12/13/2023 Sex and Gender Information Value Date Recorded Sex Assigned at Not on file Legal Sex Male 2:00 AM DIET ATTENDANT Gender Identity Not on file Sexual Orientation [...] on filedocumented in this encounter Care Teams Toy Designer Relationship Specialty Start Date End Date Ramu Myers MD [address] [place] [address] PCP - General 05/21/16 documented as of this encounter
--- OUTSIDE RECORDS SUMMARY | 2025-03-13 07:57 | XMS_ITS | Referral Summary ---
Author Organization [facility] Address [address] [place] [address] Care Team Providers Care Pari Mutuel Ticket Seller Name Role Phone Ramu Myers MD Primary Care Provider [phone] Encounters Date Type Department Care Team Description 01/30/2025 Orders Only [facility] Medical [facility] Cardiology [address] [address] Dillan Schmidt MD Presence of cardiac pacemaker (Primary Dx); Complete heart block (HCC) 01/30/2025 1:30 PM CDT Ancillary Procedure [facility] Medical [facility] Cardiology [address] [place] [address] CHB (complete heart block) (HCC); [...] every day 0 1 Active multivit with [id number] (ONE DAILY FOR MEN) 0.4-600 mg-mcg tablet [...] chronic leads 07/27/2011 (Atrial lead insulation break-repaired). [place] remote monitoring Q3 mo. Battery Advisory. Nonrheumatic aortic valve stenosis 06/21/2017 HTN (hypertension), benign 06/21/2017 Pulmonary HTN 06/21/2017 Social History Tobacco Use Types Packs/Day Years Used Date Smoking Tobacco: Former Pipe Q uit: 06/21/1999 Cigars Quit: 06/21/19 99 Smokeless Tobacco: Never Tobacco Cessation:Counseling Given: Not Answered Alcohol Use Standard Drinks/Week Comments No 0 (1 standard drink = 0.6 oz pur e alcohol) [facility] Utilities Answer Date Recorded In the past 12 months has [employer], [employer], oil, or water [employer] threatened to shut off services in your [...] How often do you attend chur or orthodoxy services? More than 4 times per year [...] place to sleep or slept in a nursing home (including now)? No 12/14/2023 Personal Safety Answer Date Recorded Have you ever been in or are you currently in a harmful physical or emotional relationship or is someone making you feel afraid or unsafe? Denies 12/13/2023 Sex and Gender Information Value Date Recorded Sex Assigned at Not on file Legal Sex Male 2:00 AM FORMULA BOTTLER Gender Identity Not on file Sexual Orientation Not on file Last Filed Vital Signs Vital Sign Reading Time Taken Comments Blood Pressure 130/70 09/21/2024 9:41 AM FORMULA BOTTLER Pulse 66 09/21/2024 9:41 AM FORMULA BOTTLER Temperature 36.3 C (97.4 F) 12/14/2023 12:13 PM FORMULA BOTTLER Respiratory Rate 18 12/14/2023 12:13 PM FORMULA BOTTLER Oxygen Saturation 94% 09/21/2024 9:41 AM FORMULA BOTTLER Inhaled Oxygen Concentration - - Weight 96.2 kg (212 lb) 09/21/2024 9:41 AM FORMULA BOTTLER Height 177.8 cm (5' 10 ) 09/21/2024 9:41 AM FORMULA BOTTLER Body Mass Index 30.42 09/21/2024 9:41 AM FORMULA BOTTLER Plan of Treatment Not on file Medical Devices Implanted Type Area Phosphorus Processing Supervisor Device Identifier Shelf Expiration Date Model / Serial / Lot Pacemaker-07/27/20 11 Implanted: 011 by Briana Wright (Quantity not on file) Pacemaker [facility] Closure Vascade Od5 Fr Femoral Artery [id number] - [id number] Implanted:Qty: 1 on 10/26/2023 by Bossman Gunter MD at [facility] 07/11/2025 [id number] / / [id number] [employer] Device Clsr Perclose Prostyle Sut-Mediatd Closure-Repair Sys 91226-64 - [id number] Implanted:Qty: 1 on 12/13/2023 by Bossman Gunter MD at [facility] 09/13/2025 [id number] / / [id number] [employer] Device Clsr Perclose Prostyle Sut-Mediatd Closure-Repair Sys 03334-89 - [id number] Implanted:Qty: 1 on 12/13/2023 by Bossman Gunter MD at [facility] [employer] 08/13/2025 [id number] / / [id number] [employer] Carol 3 Commander Sharpe 26mm Transcatheter Ultra Low Profile [id number] - [id number] - [id number] Implanted:Qty: 1 on 12/13/2023 by Bossman Gunter MD at [facility] [employer] 09/12/2026 [id number] / [id number] / [employer] Device Clsr Perclose Prostyle Sut-Mediatd Closure-Repair Sys 17763-04 - [id number] Implanted:Qty: 1 on 12/13/2023 by Bossman Gunter MD at [facility] [employer] 08/13/2025 [id number] / / [id number] [employer] Device Clsr Perclose Prostyle Sut-Mediatd Closure-Repair Sys 38781-97 - [id number] Implanted:Qty: 1 on 12/13/2023 by Bossman Gunter MD at [facility] [employer] 07/14/2025 [id number] / / [id number] [employer] Device Vascular Closure Femoral Artery Bioabsorbable Dual Method Vascade 6-7fr Collagen [id number] - [id number] Implanted:Qty: 1 on 12/13/2023 by Bossman Gunter MD at [facility] [employer] 07/08/2025 [id number] / / [id number] Procedures Procedure Name Priority Date/Time Associated [...] to ADRIANO. Appropriate lead measurements noted. Presenting npdwgw-CC-LS (SR). AP-39%, INFORMATION TECHNOLOGY INSTRUCTOR-23%. Medications; ASA 81 mg, Plavix, Propranolol, Verapamil. No mode switch episodes recorded. No ventricular arrhythmias noted. See scanned report. Office pacemaker f/u expected in 13-15 months to coordinate with Dr Schmidt visit. [place] remote f/u 05/07/2025. Alia Anna, RN us Dillan Schmidt MD [facility] Final Result from Last 3 Months Insurance MEDICARE MEDICARE BLUE CROSS MEDICARE SUPPLEMENT MEDICARE [facility] Advance Directives For more information, please contact: [phone] * Full Code (Latest Code Status on File) Date Activated Date Inactivated Comments 10/26/2023 9:56 AM 10/26/2023 4:20 PM Care Teams Pari Mutuel Ticket Seller Relationship Specialty Start Date End Date Ramu Myers MD [address] [facility] [address] [place] [address] PCP - General 05/21/16
--- OUTSIDE RECORDS SUMMARY | 2025-03-13 07:57 | XMS_ITS | Clinical Summary ---
Author Organization [facility] Address [address] [place] [address] Care Team Providers Care Pre Press Proofer Name Role Phone Ramu Myers MD Primary Care Provider [phone] Allergies No known active allergies Medications omeprazole [...] every day 0 1 Active multivit with duq-CP-moejxdud (ONE DAILY FOR MEN) 0.4-600 mg-mcg tablet [...] chronic leads 07/27/2011 (Atrial lead insulation break-repaired). [place] remote monitoring Q3 mo. Battery Advisory. Nonrheumatic aortic valve stenosis 06/21/2017 HTN (hypertension), benign 06/21/2017 Pulmonary HTN 06/21/2017 Encounters Date Type Department Care Team Description 01/30/2025 1:30 PM CDT Ancillary Procedure [facility] Cardiology [address] [facility] [address] [place] [address] CHB (complete heart block) (HCC); Presence of cardiac pacemaker 01/30/2025 Orders Only [facility] Cardiology [address] [facility] [address], [place] [address] Dillan Schmidt MD Presence of cardiac pacemaker (Primary Dx); Complete heart block (HCC) from Last 3 Months Surgical History Surgery Date Site/Laterality Comments HEMORRHOID SURGERY Hemorrhoidectomy CATARACT EXTRACTION INSERT / REPLACE / REMOVE PACEMAKER [facility] COLONOSCOPY CARDIAC CATHETERIZATION Medical History Medical History Date Comments Depression Depression Skin cancer Hypertension Hyperlipidemia Arrhythmia pacemaker [facility] [place] e Aortic stenosis GERD (gastroesophageal reflux disease) [...] = 0.6 oz pur e alcohol) [facility] Utilities Answer Date Recorded In the [...] often do you attend chur ch or jehovah's witness services? 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 DEVELOPER Gender Identity Not on file Sexual Orientation Not on file Obstetrics History Last Filed Vital Signs Vital Sign Reading Time Taken Comments Blood Pressure 130/70 09/21/2024 9:41 AM ORACLE TECHNICAL DEVELOPER Pulse 66 09/21/2024 9:41 AM ORACLE TECHNICAL DEVELOPER Temperature 36.3 C (97.4 F) 12/14/2023 12:13 PM ORACLE TECHNICAL DEVELOPER Respiratory Rate 18 12/14/2023 12:13 PM ORACLE TECHNICAL DEVELOPER Oxygen Saturation 94% 09/21/2024 9:41 AM ORACLE TECHNICAL DEVELOPER Inhaled Oxygen Concentration - - Weight 96.2 kg (212 lb) 09/21/2024 9:41 AM ORACLE TECHNICAL DEVELOPER Height 177.8 cm (5' 10 ) 09/21/2024 9:41 AM ORACLE TECHNICAL DEVELOPER Body Mass Index 30.42 09/21/2024 9:41 AM ORACLE TECHNICAL DEVELOPER Plan of Treatment Health Maintenance Due Date Last Done Comments Depression Screening 1939 DTaP/Tdap/Td Vaccine (1 - Tdap) 1950 Hepatitis B Screening 1957 Zoster Vaccine (1 of 2) 1989 Well Visit 65+ 2004 Pneumococcal vaccine 65+ (2 of 2 - PPSV23) 12/15/2018 12/15/2017 Fall Risk Assessment 12/14/2024 12/14/2023 Influenza Vaccine (Season Ended) 2025 10/23/2021, 09/09/2020, 08/13/2019, Additional history exists Medical Devices Implanted Type Area It Consulting Director Device Identifier Shelf Expiration Date Model / Serial / Lot Pacemaker-07/27/20 11 Implanted: 011 by Briana Wright (Quantity not on file) Pacemaker Chest [facility] [employer] Device Closure Vascade Od5 Fr Femoral Artery [id number] - [id number] Implanted:Qty: 1 on 10/26/2023 by Bossman Gunter MD at [facility] [employer] 07/11/2025 [id number] / / [id number] Sotelo V[employer] Device Clsr Perclose Prostyle Sut-Mediatd Closure-Repair Sys 94432-86 - [id number] Implanted:Qty: 1 on 12/13/2023 by Bossman Gunter MD at [facility] [employer] 09/13/2025 [id number] / / [id number] Sotelo V[employer] Device Clsr Perclose Prostyle Sut-Mediatd Closure-Repair Sys 38292-05 - [id number] Implanted:Qty: 1 on 12/13/2023 by Bossman Gunter MD at [facility] [employer] 08/13/2025 [id number] / / [id number] Sharpe [employer] Carol 3 Commander Sharpe 26mm Transcatheter Ultra Low Profile [id number] - [id number] - [id number] Implanted:Qty: 1 on 12/13/2023 by Bossman Gunter MD at [facility] [employer] 09/12/2026 [id number] / [id number] / Sotelo Vascular Device Clsr Perclose Prostyle Sut-Mediatd Closure-Repair Sys 63318-32 - [id number] Implanted:Qty: 1 on 12/13/2023 by Bossman Gunter MD at [facility] [employer] 08/13/2025 [id number] / / [id number] S[employer] Device Clsr Perclose Prostyle Sut-Mediatd Closure-Repair Sys 09671-73 - [id number] Implanted:Qty: 1 on 12/13/2023 by Bossman Gunter MD at [facility] [employer] 07/14/2025 [id number] / / [id number] [employer] Device Vascular Closure Femoral Artery Bioabsorbable Dual Method Vascade 6-7fr Collagen [id number] - [id number] Implanted:Qty: 1 on 12/13/2023 by Bossman Gunter MD at [facility] [employer] [facility] 07/08/2025 [id number] / / [id number] Procedures Procedure Name Priority Date/Time Associated [...] chronic leads 07/27/2011 (Atrial lead insulation break-repaired). [place] remote monitoring Q3 mo. Battery Advisory. Supervising physician: Dr Wilson. Office DDD Pacemaker evaluation demonstrated normal device function. Left pectoral incision well healed without signs of infection noted. Battery function-2.99V, 4.5 years remaining battery life to ADRIANO. Appropriate lead measurements noted. Presenting leedwi-NO-PH (SR). AP-39%, EGG CANDLER-23%. Medications; ASA 81 mg, Plavix, Propranolol, Verapamil. No mode switch episodes recorded. No ventricular arrhythmias noted. See scanned report. Office pacemaker f/u expected in 13-15 months to coordinate with Dr Schmidt visit. [place] remote f/u 05/07/2025. Alia Anna, RN Dillan Schmidt MD [facility] Final Result from Last 3 Months Insurance MEDICARE MEDICARE BLUE CROSS MEDICARE SUPPLEMENT MEDICARE [facility] Advance Directives For more information, please contact: [phone] * Full Code (Latest Code Status on File) Date Activated Date Inactivated Comments 10/26/2023 9:56 AM 10/26/2023 4:20 PM Care Teams Pre Press Proofer Relationship Specialty Start Date End Date Ramu Myers MD [address] [facility] [place] [address] PCP - General 05/21/16
--- OUTSIDE RECORDS SUMMARY | 2025-03-13 07:57 | XMS_ITS | Clinical Summary ---
Author Organization [facility] Address [address] [place] [address] Care Team Providers Care Application Integration Architect Name Role Phone Ramu Myers MD Primary Care Provider [phone] Allergies No known active allergies Medications rosuvastatin [...] total) by mouth daily. Active Glucosamine-Chondro itin 6796-0202 MG/30ML Liquid Take 1 tablet by mouth [...] 07/05/2023 Tremor 03/15/2023 Hypertriglyceridemia 12/31/2019 Pulmonary HTN ([facility]) 06/21/2017 Presence of cardiac pacemaker 06/21/2017 Overview (11/15/2024): [facility] Dual Pacemaker. Dx; CHB. Gen change 01/24/2020, chronic leads 07/27/2011 (Atrial lead insulation break-repaired). [place] remote monitoring Q3 mo. Battery Advisory. Nonrheumatic aortic valve stenosis 06/21/2017 HTN (hypertension), benign 06/21/2017 Resolved Problems Problem Noted Date Diagnosed Date Resolved Date Preop cardiovascular exam 10/10/2023 Encounters Date Type Department Care Team Description 02/20/2025 Telephone [facility]rology [facility] - [address] [place] [address] Tonio Roberts MD Problem 01/16/2025 11:40 AM PROGRESSIVE CARE NURSE Office Visit [facility] Multispecialty Care - [address], [address] [place] [address] Tonio Roberts MD Botox (Dystonia 100units/) 01/16/2025 Scan [employer] Learning INFO SRVCS Scanned, [facility] 01/16/2025 Travel 12/20/2024 Therapy Plan [facility] Multispecialty Care - [facility] [address] [facility], [address] [place] [address] Tonio Roberts MD from Last 3 [...] Comments Blood Pressure 123/83 01/16/2025 11:32 AM PROGRESSIVE CARE NURSE Pulse 65 01/16/2025 11:32 AM PROGRESSIVE CARE NURSE Temperature 37.1 C (98.8 F) 01/16/2025 11:32 AM PROGRESSIVE CARE NURSE Respiratory Rate 18 10/19/2023 3:08 PM PROGRESSIVE CARE NURSE Oxygen Saturation 95% 01/16/2025 11:32 AM PROGRESSIVE CARE NURSE Inhaled Oxygen Concentration - - Weight 94.8 kg (209 lb) 10/24/2024 11:13 AM PROGRESSIVE CARE NURSE Height 180.3 cm (5' 11 ) 01/16/2025 11:32 AM PROGRESSIVE CARE NURSE Body Mass Index 29.15 08/01/2024 2:08 PM CDT Plan of Treatment Upcoming Encounters Date Type Department Care Team (Late st Contact Info) Description 04/10/2025 11:20 AM CDT Office Visit [facility] Multispecialty Care - [facility] [address] [facility], [address] [place] [address] Tonio Roberts MD [address] [place] [address] Health Maintenance Due Date Last Done Comments DTaP, Tdap and Td Vaccines ( 1 - Tdap) 1958 Zoster Vaccines (1 of 2) 1989 Annual Medicare Wellness Visit 2004 RSV Immunization or 60+ Years (1 - 1-dose 75+ series) 2014 Pneumococcal Vaccine: 50+ Years (2 of 2 - PPSV23) 02/09/2018 12/15/2017 COVID-19 Vaccine (3 - 2023-2 5 season) 2024 01/30/2021, 01/09/2021 PHQ-2 (Physician [place]) 11/14/2024 10/24/2024 Meningococcal B Vaccine Aged Out No l onger eligible based on patient's age to complete this topic Meningococcal Vaccine Aged Out No elda karla eligible based on patient's age to complete this topic RSV Immunizations Under 20 Months Aged Out No longer eligible b ased on patient's age to complete this topic Insurance MEDICARE [facility] Care Teams Application Integration Architect Relationship Specialty Start Date End Date Ramu Myers MD [address] [place] [address] PCP - General INTERNAL MEDICINE 06/03/22
--- OUTSIDE RECORDS SUMMARY | 2025-03-13 07:57 | XMS_ITS | Encounter Summary ---
Author Organization [facility] Address [address] [facility] [address] [place] [address] Care Team Providers Care Cannon Pinion Adjuster Name Role Phone Ramu Myers MD Primary Care Provider [phone] Encounter Details Date Type Department Care Team (Late st Contact Info) Description 02/23/2017 Orders Only [facility] ProviderAnnalise MD [address] [place] [address] Social History Tobacco Use Types Packs/Day Years Used Date Smoking Tobacco: Former Cigarettes Q uit: 11/14/2002 Alcohol Use Standard Drinks/Week Comments No 0 (1 standard drink = 0.6 oz pur e alcohol) Sex and Gender Information Value Date Recorded Sex Assigned at Not on file Legal Sex Male 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
--- OUTSIDE RECORDS SUMMARY | 2025-03-13 07:57 | XMS_ITS | Encounter Summary ---
Author Organization [facility] Address [address] [facility] [address] [place] [address] Care Team Providers Care Specification Manager Name Role Phone Ramu Myers MD Primary Care Provider [phone] Encounter Details Date Type Department Care Team (Late st Contact Info) Description 11/16/2016 Orders Only [facility] ProviderAnnalise MD [address] [place] [address] Social History Tobacco Use Types Packs/Day Years Used Date Smoking Tobacco: Former Cigarettes Q uit: 11/14/2002 Alcohol Use Standard Drinks/Week Comments No 0 (1 standard drink = 0.6 oz pur e alcohol) Sex and Gender Information Value Date Recorded Sex Assigned at Not on file Legal Sex Male 2:00 AM CHANGE COORDINATOR Gender Identity Not on file Sexual Orientation [...] on filedocumented in this encounter Care Teams Specification Manager Relationship Specialty Start Date End Date Ramu Myers MD [address] [place] [address] PCP - General 05/21/16 documented as of this encounter
--- OUTSIDE RECORDS SUMMARY | 2025-03-13 07:57 | XMS_ITS | Clinical Summary ---
Author Organization [facility] Address [address] [place] [address] Care Team Providers Care Apprentice Jockey Name Role Phone Unavailable Primary Care Provider Unavailabl e Source Comments [facility] MyCheck,non-owned Affiliates and Associated Physician Practices is amultiple site organization consisting of ambulatory clinics and hospital sitesin [place], [place], [place]. This disclosure is being madepursuant to the Care Everywhere program and may not contain all information available regarding this patient. Last updated 18.[facility] Social History Tobacco Use Types Packs/Day Years Used Date Smoking Tobacco: Never Assessed Sex and Gender Information Value Date Recorded Sex Assigned at Not on file Legal Sex Male 5:39 PM BARKEEPER Gender Identity Not on file Sexual Orientation [...]
--- OUTSIDE RECORDS SUMMARY | 2025-03-13 07:57 | XMS_ITS | Continuity of Care Document ---
Author Organization [facility] Address [address] [place] [address] [address] [place] [address] Phone Care Team Providers Care Mds Manager Name Role Phone [facility] Unavailable Unavail able Kathi Johnson Unavailable Unavailable Procedures Procedure Date Vision Svcs Frames Purchases TF Polycarb Sphcyl Balsam To +/-4d .12-2d Tint Photochromatic, Polycarb 0 [...] Diagnoses Date Provider Providers Copied on Encounter [facility], [address], [place], [place], [id number], [place] tel:[phone] [facility] [place] No Information 0 0 [facility] . [address], [address], [place], [place], [id number], [place]. tel:[phone] Referring Provider: Jhonny Cerda, [address], [place], [address]. tel:[phone] g Provider: Kathi Johnson, [address] [facility], [place], [address]. tel:[phone] [facility], [address], [place], [place], [address], [place] tel:[phone] [facility] No Information Simon-0 9-201 0 Doisy Edward. [address] , [address], [place], [place], [facility], [place]. tel:[phone] Office/outpat ient Visit, Est [facility], [address] [place] [address] [address], [place], [place], [id number], [place] tel:[phone] [facility] [place] No Information Sep-2 8-200 9 Doisy Edoli. [address] , [address], [place], [facility], [place]. tel:[phone] [facility], [address] [place] [address] [address], [place], [place], [address], [place] tel:[phone] [facility] No Information Sep-1 6-200 9 Jensy Edward. [address] , [address], [place], [facility], [place]. tel:[phone] [facility], [address] [place] [address] [address], [place], [place], [address], [place] tel:[phone] [facility] No Information Nov-0 6-200 8 Sharri Hagenn. [address] , [address], [place], [facility], [place]. tel:[phone] [facility], [address] [place] [address] [address], [place], [place], [address], [place] tel:[phone] [facility] Center No Information Apr-2 6-200 7 Sharri Hagenn. [address] , [address], [place], [facility], [place]. tel:[phone] Referring Provider: Sena Guzman, [address] [facility] [facility], [place], [address]. tel:[phone] Family History Family Member Type Diagnosis Age At Onset No Information Payers Payer name Insurance type Covered libertarian ID Authoriza tion(s) No Information Social History [...]
--- OUTSIDE RECORDS SUMMARY | 2025-03-13 07:57 | XMS_ITS | Encounter Summary ---
Author Organization [facility] Address [address] [facility] [place] [address] Care Team Providers Care Calender Wind Up Tender Name Role Phone Unavailable Primary Care Provider Unavailabl e Encounter Details Date Type Department Care Team (Late st Contact Info) Description 03/21/2024 Lab Requisition [facility] - DermPath Lab [address] [place] [id number] Estela Sorensen MD [address] [place] [address] Social History Tobacco Use Types Packs/Day Years Used Date Smoking Tobacco: Never Assessed Sex and Gender Information Value Date Recorded Sex Assigned at Not on file Legal Sex Male 5:39 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 - Received: 03/22/2024 11:44 AM [...] characteristic determined by the Dermatopathology Laboratory at [facility], directed by Dr. Fercho Powell. These tests need not be, and therefore are not, approved by the [place] Food and Drug Administration. The tests are used for clinical purposes. Billing Codes Specimen Charges Stain Charges 28190 1 2:14 PM CDT DERMATOPATHOLOGY LABORATORY Embedded Images 2:14 PM CDT DERMATOPATHOLOGY LABORATORY Pathology/Cytolo gy TISSUE SPECIMEN FROM SKIN / Unknown 03/21/2024 12:19 PM CDT 03/22/2024 11:44 AM CDT Estela Sorensen MD LAB - PATHOLOGY/CYTOLOGY ORDERA BLES Final Result DERMATOPATHOLOGY LABORATORY [facility] - Department of Dermatology [address] [place] [address], [facility] [phone] documented in this encounter Visit Diagnoses Not on filedocumented in this encounter
--- OUTSIDE RECORDS SUMMARY | 2025-03-13 07:57 | XMS_ITS | Encounter Summary ---
Author Organization [facility] Address [address] [facility] [place] [address] Care Team Providers Care Servomechanism Designer Name Role Phone Unavailable Primary Care Provider Unavailabl e Encounter Details Date Type Department Care Team (Late st Contact Info) Description 09/18/2020 Lab Requisition [facility] DermPath Lab [address] [facility] [place] [address] Anna Morel MD [address] [facility] [address] [place] [address] Social History Tobacco Use Types Packs/Day Years Used Date Smoking Tobacco: Never Assessed Sex and Gender Information Value Date Recorded Sex Assigned at Not on file Legal Sex Male 5:39 PM GENERAL INSPECTOR Gender Identity Not on file Sexual Orientation Not on file documented as of this encounter Plan of Treatment Not on file documented as of this encounter Procedures Procedure Name Priority Date/Time Associated Diagnosis Comments DERMATOPATHOLOGY Routine 09/17/2020 12:0 0 AM GENERAL INSPECTOR documented in this encounter Results * DERMATOPATHOLOGY (09/17/2020 12:00 AM GENERAL INSPECTOR) Case Report Dermatopathology Report Case: [id number] Authorizing Provider: Anna Morel MD Collected: 09/17/2020 12:00 AM Ordering Location: [facility] DermPath Lab Received: 09/18/2020 07:55 AM Pathologist: Kiarra Guzman MD Specimen: Skin, left post ear 0 2:37 PM GENERAL INSPECTOR DERMATOPATHOLOGY LABORATORY Final Diagnosis Specimen A. 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 0 2:37 PM [facility] DERMATOPATHOLOGY LABORATORY Gross Description Specimen A: Received is one formalin filled container labeled with the patient's name and designated left post ear. The specimen consists of a shave measuring [id number]. Jar 0. 0 2:37 PM [facility] DERMATOPATHOLOGY LABORATORY Microscopic Description Specimen A. SKIN, left post ear: The epidermis is acanthotic and shows full thickness disorderly maturation of keratinocytes, mitoses at different levels, and dyskeratotic cells. There is overlying parakeratosis and hyperkeratosis. 0 2:37 PM [facility] DERMATOPATHOLOGY LABORATORY Disclaimer An external and internal positive and negative controls are appropriate for the histochemical, immunohistochemical and immunofluorescence stain(s) in this case (if any), except where stated explicitly. The performance characteristics of the stain(s) cited in this report were developed and its performance characteristic determined by the Dermatopathology Laboratory at [facility], directed by Dr. Fercho Powell. These tests need not be, and therefore are not, approved by the [place] Food and Drug Administration. The tests are used for clinical purposes. Billing Codes Specimen Charges Stain Charges 58137 1 0 2:37 PM GENERAL INSPECTOR DERMATOPATHOLOGY LABORATORY Embedded Images 0 2:37 PM [facility] DERMATOPATHOLOGY LABORATORY Pathology/Cytolog y TISSUE SPECIMEN FROM SKIN / Unknown 09/17/2020 09/18/2020 7:55 AM GENERAL INSPECTOR Anna Morel MD LAB - PATHOLOGY/CYTOLOGY OR DERABLES Final Result DERMATOPATHOLOGY LABORATORY [facility] - Department of Dermatology [address] [place] [address], [facility] [phone] documented in this encounter Visit Diagnoses Not on filedocumented in this encounter
[2025-03-13 08:00] VITALS: PULSE 68; O2SAT 91
[2025-03-13 08:05] VITALS: PULSE 85; O2SAT 86
[2025-03-13 08:10] VITALS: PULSE 83; O2SAT 88
[2025-03-13 08:15] VITALS: PULSE 86; O2SAT 91
[2025-03-13 08:30] VITALS: PULSE 71; O2SAT 92
--- NOTE | 2025-03-13 08:33 | HOMEO2EVAL ---
Evaluation was performed at [facility] Home Oxygen Evaluation RC: Home Oxygen (O2) Evaluation Start: 03/13/25 08:30 Freq: Status: Active Protocol: RPE Activity Type Activity Date Activity User E-sign Co-sign Detail Recorded Client Recorded Date Recorded By Document 03/13/25 08:00 [email or web address] [email or web address] 03/13/25 08:33 DJO Document 03/13/25 08:05 DJO [email or web address] 03/13/25 08:33 DJO Document 03/13/25 08:10 DJO [email or web address] 03/13/25 08:33 DJO Document 03/13/25 08:15 DJO [email or web address] 03/13/25 08:33 DJO Document 03/13/25 08:30 [email or web address] [email or web address] 03/13/25 08:33 DJO 03/13/25 03/13/25 03/13/25 08:00 08:05 08:10 Home O2 Evaluation [Oxygen] -Test Phase Resting Exercise Exercise -Oxygen Delivery Room Air Room Air Nasal Cannula -Oxygen Flow Rate (L/min) 1 [Pulse Oximetry] -Pulse Oximetry (90-100 %) 91 86 L 88 L [Pulse Rate] -Pulse Rate (60-100 beats/min) 68 85 83 [Evaluation] -Activity Tolerance [Exercise] -Ambulation Distance (feet) -Ambulation Distance (meters) [Charges] -Evaluation Charges O2 Evaluation by Pulmonary 03/13/25 03/13/25 08:15 08:30 Home O2 Evaluation [Oxygen] -Test Phase Exercise Resting -Oxygen Delivery Nasal Cannula Room Air -Oxygen Flow Rate (L/min) 2 [Pulse Oximetry] -Pulse Oximetry (90-100 %) 91 92 [Pulse Rate] -Pulse Rate (60-100 beats/min) 86 71 [Evaluation] -Activity Tolerance Fair [Exercise] -Ambulation Distance (feet) 150 -Ambulation Distance (meters) 45.71 [Charges] -Evaluation Charges
== END 2025-03-13 07:55 | disposition home or self-care (01) ==
LOC: ANHPFT 07:55
PROVIDERS: PCP Internal Medicine; Visit Provider Internal Medicine
DX: Z09 Encounter for follow-up examination after completed treatment for conditions other than malignant neoplasm (principal); J18.9 Pneumonia, unspecified organism; U07.1 COVID-19; Z68.29 Body mass index [BMI] 29.0-29.9, adult; R06.02 Shortness of breath
CPT/HCPCS: 94618

== ENCOUNTER 2025-03-29 11:04 | Outpatient (CLI) | payer MEDICARE, SELFPAY ==
--- OUTSIDE RECORDS SUMMARY | 2025-03-29 11:08 | XMS_ITS | Encounter Summary ---
Author Organization [facility] Address [address] [place] [address] Care Team Providers Care Nursing Home Assistant Administrator Name Role Phone Unavailable Primary Care Provider Unavailabl e Encounter Details Date Type Department Care Team (Late st Contact Info) Description 03/21/2024 Lab Requisition [facility] - DermPath Lab [address] [place] [id number] Estela Sorensen MD [address] [place] [address] Social History Tobacco Use Types Packs/Day Years Used Date Smoking Tobacco: Never Assessed Sex and Gender Information Value Date Recorded Sex Assigned at Not on file 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 Gender Identity Not on file Sexual Orientation Not on file documented as of this encounter Plan of Treatment Not on file documented as of this encounter Procedures Procedure Name Priority Date/Time Associated Diagnosis Comments DERMATOPATHOLOGY Routine 03/21/2024 12:1 9 PM CDT documented in this encounter Results * DERMATOPATHOLOGY (03/21/2024 12:19 PM CDT) Case Report Dermatopathology Report Case: [id number] Authorizing Provider: Estela Sorensen MD Collected: 03/21/2024 12:19 PM Ordering Location: [facility] Physician [facility] - Received: 03/22/2024 11:44 AM [...] characteristic determined by the Dermatopathology Laboratory at [facility], directed by Dr. Fercho Powell. These tests need not be, and therefore are not, approved by the [place] Food and Drug Administration. The tests are used for clinical purposes. Billing Codes Specimen Charges Stain Charges 32273 1 2:14 PM CDT DERMATOPATHOLOGY LABORATORY Embedded Images 2:14 PM CDT DERMATOPATHOLOGY LABORATORY Pathology/Cytolo gy TISSUE SPECIMEN FROM SKIN / Unknown 03/21/2024 12:19 PM CDT 03/22/2024 11:44 AM CDT Estela Sorensen MD LAB - PATHOLOGY/CYTOLOGY ORDERA BLES Final Result DERMATOPATHOLOGY LABORATORY [facility] - Department of Dermatology [address] [place] [address], [facility] [phone] documented in this encounter Visit Diagnoses Not on filedocumented in this encounter
--- OUTSIDE RECORDS SUMMARY | 2025-03-29 11:08 | XMS_ITS | Encounter Summary ---
Author Organization [facility] Address [address] [place] [address] Care Team Providers Care Director Alumni Relations Name Role Phone Unavailable Primary Care Provider Unavailabl e Encounter Details Date Type Department Care Team (Late st Contact Info) Description 09/18/2020 Lab Requisition [facility] DermPath Lab [address] [facility] [place] [id number] Anna Morel MD [address] [facility] [address] [place] [address] Social History Tobacco Use Types Packs/Day Years Used Date Smoking Tobacco: Never Assessed Sex and Gender Information Value Date Recorded Sex Assigned at Not on file Legal Sex Male 5:39 PM SENIOR J2EE DEVELOPER Gender Identity Not on file Sexual Orientation Not on file documented as of this encounter Plan of Treatment Not on file documented as of this encounter Procedures Procedure Name Priority Date/Time Associated Diagnosis Comments DERMATOPATHOLOGY Routine 09/17/2020 12:0 0 AM SENIOR J2EE DEVELOPER documented in this encounter Results * DERMATOPATHOLOGY (09/17/2020 12:00 AM SENIOR J2EE DEVELOPER) Case Report Dermatopathology Report Case: [id number] Authorizing Provider: Anna Morel MD Collected: 09/17/2020 12:00 AM Ordering Location: [facility] DermPath Lab Received: 09/18/2020 07:55 AM Pathologist: Kiarra Guzman MD Specimen: Skin, left post ear 0 2:37 PM SENIOR J2EE DEVELOPER DERMATOPATHOLOGY LABORATORY Final Diagnosis Specimen A. 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 0 2:37 PM [facility] DERMATOPATHOLOGY LABORATORY Gross Description Specimen A: Received is one formalin filled container labeled with the patient's name and designated left post ear. The specimen consists of a shave measuring [id number]. Jar 0. 0 2:37 PM [facility] DERMATOPATHOLOGY LABORATORY Microscopic Description Specimen A. SKIN, left post ear: The epidermis is acanthotic and shows full thickness disorderly maturation of keratinocytes, mitoses at different levels, and dyskeratotic cells. There is overlying parakeratosis and hyperkeratosis. 0 2:37 PM [facility] DERMATOPATHOLOGY LABORATORY Disclaimer An external and internal positive and negative controls are appropriate for the histochemical, immunohistochemical and immunofluorescence stain(s) in this case (if any), except where stated explicitly. The performance characteristics of the stain(s) cited in this report were developed and its performance characteristic determined by the Dermatopathology Laboratory at [facility], directed by Dr. Fercho Powell. These tests need not be, and therefore are not, approved by the [place] Food and Drug Administration. The tests are used for clinical purposes. Billing Codes Specimen Charges Stain Charges 83129 1 0 2:37 PM SENIOR J2EE DEVELOPER DERMATOPATHOLOGY LABORATORY Embedded Images 0 2:37 PM [facility] DERMATOPATHOLOGY LABORATORY Pathology/Cytolog y TISSUE SPECIMEN FROM SKIN / Unknown 09/17/2020 09/18/2020 7:55 AM SENIOR J2EE DEVELOPER Anna Morel MD LAB - PATHOLOGY/CYTOLOGY OR DERABLES Final Result DERMATOPATHOLOGY LABORATORY [facility] - Department of Dermatology [address] [place] [address], [facility] [phone] documented in this encounter Visit Diagnoses Not on filedocumented in this encounter
--- OUTSIDE RECORDS SUMMARY | 2025-03-29 11:08 | XMS_ITS | Clinical Summary ---
Author Organization [facility] Address [address] [address] Care Team Providers Care Progressive Care Manager Name Role Phone Unavailable Primary Care Provider Unavailabl e Source Comments [facility] Repair Report,non-owned Affiliates and Associated Physician Practices is amultiple site organization consisting of ambulatory clinics and hospital sitesin [place], [place], [place] and [place]. This disclosure is being madepursuant to the Care Everywhere program and may not contain all information available regarding this patient. Last updated 18.[facility] Repair Report Social History Tobacco Use Types Packs/Day Years Used Date Smoking Tobacco: Never Assessed Sex and Gender Information Value Date Recorded Sex Assigned at Not on file Legal Sex Male 5:39 PM SUPERVISOR COOLER SERVICE Gender Identity Not on file Sexual Orientation [...]
--- OUTSIDE RECORDS SUMMARY | 2025-03-29 11:08 | XMS_ITS | Referral Summary ---
Author Organization [facility] Address [address] [place] [address] Care Team Providers Care Copyright Clerk Name Role Phone Ramu Myers MD Primary Care Provider [phone] Encounters Date Type Department Care Team Description 01/30/2025 Orders Only [facility] Medical [facility] Cardiology [address] [address] Dillan Schmidt MD Presence of cardiac pacemaker (Primary Dx); Complete heart block (HCC) 01/30/2025 1:30 PM CDT Ancillary Procedure [facility] Medical [facility] Cardiology [address] [place] [address] CHB (complete heart block) (HCC); [...] every day 0 1 Active multivit with dre-TM-wiqpsdsd (ONE DAILY FOR MEN) 0.4-600 mg-mcg tablet [...] chronic leads 07/27/2011 (Atrial lead insulation break-repaired). [place] remote monitoring Q3 mo. Battery Advisory. Nonrheumatic aortic valve stenosis 06/21/2017 HTN (hypertension), benign 06/21/2017 Pulmonary HTN 06/21/2017 Social History Tobacco Use Types Packs/Day Years Used Date Smoking Tobacco: Former Pipe Q uit: 06/21/1999 Cigars Quit: 06/21/19 99 Smokeless Tobacco: Never Tobacco Cessation:Counseling Given: Not Answered Alcohol Use Standard Drinks/Week Comments No 0 (1 standard drink = 0.6 oz pur e alcohol) [facility] Utilities Answer Date Recorded In the past 12 months has [employer], oil, or water [employer] threatened to shut off services in your [...] How often do you attend chur or mormon services? More than 4 times per year 12/14/2023 Do you belong to any clubs o r organizations such as jewish groups, unions, fraternal or athletic groups, or [...] place to sleep or slept in a custodial (including now)? No 12/14/2023 Personal Safety Answer Date Recorded Have you ever been in or are you currently in a harmful physical or emotional relationship or is someone making you feel afraid or unsafe? Denies 12/13/2023 Sex and Gender Information Value Date Recorded Sex Assigned at Not on file Legal Sex Male 2:00 AM GEAR AND SPLINE GRINDER Gender Identity Not on file Sexual Orientation Not on file Last Filed Vital Signs Vital Sign Reading Time Taken Comments Blood Pressure 130/70 09/21/2024 9:41 AM GEAR AND SPLINE GRINDER Pulse 66 09/21/2024 9:41 AM GEAR AND SPLINE GRINDER Temperature 36.3 C (97.4 F) 12/14/2023 12:13 PM GEAR AND SPLINE GRINDER Respiratory Rate 18 12/14/2023 12:13 PM GEAR AND SPLINE GRINDER Oxygen Saturation 94% 09/21/2024 9:41 AM GEAR AND SPLINE GRINDER Inhaled Oxygen Concentration - - Weight 96.2 kg (212 lb) 09/21/2024 9:41 AM GEAR AND SPLINE GRINDER Height 177.8 cm (5' 10 ) 09/21/2024 9:41 AM GEAR AND SPLINE GRINDER Body Mass Index 30.42 09/21/2024 9:41 AM GEAR AND SPLINE GRINDER Plan of Treatment Not on file Medical Devices Implanted Type Area Body Service Team Member Device Identifier Shelf Expiration Date Model / Serial / Lot Pacemaker-07/27/20 11 Implanted: 011 by Briana Wright (Quantity not on file) Pacemaker [facility] Device Closure Vascade Od5 Fr Femoral Artery [id number] - [id number] Implanted:Qty: 1 on 10/26/2023 by Bossman Gunter MD at Located Within [facility] 07/11/2025 [id number] -[id number] / / [id number] [employer] V[employer] Device Clsr Perclose Prostyle Sut-Mediatd Closure-Repair Sys 87310-79 - [id number] Implanted:Qty: 1 on 12/13/2023 by Bossman Gunter MD at [facility] Vascular 09/13/2025 [id number] / / [id number] [employer] V[employer] Device Clsr Perclose Prostyle Sut-Mediatd Closure-Repair Sys 59004-24 - [id number] Implanted:Qty: 1 on 12/13/2023 by Bossman Gunter MD at [facility] [employer] 08/13/2025 [id number] / / [id number] [employer] Carol 3 Commander Sharpe 26mm Transcatheter Ultra Low Profile [id number] - [id number] - [id number] Implanted:Qty: 1 on 12/13/2023 by Bossman Gunter MD at [facility] [employer] 09/12/2026 [id number] / [id number] / S[employer]elo Vascular Device Clsr Perclose Prostyle Sut-Mediatd Closure-Repair Sys 85587-53 - [id number] Implanted:Qty: 1 on 12/13/2023 by Bossman Gunter MD at [facility] [employer] 08/13/2025 [id number] / / [id number] [employer] V[employer] Device Clsr Perclose Prostyle Sut-Mediatd Closure-Repair Sys 83715-02 - [id number] Implanted:Qty: 1 on 12/13/2023 by Bossman Gunter MD at [facility] [employer] 07/14/2025 [id number] / / [id number] [employer] Device Vascular Closure Femoral Artery Bioabsorbable Dual Method Vascade 6-7fr Collagen [id number] - [id number] Implanted:Qty: 1 on 12/13/2023 by Bossman Gunter MD at [facility] [employer] 07/08/2025 [id number]- [id number] / / [id number] Procedures Procedure Name Priority Date/Time Associated [...] to ADRIANO. Appropriate lead measurements noted. Presenting dkldiw-NZ-IX (SR). AP-39%, SQL BI DEVELOPER-23%. Medications; ASA 81 mg, Plavix, Propranolol, Verapamil. No mode switch episodes recorded. No ventricular arrhythmias noted. See scanned report. Office pacemaker f/u expected in 13-15 months to coordinate with Dr Schmidt visit. [place] remote f/u 05/07/2025. Alia Anna, RN us Dillan Schmidt MD CV CARDIAC SERVICES [facility] Final Result from Last 3 Months Insurance MEDICARE MEDICARE BLUE CROSS MEDICARE SUPPLEMENT MEDICARE [facility] Advance Directives For more information, please contact: [phone] * Full Code (Latest Code Status on File) Date Activated Date Inactivated Comments 10/26/2023 9:56 AM 10/26/2023 4:20 PM Care Teams Copyright Clerk Relationship Specialty Start Date End Date Ramu Myers MD [address] [facility] [address] [place] [address] PCP - General 05/21/16
--- OUTSIDE RECORDS SUMMARY | 2025-03-29 11:08 | XMS_ITS | Encounter Summary ---
Author Organization [facility] Address [address] [place] [address] Care Team Providers Care Web Systems Developer Name Role Phone Ramu Myers MD Primary Care Provider [phone] Encounter Details Date Type Department Care Team (Late st Contact Info) Description 11/16/2016 Orders Only [facility] ProviderAnnalise MD [address] [place] [address] Social History Tobacco Use Types Packs/Day Years Used Date Smoking Tobacco: Former Cigarettes Q uit: 11/14/2002 Alcohol Use Standard Drinks/Week Comments No 0 (1 standard drink = 0.6 oz pur e alcohol) Sex and Gender Information Value Date Recorded Sex Assigned at Not on file Legal Sex Male 2:00 AM CUTTER GRINDER Gender Identity Not on file Sexual [...] on filedocumented in this encounter Care Teams Web Systems Developer Relationship Specialty Start Date End Date Ramu Myers MD [address] [place] [address] PCP - General 05/21/16 documented as of this encounter
--- OUTSIDE RECORDS SUMMARY | 2025-03-29 11:08 | XMS_ITS | Clinical Summary ---
[facility] Organization [facility] Address [address] [place] [address] Care Team Providers Care Marriage And Family Therapist Name Role Phone Ramu Myers MD Primary Care Provider [phone] Allergies No known active allergies Medications omeprazole [...] every day 0 1 Active multivit with pcl-PD-ppgeuyge (ONE DAILY FOR MEN) 0.4-600 mg-mcg tablet [...] Description 01/30/2025 1:30 PM CDT Ancillary Procedure [facility] Group Cardiology [address] [place] [address] CHB (complete heart block) (HCC); Presence of cardiac pacemaker 01/30/2025 Orders Only [facility] Cardiology [address], [place] [address] Dillan Schmidt MD Presence of cardiac pacemaker (Primary Dx); Complete heart block (HCC) from Last 3 Months Surgical History Surgery Date Site/Laterality Comments HEMORRHOID SURGERY Hemorrhoidectomy CATARACT EXTRACTION INSERT / REPLACE / REMOVE PACEMAKER [facility] COLONOSCOPY CARDIAC CATHETERIZATION Medical History Medical History Date Comments Depression Depression Skin cancer Hypertension Hyperlipidemia Arrhythmia pacemaker [facility] e Aortic stenosis GERD (gastroesophageal reflux disease) [...] drink = 0.6 oz pur e alcohol) [facility] Utilities Answer Date Recorded In [...] place to sleep or slept in a senior living (including now)? No 12/14/2023 Personal Safety Answer Date Recorded Have you ever been in or are you currently in a harmful physical or emotional relationship or is someone making you feel afraid or unsafe? Denies 12/13/2023 Sex and Gender Information Value Date Recorded Sex Assigned at Not on file Legal Sex Male 2:00 AM DOG LICENSE OFFICER SUPERVISOR Gender Identity Not on file Sexual Orientation Not on file Obstetrics History Last Filed Vital Signs Vital Sign Reading Time Taken Comments Blood Pressure 130/70 09/21/2024 9:41 AM DOG LICENSE OFFICER SUPERVISOR Pulse 66 09/21/2024 9:41 AM DOG LICENSE OFFICER SUPERVISOR Temperature 36.3 C (97.4 F) 12/14/2023 12:13 PM DOG LICENSE OFFICER SUPERVISOR Respiratory Rate 18 12/14/2023 12:13 PM DOG LICENSE OFFICER SUPERVISOR Oxygen Saturation 94% 09/21/2024 9:41 AM DOG LICENSE OFFICER SUPERVISOR Inhaled Oxygen Concentration - - Weight 96.2 kg (212 lb) 09/21/2024 9:41 AM DOG LICENSE OFFICER SUPERVISOR Height 177.8 cm (5' 10 ) 09/21/2024 9:41 AM DOG LICENSE OFFICER SUPERVISOR Body Mass Index 30.42 09/21/2024 9:41 AM DOG LICENSE OFFICER SUPERVISOR Plan of Treatment Health Maintenance Due [...] history exists Medical Devices Implanted Type Area Visual And Stock Associate Device Identifier Shelf Expiration Date Model / Serial / Lot Pacemaker-07/27/20 11 Implanted: 011 by Briana Wright (Quantity not on file) Pacemaker Chest [facility] [employer] Device Closure Vascade Od5 Fr Femoral Artery [id number] - [id number] Implanted:Qty: 1 on 10/26/2023 by Bossman Gunter MD at [facility] [employer] 07/11/2025 700-500DX -05U / / [id number] S[employer] Vascular Device Clsr Perclose Prostyle Sut-Mediatd Closure-Repair Sys 99150-36 - [id number] Implanted:Qty: 1 on 12/13/2023 by Bossman Gunter MD at [facility] [employer] 09/13/2025 27517-22 / / [id number] [employer] V[employer] Device Clsr Perclose Prostyle Sut-Mediatd Closure-Repair Sys 51350-27 - [id number] Implanted:Qty: 1 on 12/13/2023 by Bossman Gunter MD at [facility] [employer] 08/13/2025 [id number] / / [id number] [employer] Carol 3 Commander Sharpe 26mm Transcatheter Ultra Low Profile [id number] - [id number] - [id number] Implanted:Qty: 1 on 12/13/2023 by Bossman Gunter MD at [facility] [employer] 09/12/2026 [id number] / [id number] / [employer]elo V[employer] Device Clsr Perclose Prostyle Sut-Mediatd Closure-Repair Sys 68098-13 - [id number] Implanted:Qty: 1 on 12/13/2023 by Bossman Gunter MD at [facility] [employer] 08/13/2025 29034-16 / / [id number] [employer] V[employer] Device Clsr Perclose Prostyle Sut-Mediatd Closure-Repair Sys 66711-80 - [id number] Implanted:Qty: 1 on 12/13/2023 by Bossman Gunter MD at [facility] [employer] 07/14/2025 24507-85 / / [id number] [employer] Device Vascular Closure Femoral Artery Bioabsorbable Dual Method Vascade 6-7fr Collagen [id number] - [id number] Implanted:Qty: 1 on 12/13/2023 by Bossman Gunter MD at [facility] [employer] [facility] 07/08/2025 700-580I- 05U / / [id number] Procedures Procedure Name Priority Date/Time Associated [...] chronic leads 07/27/2011 (Atrial lead insulation break-repaired). [place] remote monitoring Q3 mo. Battery Advisory. Supervising physician: Dr Wilson. Office DDD Pacemaker evaluation demonstrated normal device function. Left pectoral incision well healed without signs of infection noted. Battery function-2.99V, 4.5 years remaining battery life to ADRIANO. Appropriate lead measurements noted. Presenting xluhqe-KE-QM (SR). AP-39%, MARBLE MACHINE OPERATOR-23%. Medications; ASA 81 mg, Plavix, Propranolol, Verapamil. No mode switch episodes recorded. No ventricular arrhythmias noted. See scanned report. Office pacemaker f/u expected in 13-15 months to coordinate with Dr Schmidt visit. [place] remote f/u 05/07/2025. Alia Anna, RN Dillan Schmidt MD CV CARDIAC SERVICES [facility] Final Result from Last 3 Months Insurance MEDICARE MEDICARE BLUE CROSS MEDICARE SUPPLEMENT MEDICARE [facility] Advance Directives For more information, please contact: [phone] * Full Code (Latest Code Status on File) Date Activated Date Inactivated Comments 10/26/2023 9:56 AM 10/26/2023 4:20 PM Care Teams Marriage And Family Therapist Relationship Specialty Start Date End Date Ramu Myers MD [address] [place] [address] PCP - General 05/21/16
--- OUTSIDE RECORDS SUMMARY | 2025-03-29 11:08 | XMS_ITS | Encounter Summary ---
Author Organization [facility] Address [address] [place] [address] Care Team Providers Care Portrait Photographer Name Role Phone Ramu Myers MD Primary Care Provider [phone] Encounter Details Date Type Department Care Team (Late st Contact Info) Description 02/23/2017 Orders Only [facility] ProviderAnnalise MD [address] [place] [address] Social History Tobacco Use Types Packs/Day Years Used Date Smoking Tobacco: Former Cigarettes Q uit: 11/14/2002 Alcohol Use Standard Drinks/Week Comments No 0 (1 standard drink = 0.6 oz pur e alcohol) Sex and Gender Information Value Date Recorded Sex Assigned at Not on file Legal Sex Male 2:00 AM FLIGHT RADIO OPERATOR Gender Identity Not on file Sexual [...] on filedocumented in this encounter Care Teams Portrait Photographer Relationship Specialty Start Date End Date Ramu Myers MD [address] [place] [address] PCP - General 05/21/16 documented as of this encounter
--- OUTSIDE RECORDS SUMMARY | 2025-03-29 11:08 | XMS_ITS | Continuity of Care Document ---
Author Organization [facility] Address [address] [place] [address] [address] [place] [address] Phone Care Team Providers Care Reaming Machine Operator For Plastic Name Role Phone Optical [facility], [facility] Unavailable Unavail able Kathi Johnson Unavailable Unavailable Procedures Procedure Date Vision Svcs Frames Purchases TF Polycarb Sphcyl [place] To +/-4d .12-2d Tint Photochromatic, Polycarb 0 [...] Diagnoses Date Provider Providers Copied on Encounter [facility], [address], [place], [place], [id number], [place] tel:[phone] [facility] Corporate [place] No Information 0 0 [facility] . [address] [facility], [address], [place], [place], [address], [place]. tel:[phone] Referring Provider: Jhonny Cerda, [address], [place], [address]. tel:[phone] g Provider: Kathi Johnson, [address] [facility], [place], [address]. tel:[phone] [facility], [address], [place], [place], [id number], [place] tel:[phone] [facility] No Information Simon-0 9-201 0 Doisy Edward. [address] , [address], [place], [place], [facility], [place]. tel:[phone] Office/outpat ient Visit, Est [facility], [address] [place] [address] [address], [place], [place], [address], [place] tel:[phone] [facility] [place] No Information Sep-2 8-200 9 Doisy Edoli. [address] , [address], [place], [place], [facility], [place]. tel:[phone] [facility], [address] [place] [address] [address], [place], [place], [address], [place] tel:[phone] [facility] No Information Sep-1 6-200 9 Jensy Edward. [address] , [address], [place], [facility], [place]. tel:[phone] [facility], [address] [place] [address] [address], [place], [place], [address], [place] tel:[phone] [facility] No Information Nov-0 6-200 8 Sharri Hagenn. [address] , [address], [place], [facility], [place]. tel:[phone] [facility], [address] [place] [address] [address], [place], [place], [address], [place] tel:[phone] [facility] No Information Apr-2 6-200 7 Sharri Hagenn. [address] , [address], [place], [facility], [place]. tel:[phone] Referring Provider: Sena Guzman, [address], [place], [address]. tel:[phone] Family History Family Member Type Diagnosis Age [...]
--- OUTSIDE RECORDS SUMMARY | 2025-03-29 11:08 | XMS_ITS | Clinical Summary ---
Author Organization [facility] Address [address] [place] [address] Care Team Providers Care Ham Trimmer Name Role Phone Ramu Myers MD Primary Care Provider [phone] Allergies No known active allergies Medications rosuvastatin [...] total) by mouth daily. Active Glucosamine-Chondro itin 6335-1731 MG/30ML Liquid Take 1 tablet by mouth [...] 07/05/2023 Tremor 03/15/2023 Hypertriglyceridemia 12/31/2019 Pulmonary HTN ([facility]) 06/21/2017 Presence of cardiac pacemaker 06/21/2017 Overview (11/15/2024): St Dvae Dual Pacemaker. Dx; CHB. Gen change 01/24/2020, chronic leads 07/27/2011 (Atrial lead insulation break-repaired). Daniele remote monitoring Q3 mo. Battery Advisory. Nonrheumatic aortic valve stenosis 06/21/2017 HTN (hypertension), benign 06/21/2017 Resolved Problems Problem Noted Date Diagnosed Date Resolved Date Preop cardiovascular exam 10/10/2023 Encounters Date Type Department Care Team Description 02/20/2025 Telephone [facility] - [address] [place] [address] Tonio Roberts MD Problem 01/16/2025 11:40 AM WAREHOUSE TECHNICIAN Office Visit [facility] Multispecialty Care - [facility] [address], [address] [place] [address] Tonio Roberts MD Botox (Dystonia 100units/) 01/16/2025 Scan [facility] INFO SRVCS Scanned, [facility] 01/16/2025 Travel from Last 3 Months Immunizations Immunization Administration [...] Comments Blood Pressure 123/83 01/16/2025 11:32 AM WAREHOUSE TECHNICIAN Pulse 65 01/16/2025 11:32 AM WAREHOUSE TECHNICIAN Temperature 37.1 C (98.8 F) 01/16/2025 11:32 AM WAREHOUSE TECHNICIAN Respiratory Rate 18 10/19/2023 3:08 PM WAREHOUSE TECHNICIAN Oxygen Saturation 95% 01/16/2025 11:32 AM WAREHOUSE TECHNICIAN Inhaled Oxygen Concentration - - Weight 94.8 kg (209 lb) 10/24/2024 11:13 AM WAREHOUSE TECHNICIAN Height 180.3 cm (5' 11 ) 01/16/2025 11:32 AM WAREHOUSE TECHNICIAN Body Mass Index 29.15 08/01/2024 2:08 PM CDT Plan of Treatment Upcoming Encounters Date Type Department Care Team (Late st Contact Info) Description 04/10/2025 11:20 AM CDT Office Visit [facility] Multispecialty Care - [address], [address] [place] [id number] Tonio Roberts MD [address] [place] [address] Health Maintenance Due Date Last Done Comments DTaP, Tdap and Td Vaccines ( 1 - Tdap) 1958 Zoster Vaccines (1 of 2) 1989 Annual Medicare Wellness Visit 2004 RSV Immunization or 60+ Years (1 - 1-dose 75+ series) 2014 Pneumococcal Vaccine: 50+ Years (2 of 2 - PPSV23) 02/09/2018 12/15/2017 COVID-19 Vaccine (3 - 2023-2 5 season) 2024 01/30/2021, 01/09/2021 PHQ-2 (Physician [place]) 11/14/2024 10/24/2024 Meningococcal B Vaccine Aged Out No l onger eligible based on patient's age to complete this topic Meningococcal Vaccine Aged Out No elda karla eligible based on patient's age to complete this topic RSV Immunizations Under 20 Months Aged Out No longer eligible b ased on patient's age to complete this topic Insurance MEDICARE [facility] Care Teams Ham Trimmer Relationship Specialty Start Date End Date Ramu Myers MD [address] [place] [address] PCP - General INTERNAL MEDICINE 06/03/22
[2025-03-29 11:30] LABS: Basophils Percent Auto 0.6 % (0.2-1.2); Eosinophils Absolute Auto 0.5 K/mm3 (0-0.3); Hematocrit 40.6 % (42.0-52.0); Hemoglobin 13.2 g/dL (14.0-18.0); Immature Granulocyte Absolute 0.02 K/mm3 (0.00-0.031); Immature Granulocyte Percent A 0.3 % (0-0.5); Lymphocytes Absolute Auto 1.57 K/mm3 (0.9-3.2); Mean Corpuscular HGB Conc 32.5 g/dl (32-36); Mean Corpuscular Volume 95.3 fl (80-100); Monocytes Absolute Auto 0.7 K/mm3 (0.1-0.6); Monocytes Percent Auto 11.3 % (2.6-8.5); Neutrophils Absolute Auto 3.7 K/mm3 (1.3-6.7); Neutrophils Percent Auto 55.8 % (45.5-73.1); Platelet Count Result 197 k/mm3 (150-375); Red Blood Count 4.26 M/mm3 (4.6-6.20); Red Cell Distribution Width 14.9 % (11.5-14.5); White Blood Count 6.5 K/mm3 (4.5-10.0)
[2025-03-29 11:43] LABS: Alanine Aminotransferase 11 U/L (6-50); Albumin Level 4.3 g/dL (3.5-5.1); Alkaline Phosphatase 98 U/L (38-126); Anion Gap 11 mmol/L (4-12); Aspartate Amino Transferase 27 U/L (17-59); Bilirubin,Total 0.5 mg/dL (0.2-1.3); Blood Urea Nitrogen 15 mg/dL (9-20); Calcium 9.4 mg/dL (8.4-10.2); Carbon Dioxide 22 mmol/L (22-30); Chloride 103 mmol/L (98-107); Cholesterol 122 mg/dL (0-200); Estimated Glomerular Filt Rate > 60; Glucose 103 mg/dL (65-110); HDL Direct 37 mg/dL; Potassium 4.4 mmol/L (3.4-5.0); Sodium 136 mmol/L (137-145); Triglycerides 341 mg/dL (<150)
[2025-03-29 11:54] LABS: LDL Cholesterol Direct 37 mg/dL
[2025-03-29 13:41] LABS: Hemoglobin A1C 5.7 % (<5.7)
== END 2025-03-29 11:05 | disposition home or self-care (01) ==
PROVIDERS: PCP Internal Medicine; Visit Provider Internal Medicine
DX: E78.2 Mixed hyperlipidemia (principal); I10 Essential (primary) hypertension; E11.9 Type 2 diabetes mellitus without complications
CPT/HCPCS: 36415; 80053; 80061; 83036; 85025

== ENCOUNTER 2025-08-06 13:26 | Outpatient (CLI) | payer MEDICARE, SELFPAY ==
--- OUTSIDE RECORDS SUMMARY | 2010-06-11 19:00 | XMS_ITS | Continuity of Care Document ---
Author Organization [facility] Address [address] [place] [address] [address] [place] [address] Phone Care Team Providers Care Team Lead Name Role Phone [facility] Unavailable Unavail able Kathi Johnson Unavailable Unavailable Procedures Procedure Date Vision Svcs Frames Purchases TF Polycarb Sphcyl [place] To +/-4d .12-2d Tint Photochromatic, Polycarb 0 Medical Tax Eye Exam & Treatment Refraction Office/outpatient Visit, Est No Script Eye Exam Established Pt No Script Eye Exam & Treatment Refraction Dilated Macular Exam Performed 08 Eye Exam & Treatment Refraction Fundus Photography W/ Report Advance Directives Directive Yes / No Effective Date File Name No Information Encounters Encounter Description Practice Location Reason(s) For Visit Diagnoses Date Provider Providers Copied on Encounter [facility], [address], [place], [place], [id number], [place] tel:[phone] [facility] [place] No Information 0 0 [facility] . [address] [facility], [address], [place], [place], [id number], [place]. tel:[phone] Referring Provider: Jhonny Cerda, [address], [place], [address]. tel:[phone] g Provider: Kathi Johnson, [address] [facility], [place], [address]. tel:[phone] [facility], [address], [place], [place], [id number], [place] tel:[phone] [facility] No Information Simon-0 9-201 0 Doisy Edward. [address] , [address], [place], [place], [facility], [place]. tel:[phone] Office/outpat ient Visit, Est [facility], [address] [place] [address] [address], [place], [place], [id number], [place] tel:[phone] [facility] [place] No Information Sep-2 8-200 9 Doisy Edoli. [address] , [address], [place], [place], [facility], [place]. tel:[phone] [facility], [address] [place] [address] [address], [place], [place], [id number], [place] tel:[phone] [facility] No Information Sep-1 6-200 9 Jensy Edward. [address] , [address], [place], [facility], [place]. tel:[phone] [facility], [address] [place] [address] [address], [place], [place], [id number], [place] tel:[phone] [facility] No Information Nov-0 6-200 8 Sharri Hagenn. [address] , [address], [place], [place], [facility], [place]. tel:[phone] [facility], [address] [place] [address] [address], [place], [place], [id number], [place] tel:[phone] [facility] No Information Apr-2 6-200 7 Sharri Hagenn. [address] , [address], [place], [place], [facility], [place]. tel:[phone] Referring Provider: Sena Guzman, [address], [place], [address]. tel:[phone] Family History Family Member Type Diagnosis Age At Onset No Information Payers Payer name Insurance type Covered green party ID Authoriza tion(s) No Information Social History Type Description Quantity Date Captured Comments Sex Male Smoking Status No Information Chief Complaint And Reason For Visit No Information Reason For Referral Reason For Referral No Information History Of Present Illness Encounter Date Complaint History Of Prese nt Illness No Information Functional Status Date Functional Assessmen t No Information Instructions Date Instruction Additional Infor mation No Information Assessments Type Assessment Date No Information Patient Care Teams Name Effective Dates (start - stop) Status Members No Information
--- OUTSIDE RECORDS SUMMARY | 2025-08-06 13:35 | XMS_ITS | Encounter Summary ---
Author Organization [facility] Address [address] [place] [address] Care Team Providers Care Certified Nurse Operating Room Name Role Phone Ramu Myers MD Primary Care Provider [phone] Encounter Details Date Type Department Care Team (Late st Contact Info) Description 02/23/2017 Orders Only [facility] ProviderAnnalise MD [address] [place] [address] Social History Tobacco Use Types Packs/Day Years Used Date Smoking Tobacco: Former Cigarettes Q uit: 11/14/2002 Alcohol Use Standard Drinks/Week Comments No 0 (1 standard drink = 0.6 oz pur e alcohol) Sex and Gender Information Value Date Recorded Sex Assigned at Not on file Legal Sex Male 2:00 AM COMMUNITY ENGAGEMENT MANAGER Gender Identity Not on file Sexual [...] on filedocumented in this encounter Care Teams Certified Nurse Operating Room Relationship Specialty Start Date End Date Ramu Myers MD [address] [place] [address] PCP - General 05/21/16 documented as of this encounter
--- OUTSIDE RECORDS SUMMARY | 2025-08-06 13:35 | XMS_ITS | Clinical Summary ---
Author Organization [facility] Address [address] [place] [address] Care Team Providers Care Mud Mixer Name Role Phone Ramu Myers MD Primary Care Provider [phone] Allergies No known active allergies Medications omeprazole (PriLOSEC) 40 mg capsule take 1 capsule (40MG) by oral route every day before a meal 0 1 Active verapamil ER (VERELAN) 360 mg 24 hr capsule take 1 capsule (360MG) by oral route every day 0 1 Active Additional Information Patient taking differently:360 mgoral Nightly, Informant: Self, Reported on 04/19/2025 sertraline (ZOLOFT) 50 mg tablet take 1 tablet (50MG) by oral route every day 0 1 Active multivit with brb-BM-zgzygpon (ONE DAILY FOR MEN) 0.4-600 mg-mcg tablet [...] FOR SWELLING 30 tablet 3 4 Active Active Problems Problem Noted Date Diagnosed Date Leg edema, left 02/24/2024 S/p TAVR (transcatheter aort ic valve replacement), bioprosthetic 12/13/2023 Preop cardiovascular exam 10/10/2023 SOLORZANO (dyspnea on exertion) 07/05/2023 Visit for wound check 01/31/2020 Hypertriglyceridemia 12/31/2019 Presence of cardiac pacemaker 06/21/2017 Overview (08/24/2021): [facility] Dave Dual Pacemaker. Dx; CHB. Gen change 01/24/2020, chronic leads 07/27/2011 (Atrial lead insulation break-repaired). Banks remote monitoring Q3 mo. Battery Advisory. Nonrheumatic aortic valve stenosis 06/21/2017 HTN (hypertension), benign 06/21/2017 Pulmonary HTN 06/21/2017 Encounters Date Type Department Care Team Description 05/07/2025 7:45 AM CDT Ancillary Procedure [facility] Cardiology [address] [place] [address] Presence of cardiac pacemaker; Complete heart block (HCC) from Last 3 Months Surgical History Surgery Date Site/Laterality Comments HEMORRHOID SURGERY Hemorrhoidectomy CATARACT EXTRACTION INSERT / REPLACE / REMOVE PACEMAKER [facility] COLONOSCOPY CARDIAC CATHETERIZATION Medical History Medical History Date Comments Depression Depression Skin cancer Hypertension Hyperlipidemia Arrhythmia pacemaker [place] e Aortic stenosis GERD (gastroesophageal reflux disease) BPH (benign prostatic hyperplasia) Type 2 diabetes mellitus Parkinsons Familial tremor Arthritis Cataract Family History Medical [...] drink = 0.6 oz pur e alcohol) [facility] Utilities Answer Date Recorded In the past 12 months has [email or web address], gas, oil, or water [employer] threatened to shut off services in your home? No 12/14/2023 Social Connection and Isolation Panel Answer Date Recorded In a typical week, how many times do you talk on the phone with family, friends, or neighbors? Three times a week 12/14/2023 How often do you get togethe r with friends or relatives? Three times a week 12/14/2023 How often do you attend [facility] or congregation services? More than 4 times per year 12/14/2023 Do you belong to any clubs o r organizations such as oriental orthodox groups, unions, fraternal or athletic groups, [...] place to sleep or slept in a long term (including now)? No 12/14/2023 Personal Safety Answer Date Recorded Have you ever been in or are you currently in a harmful physical or emotional relationship or is someone making you feel afraid or unsafe? 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 Gender Identity Not on file Sexual Orientation Not on file Obstetrics History Last Filed Vital Signs Vital Sign Reading Time Taken Comments Blood Pressure 138/70 04/19/2025 10:30 AM CDT Pulse 69 04/19/2025 10:30 AM CDT Temperature 36.3 C (97.4 F) 12/14/2023 12:13 PM RELATIONSHIP ASSOCIATE Respiratory Rate 18 12/14/2023 12:13 PM RELATIONSHIP ASSOCIATE Oxygen Saturation 95% 04/19/2025 10:30 AM CDT Inhaled Oxygen Concentration - - Weight 93.9 kg (207 lb) 04/19/2025 10:30 AM CDT Height 177.8 cm (5' 10) 04/19/2025 10:30 AM CDT Body Mass Index 29.7 04/19/2025 10:30 AM CDT Plan of Treatment Health Maintenance Due Date Last Done Comments Depression Screening 1939 DTaP/Tdap/Td Vaccine (1 - Tdap) 1950 Hepatitis B Screening 1957 Zoster Vaccine (1 of 2) 1989 Well Visit 65+ 2004 Pneumococcal vaccine 65+ (2 of 2 - PCV20 or PCV21) 12/15/2018 12/15/2017 Fall Risk Assessment 12/14/2024 12/14/2023 Influenza Vaccine (#1) 2025 , 09/09/2020, 08/13/2019, Additional history exists Medical Devices Implanted Type Area Traffic Rate Analyst Device Identifier Shelf Expiration Date Model / Serial / Lot Pacemaker-07/27/20 11 Implanted: 011 by Briana Wright (Quantity not on file) Pacemaker Chest [facility] Medical [facility] Device Closure Vascade Od5 Fr Femoral Artery [id number] - [id number] Implanted:Qty: 1 on 10/26/2023 by Bossman Gunter MD at [facility] 07/11/2025 [id number] / / [id number] [employer] Device Clsr Perclose Prostyle Sut-Mediatd Closure-Repair Sys 10824-06 - [id number] Implanted:Qty: 1 on 12/13/2023 by Bossman Gunter MD at [facility] [employer] 09/13/2025 [id number] / / [id number] [employer] Device Clsr Perclose Prostyle Sut-Mediatd Closure-Repair Sys 60547-61 - [id number] Implanted:Qty: 1 on 12/13/2023 by Bossman Gunter MD at [facility] [employer] 08/13/2025 [id number] / / [id number] [employer] Carol 3 Commander Sharpe 26mm Transcatheter Ultra Low Profile [id number] - [id number] - [id number] Implanted:Qty: 1 on 12/13/2023 by Bossman Gunter MD at [facility] [employer] 09/12/2026 [id number] / [id number] / [employer] Device Clsr Perclose Prostyle Sut-Mediatd Closure-Repair Sys 68568-52 - [id number] Implanted:Qty: 1 on 12/13/2023 by Bossman Gunter MD at [facility] [employer] 08/13/2025 [id number] / / [id number] [employer] Device Clsr Perclose Prostyle Sut-Mediatd Closure-Repair Sys 62823-96 - [id number] Implanted:Qty: 1 on 12/13/2023 by Bossman Gunter MD at [facility] V[facility] 07/14/2025 [id number] / / [id number] [employer] [facility] Device Vascular Closure Femoral Artery Bioabsorbable Dual Method Vascade 6-7fr Collagen [id number] - [id number] Implanted:Qty: 1 on 12/13/2023 by Bossman Gunter MD at [facility] [employer] 07/08/2025 [id number] / / [id number] Procedures Procedure Name Priority Date/Time Associated Diagnosis Comments DEVICE CHECK - REMOTE Routine 05/21/2025 2:49 PM CDT Presence of cardiac pacemaker Complete heart block (HCC) from Last 3 Months Results * DEVICE CHECK - REMOTE (05/21/2025 2:49 PM CDT) Anatomical Region Laterality Modality Other Narrative 07/02/2025 11:[address] Dave Dual Pacemaker. Dx; CHB. Gen change 01/24/2020, chronic leads 07/27/2011 (Atrial lead insulation break-repaired). Daniele remote monitoring Q3 mo. Battery Advisory. Routine DDDR Pacemaker Remote. Transmission attached. Battery status: 2.98 V , 4.1 years remaining battery life to ADRIANO. Stable lead impedances, pacing and sensing thresholds. Presenting rhythm: /FLEXO PRESS OPERATOR AP-23%, FLEXO PRESS OPERATOR-70% 5 AMS episodes noted, longest episode was 1 minute and 54 seconds in duration, IEGM demonstrates AFib. AF [place] < 1%. No Ventricular high rate episodes detected. Medications: ASA 81 mg, propranolol 10 mg, verapamil ER 360 mg See scanned report. Office pacemaker follow up: 9 months Banks remote f/u 08/06/25. Danielito Alvarez RN us Dillan Schmidt MD [facility] Final Result from Last 3 Months Insurance MEDICARE [facility] Address: [facility] [address] [place] [address] MEDICARE BLUE CROSS MEDICARE SUPPLEMENT MEDICARE [facility] Advance Directives For more information, please contact: [phone] * Full Code (Latest Code Status on File) Date Activated Date Inactivated Comments 10/26/2023 9:56 AM 10/26/2023 4:20 PM Care Teams Mud Mixer Relationship Specialty Start Date End Date Ramu Myers MD [address] [facility] [address] [facility] [address] [place] [address] PCP - General 05/21/16
--- OUTSIDE RECORDS SUMMARY | 2025-08-06 13:35 | XMS_ITS | Encounter Summary ---
Author Organization [facility] Address [address] [place] [address] Care Team Providers Care Show Girl Name Role Phone Ramu Myers MD Primary Care Provider [phone] Encounter Details Date Type Department Care Team (Late st Contact Info) Description 05/24/2023 Orders Only [facility] Health Information Management [address] [place] [address] Scanning, Provider Social History Tobacco Use Types Packs/Day Years Used Date Smoking Tobacco: Former Pipe Q uit: 06/21/1999 Cigars Quit: 06/21/19 99 Smokeless Tobacco: Never Alcohol Use Standard Drinks/Week Comments No 0 (1 standard drink = 0.6 oz pur e alcohol) Sex and Gender Information Value Date Recorded Sex Assigned at Not on file Legal 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 Gender Identity Not on file Sexual Orientation Not on file documented as of this encounter Plan of Treatment Not on file documented as of this encounter Procedures Procedure Name Priority Date/Time Associated Diagnosis Comments SCAN - LABS 05/24/2023 documented in this encounter Results * SCAN - LABS (05/24/2023) us Provider Scanning Final Result documented in this encounter Visit Diagnoses Not on filedocumented in this encounter Care Teams Show Girl Relationship Specialty Start Date End Date Ramu Myers MD [address] [facility] [address] [place] [address] PCP - General 05/21/16 documented as of this encounter
--- OUTSIDE RECORDS SUMMARY | 2025-08-06 13:35 | XMS_ITS | Patient Health Record ---
Author Organization [facility] Address [address] [facility] [address] [place] [address] Care Team Providers Care Pin Ball Machine Mechanic Name Role Phone Hollis Booth Unavailable [phone] Reason For Referral No Information Medications Medication SIG (Take, Route, Frequency, Duration) Notes Start Date End Date Status ICOSAPENT ETHYL 1 GRAM CAPSULE *Reorder from [employer] for eRx and Interaction Alerts* Active Rosuvastatin Calcium 10 MG Tablet Oral Active Verapamil HCl 360 mg Capsule Extended Release 24 Hour Oral *Pick strength-form from [employer] for eRX* Active prednisoLONE Acetate 1 % Suspension Ophthalmic Active Supartz FX 10 mg/mL Solution Prefilled Syringe Intra-articular *Pick strength-form from [employer] for eRX* Active Hydrocortisone 2.50% Cream External Active Carbidopa-Levodopa 25-100 MG Tablet Oral Active metFORMIN HCl 500 MG Tablet Oral Active Gabapentin 600 MG Tablet Oral Active Sertraline HCl 100 MG Tablet Oral Active Propranolol HCl 10 MG Tablet Oral Active Tamsulosin HCl 0.4 MG Capsule Oral Active valACYclovir HCl 1 GM Tablet Oral Active ALPRAZolam 0.25 MG Tablet Oral Active LORazepam 0.5 MG Tablet Oral Active Ofloxacin 0.30% Solution Ophthalmic Active Primidone 50 MG Tablet Oral Active predniSONE 5 MG Tablet Oral Active traMADol HCl 50 MG Tablet Oral Active Sertraline HCl 50 MG Tablet Oral Active Lisinopril 2.5 MG Tablet Oral Active Ketoconazole 2% Cream External Active Omeprazole 40 MG Capsule Delayed Release Oral Active Ketorolac Tromethamine 0.5 % Solution Ophthalmic Active Finasteride 5 MG Tablet Oral Active Plan Of Treatment No Information
--- OUTSIDE RECORDS SUMMARY | 2025-08-06 13:35 | XMS_ITS | Encounter Summary ---
Author Organization [facility] Address [address] [place] [address] Care Team Providers Care Quality Assurance Inspector Name Role Phone Ramu Myers MD Primary Care Provider [phone] Encounter Details Date Type Department Care Team (Late st Contact Info) Description 11/16/2016 Orders Only [facility] ProviderAnnalise MD [address] [place] [address] Social History Tobacco Use Types Packs/Day Years Used Date Smoking Tobacco: Former Cigarettes Q uit: 11/14/2002 Alcohol Use Standard Drinks/Week Comments No 0 (1 standard drink = 0.6 oz pur e alcohol) Sex and Gender Information Value Date Recorded Sex Assigned at Not on file 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
--- OUTSIDE RECORDS SUMMARY | 2025-08-06 13:35 | XMS_ITS | Encounter Summary ---
Author Organization [facility] Address [address] [facility] [place] [address] Care Team Providers Care Clinical Practitioner Name Role Phone Unavailable Primary Care Provider Unavailabl e Encounter Details Date Type Department Care Team (Late st Contact Info) Description 03/21/2024 Lab Requisition [facility] - DermPath Lab [address] [place] [id number] Estela Sorensen MD [address] [place] [address] Social History Tobacco Use Types Packs/Day Years Used Date Smoking Tobacco: Never Assessed Sex and Gender Information Value Date Recorded Sex Assigned at Not on file Legal Sex Male 5:39 PM DEVELOPMENT CONSULTANT Gender Identity Not on file Sexual Orientation Not on file documented as of this encounter Plan of Treatment Not on file documented as of this encounter Procedures Procedure Name Priority Date/Time Associated Diagnosis Comments DERMATOPATHOLOGY Routine 03/21/2024 12:1 9 PM CDT documented in this encounter Results * DERMATOPATHOLOGY (03/21/2024 12:19 PM CDT) Case Report Dermatopathology Report Case: [id number] Authorizing Provider: Estela Sorensen MD Collected: 03/21/2024 12:19 PM Ordering Location: [facility] - Received: 03/22/2024 11:44 AM DermPath Lab Pathologist: Alphonso Powell MD Specimen: Skin, left ala 2:14 PM CDT DERMATOPATHOLOGY LABORATORY Final Diagnosis Specimen A. 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 Fercho Powell. These tests need not be, and therefore are not, approved by the [place] Food and Drug Administration. The tests are used for clinical purposes. Billing Codes Specimen Charges Stain Charges 13762 1 2:14 PM CDT DERMATOPATHOLOGY LABORATORY Embedded Images 2:14 PM CDT DERMATOPATHOLOGY LABORATORY Pathology/Cytolo gy TISSUE SPECIMEN FROM SKIN / Unknown 03/21/2024 12:19 PM CDT 03/22/2024 11:44 AM CDT Estela Sorensen MD LAB - PATHOLOGY/CYTOLOGY ORDERA BLES Final Result DERMATOPATHOLOGY LABORATORY [facility] - Department of Dermatology [address] [place] [address], [facility] [phone] documented in this encounter Visit Diagnoses Not on filedocumented in this encounter
--- OUTSIDE RECORDS SUMMARY | 2025-08-06 13:35 | XMS_ITS | Encounter Summary ---
Author Organization [facility] Healthcare Address [address] [place] [address] Care Team Providers Care Yolk Spray Drier Name Role Phone Ramu Myers MD Primary Care Provider Encounter Details Date Type Department Care Team (Late st Contact Info) Description 05/02/[address] 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 Gender Identity Not on file Sexual Orientation Not on file documented as of this encounter Plan of Treatment Not on file documented as of this encounter Procedures Procedure Name Priority Date/Time Associated Diagnosis Comments SCAN - RADIOLOGY/IMAGING 05/02/2023 documented in this encounter Results * SCAN - RADIOLOGY/IMAGING (05/02/2023) Anatomical Region Laterality Modality Other us Provider Scanning Final Result documented in this encounter Visit Diagnoses Not on filedocumented in this encounter Care Teams Yolk Spray Drier Relationship Specialty Start Date End Date Ramu Myers MD [address] [place] [address] PCP - General 05/21/16 documented as of this encounter
--- OUTSIDE RECORDS SUMMARY | 2025-08-06 13:35 | XMS_ITS | Clinical Summary ---
Author Organization [facility] Address [address] [place] [address] Care Team Providers Care Stunt Person Name Role Phone Unavailable Primary Care Provider Unavailabl e Source Comments [facility],non-owned Affiliates and Associated Physician Practices is amultiple site organization consisting of ambulatory clinics and hospital sitesin [place], [place], [place]. This disclosure is being madepursuant to the Care Everywhere program and may not contain all information available regarding this patient. 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
--- OUTSIDE RECORDS SUMMARY | 2025-08-06 13:35 | XMS_ITS | Encounter Summary ---
Author Organization [facility] Address [address] [place] [address] Care Team Providers Care Liquid Chlorine Operator Name Role Phone Unavailable Primary Care Provider Unavailabl e Encounter Details Date Type Department Care Team (Late st Contact Info) Description 09/18/2020 Lab Requisition [facility] DermPath Lab [address] [facility], [place] [id number] Anna Morel MD [address] [facility] [address] [place] [address] Social History Tobacco Use Types Packs/Day Years Used Date Smoking Tobacco: Never Assessed Sex and Gender Information Value Date Recorded Sex Assigned at Not on file Legal Sex Male 5:39 PM MECHANICAL SHOP LABORER Gender Identity Not on file Sexual Orientation Not on file documented as of this encounter Plan of Treatment Not on file documented as of this encounter Procedures Procedure Name Priority Date/Time Associated Diagnosis Comments DERMATOPATHOLOGY Routine 09/17/2020 12:0 0 AM MECHANICAL SHOP LABORER documented in this encounter Results * DERMATOPATHOLOGY (09/17/2020 12:00 AM MECHANICAL SHOP LABORER) Case Report Dermatopathology Report Case: [id number] Authorizing Provider: Anna Morel MD Collected: 09/17/2020 12:00 AM Ordering Location: [facility] DermPath Lab Received: 09/18/2020 07:55 AM Pathologist: Kiarra Guzman MD Specimen: Skin, left post ear 0 2:37 PM MECHANICAL SHOP LABORER DERMATOPATHOLOGY LABORATORY Final Diagnosis Specimen A. 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 0 2:37 PM [facility] DERMATOPATHOLOGY LABORATORY Gross Description Specimen A: Received is one formalin filled container labeled with the patient's name and designated left post ear. The specimen consists of a shave measuring [id number]. Jar 0. 0 2:37 PM [facility] DERMATOPATHOLOGY LABORATORY Microscopic Description Specimen A. SKIN, left post ear: The epidermis is acanthotic and shows full thickness disorderly maturation of keratinocytes, mitoses at different levels, and dyskeratotic cells. There is overlying parakeratosis and hyperkeratosis. 0 2:37 PM [facility] DERMATOPATHOLOGY LABORATORY Disclaimer An external and internal positive and negative controls are appropriate for the histochemical, immunohistochemical and immunofluorescence stain(s) in this case (if any), except where stated explicitly. The performance characteristics of the stain(s) cited in this report were developed and its performance characteristic determined by the Dermatopathology Laboratory at [facility], directed by Dr. Fercho Powell. These tests need not be, and therefore are not, approved by the [place] Food and Drug Administration. The tests are used for clinical purposes. Billing Codes Specimen Charges Stain Charges 88178 1 0 2:37 PM [facility] DERMATOPATHOLOGY LABORATORY Embedded Images 0 2:37 PM [facility] DERMATOPATHOLOGY LABORATORY Pathology/Cytolog y TISSUE SPECIMEN FROM SKIN / Unknown 09/17/2020 09/18/2020 7:55 AM MECHANICAL SHOP LABORER Anna Morel MD LAB - PATHOLOGY/CYTOLOGY OR DERABLES Final Result DERMATOPATHOLOGY LABORATORY [facility] - Department of Dermatology [address] [place] [address], [facility] [phone] documented in this encounter Visit Diagnoses Not on filedocumented in this encounter
--- OUTSIDE RECORDS SUMMARY | 2025-08-06 13:35 | XMS_ITS | Encounter Summary ---
Author Organization [facility] Healthcare Address [address] [place] [address] Care Team Providers Care Watch Leader Name Role Phone Ramu Myers MD Primary Care Provider [phone] Encounter Details Date Type Department Care Team (Late st Contact Info) Description 11/21/2024 Orders Only [facility] Health Information Management [address] [place] [id number] Scanning, Provider Social History Tobacco Use Types Packs/Day Years Used Date Smoking Tobacco: Former Pipe Q uit: 06/21/1999 Cigars Quit: 06/21/19 99 Smokeless Tobacco: Never Alcohol Use Standard Drinks/Week Comments No 0 (1 standard drink = 0.6 oz pur e alcohol) [facility] Utilities Answer Date Recorded In the past 12 months has [employer], gas, oil, or water company threatened to [...] often do you attend chur ch or protestant services? More than 4 times per year [...] place to sleep or slept in a care home (including now)? No 12/14/2023 Personal Safety Answer Date Recorded Have you ever been in or are you currently in a harmful physical or emotional relationship or is someone making you feel afraid or unsafe? 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 Gender Identity Not on file Sexual Orientation Not on file documented as of this encounter Plan of Treatment Not on file documented as of this encounter Procedures Procedure Name Priority Date/Time Associated Diagnosis Comments SCAN - RADIOLOGY/IMAGING 11/21/2024 documented in this encounter Results * SCAN - RADIOLOGY/IMAGING (11/21/2024) Anatomical Region Laterality Modality Other us Provider Scanning Final Result documented in this encounter Visit Diagnoses Not on filedocumented in this encounter Care Teams Watch Leader Relationship Specialty Start Date End Date Ramu Myers MD [address] [place] [address] PCP - General 05/21/16 documented as of this encounter
[2025-08-06 14:17] LABS: Hematocrit 44.4 % (42.0-52.0); Hemoglobin 14.3 g/dL (14.0-18.0); Immature Granulocyte Percent A 0.4 % (0-0.5); Lymphocytes Absolute Auto 1.64 K/mm3 (0.9-3.2); Mean Corpuscular HGB Conc 32.2 g/dl (32-36); Mean Corpuscular Hemoglobin 29.2 pg (26-34); Mean Corpuscular Volume 90.8 fl (80-100); Nucleated Red Blood Cells Absolute Auto 0.000 K/mm3 (0.0-0.012); Nucleated Red Blood Cells Perc 0.0 % (0.0-0.2); Platelet Count Result 200 k/mm3 (150-375); Red Blood Count 4.89 M/mm3 (4.6-6.20); White Blood Count 8.4 K/mm3 (4.5-10.0)
[2025-08-06 14:31] LABS: Anion Gap 12 mmol/L (4-12); Blood Urea Nitrogen 20 mg/dL (9-20); Calcium 9.1 mg/dL (8.4-10.2); Carbon Dioxide 24 mmol/L (22-30); Chloride 99 mmol/L (98-107); Cholesterol 129 mg/dL (0-200); Estimated Glomerular Filt Rate > 60; Glucose 162 mg/dL (65-110); HDL Direct 39 mg/dL; Potassium 4.1 mmol/L (3.4-5.0); Sodium 135 mmol/L (137-145); Triglycerides 221 mg/dL (<150)
[2025-08-06 14:37] LABS: Hemoglobin A1C 6.3 % (<5.7)
[2025-08-06 14:51] LABS: Free T4 Free Thyroxine 0.72 ng/dL (0.78-2.19)
[2025-08-06 15:02] LABS: Thyroid Stimulating Hormone 1.490 uIU/mL (0.465-4.680)
== END 2025-08-06 13:27 | disposition home or self-care (01) ==
LOC: ANHLAB 13:28
PROVIDERS: PCP Internal Medicine; Visit Provider Internal Medicine
DX: I10 Essential (primary) hypertension (principal); E78.2 Mixed hyperlipidemia; E11.9 Type 2 diabetes mellitus without complications; Z79.899 Other long term (current) drug therapy; Z13.29 Encounter for screening for other suspected endocrine disorder
CPT/HCPCS: 36415; 80048; 80061; 83036; 84439; 84443; 85025